=== PATIENT | female | born 1985 | race African-American/Black ===

== ENCOUNTER 2020-06-25 18:37 | Emergency (ER) | payer OTHER, MEDICAID, SELFPAY ==
[2020-06-25 18:39] VITALS: BP 138/89; PULSE 74; RESP 16; TEMP 36.3; O2SAT 98
--- NOTE | 2020-06-25 19:33 | ED.GENADULT ---
HPI - General Adult General Chief complaint: Ear Stated complaint: right ear pain Time Seen by Provider: 06/25/20 19:00 Source: patient Mode of arrival: ambulatory Limitations: no limitations History of Present Illness HPI narrative: Patient is a 35-year-old female who presents complaining of right ear pain x1 day. Patient reports swelling behind her right ear. She reports a recent dental right upper infection and reports taking penicillin 3 to 4 weeks ago. Patient reports she is seeing dentist on Monday. She reports pain of 6/10. She denies sore throat, rhinorrhea, congestion, fever or body aches. She denies taking [id number]-[id number] medications for pain at this time. MD complaint: Posterior ear pain Related Data Home Medications Medication Instructions Recorded Confirmed furosemide [Lasix] 20 mg PO DAILY 06/25/20 Allergies Allergy/AdvReac Type Severity Reaction Status Date / Time No Known Allergies Allergy Verified 06/25/20 18:39 Review of Systems Review of Systems: Narrative: CONSTITUTIONAL: Denies fever, chills, or sweats. EYES: Denies visual changes, redness, or discharge. ENT: Denies rhinorrhea, congestion, sore throat, reports right posterior ear pain. CARDIOVASCULAR: Denies chest pain, palpitations, or edema. RESPIRATORY: Denies cough or dyspnea. GASTROINTESTINAL: Denies abdominal pain, nausea, vomiting, or diarrhea. GENITOURINARY: Denies dysuria or hematuria. SKIN: Denies rash or itching. MUSCULOSKELETAL: Denies back pain, joint pain, or myalgia. NEUROLOGIC: Denies headache, numbness, dizziness, or weakness. PSYCHIATRIC: Denies anxiety or depression. [facility] Past Medical History Medical History (Updated 06/25/20 @ 19:55 by PARTHA Joshi) Abnormal uterine bleeding Anemia Edema Fibroids Ulcer UTI (urinary tract infection) Surgical History Surgical History (Updated 06/25/20 @ 19:43 by PARTHA Joshi) H/O gastric bypass Family History Family History Other Diabetes mellitus Family history of elevated blood lipids Hypertension Social History Social History Smoking status: Never smoker Alcohol intake: never Gender identity (if verbalized by the patient): Female Exam Narrative: Exam Narrative: GENERAL: Well-appearing, well-nourished, and in no acute distress. HEAD: Normocephalic, atraumatic. EYES: EOMI. No redness or drainage. Conjunctiva are normal. ENT: Mucous membranes pink and moist. Nares clear. No rhinorrhea. TMs normal bilaterally. Right posterior auricular lymphadenopathy and tenderness. Throat normal. Uvula midline. NECK: AROM. Supple. No lymphadenopathy. CHEST: No respiratory distress. Clear to auscultation. HEART: Regular rate and rhythm. No murmur appreciated. Normal peripheral pulses. EXTREMITIES: Normal range of motion. SKIN: Warm, dry, no rash. NEURO: No focal deficits. Alert and oriented x3. Gait steady. PSYCH: Normal affect. No signs of depression or anxiety. Course Vital Signs Vital signs: Vital Signs Temperature 36.3 C L 06/25/20 18:39 Pulse Rate 74 06/25/20 18:39 Respiratory Rate 16 06/25/20 18:39 Blood Pressure 138/89 06/25/20 18:39 Pulse Oximetry 98 06/25/20 18:39 Temperature 36.3 C L 06/25/20 18:39 Pulse Rate 74 06/25/20 18:39 Respiratory Rate 16 06/25/20 18:39 Blood Pressure 138/89 06/25/20 18:39 Pulse Oximetry 98 06/25/20 18:39 Reviewed. Patient has been instructed to follow-up with her PCP regarding her blood pressure. Medical Decision Making MDM Narrative Medical decision making narrative: Patient shows right posterior auricular lymphadenopathy. Right TM is intact and normal with visualization. Patient reports dental infection approximately 1 month ago and reports finishing penicillin approximately 2 weeks ago. Patient's lymphadenopathy likely caused by dental infection whi
[2020-06-25 20:16] VITALS: BP 133/75; PULSE 69; RESP 15; O2SAT 100
== END 2020-06-25 20:16 | disposition home or self-care (01) ==
PROVIDERS: Emergency Provider Nurse Practitioner; PCP Internal Medicine
DX: R59.1 Generalized enlarged lymph nodes (principal); Z87.440 Personal history of urinary (tract) infections; Z98.84 Bariatric surgery status
CPT/HCPCS: 99283

== ENCOUNTER 2020-09-09 19:15 | Emergency (ER) | payer OTHER, MEDICAID, SELFPAY ==
[2020-09-09 19:17] VITALS: BP 118/68; PULSE 75; RESP 16; TEMP 36.3; O2SAT 100
[2020-09-09 19:24] VITALS: BP 118/68; PULSE 75; RESP 18; TEMP 36.3; O2SAT 100
--- NOTE | 2020-09-09 20:10 | ED.GENADULT ---
HPI - General Adult General Chief complaint: Eye Problems Stated complaint: L EYE IRRITATION X1D Time Seen by Provider: 09/09/20 19:21 Source: patient Mode of arrival: ambulatory Limitations: no limitations History of Present Illness HPI narrative: Patient presents with chief complaint of his hearing and radiates of the left. Patient states it initially began irritating after wearing false eyelashes and noticing that the glue was irritating. Patient states she stopped wearing them approximately 3 days ago. Patient states over the past day she has noticed some redness and irritation as well as tearing. She denies any vision changes, headache, nausea, vomiting, or crusting. Patient states she normally has dry eyes so she uses artificial tears but otherwise does not use contact lenses. Patient denies any allergies to any medications. Patient denies any foreign bodies to her eye or any trauma to her eye. Related Data Home Medications Medication Instructions Recorded Confirmed furosemide [Lasix] 20 mg PO DAILY 06/25/20 Allergies Allergy/AdvReac Type Severity Reaction Status Date / Time No Known Allergies Allergy Verified 09/09/20 19:19 Review of Systems Review of Systems: Narrative: CONSTITUTIONAL: Denies fever, chills, or sweats. EYES: Reports diffuse redness left eye and tearing denies visual changes ENT: Denies rhinorrhea, congestion, sore throat, or otalgia. CARDIOVASCULAR: Denies chest pain, palpitations, or edema. RESPIRATORY: Denies cough or dyspnea. GASTROINTESTINAL: Denies abdominal pain, nausea, vomiting, or diarrhea. GENITOURINARY: Denies dysuria or hematuria. SKIN: Denies rash or itching. MUSCULOSKELETAL: Denies back pain, joint pain, or myalgia. NEUROLOGIC: Denies headache, numbness, dizziness, or weakness. PSYCHIATRIC: Denies anxiety or depression. [facility] Past Medical History Medical History (Updated 09/09/20 @ 20:22 by Layla Chris PA-C) Abnormal uterine bleeding Anemia Edema Fibroids Ulcer UTI (urinary tract infection) Surgical History Surgical History (Updated 06/25/20 @ 19:43 by PARTHA Joshi) H/O gastric bypass Family History Family History Other Diabetes mellitus Family history of elevated blood lipids Hypertension Social History Social History Smoking status: Never smoker Alcohol intake: never Gender identity (if verbalized by the patient): Female Exam Narrative: Exam Narrative: GENERAL: Well-appearing, well-nourished, and in no acute distress. HEAD: Normocephalic, atraumatic. EYES: PERRLA and EOMI. there is diffuse erythema/irritation to the conjunctiva of the left eye. There is clear tearing without erythema. No foreign bodies noted to sclera. NECK: Supple. No adenopathy or masses. CHEST: Clear to auscultation. No respiratory distress. No wheezes rales or rhonchi HEART: Regular rate and rhythm. No murmur heard. Normal peripheral pulses. ABDOMEN: Soft, nontender, nondistended, normal active bowel sounds. EXTREMITIES: Normal range of motion. No edema. SKIN: Warm, dry, no rash. NEURO: No focal deficits. Alert and oriented x3. PSYCH: Normal mood and affect. Course Vital Signs Vital signs: Vital Signs Temperature 97.3 F L 09/09/20 19:17 Pulse Rate 75 09/09/20 19:17 Respiratory Rate 16 09/09/20 19:17 Blood Pressure 118/68 09/09/20 19:17 Pulse Oximetry 100 09/09/20 19:17 Temperature 97.3 F L 09/09/20 19:24 Pulse Rate 75 09/09/20 19:24 Respiratory Rate 18 09/09/20 19:24 Blood Pressure 118/68 09/09/20 19:24 Pulse Oximetry 100 09/09/20 19:24 Medical Decision Making MDM Narrative Medical decision making narrative: Patient denies foreign body or trauma to her left eye. Patient will be treated with ocular antibiotic and she has been instructed to call the [employer] [facility] office tomorrow to
== END 2020-09-09 20:31 | disposition home or self-care (01) ==
PROVIDERS: Emergency Provider Emergency Medicine; PCP Internal Medicine
DX: H10.9 Unspecified conjunctivitis (principal); B96.89 Other specified bacterial agents as the cause of diseases classified elsewhere
CPT/HCPCS: 99283

== ENCOUNTER 2020-09-20 03:20 | Emergency (ER) | payer OTHER, MEDICAID, SELFPAY ==
[2020-09-20 03:23] VITALS: BP 131/92; PULSE 90; RESP 18; TEMP 36.7; O2SAT 98
--- NOTE | 2020-09-20 03:36 | ED.NAVMDI ---
HPI - Nausea/Vomiting/Diarrhea General Chief complaint: Nausea/Vomiting/Diarrhea Stated complaint: N/V Time Seen by Provider: 09/20/20 03:29 Source: RN notes reviewed History of Present Illness HPI Narrative: Patient presents to emergency department from work for nausea and vomiting. Patient states that she was at work this evening she states she felt fine at work but normally eats her lunch at approximately 1 PM but it was delayed until approximately an hour and a half ago she is that time she ate chicken and rice and believes she had to fast and had 1 episode of emesis following that. She states that since that time she has had no complaints she denies any fevers or chills abdominal pain any further nausea or vomiting or diarrhea she states that her boss insisted that she come to the emergency department to be evaluated and she denies any complaints at this time Related Data Home Medications Medication Instructions Recorded Confirmed furosemide [Lasix] 20 mg PO DAILY 06/25/20 Allergies Allergy/AdvReac Type Severity Reaction Status Date / Time No Known Allergies Allergy Verified 09/20/20 03:26 Review of Systems Review of Systems: Narrative: Gen.: Denies fevers or chills Eyes: Denies eye pain or visual change ENT: Denies congestion Respiratory: Denies shortness of breath or cough CV: Denies chest pain or palpitations GI: Denies abdominal pain reports emesis x1 denies diarrhea Musculoskeletal: Denies back pain or muscle pain Neuro: Denies numbness, tingling, weakness or focal weakness Skin: Denies rash Except as documented, all other systems reviewed and negative [facility] Past Medical History Medical History (Updated 09/20/20 @ 04:01 by Markus Alvarez DO) Abnormal uterine bleeding Anemia Edema Fibroids Ulcer UTI (urinary tract infection) Surgical History Surgical History (Updated 09/20/20 @ 03:41 by Markus Alvarez DO) H/O gastric bypass H/O tubal ligation Family History Family History Other Diabetes mellitus Family history of elevated blood lipids Hypertension Social History Social History Smoking status: Never smoker Alcohol intake: never Gender identity (if verbalized by the patient): Female Exam Narrative: Exam Narrative: APPEARANCE: No acute distress, nontoxic, resting in bed EYES: EOMI HEENT: Normocephalic, atraumatic, OMM RESPIRATORY: No respiratory distress Clear to auscultation bilaterally with no rhonchi wheezing or rales. CARDIOVASCULAR: Regular rate and rhythm without murmurs rubs or gallops. ABDOMINAL: Soft, nontender, nondistended, no rebound or guarding MUSCULOSKELETAl: Moves all extremities. No clubbing, cyanosis or edema. NEURO: Awake and alert. Following commands, speech normal, no focal deficits SKIN:: Warm, dry. No rashes lesions or abrasions PSYCHIATRIC: Normal affect/mood, Course Course Emergency Course: Patient ate and drink in the ED with no emesis continues to deny any symptoms in the emergency department Discussed with patient results of workup and diagnosis. Discussed need for follow-up with primary care, proper use of medication, and reasons to return to the emergency department. Patient understands and agrees to current treatment plan Vital Signs Vital signs: Vital Signs Temperature 98.1 F 09/20/20 03:23 Pulse Rate 90 09/20/20 03:23 Respiratory Rate 18 09/20/20 03:23 Blood Pressure 131/92 H 09/20/20 03:23 Pulse Oximetry 98 09/20/20 03:23 Temperature 98.1 F 09/20/20 03:23 Pulse Rate 90 09/20/20 03:23 Respiratory Rate 18 09/20/20 03:23 Blood Pressure 131/92 H 09/20/20 03:23 Pulse Oximetry 98 09/20/20 03:23 Discharge Plan Discharge Clinical Impression: Nausea & vomiting Patient Disposition: Home, Self-Care Condition: Stable Instructions: Antibiotic Form, Acute Nausea and Vomiting (ED)
[2020-09-20 04:26] VITALS: BP 129/85; PULSE 81; RESP 20; O2SAT 97
== END 2020-09-20 04:29 | disposition home or self-care (01) ==
LOC: ANHED 04:10
PROVIDERS: Emergency Provider Emergency Medicine; PCP Internal Medicine
DX: R11.2 Nausea with vomiting, unspecified (principal); Z86.2 Personal history of diseases of the blood and blood-forming organs and certain disorders involving the immune mechanism; Z87.440 Personal history of urinary (tract) infections
CPT/HCPCS: 99281

== ENCOUNTER 2020-10-07 02:35 | Emergency (ER) | payer OTHER, MEDICAID, SELFPAY ==
[2020-10-07] VITALS (7 sets, daily range): BP systolic 106–121; BP diastolic 62–94; PULSE 66–87; RESP 18–22; TEMP 37.1; O2SAT 96–100
--- NOTE | 2020-10-07 02:51 | ECG_ITS ---
Measurements Intervals [place] Rate: 73 P: 22 NM: 159 QRS: 34 QRSD: 78 T: 12 QT: 377 QTc: 418 Interpretive Statements SINUS RHYTHM BASELINE ARTIFACT- I, II, III NORMAL ECG Electronically Signed On 10-07-2020 7:06:41 [employer] by Trevor Dawn D.O.
--- NOTE | 2020-10-07 03:22 | ED.GENADULT ---
HPI - General Adult General Chief complaint: Unspecified Stated complaint: nausea/dizzy, ate 2 marijuana edibles Time Seen by Provider: 10/07/20 02:42 Source: patient Mode of arrival: EMS Limitations: other (poor historian) History of Present Illness HPI narrative: This patient is a 35 year old female who presents for evaluation of possible accidental drug ingestion. She states tonight around 8 pm she went to dinner with her fiance'. Prior to that she reports eating what she thought was popcorn. She is unable to quantify how much she ate. After she returned from dinner, she developed sudden onset of dizziness, nausea and sense that she was going to . She reports she did not feel right so she called the police around 1 am. She states the police told her she ate some edibles. She declined to come to ER at that time. She reports she started having nausea and dry heaves so she decided to come to ER. She denies previous drug use. She reports she had a small amount of alcohol at dinner, and she rarely drinks alcohol. She denies chest pain, cough, fever, chills. Related Data Home Medications Medication Instructions Recorded Confirmed furosemide [Lasix] 20 mg PO DAILY 06/25/20 calcium carbonate-vitamin D3 tablet PO 10/07/20 cholecalciferol (vitamin D3) 10/07/20 ferrous sulfate mg 10/07/20 mecobalamin (vitamin B12) mcg 10/07/20 multivitamin tablet 10/07/20 Allergies Allergy/AdvReac Type Severity Reaction Status Date / Time No Known Allergies Allergy Verified 10/07/20 02:43 Review of Systems Review of Systems: All systems reviewed & are unremarkable except as noted in HPI and below PMFSH Past Medical History Medical History (Updated 10/07/20 @ 05:05 by Rena Rothman MD) Abnormal uterine bleeding Anemia Edema Fibroids Ulcer UTI (urinary tract infection) Surgical History Surgical History (Updated 09/20/20 @ 03:41 by Markus Alvarez DO) H/O gastric bypass H/O tubal ligation Family History Family History Other Diabetes mellitus Family history of elevated blood lipids Hypertension Social History Social History Smoking status: Never smoker Alcohol intake: never Gender identity (if verbalized by the patient): Female Sexual Orientation (if Verbalized by the Patient): Straight or Heterosexual Exam Narrative: Exam Narrative: GENERAL: Well-appearing, well-nourished, and in no acute distress. HEAD: Normocephalic, atraumatic EYES: PERRLA and EOMI, conjunctiva clear without discharge EARS: TM's clear bilaterally without erythema or dullness NOSE: Nares clear, no rhinorrhea or epistaxis THROAT:Mucous membranes moist, Oropharynx normal without erythema, exudate, peritonsillar swelling or fluctuance NECK: Supple, without lymphadenopathy or mass RESPIRATORY: No respiratory distress, Airway patent, Respirations non-labored, Clear to auscultation without rales, rhonchi or wheeze HEART: Regular rate and rhythm. No murmur heard. Normal peripheral pulses. ABDOMEN: Soft, nontender, nondistended, normal active bowel sounds. No masses. No rebound or guarding, No organomegaly. EXTREMITIES: No edema, normal strength with full range of motion. SKIN: Warm, dry, normal color without rash NEURO: Alert and oriented x3. CN 2-12 grossly intact. No focal deficits. PSYCH: Normal mood and affect. Course Reevaluation(s) Reevaluation #1: PAtient has been up and ambulatory with steady gait. She reports she feels better. I have discussed drug screen. She states she would like to be discharge and she will take a cab home Date: 10/07/20 Time: 05:00 Vital Signs Vital signs: Vital Signs Temperature 98.7 F 10/07/20 02:38 Pulse Rate 75 10/07/20 02:38 Respiratory Rate 18 10/07/20 02:38 Blood Pressure 121/77 10/07/20 02:38 Pulse Oximetry 100 10/07/20 02:3
[2020-10-07 03:29] LABS: Basophils Percent Auto 0.6 % (0.2-1.2); Eosinophils Absolute Auto 0.3 K/mm3 (0-0.3); Eosinophils Percent Auto 3.7 % (0-4.4); Hematocrit 39.6 % (37.0-47.0); Hemoglobin 13.3 g/dL (12.0-15.0); Immature Granulocyte Absolute 0.01 K/mm3 (0.00-0.031); Immature Granulocyte Percent A 0.1 % (0-0.5); Lymphocytes Absolute Auto 1.45 K/mm3 (0.9-3.2); Lymphocytes Percent Auto 20.7 % (18.3-44.2); Mean Corpuscular HGB Conc 33.6 g/dl (32-36); Mean Corpuscular Volume 89.4 fl (80-100); Mean Platelet Volume 9.5 fl (7.4-10.4); Monocytes Absolute Auto 0.8 K/mm3 (0.1-0.6); Monocytes Percent Auto 11.7 % (2.6-8.5); Neutrophils Absolute Auto 4.4 K/mm3 (1.3-6.7); Neutrophils Percent Auto 63.2 % (45.5-73.1); Platelet Count Result 315 k/mm3 (150-375); Red Blood Count 4.43 M/mm3 (4.2-5.4); Red Cell Distribution Width 16.2 % (11.5-14.5)
[2020-10-07 03:43] LABS: Alanine Aminotransferase 45 U/L (4-35); Albumin Level 3.9 g/dL (3.5-5.1); Alkaline Phosphatase 134 U/L (38-126); Anion Gap 6 mmol/L (8-16); Aspartate Amino Transferase 51 U/L (14-36); Bilirubin,Total 0.4 mg/dL (0.2-1.3); Blood Urea Nitrogen 15 mg/dL (7-17); Calcium 8.6 mg/dL (8.4-10.2); Carbon Dioxide 26 mmol/L (22-30); Chloride 105 mmol/L (98-107); Estimated CRCL calculation 95 ml/min; Estimated Glomerular Filt Rate > 60; Glucose 97 mg/dL (65-105); Magnesium 1.7 mg/dL (1.6-2.3); Sodium 137 mmol/L (137-145)
[2020-10-07] MEDS: PROMETHAZINE HCL 25 MG/ML AMPUL 12.5 MG IV PUSH (03:47)
[2020-10-07 03:50] LABS: Ethanol < 10 mg/dL (<10)
[2020-10-07 04:01] LABS: Amphetamine Screen Urine Negative (Negative); Barbiturate Screen Urine Negative (Negative); Benzodiazepines Screen Urine Negative (Negative); Cannabinoid Screen Urine Positive (Negative); Cocaine Screen Urine Negative (Negative); Methadone Screen Urine Negative (Negative); Opiate Screen Urine Negative (Negative); Phencyclidine Screen Urine Negative (Negative)
== END 2020-10-07 05:24 | disposition home or self-care (01) ==
PROVIDERS: Emergency Provider General Practice; PCP Internal Medicine
DX: T40.7X1A Poisoning by cannabis (derivatives), accidental (unintentional), initial encounter (principal); R11.0 Nausea; D64.9 Anemia, unspecified; Z87.440 Personal history of urinary (tract) infections; Z98.84 Bariatric surgery status
CPT/HCPCS: 36415; 80053; 80307; 81025; 83735; 85025; 93005; 96374; 99284; J2550

== ENCOUNTER 2020-12-09 11:17 | Emergency (ER) | payer OTHER, SELFPAY ==
--- NOTE | ~2020-12-09 | CT_ITS ---
EXAMINATION: CT abdomen pelvis w con DATE: 12/09/2020 13:00 INDICATION: Abdominal bloating. TECHNIQUE: Computed tomography (CT) of the abdomen and pelvis was performed with 100 mL Omnipaque-350 intravenous contrast. Automated exposure control and iterative reconstruction technique were employe d. The dose-length product was 725.93 mGy-cm. COMPARISON: 07/14/2019 FINDINGS: Lung bases are clear. Heart size is normal. No pericardial or pleural effusion. Postoperative change of prior gastric bypass procedure. No bowel obstruction. Normal appendix. Liver, gallbladder, spleen, pancreas, bilateral adrenal glands and kidneys are normal. Bladder, anteverted, retroflexed uterus a nd left adnexa are normal. 2.2 cm peripheral enhancing corpus luteum cyst in the right ovary. No free intraperitoneal gas or fluid. No pathologically enlarged abdominal or pelvic lymphadenopathy. Bones are unremarkable. IMPRESSION: 1. No bowel obstruction or other acute intra-abdominal/pelvic process. Reviewed, dictated and finalized at location B.
[2020-12-09 11:30] VITALS: BP 120/67; PULSE 84; RESP 14; TEMP 36.3; O2SAT 100
[2020-12-09 12:04] LABS: Basophils Percent Auto 0.7 % (0.2-1.2); Eosinophils Absolute Auto 0.3 K/mm3 (0-0.3); Eosinophils Percent Auto 5.5 % (0-4.4); Hematocrit 42.3 % (37.0-47.0); Hemoglobin 14.1 g/dL (12.0-15.0); Lymphocytes Absolute Auto 2.02 K/mm3 (0.9-3.2); Lymphocytes Percent Auto 34.6 % (18.3-44.2); Mean Corpuscular HGB Conc 33.3 g/dl (32-36); Monocytes Absolute Auto 0.8 K/mm3 (0.1-0.6); Monocytes Percent Auto 13.9 % (2.6-8.5); Neutrophils Absolute Auto 2.7 K/mm3 (1.3-6.7); Neutrophils Percent Auto 45.3 % (45.5-73.1); Platelet Count Result 330 k/mm3 (150-375); Red Blood Count 4.55 M/mm3 (4.2-5.4); Red Cell Distribution Width 13.4 % (11.5-14.5); White Blood Count 5.8 K/mm3 (4.5-10.0)
[2020-12-09 12:21] LABS: Anion Gap 6 mmol/L (8-16); Blood Urea Nitrogen 17 mg/dL (7-17); Calcium 9.2 mg/dL (8.4-10.2); Carbon Dioxide 27 mmol/L (22-30); Chloride 105 mmol/L (98-107); Estimated CRCL calculation 88 ml/min; Estimated Glomerular Filt Rate > 60; Glucose 76 mg/dL (65-105); Sodium 138 mmol/L (137-145)
--- NOTE | 2020-12-09 12:33 | ED.GENADULT ---
HPI - General Adult General Chief complaint: Abdominal Pain Stated complaint: abd pain/bloating Time Seen by Provider: 12/09/20 11:22 History of Present Illness HPI narrative: Patient is a 35-year-old female who presents ER with abdominal bloating. Ongoing for the last day. Still having bowel movements but today became nauseous. Has history of small bowel obstruction related to a previous gastric bypass surgery. Denies fevers or chills or sweats. No aggravating or alleviating factors. Related Data Home Medications Medication Instructions Recorded Confirmed furosemide [Lasix] 20 mg PO DAILY 06/25/20 calcium carbonate-vitamin D3 tablet PO 10/07/20 cholecalciferol (vitamin D3) 10/07/20 ferrous sulfate mg 10/07/20 mecobalamin (vitamin B12) mcg 10/07/20 multivitamin tablet 10/07/20 Allergies Allergy/AdvReac Type Severity Reaction Status Date / Time No Known Allergies Allergy Verified 10/07/20 02:43 Review of Systems Review of Systems: All systems reviewed & are unremarkable except as noted in HPI and below Constitutional: Constitutional: Denies chills, Denies fever(s) and Denies weakness Cardiovascular: Cardiovascular: Denies chest pain, Denies rapid heart rate and Denies radiating jaw, neck or arm pain Respiratory: Respiratory: Denies cough and Denies dyspnea Gastrointestinal: Gastrointestinal: Reports abdominal pain, Reports bloating, Denies diarrhea, Reports nausea and Denies vomiting PMFSH Past Medical History Medical History (Updated 12/09/20 @ 13:32 by Mehdi Barboza MD) Abnormal uterine bleeding Anemia Edema Fibroids Ulcer UTI (urinary tract infection) Surgical History Surgical History (Updated 09/20/20 @ 03:41 by Markus Alvarez DO) H/O gastric bypass H/O tubal ligation Family History Family History Other Diabetes mellitus Family history of elevated blood lipids Hypertension Social History Social History Smoking status: Never smoker Alcohol intake: never Gender identity (if verbalized by the patient): Female Exam Narrative: Exam Narrative: GENERAL: Well-appearing, well-nourished, and in no acute distress. HEAD: Normocephalic, atraumatic. ENT: Mucous membranes moist. CHEST: Clear to auscultation. No respiratory distress. HEART: Regular rate and rhythm. Normal peripheral pulses. ABDOMEN: Soft, nontender, nondistended, normal active bowel sounds. EXTREMITIES: Normal range of motion. Nonpitting edema. SKIN: Warm, dry, no rash. NEURO: Alert and oriented x3. Course Course Emergency Course: Informed of results. Bedside negative. Discharge home. Vital Signs Vital signs: Vital Signs Temperature 97.3 F L 12/09/20 11:30 Pulse Rate 84 12/09/20 11:30 Respiratory Rate 14 12/09/20 11:30 Blood Pressure 120/67 12/09/20 11:30 Pulse Oximetry 100 12/09/20 11:30 Temperature 97.3 F L 12/09/20 11:30 Pulse Rate 84 12/09/20 11:30 Respiratory Rate 14 12/09/20 11:30 Blood Pressure 120/67 12/09/20 11:30 Pulse Oximetry 100 12/09/20 11:30 Medical Decision Making Vital Signs Vital Signs: Vital Signs Temperature 97.3 F L 12/09/20 11:30 Pulse Rate 84 12/09/20 11:30 Respiratory Rate 14 12/09/20 11:30 Blood Pressure 120/67 12/09/20 11:30 Pulse Oximetry 100 12/09/20 11:30 Temperature 97.3 F L 12/09/20 11:30 Pulse Rate 84 12/09/20 11:30 Respiratory Rate 14 12/09/20 11:30 Blood Pressure 120/67 12/09/20 11:30 Pulse Oximetry 100 12/09/20 11:30 Lab Data Result diagrams: 12/09/20 11:59 12/09/20 11:59 Labs: Lab Results 12/09/20 12/09/20 Range/Units 11:59 11:59 WBC 5.8 (4.5-10.0) K/mm3 RBC 4.55 (4.2-5.4) M/mm3 Hgb 14.1 (12.0-15.0) g/dL Hct 42.3 (37.0-47.0) % MCV 93.0 (80-100) fl MCH 31.0 (26-34) pg MCHC 33.3 (32-3
[2020-12-09 13:50] VITALS: BP 118/64; PULSE 80; RESP 12; O2SAT 99
== END 2020-12-09 13:51 | disposition home or self-care (01) ==
PROVIDERS: Emergency Provider Emergency Medicine; PCP Internal Medicine
DX: R14.0 Abdominal distension (gaseous) (principal); Z87.440 Personal history of urinary (tract) infections; Z86.2 Personal history of diseases of the blood and blood-forming organs and certain disorders involving the immune mechanism
CPT/HCPCS: 36415; 74177; 80048; 81025; 85025; 99284; Q9967

== ENCOUNTER 2021-01-28 08:16 | Emergency (ER) | payer OTHER, SELFPAY ==
[2021-01-28 08:23] VITALS: BP 135/67; PULSE 107; RESP 18; TEMP 36.2; O2SAT 100
--- NOTE | 2021-01-28 10:07 | ED.GENADULT ---
HPI - General Adult General Chief complaint: Unspecified Stated complaint: r arm tenderness and swelling s/p covid Time Seen by Provider: 01/28/21 09:02 Source: patient and RN notes reviewed Mode of arrival: ambulatory Limitations: no limitations History of Present Illness HPI narrative: Patient is a 35-year-old female who presents to emergency department for evaluation of swollen tender area to the right armpit patient notes that this developed after receiving her second Pfizer vaccine a couple days ago patient notes aching pain patient notes otherwise she feels fine and does not have any other concerns or complaints patient has not taken anything for her symptoms presents in no distress and does not appear uncomfortable Related Data Home Medications Medication Instructions Recorded Confirmed furosemide [Lasix] 20 mg PO DAILY 06/25/20 calcium carbonate-vitamin D3 tablet PO 10/07/20 cholecalciferol (vitamin D3) 10/07/20 ferrous sulfate mg 10/07/20 mecobalamin (vitamin B12) mcg 10/07/20 multivitamin tablet 10/07/20 Allergies Allergy/AdvReac Type Severity Reaction Status Date / Time No Known Allergies Allergy Verified 01/28/21 08:33 Review of Systems Review of Systems: All systems reviewed & are unremarkable except as noted in HPI and below PMFSH Past Medical History Medical History Abnormal uterine bleeding Anemia Edema Fibroids Ulcer UTI (urinary tract infection) Surgical History Surgical History H/O gastric bypass H/O tubal ligation Family History Family History Other Diabetes mellitus Family history of elevated blood lipids Hypertension Social History Social History Smoking status: Never smoker Alcohol intake: never Gender identity (if verbalized by the patient): Female Exam Narrative: Exam Narrative: GENERAL: Well-appearing, well-nourished, and in no acute distress. HEAD: Normocephalic, atraumatic. EYES: PERRLA and EOMI. ENT: Nares clear, no rhinorrhea or epistaxis. Mucous membranes moist. CHEST: Clear to auscultation. No respiratory distress. No wheezes rales or rhonchi HEART: Regular rate and rhythm. No murmur heard. Normal peripheral pulses. EXTREMITIES: Normal range of motion. No edema. Multiple tender lymph node in the right axilla no erythema or other concerning findings SKIN: Warm, dry, no rash. NEURO: No focal deficits. Alert and oriented x3. PSYCH: Normal mood and affect. Course Course Emergency Course: Patient presented in no distress resting comfortably in the room with likely reactive lymph node ABCs and vital signs intact and stable will be discharged home with follow-up with primary care patient feels comfortable with this plan no other concerning findings or symptoms Vital Signs Vital signs: Vital Signs Temperature 97.2 F L 01/28/21 08:23 Pulse Rate 107 H 01/28/21 08:23 Respiratory Rate 18 01/28/21 08:23 Blood Pressure 135/67 01/28/21 08:23 Pulse Oximetry 100 01/28/21 08:23 Temperature 97.2 F L 01/28/21 08:23 Pulse Rate 107 H 01/28/21 08:23 Respiratory Rate 18 01/28/21 08:23 Blood Pressure 135/67 01/28/21 08:23 Pulse Oximetry 100 01/28/21 08:23 Medical Decision Making MDM Narrative Medical decision making narrative: Patient symptoms consistent with reactive lymph node to her Pfizer vaccine which is to be expected. No signs of neurological or vascular compromise on exam. Compartments and tisues are soft without signs of compartment syndrome. Pain is felt appropriate for further evaluation on an outpatient basis. Vital Signs Vital Signs: Vital Signs Temperature 97.2 F L 01/28/21 08:23 Pulse Rate 107 H 01/28/21 08:23 Respiratory Rate 18 01/28/21 08:23 Blood Pressure 135/67 01/28/21 08
[2021-01-28 10:22] VITALS: RESP 16
== END 2021-01-28 10:23 | disposition home or self-care (01) ==
PROVIDERS: Emergency Provider Emergency Medicine; PCP Internal Medicine
DX: R59.1 Generalized enlarged lymph nodes (principal); Z87.440 Personal history of urinary (tract) infections; Z98.84 Bariatric surgery status
CPT/HCPCS: 99281

== ENCOUNTER 2021-02-14 13:25 | Emergency (ER) | payer OTHER, SELFPAY ==
--- NOTE | ~2021-02-14 | US_ITS ---
EXAMINATION: US venous doppler [facility] DATE: 02/14/2021 14:35 INDICATION: Bilateral lower limb swelling TECHNIQUE: Nesbitt scale images without and with compression and Doppler images of the bilateral lower e xtremity veins were obtained. COMPARISON: 10/20/2016 FINDINGS: The right common femoral vein, profunda femoral vein, femoral vein, popliteal vein, peroneal trunk, p osterior tibial veins, and greater saphenous vein are patent. The left common femoral vein, profunda femoral vein, femoral vein, popliteal vein, peroneal trunk, po sterior tibial veins, and greater saphenous vein are patent. IMPRESSION: 1. Patent bilateral lower extremity veins. No evidence of deep venous thrombosis. Reviewed, dictated and finalized at location A. IMPRESSION: 1. Patent bilateral lower extremity veins. No evidence of deep venous thrombosi s.
[2021-02-14 13:32] VITALS: BP 105/71; PULSE 105; RESP 20; TEMP 36.8; O2SAT 98
--- NOTE | 2021-02-14 13:58 | ED.GENADULT ---
HPI - General Adult General Chief complaint: Extremity Injury, Lower Stated complaint: bilateral leg swelling with feet tingling/burning Time Seen by Provider: 02/14/21 13:49 History of Present Illness HPI narrative: Patient is a 35-year-old female who presents ER with lower extremity edema. Reports it is a chronic issue and she takes Lasix however over the last week she has had increased swelling up to her knees. No cramping in her legs. No chest pain or chest pressure. She reports chronic shortness of breath. Denies any change to her diet. She adheres to a low-salt diet. No previous history of DVT. Related Data Home Medications Medication Instructions Recorded Confirmed furosemide [Lasix] 20 mg PO DAILY 06/25/20 02/14/21 cholecalciferol (vitamin D3) 1,250 mcg PO WEEKLY 10/07/20 02/14/21 mecobalamin (vitamin B12) 10,000 mcg 10/07/20 multivitamin 1 tablet PO DAILY 10/07/20 02/14/21 ferrous sulfate [FeroSul] 325 mg PO TID 02/14/21 02/14/21 Allergies Allergy/AdvReac Type Severity Reaction Status Date / Time No Known Allergies Allergy Verified 02/14/21 13:37 Review of Systems Review of Systems: All systems reviewed & are unremarkable except as noted in HPI and below Constitutional: Constitutional: Denies chills, Denies fever(s) and Denies weakness Cardiovascular: Cardiovascular: Denies chest pain, Denies rapid heart rate and Denies radiating jaw, neck or arm pain Respiratory: Respiratory: Denies cough and Reports dyspnea Musculoskeletal: Musculoskeletal: Denies arthralgias and Denies muscle cramps Comments: Leg edema Neurologic: Denies focal weakness and Denies numbness [facility] Past Medical History Medical History (Updated 02/14/21 @ 15:42 by Mehdi Barboza MD) Abnormal uterine bleeding Anemia Edema Fibroids Small bowel obstruction Ulcer UTI (urinary tract infection) Surgical History Surgical History H/O gastric bypass H/O tubal ligation Family History Family History Other Diabetes mellitus Family history of elevated blood lipids Hypertension Social History Social History Smoking status: Never smoker Alcohol intake: never Gender identity (if verbalized by the patient): Female Exam Narrative: Exam Narrative: GENERAL: Well-appearing, well-nourished, and in no acute distress. HEAD: Normocephalic, atraumatic. CHEST: Clear to auscultation. No respiratory distress. HEART: Regular rate and rhythm. Normal peripheral pulses. EXTREMITIES: Normal range of motion. 2+ edema. Negative Homans' sign. SKIN: Warm, dry, no rash. NEURO: Alert and oriented x3. PSYCH: Normal mood and affect. Course Course Emergency Course: Patient informed of results. Recommend compression stockings and ambulation. Recommend follow-up with PCP. Verbalized understanding. Vital Signs Vital signs: Vital Signs Temperature 98.2 F 02/14/21 13:32 Pulse Rate 105 H 02/14/21 13:32 Respiratory Rate 20 02/14/21 13:32 Blood Pressure 105/71 02/14/21 13:32 Pulse Oximetry 98 02/14/21 13:32 Temperature 98.2 F 02/14/21 13:32 Pulse Rate 105 H 02/14/21 13:32 Respiratory Rate 20 02/14/21 13:32 Blood Pressure 105/71 02/14/21 13:32 Pulse Oximetry 98 02/14/21 13:32 Medical Decision Making Vital Signs Vital Signs: Vital Signs Temperature 98.2 F 02/14/21 13:32 Pulse Rate 105 H 02/14/21 13:32 Respiratory Rate 20 02/14/21 13:32 Blood Pressure 105/71 02/14/21 13:32 Pulse Oximetry 98 02/14/21 13:32 Temperature 98.2 F 02/14/21 13:32 Pulse Rate 105 H 02/14/21 13:32 Respiratory Rate 20 02/14/21 13:32 Blood Pressure 105/71 02/14/21 13:32 Pulse Oximetry 98 02/14/21 13:32 Lab Data Result diagrams: 02/14/21 14:06 Labs: Lab Results 02/14/21 Range/Units 14:06
[2021-02-14 14:25] LABS: Anion Gap 5 mmol/L (8-16); Blood Urea Nitrogen 11 mg/dL (7-17); Calcium 9.2 mg/dL (8.4-10.2); Carbon Dioxide 22 mmol/L (22-30); Chloride 110 mmol/L (98-107); Estimated CRCL calculation 96 ml/min; Estimated Glomerular Filt Rate > 60; Glucose 68 mg/dL (65-105); Potassium 4.1 mmol/L (3.4-5.0); Sodium 137 mmol/L (137-145)
[2021-02-14 16:23] VITALS: BP 106/70; PULSE 74; RESP 16
== END 2021-02-14 16:25 | disposition home or self-care (01) ==
PROVIDERS: Emergency Provider Emergency Medicine; PCP Internal Medicine
DX: R60.0 Localized edema (principal); D64.9 Anemia, unspecified; Z87.440 Personal history of urinary (tract) infections; Z98.84 Bariatric surgery status
CPT/HCPCS: 36415; 80048; 93970; 99284

== ENCOUNTER 2021-02-19 16:55 | Emergency (ER) | payer OTHER, SELFPAY ==
[2021-02-19] VITALS (11 sets, daily range): BP systolic 93–126; BP diastolic 58–84; PULSE 61–98; RESP 16–20; TEMP 36.3–36.4; O2SAT 96–100
--- NOTE | ~2021-02-19 | CT_ITS ---
EXAMINATION: CTA chest PE protocol DATE: 02/19/2021 20:17 CDT INDICATION: Elevated d-dimer. Chest pain. TECHNIQUE: Computed tomographic angiography (CTA) of the chest was performed with 100 mL Omnipaque-35 0 intravenous contrast. The dose-length product was 337.75 mGy-cm. Maximum intensity projection 3D-re constructions of the aorta and other arteries were constructed by the technologist on a separate work station. Automated exposure control and iterative reconstruction technique were employed. COMPARISON: CT dated 07/06/2019 FINDINGS: Study is technically adequate without evidence for pulmonary embolism. Cardiomegaly. No sig nificant pleural or pericardial effusion. No evidence for aortic aneurysm or dissection. Anterior med iastinal soft tissue, most likely residual thymic tissue. No endobronchial lesions. No pneumothorax. No focal airspace disease. No suspicious pulmonary nodules or masses. IMPRESSION: 1. No evidence for pulmonary embolism. No acute cardiopulmonary disease. Reviewed, dictated and finalized at location A.
--- NOTE | ~2021-02-19 | XR_ITS ---
EXAMINATION: XR chest 2V 02/19/2021 18:07 INDICATION: Left-sided chest pain. Syncope. PROCEDURE: AP and lateral views of the chest COMPARISON: 07/06/2019 FINDINGS: The lungs are clear. The cardiomediastinal silhouette is within normal limits. There are no pleural effusions. There is no pneumothorax suspected. IMPRESSION: 1: NO ACUTE CARDIOPULMONARY DISEASE. Reviewed, dictated and finalized at location A.
--- NOTE | ~2021-02-19 | CT_ITS ---
EXAMINATION: CT BRAIN W/O DATE: 02/19/2021 18:00 INDICATION: Syncope TECHNIQUE: Computed tomography (CT) of the head was performed without intravenous contrast. The dose- length product was 605.33 mGy-cm. Automated exposure control and iterative reconstruction technique w ere employed. COMPARISON: No prior studies for comparison. FINDINGS: Normal brain parenchymal volume for age. Normal victor-white differentiation. No acute intrac ranial hemorrhage, infarction, mass or mass effect. No ventriculomegaly or midline shift. Midline sagittal images demonstrate a normal corpus callosum, c raniovertebral junction and sella turcica. Basilar cisterns are patent. Paranasal sinuses and mastoids are pneumatized. No depressed skull fractures. IMPRESSION: 1. No acute intracranial abnormality. Reviewed, dictated and finalized at location A.
--- NOTE | 2021-02-19 17:07 | ECG_ITS ---
Measurements Intervals [place] Rate: 67 P: 37 IL: 171 QRS: 19 QRSD: 84 T: 12 QT: 382 QTc: 404 Interpretive Statements SINUS RHYTHM BASELINE ARTIFACT- I, II, AVR, AVF, V1, V3-V6 NORMAL ECG Electronically Signed On 02-19-2021 19:59:33 CDT by Trevor Dawn D.O.
--- NOTE | 2021-02-19 17:17 | PC.NURSE ---
EMS reports that they gave this patient 4 baby aspirin and one nitro. Nitro reportedly caused patient to have hypotension but did reportedly decrease her chest pain from 8 to a 6/10. Patient is awake, alert, and oriented at this time.
[2021-02-19 17:19] LABS: Basophils Absolute Auto 0.1 K/mm3 (0.0-0.1); Basophils Percent Auto 0.7 % (0.2-1.2); Eosinophils Absolute Auto 0.8 K/mm3 (0-0.3); Eosinophils Percent Auto 10.8 % (0-4.4); Hematocrit 40.1 % (37.0-47.0); Hemoglobin 13.6 g/dL (12.0-15.0); Immature Granulocyte Absolute 0.01 K/mm3 (0.00-0.031); Immature Granulocyte Percent A 0.1 % (0-0.5); Lymphocytes Absolute Auto 3.11 K/mm3 (0.9-3.2); Lymphocytes Percent Auto 42.4 % (18.3-44.2); Mean Corpuscular HGB Conc 33.9 g/dl (32-36); Mean Corpuscular Hemoglobin 31.6 pg (26-34); Mean Corpuscular Volume 93.3 fl (80-100); Monocytes Absolute Auto 0.8 K/mm3 (0.1-0.6); Monocytes Percent Auto 10.8 % (2.6-8.5); Neutrophils Absolute Auto 2.6 K/mm3 (1.3-6.7); Neutrophils Percent Auto 35.2 % (45.5-73.1); Platelet Count Result 357 k/mm3 (150-375); Red Cell Distribution Width 12.3 % (11.5-14.5); White Blood Count 7.3 K/mm3 (4.5-10.0)
--- NOTE | 2021-02-19 17:28 | ED.CHESTPAIN ---
HPI - Chest Pain General Chief Complaint: Chest Pain Stated Complaint: CP Time Seen by Provider: 02/19/21 17:19 Source: patient Mode of arrival: ambulatory Limitations: no limitations History of Present Illness HPI narrative: Patient is a 35-year-old female complaining of a syncopal episode. Patient states that after she stood up she developed a headache and chest pain and passed out. Patient complaining of a generalized headache, mild, dull, nonradiating. Patient currently denies any chest pain, shortness of breath, Arya pain, nausea, vomiting, diaphoresis, fever or chills. Related Data Home Medications Medication Instructions Recorded Confirmed furosemide [Lasix] 20 mg PO DAILY 06/25/20 02/14/21 cholecalciferol (vitamin D3) 1,250 mcg PO WEEKLY 10/07/20 02/14/21 mecobalamin (vitamin B12) 10,000 mcg 10/07/20 multivitamin 1 tablet PO DAILY 10/07/20 02/14/21 ferrous sulfate [FeroSul] 325 mg PO TID 02/14/21 02/14/21 Allergies Allergy/AdvReac Type Severity Reaction Status Date / Time No Known Allergies Allergy Verified 02/19/21 17:04 Review of Systems Review of Systems: All systems reviewed & are unremarkable except as noted in HPI and below Constitutional: Constitutional: Denies body ache(s), Denies chills, Denies excessive sweating, Denies fatigue, Denies fever(s), Denies headache(s), Denies lethargy, Denies malaise, Denies weakness and Denies weight loss Eyes: Eyes: Denies blurry vision, Denies change in vision and Denies loss of vision ENT: Denies dizziness, Denies ear discharge, Denies headache(s), Denies lip swelling, Denies epistaxis, Denies nasal congestion, Denies neck pain, Denies throat swelling and Denies tongue swelling Cardiovascular: Cardiovascular: Denies diaphoresis, Denies rapid heart rate, Denies edema, Denies irregular heart rhythm, Denies lightheadedness, Denies palpitations, Denies dyspnea and Denies dyspnea on exertion Respiratory: Respiratory: Denies chest congestion, Denies cough, Denies hemoptysis, Denies dyspnea and Denies dyspnea on exertion Gastrointestinal: Gastrointestinal: Denies abdominal pain, Denies melena, Denies hematochezia, Denies diarrhea, Denies nausea, Denies vomiting and Denies hematemesis Musculoskeletal: Musculoskeletal: Denies abnormal gait, Denies deformity, Denies joint swelling, Denies limited range of motion, Denies neck pain and Denies numbness Neurologic: Denies Abnormal speech present, Denies abnormal gait, Denies confusion, Denies dizziness, Denies focal weakness, Denies loss of vision, Denies numbness, Denies Other visual disturbances, Denies Sensory deficit (Neuro) and Denies weakness Psychiatric: Psychiatric: Denies confusion, Denies depression, Denies auditory hallucinations, Denies homicidal ideation and Denies suicidal ideation Endocrine: Endocrine: Denies cold intolerance, Denies excessive sweating, Denies fatigue, Denies heat intolerance and Denies palpitations Hematologic/Lymphatic: Hematologic/Lymphatic: Denies easy bleeding and Denies easy bruising Allergic/Immunologic: Allergic/Immunologic: Denies lip swelling, Denies throat swelling and Denies tongue swelling PMFSH Past Medical History Medical History Abnormal uterine bleeding Anemia Edema Fibroids Small bowel obstruction Ulcer UTI (urinary tract infection) Surgical History Surgical History H/O gastric bypass H/O tubal ligation Family History Family History Other Diabetes mellitus Family history of elevated blood lipids Hypertension Social History Social History Smoking status: Never smoker Alcohol intake: never Gender identity (if verbalized by the patient): Female Exam Const: General: cooperative, healthy appearing, comfortable, no acute distress, well
[2021-02-19 17:32] LABS: INR 1.1; Prothrombin Time 14.7 Seconds (11.1-14.7)
[2021-02-19 17:33] LABS: Partial Thromboplastin Time 31.5 SECONDS (22.3-36.8)
[2021-02-19] MEDS: SODIUM CHLORIDE 0.9% IV 1,000 ML 999 ML IV CONT (17:47)
[2021-02-19 19:02] LABS: Anion Gap 10 mmol/L (8-16); Blood Urea Nitrogen 12 mg/dL (7-17); Calcium 8.5 mg/dL (8.4-10.2); Carbon Dioxide 19 mmol/L (22-30); Chloride 111 mmol/L (98-107); Estimated CRCL calculation 96 ml/min; Estimated Glomerular Filt Rate > 60; Glucose 74 mg/dL (65-105); Potassium 3.8 mmol/L (3.4-5.0); Sodium 140 mmol/L (137-145)
[2021-02-19 19:03] LABS: D Dimer 0.74 ug/mL (<0.48)
[2021-02-19 19:13] LABS: Troponin I < 0.012 ng/mL (0.000-0.034)
== END 2021-02-19 22:11 | disposition home or self-care (01) ==
PROVIDERS: Emergency Medicine; Emergency Provider Emergency Medicine; PCP Internal Medicine
DX: R55 Syncope and collapse (principal); R07.89 Other chest pain; Z87.440 Personal history of urinary (tract) infections; Z86.2 Personal history of diseases of the blood and blood-forming organs and certain disorders involving the immune mechanism
CPT/HCPCS: 36415; 70450; 71046; 71275; 80048; 84484; 85025; 85380; 85610; 85730; 93005; 96360; 99284; J7030; Q9967

== ENCOUNTER 2021-03-14 17:01 | Emergency (ER) | payer OTHER, SELFPAY ==
[2021-03-14 17:13] VITALS: BP 155/73; PULSE 83; RESP 17; TEMP 36.8; O2SAT 99
--- NOTE | 2021-03-14 18:10 | ED.GENADULT ---
HPI - General Adult General Chief complaint: Wound/Laceration Stated complaint: spider bite Time Seen by Provider: 03/14/21 17:22 Source: patient History of Present Illness HPI narrative: Patient is 35 y/o complaining of right great toe pain starting 2 days ago. She noticed 2 peña on medial aspect of her toe. She rates her pain as 7/10. She applied peroxide, which did not help. She is able to ambulate. She has no fever or chills. She is not sure about her last Tetanus shot. Related Data Home Medications Medication Instructions Recorded Confirmed furosemide [Lasix] 20 mg PO DAILY 06/25/20 02/14/21 cholecalciferol (vitamin D3) 1,250 mcg PO WEEKLY 10/07/20 02/14/21 mecobalamin (vitamin B12) 10,000 mcg 10/07/20 multivitamin 1 tablet PO DAILY 10/07/20 02/14/21 ferrous sulfate [FeroSul] 325 mg PO TID 02/14/21 02/14/21 Allergies Allergy/AdvReac Type Severity Reaction Status Date / Time No Known Allergies Allergy Verified 03/14/21 17:13 Review of Systems Constitutional: Constitutional: Denies fever(s) Integumentary/Breasts: Skin/Breast: Reports wounds (bite leah and pain to right great toe) Neurologic: Denies headache(s) PMFSH Past Medical History Medical History Abnormal uterine bleeding Anemia Edema Fibroids Small bowel obstruction Ulcer UTI (urinary tract infection) Surgical History Surgical History H/O gastric bypass H/O tubal ligation Family History Family History Other Diabetes mellitus Family history of elevated blood lipids Hypertension Social History Social History Smoking status: Never smoker Alcohol intake: never Gender identity (if verbalized by the patient): Female Exam Const: General: no acute distress and well developed HENMT: Head: normocephalic General nose exam: Normal external nose present Skin: Lesions: lesion noted (2 small lesion ~3 mm on medial aspect of right great toe suggesting bite) Extrem: General: normal to inspection and full ROM Course Vital Signs Vital signs: Vital Signs Temperature 36.8 C 03/14/21 17:13 Pulse Rate 83 03/14/21 17:13 Respiratory Rate 17 03/14/21 17:13 Blood Pressure 155/73 H 03/14/21 17:13 Pulse Oximetry 99 03/14/21 17:13 Temperature 36.8 C 03/14/21 17:13 Pulse Rate 83 03/14/21 17:13 Respiratory Rate 17 03/14/21 17:13 Blood Pressure 155/73 H 03/14/21 17:13 Pulse Oximetry 99 03/14/21 17:13 Medical Decision Making Vital Signs Vital Signs: Vital Signs Temperature 36.8 C 03/14/21 17:13 Pulse Rate 83 03/14/21 17:13 Respiratory Rate 17 03/14/21 17:13 Blood Pressure 155/73 H 03/14/21 17:13 Pulse Oximetry 99 03/14/21 17:13 Temperature 36.8 C 03/14/21 17:13 Pulse Rate 83 03/14/21 17:13 Respiratory Rate 17 03/14/21 17:13 Blood Pressure 155/73 H 03/14/21 17:13 Pulse Oximetry 99 03/14/21 17:13 Discharge Plan Discharge Clinical Impression: Bug bite Qualifiers: Encounter type: initial encounter Qualified Code(s): W57.XXXA - Bitten or stung by nonvenomous insect and other nonvenomous arthropods, initial encounter Patient Disposition: Home, Self-Care Condition: Stable Instructions: Antibiotic Form, Insect Bite or Sting (ED) Prescriptions: New cephalexin 500 mg capsule 500 mg PO Q8H Qty: 21 RF: 0 No Action multivitamin Tablet 1 tablet PO DAILY RF: 0 cholecalciferol (vitamin D3) 1,250 mcg (50,000 unit) capsule 1,250 mcg PO WEEKLY RF: 0 mecobalamin (vitamin B12) 10,000 mcg Recon Soln 10,000 mcg RF: 0 ferrous sulfate [FeroSul] 325 mg (65 mg iron) tablet 325 mg PO TID RF: 0 furosemide [Lasix] 20 mg Tablet 20 mg PO DAILY RF: 0 Follow-up/Referrals: Melgar,Jamir Munson MD [Primary Care Provider] -
[2021-03-14] MEDS: TETANUS,DIPHTHERIA,AC PERTUSSIS ADULT (0.5 ML) BOOSTRIX IM (18:25)
[2021-03-14 18:28] VITALS: BP 138/88; PULSE 78; RESP 20; O2SAT 99
== END 2021-03-14 18:30 | disposition home or self-care (01) ==
PROVIDERS: Emergency Provider Emergency Medicine; PCP Internal Medicine
DX: S90.461A Insect bite (nonvenomous), right great toe, initial encounter (principal); D64.9 Anemia, unspecified; Z87.440 Personal history of urinary (tract) infections; Z98.84 Bariatric surgery status; Z23 Encounter for immunization; W57.XXXA Bitten or stung by nonvenomous insect and other nonvenomous arthropods, initial encounter
CPT/HCPCS: 90471; 90715; 99283

== ENCOUNTER 2021-05-01 11:59 | Outpatient (CLI) | payer OTHER, SELFPAY ==
--- NOTE | ~2021-05-01 | MR_ITS ---
EXAMINATION: MR foot RT wo/w con DATE: 05/01/2021 14:30 INDICATION: Right foot cellulitis and osteomyelitis. TECHNIQUE: Magnetic resonance imaging (MRI) of the right foot was performed without and with 19 mL Mu ltiHance intravenous contrast. Sequences included sagittal STIR FSE and T1-weighted FSE and short-axi s and long-axis T1-weighted FSE and T2-weighted FS FSE. Postcontrast sequences included short-axis an d long-axis T1-weighted FS FSE. COMPARISON: None FINDINGS: There is mild hallux valgus. No fracture. There is mild osteoarthritis of first metatarsoph alangeal joint and some of the interphalangeal joints. Lisfranc ligament is normal. The flexor and ex tensor tendons are normal. There is a skin marker medial to first metatarsophalangeal joint. IMPRESSION: 1. No evidence of osteomyelitis. 2. Mild polyarticular osteoarthritis. Reviewed, dictated and finalized at location A.
[2021-05-01 13:32] LABS: Estimated Glomerular Filt Rate > 60
== END 2021-05-01 12:00 | disposition home or self-care (01) ==
LOC: ANHIMG 12:04
PROVIDERS: PCP Internal Medicine; Visit Provider Podiatrist Foot & Ankle Surgery
DX: L03.115 Cellulitis of right lower limb (principal); M86.171 Other acute osteomyelitis, right ankle and foot; M19.071 Primary osteoarthritis, right ankle and foot
CPT/HCPCS: 73720; A9577

== ENCOUNTER → 2021-06-09 09:02 | Outpatient (CLI) | payer OTHER, SELFPAY ==
[2021-06-09 22:41] LABS: SARS-CoV-2 RNA PCR Negative
== END ==
PROVIDERS: PCP Internal Medicine; Visit Provider Internal Medicine
DX: Z20.822 Contact with and (suspected) exposure to COVID-19 (principal)
CPT/HCPCS: C9803; U0003; U0005

== ENCOUNTER 2021-12-28 16:27 | Emergency (ER) | payer OTHER, SELFPAY ==
[2021-12-28 16:32] VITALS: BP 129/88; PULSE 89; RESP 16; TEMP 36.6; O2SAT 100
--- NOTE | 2021-12-28 17:29 | ED.SKABFB ---
HPI - Skin/Abscess/Foreign Bdy General Chief complaint: Skin/Abscess/Foreign Body Stated complaint: cyst on chest Time Seen by Provider: 12/28/21 17:21 History of Present Illness HPI narrative: 36-year-old female presents emergency room complaints of open wound on her chest for 2 days. 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 Patient denies injury or trauma. Patient states wound is painful, but not draining. Related Data Home Medications Medication Instructions Recorded Confirmed furosemide [Lasix] 20 mg PO DAILY 06/25/20 09/27/21 cholecalciferol (vitamin D3) 1,250 mcg PO WEEKLY 10/07/20 09/27/21 mecobalamin (vitamin B12) 10,000 mcg 10/07/20 09/27/21 multivitamin 1 tablet PO DAILY 10/07/20 09/27/21 ferrous sulfate [FeroSul] 325 mg PO TID 02/14/21 09/27/21 Allergies Allergy/AdvReac Type Severity Reaction Status Date / Time No Known Allergies Allergy Verified 12/28/21 17:23 Review of Systems Review of Systems: CONSTITUTIONAL: Denies fever, chills, or sweats. EYES: Denies visual changes, redness, or discharge. ENT: Denies rhinorrhea, congestion, sore throat, or otalgia. CARDIOVASCULAR: Denies chest pain, palpitations, or edema. RESPIRATORY: Denies cough or dyspnea. GASTROINTESTINAL: Denies abdominal pain, nausea, vomiting, or diarrhea. GENITOURINARY: Denies dysuria or hematuria. SKIN: Denies rash or itching. MUSCULOSKELETAL: Denies back pain, joint pain, or myalgia. NEUROLOGIC: Denies headache, numbness, dizziness, or weakness. PSYCHIATRIC: Denies anxiety or depression. [facility] Past Medical History Medical History Abnormal uterine bleeding Anemia Edema Fibroids Small bowel obstruction Ulcer UTI (urinary tract infection) Surgical History Surgical History H/O gastric bypass H/O tubal ligation Family History Family History Other Diabetes mellitus Family history of elevated blood lipids Hypertension Social History Social History Smoking status: Never smoker Alcohol intake: never Gender identity (if verbalized by the patient): Female Sexual Orientation (if Verbalized by the Patient): Straight or Heterosexual Exam Narrative: GENERAL: Well-appearing, well-nourished, and in no acute distress. HEAD: Normocephalic, atraumatic. EYES: PERRLA and EOMI. CHEST: Clear to auscultation. No respiratory distress. No wheezes rales or rhonchi HEART: Regular rate and rhythm. No murmur heard. Normal peripheral pulses. ABDOMEN: Soft, nontender, nondistended, normal active bowel sounds. EXTREMITIES: Normal range of motion. No edema. SKIN: 1 cm ovular shaped abrasion with surrounding erythema. No drainage NEURO: No focal deficits. Alert and oriented x3. PSYCH: Normal mood and affect. Course Vital Signs Vital signs: Vital Signs Temperature 36.6 C 12/28/21 16:32 Pulse Rate 89 12/28/21 16:32 Respiratory Rate 16 12/28/21 16:32 Blood Pressure 129/88 12/28/21 16:32 Pulse Oximetry 100 12/28/21 16:32 Temperature 36.6 C 12/28/21 16:32 Pulse Rate 89 12/28/21 16:32 Respiratory Rate 16 12/28/21 16:32 Blood Pressure 129/88 12/28/21 16:32 Pulse Oximetry 100 12/28/21 16:32 Discharge Plan Discharge Clinical Impression: Abrasion Patient Disposition: Home, Self-Care Condition: Stable Instructions: Antibiotic Form Prescriptions: New mupirocin 2 % ointment 1 applic topical TID Qty: 22 RF: 0 No Action multivitamin Tablet 1 tablet PO DAILY RF: 0 cholecalciferol (vitamin D3) 1,250 mcg (50,000 unit) capsule 1,250 mcg PO WEEKLY RF: 0 mecobalamin (vitamin B12) 10,000 mcg Recon Soln 10,000 mcg RF: 0 ferrous sulfate [FeroSul] 325 mg (65 mg iron) tablet 325 mg P
== END 2021-12-28 18:34 | disposition home or self-care (01) ==
LOC: ANHED 18:04
PROVIDERS: Emergency Provider Nurse Practitioner Family; PCP Internal Medicine
DX: S20.319A Abrasion of unspecified front wall of thorax, initial encounter (principal); Z86.2 Personal history of diseases of the blood and blood-forming organs and certain disorders involving the immune mechanism; Z87.440 Personal history of urinary (tract) infections; Y33.XXXA Other specified events, undetermined intent, initial encounter
CPT/HCPCS: 99283

== ENCOUNTER 2022-02-16 09:39 | Outpatient (CLI) | payer OTHER, SELFPAY ==
--- NOTE | ~2022-02-16 | MM_ITS ---
EXAMINATION: MM screening adria BI w [facility] HISTORY: Screening mammogram TECHNIQUE: Craniocaudal and mediolateral oblique 3-D tomosynthesis images were obtained and synthetic 2-D images were generated. CAD analysis was submitted and interpreted. COMPARISON: No prior mammogram is available for comparison at this institution. BREAST PARENCHYMAL COMPOSITION: There are scattered areas of fibroglandular density. FINDINGS: Approximately 3.85 mm masses are noted in the posterior lower mid and posterior outer left breast. Otherwise there is no evidence of suspicious mass, calcification, or architectural distortion to sugg est malignancy in either breast. IMPRESSION: 1. Posterior mid and outer lower left breast masses 2. Diagnostic left mammogram and left breast ultrasound examination are recommended BI-RADS Category 0: Incomplete: Needs additional imaging evaluation. Reviewed, dictated and finalized at location A. IMPRESSION: 1. Posterior mid and outer lower left breast masses 2. Diagnostic left mammogram and left breast ultrasound examination are recomme nded BI-RADS Category 0: Incomplete: Needs additional imaging evaluation.
== END 2022-02-16 09:40 | disposition home or self-care (01) ==
LOC: ANHIMG 09:42
PROVIDERS: PCP Internal Medicine; Visit Provider Nurse Practitioner Obstetrics & Gynecology
DX: Z12.31 Encounter for screening mammogram for malignant neoplasm of breast (principal); R92.8 Other abnormal and inconclusive findings on diagnostic imaging of breast
CPT/HCPCS: 77063; 77067

== ENCOUNTER 2022-03-10 10:57 | Outpatient (CLI) | payer OTHER, SELFPAY ==
--- NOTE | ~2022-03-10 | MMUS_ITS ---
EXAMINATION: MM diagnostic adria LT w [facility], US breast LT limited HISTORY: Follow-up left breast masses TECHNIQUE: Additional 3-D tomosynthesis images of the left breast were performed and synthetic 2-D im ages were generated. CAD analysis was submitted and interpreted. High resolution Limited left breast ultrasound was performed. COMPARISON: 02/16/2022 BREAST PARENCHYMAL COMPOSITION: BREAST PARENCHYMAL COMPOSITION: There are scattered areas of fibroglandular density. FINDINGS: MAMMOGRAPHIC FINDINGS: There are focal masses in the lower outer quadrant of the left breast, largest measuring 6 mm. No venecia picious calcifications or architectural distortion. ULTRASOUND: Limited left breast ultrasound: At 4:00 there are several adjacent hypoechoic structures some of whic h appear to be small cysts. This may represent a benign cluster of microcysts. Exact measurements are difficult, although estimates are 5 x 4 x 4 mm greatest dimensions. IMPRESSION: 1. Probable benign cluster of microcysts or other benign masses at the 4:00 position of the left manjula st by ultrasound. This likely corresponds to the mammographic findings. 2. Recommend 6 month follow-up diagnostic left mammogram and ultrasound BI-RADS category 3, probably benign findings. Reviewed, dictated and finalized at location A. IMPRESSION: 1. Probable benign cluster of microcysts or other benign masses at the 4:00 pos ition of the left breast by ultrasound. This likely corresponds to the mammogra phic findings. 2. Recommend 6 month follow-up diagnostic left mammogram and ultrasound BI-RADS category 3, probably benign findings.
== END 2022-03-10 10:58 | disposition home or self-care (01) ==
PROVIDERS: PCP Internal Medicine; Visit Provider Nurse Practitioner Obstetrics & Gynecology
DX: N63.20 Unspecified lump in the left breast, unspecified quadrant (principal); R92.8 Other abnormal and inconclusive findings on diagnostic imaging of breast
CPT/HCPCS: 76642; 77061; 77065; G0279

== ENCOUNTER 2022-04-06 15:34 | Outpatient (RCR) | payer OTHER, SELFPAY ==
--- NOTE | 2022-04-06 17:00 | PTOPEVAL ---
PHYSICAL THERAPY EVALUATION AND PLAN OF CARE Thank you for referring Yazmin Hunt to [facility].? The patient is scheduled to be seen for therapy 1-2visits over the course of 6 weeks. Please review, sign, date and return this plan of care [email or web address]. I agree with and certify that the following plan of care is medically necessary. Referring Physician Date Attending Provider: SUGEY Cardona Diagnosis urge incontinence Subjective Information reports episodes of urinary Query Text:As Reported By Patient/ leakage. She started to Family notice that she was not able to make it to the bathroom and she would leak. She was provided with medication to decrease the leaking. States she has not had any leaks since taking the medication and she can hold it to make it to the restroom. 4 deliveries: 2 vaginal with tearin and 2 c-sections. States she has started to experiencing the leakage within the last 6 months. She retains water and states that her kidneys do not always filter all the fluid. States that she does not urinate a lot at a time. States she might go to the bathroom about 4-5x/day. She drinks about 4 -5bottles of water. She enjoys drinking tea and cold coffee. Pain Score Pain Score 0: Self Report Additional Pain Score Comments no pain in pelvic floor; reports mild to moderate low back pain that is daily Lumbar Flexion Active Knee Query Text:Hands to: Lower Extremity Range of Motion Gross Lower Extremity Range of Motion right hip interal rotation Comments decreased compared to left Lower Extremity Muscle Strength Testing Gross Lower Extremity Strength right LE: grossly 4-/5 including internal and ext. rot. left LE: grossly 4+ to 5/5 including internal and external rotation -isometric glute set: initially performed with trace control and after 5 reps demonstrated a visual glute
--- NOTE | 2022-04-25 17:30 | PCPTNOTE ---
Patient did not show up for scheduled appointment this date.
--- NOTE | 2022-05-04 08:16 | PCPTNOTE ---
PHYSICAL THERAPY DISCHARGE NOTE Attending Provider: Gali Mckeon NP Patient:Yazmin Hunt Date of :1985 Patient has not returned for any further treatments since 04/06/2022, therefore she will be discharged at this time. Patient?s initial visit was on 04/06/2022 and had a total of 1visit. Attempted to call patient several times to re-schedule her follow up and was not able to communicate with patient. Thank you for referring this patient to [facility]. Please review, sign, date and return this discharge summary SRIDEVI. I have been updated about the patient's current status and I agree with discharge from the above service at this time. Referring Physician Date
== END 2022-05-04 12:34 | disposition home or self-care (01) ==
LOC: ANHPT 15:34
PROVIDERS: PCP Internal Medicine
DX: N39.41 Urge incontinence (principal)
CPT/HCPCS: 97112; 97163; 97530

== ENCOUNTER 2022-05-07 23:58 | Emergency (ER) | payer OTHER, SELFPAY ==
[2022-05-08 00:01] VITALS: BP 120/60; PULSE 89; RESP 24; TEMP 36.4; O2SAT 100
[2022-05-08] MEDS: predniSONE 20 MG TABLET PO (00:22)
--- NOTE | 2022-05-08 00:27 | ED.SOB ---
HPI - SOB/Dyspnea General Chief Complaint: Shortness of Breath/Dyspnea Stated Complaint: SOB Time Seen by Provider: 05/08/22 00:09 History of Present Illness HPI Narrative: 36-year-old female presents emergency room secondary shortness of breath. She been having episodes where she feels like she is having difficulty breathing for the last month or so. She was seen by her physician and diagnosed with asthma. Gave her an albuterol inhaler which she has been taking 2 puffs every 6 hours also given her a steroid inhaler 2 puffs once a day. She was driving today and felt extremely short of breath and had to machine tack puller the side road to get her inhaler out of her purse. She states that frequently when she has these episodes she just tries to relax and take some deep breaths and it goes away. Some components of this actually sound like it could be more anxiety related than true asthma. She is actually having no shortness of breath at this time. Related Data Home Medications Medication Instructions Recorded Confirmed furosemide 20 mg tablet (Lasix) 20 mg PO DAILY 06/25/20 09/27/21 cholecalciferol (vitamin D3) 1,250 1,250 mcg PO WEEKLY 10/07/20 09/27/21 mcg (50,000 unit) capsule mecobalamin (vitamin B12) 10,000 10,000 mcg 10/07/20 09/27/21 mcg solution for injection multivitamin 1 tablet PO DAILY 10/07/20 09/27/21 ferrous sulfate 325 mg (65 mg 325 mg PO TID 02/14/21 09/27/21 iron) tablet (FeroSul) Allergies Allergy/AdvReac Type Severity Reaction Status Date / Time No Known Allergies Allergy Verified 12/28/21 17:23 Review of Systems Review of Systems: CONSTITUTIONAL: Denies fever, chills, or sweats. EYES: Denies visual changes, redness, or discharge. ENT: Denies rhinorrhea, congestion, sore throat, or otalgia. CARDIOVASCULAR: Denies chest pain, palpitations, or edema. RESPIRATORY: Dyspnea with no associated cough. GASTROINTESTINAL: Denies abdominal pain, nausea, vomiting, or diarrhea. GENITOURINARY: Denies dysuria or hematuria. SKIN: Denies rash or itching. MUSCULOSKELETAL: Denies back pain, joint pain, or myalgia. NEUROLOGIC: Denies headache, numbness, or weakness. PSYCHIATRIC: Denies anxiety or depression. [facility] Past Medical History Medical History Abnormal uterine bleeding Anemia Edema Fibroids Small bowel obstruction Ulcer UTI (urinary tract infection) Surgical History Surgical History H/O gastric bypass H/O tubal ligation Family History Family History Other Diabetes mellitus Family history of elevated blood lipids Hypertension Social History Social History Smoking status: Never smoker Alcohol intake: never Gender identity (if verbalized by the patient): Female Sexual Orientation (if Verbalized by the Patient): Straight or Heterosexual Exam Narrative: APPEARANCE: Well appearing, no pain or distress, well-nourished. Head Normocephalic and atraumatic. EYES: PERRLA/EOMI, conjunctivae clear. NOSE: Normal with no drainage EARS:TMS clear with Nesbitt, with good light reflex. THROAT: Pharynx clear, no exudate. NECK: Supple. No adenopathy, no masses. RESPIRATORY: Airway patent, respirations nonlabored. Clear to auscultation bilaterally, no rales, rhonchi, wheezing. CARDIOVASCULAR: Regular rate and rhythm without murmurs, rubs, or gallops. ABDOMINAL: Soft, nontender, nondistended, no hepatosplenomegaly Musculoskeletal: Moves all extremities. Strength/ROM intact, No edema, No calf tenderness. NEURO: Alert. Cranial nerves II through XII intact. Normal gait. Good coordination. Nonfocal examination. SKIN:: Warm, dry. Normal Color PSYCHIATRIC: Normal affect/mood, normal interaction Course Vital Signs Vital signs: Vital Signs Temperature 97.6 F 05/08/22 00:01 Pulse Rate 89
[2022-05-08 00:35] VITALS: BP 110/66; PULSE 89; RESP 19; O2SAT 98
--- NOTE | 2022-05-08 08:43 | ECG_ITS ---
Measurements Intervals [place] Rate: 97 P: 64 WA: 178 QRS: 37 QRSD: 70 T: -1 QT: 356 QTc: 454 Interpretive Statements SINUS RHYTHM NONSPECIFIC T-WAVE ABNORMALITY BORDERLINE ECG COMPARED TO ECG 02/19/2021 16:59:11 T-WAVE ABNORMALITY NOW PRESENT Electronically Signed On 05-08-2022 14:36:50 CDT by Maksim Sanders M.D.
== END 2022-05-08 00:38 | disposition home or self-care (01) ==
PROVIDERS: Emergency Provider Emergency Medicine; PCP Internal Medicine
DX: J45.909 Unspecified asthma, uncomplicated (principal); D64.9 Anemia, unspecified; Z87.440 Personal history of urinary (tract) infections; R94.31 Abnormal electrocardiogram [ECG] [EKG]
CPT/HCPCS: 93005; 99283; J7512

== ENCOUNTER 2023-03-08 17:46 | Emergency (ER) | payer OTHER, SELFPAY ==
--- NOTE | ~2023-03-08 | US_ITS ---
Duplex Sonography of the bilateral lower extremities: Indication: Swelling Sagittal and transverse B-mode images as well as color-flow imaging were performed on the right and l eft femoral and popliteal veins. B-mode examination was done without and with compression in the tra nsverse plane. There is good visualization of the bilateral common femoral, proximal profunda femora l, superficial femoral, greater saphenous, and popliteal veins. Normal flow was seen on color-flow im aging. Normal compressibility was demonstrated. Visualized calf veins are also patent. Impression: No evidence of deep vein thrombosis involving the bilateral lower extremities. Reviewed, dictated and finalized at location M. Impression: No evidence of deep vein thrombosis involving the bilateral lower e xtremities.
[2023-03-08 22:11] LABS: Basophils Percent Auto 0.3 % (0.2-1.2); Eosinophils Absolute Auto 0.4 K/mm3 (0-0.3); Eosinophils Percent Auto 4.7 % (0-4.4); Hematocrit 39.2 % (37.0-47.0); Hemoglobin 13.1 g/dL (12.0-15.0); Immature Granulocyte Absolute 0.02 K/mm3 (0.00-0.031); Immature Granulocyte Percent A 0.3 % (0-0.5); Lymphocytes Absolute Auto 3.35 K/mm3 (0.9-3.2); Lymphocytes Percent Auto 43.5 % (18.3-44.2); Mean Corpuscular HGB Conc 33.4 g/dl (32-36); Mean Corpuscular Volume 92.7 fl (80-100); Mean Platelet Volume 9.2 fl (7.4-10.4); Monocytes Absolute Auto 0.8 K/mm3 (0.1-0.6); Monocytes Percent Auto 10.6 % (2.6-8.5); Neutrophils Absolute Auto 3.1 K/mm3 (1.3-6.7); Neutrophils Percent Auto 40.6 % (45.5-73.1); Platelet Count Result 343 k/mm3 (150-375); Red Blood Count 4.23 M/mm3 (4.2-5.4); Red Cell Distribution Width 13.1 % (11.5-14.5); White Blood Count 7.7 K/mm3 (4.5-10.0)
[2023-03-08 22:21] LABS: INR 1.1
[2023-03-08 22:22] LABS: Partial Thromboplastin Time 34.6 SECONDS (22.3-36.8)
[2023-03-08 22:30] LABS: NT Pro B Type Natriuretic Pept < 20 pg/mL (19.9-100)
[2023-03-08 22:35] LABS: Alanine Aminotransferase 47 U/L (6-35); Albumin Level 4.2 g/dL (3.5-5.1); Alkaline Phosphatase 124 U/L (38-126); Anion Gap 7 mmol/L (8-16); Aspartate Amino Transferase 49 U/L (14-36); Bilirubin,Total 0.8 mg/dL (0.2-1.3); Blood Urea Nitrogen 13 mg/dL (7-17); Calcium 8.5 mg/dL (8.4-10.2); Carbon Dioxide 23 mmol/L (22-30); Chloride 106 mmol/L (98-107); Estimated CRCL calculation 110 ml/min; Estimated Glomerular Filt Rate > 60; Glucose 82 mg/dL (65-110); Potassium 4.7 mmol/L (3.4-5.0); Sodium 136 mmol/L (137-145)
--- NOTE | 2023-03-08 23:27 | ED.GENADULT ---
HPI - General Adult General Chief complaint: Extremity Injury, Lower History of Present Illness HPI narrative: Patient is a 37-year-old female who presents the emergency department with chief complaint of leg discomfort and swelling. Patient reports that she has had leg pain and swelling for some time and reports that her primary doctor was can have her see vascular but reports over the last 3 days her lower extremities have been bothering her more. The patient was sent by her primary care provider to be evaluated for possible DVT. Related Data Home Medications Medication Instructions Recorded Confirmed furosemide 20 mg tablet (Lasix) 20 mg PO DAILY 06/25/20 09/27/21 cholecalciferol (vitamin D3) 1,250 1,250 mcg PO WEEKLY 10/07/20 09/27/21 mcg (50,000 unit) capsule mecobalamin (vitamin B12) 10,000 10,000 mcg 10/07/20 09/27/21 mcg solution for injection multivitamin 1 tablet PO DAILY 10/07/20 09/27/21 ferrous sulfate 325 mg (65 mg 325 mg PO TID 02/14/21 09/27/21 iron) tablet (FeroSul) Allergies Allergy/AdvReac Type Severity Reaction Status Date / Time No Known Allergies Allergy Verified 12/28/21 17:23 Review of Systems Review of Systems: A 10 system review of systems was completed on the patient and is negative except for what is stated in the HPI. Nursing and ancillary documentation was reviewed. PMFSH Past Medical History Medical History Abnormal uterine bleeding Anemia Edema Fibroids Small bowel obstruction Ulcer UTI (urinary tract infection) Surgical History Surgical History H/O gastric bypass H/O tubal ligation Family History Family History Other Diabetes mellitus Family history of elevated blood lipids Hypertension Social History Social History Smoking status: Never smoker Alcohol intake: never Gender identity (if verbalized by the patient): Female Sexual Orientation (if Verbalized by the Patient): Straight or Heterosexual Exam Narrative: GENERAL: Well-appearing, well-nourished, and in no acute distress. HEAD: Normocephalic, atraumatic. EYES: PERRLA and EOMI. ENT: Nares clear, no rhinorrhea or epistaxis. Mucous membranes moist. NECK: Supple. CHEST: Clear to auscultation. No respiratory distress. HEART: Regular rate and rhythm. No murmur heard. Normal peripheral pulses. ABDOMEN: Soft, nontender, nondistended, normal active bowel sounds. EXTREMITIES: Normal range of motion. No edema. SKIN: Warm, dry, no rash. NEURO: No focal deficits. Alert and oriented x3. PSYCH: Normal mood and affect. Medical Decision Making MDM Narrative Medical decision making narrative: Differential diagnosis includes DVT, CHF, neuropathy, CBC was within normal limits electrolytes were within normal limits coags showed a INR of 1.1 BNP was less than 20 Venous duplex of bilateral lower extremity showed no evidence DVT Patient be discharged home to follow-up with her primary care provider Lab Data 03/08/23 22:06 03/08/23 22:06 Labs: Lab Results 03/08/23 Range/Units 22:06 WBC 7.7 (4.5-10.0) K/mm3 RBC 4.23 (4.2-5.4) M/mm3 Hgb 13.1 (12.0-15.0) g/dL Hct 39.2 (37.0-47.0) % MCV 92.7 (80-100) fl MCH 31.0 (26-34) pg MCHC 33.4 (32-36) g/dl RDW 13.1 (11.5-14.5) % Plt Count 343 (150-375) k/mm3 MPV 9.2 (7.4-10.4) fl Immature Gran % (Auto) 0.3 (0-0.5) % Neut % (Auto) 40.6 L (45.5-73.1) % Lymph % (Auto) 43.5 (18.3-44.2) % Perkins % (Auto) 10.6 H (2.6-8.5) % Eos % (Auto) 4.7 H (0-4.4) % Baso % (Auto) 0.3 (0.2-1.2) % Lymph # (Auto) 3.35 H (0.9-3.2) K/mm3 Perkins # (Auto) 0.8 H (0.1-0.6) K/mm3 Eos # (Auto) 0.4 H (0-0.3) K/mm3 Baso # (Auto) 0.0 (0.0-0.1) K
[2023-03-08 23:53] VITALS: BP 134/66; PULSE 74; RESP 16; O2SAT 100
[2023-03-08 23:54] LABS: Add Urine Microscopic? YES; Appearance Urine Cloudy (Clear); Bacteria Urine 2+ /hpf; Bilirubin Urine Negative (Negative); Blood Urine Negative (Negative); Color Urine Dark Yellow (Yellow); Glucose Urine UA Negative (Negative); Ketones Urine 2+ mg/dL (Negative); Leukocyte Esterase Ur Negative LEU/UL (Negative); Need Manual Microscopic Reviewed; Nitrate Urine Negative (Negative); Non Pathogenic Casts 0-2; Protein Urine Trace mg/dL (Negative); Specific Grav Ur 1.035 (1.001-1.035); Squamous Epithelial Cell Urine Few /hpf (Few); pH Urine 5.5 (5.0-9.0)
== END 2023-03-08 23:54 | disposition home or self-care (01) ==
PROVIDERS: Emergency Provider Emergency Medicine; PCP Internal Medicine
DX: M79.605 Pain in left leg (principal); M79.604 Pain in right leg; D64.9 Anemia, unspecified; Z98.84 Bariatric surgery status
CPT/HCPCS: 36415; 80053; 81001; 83735; 83880; 85025; 85610; 85730; 87086; 93970; 99284

== ENCOUNTER 2023-07-02 14:08 | Emergency (ER) | payer OTHER, SELFPAY ==
--- NOTE | ~2023-07-02 | CT_ITS ---
EXAMINATION: CT abdomen pelvis w con DATE: 07/02/2023 16:00 INDICATION: Abdominal pain mainly left side TECHNIQUE: Computed tomography (CT) of the abdomen and pelvis was performed with 100 mL Omnipaque-350 intravenous contrast. Automated exposure control and iterative reconstruction technique were employe d. The dose-length product was 974.70 mGy-cm. COMPARISON: 12/09/2020. FINDINGS: Lower thorax: Unremarkable Liver: Normal. Biliary/Gallbladder: Gallbladder is normal. No bile duct dilation. Pancreas: No mass or duct dilation. Spleen: Normal. Adrenals:No mass. Kidneys: No suspicious mass, obstructing stone, or hydronephrosis. GI tract: Mild distal esophageal and gastric wall edema. Prior gastric surgery. Uncomplicated left up per quadrant small bowel anastomosis. No small or large bowel dilation. Normal appendix. Mesentery/Peritoneum: No ascites, mass, or free air. Retroperitoneum: No mass. Pelvis: Empty urinary bladder. Anteverted, retroflexed uterus. 2.7 cm simple left ovarian cyst. Soft Tissues: Hernia mesh anchors in the anterior abdomen. Bones: No acute osseous finding. IMPRESSION: Mild esophagitis/gastritis. No other acute abdominopelvic process detected. Reviewed, dictated and finalized at location K.
[2023-07-02 14:12] VITALS: BP 131/75; PULSE 109; RESP 18; TEMP 36.8; O2SAT 100
--- NOTE | 2023-07-02 14:28 | ED.DIZZY ---
HPI - Dizziness General Chief Complaint: Dizziness Stated Complaint: dizzy Time Seen by Provider: 07/02/23 14:25 Source: patient Mode of arrival: ambulatory Limitations: no limitations History of Present Illness HPI Narrative: 38 years old -[place] female drove herself to the emergency room because intermittent dizziness today, with standing, walking or moving. Everything spins associated with nausea. She denies any headache. History of abdominal pain which still going for the last 2 weeks, was seen by her [employer], had pelvic ultrasound and was told that there is something inside her uterus of unknown origin at that time. Patient scheduled to see her [employer] soon. History of gastric bypass 6 years ago, small bowel obstruction, currently on Trulicity for weight loss once week for the last 4 weeks, currently patient is on iron supplement, B12, calcium and vitamin D. Patient denies any vaginal bleeding at this time. Related Data Home Medications Medication Instructions Recorded Confirmed furosemide 20 mg tablet (Lasix) 20 mg PO DAILY 06/25/20 09/27/21 cholecalciferol (vitamin D3) 1,250 1,250 mcg PO WEEKLY 10/07/20 09/27/21 mcg (50,000 unit) capsule mecobalamin (vitamin B12) 10,000 10,000 mcg 10/07/20 09/27/21 mcg solution for injection multivitamin 1 tablet PO DAILY 10/07/20 09/27/21 ferrous sulfate 325 mg (65 mg 325 mg PO TID 02/14/21 09/27/21 iron) tablet (FeroSul) Allergies Allergy/AdvReac Type Severity Reaction Status Date / Time No Known Allergies Allergy Verified 12/28/21 17:23 Review of Systems Review of Systems: All systems reviewed & are unremarkable except as noted in HPI and below PMFSH Past Medical History Medical History Abnormal uterine bleeding Anemia Edema Fibroids Small bowel obstruction Ulcer UTI (urinary tract infection) Surgical History Surgical History H/O gastric bypass H/O tubal ligation Family History Family History Other Diabetes mellitus Family history of elevated blood lipids Hypertension Social History Social History Smoking status: Never smoker Alcohol intake: never Gender identity (if verbalized by the patient): Female Sexual Orientation (if Verbalized by the Patient): Straight or Heterosexual Exam Narrative: General appearance: Well-developed, well-nourished patient developed severe dizziness once set up from laying down position Skin: Normal color Head: Normocephalic, nontraumatic Eyes: Clear conjunctiva ENT: Oropharynx normal, ears normal, nose normal Neck: Supple, nontender Chest and respiratory: Airway patent, no respiratory distress, no accessory muscle use Heart: Regular rate/rhythm Abdomen: Diffuse lower abdominal tenderness mainly left side,, , no organomegaly, quiet bowel sounds Vascular: Normal peripheral pulses, normal capillary refill. 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
--- NOTE | 2023-07-02 14:29 | ECG_ITS ---
Measurements Intervals [place] Rate: 77 P: 27 TN: 164 QRS: 15 QRSD: 85 T: 10 QT: 352 QTc: 401 Interpretive Statements SINUS RHYTHM NORMAL ECG COMPARED TO ECG 05/08/2022 00:10:11 NO SIGNIFICANT CHANGES Electronically Signed On 07-03-2023 9:26:08 CDT by Abdoul Parks M.D.
[2023-07-02 14:31] VITALS: BP 123/79; PULSE 103; RESP 22; O2SAT 99
[2023-07-02 15:08] LABS: Basophils Absolute Auto 0.1 K/mm3 (0.0-0.1); Basophils Percent Auto 0.7 % (0.2-1.2); Eosinophils Absolute Auto 0.6 K/mm3 (0-0.3); Eosinophils Percent Auto 8.6 % (0-4.4); Hemoglobin 12.8 g/dL (12.0-15.0); Immature Granulocyte Absolute 0.01 K/mm3 (0.00-0.031); Immature Granulocyte Percent A 0.1 % (0-0.5); Lymphocytes Absolute Auto 2.04 K/mm3 (0.9-3.2); Lymphocytes Percent Auto 29.4 % (18.3-44.2); Mean Corpuscular Hemoglobin 30.4 pg (26-34); Mean Platelet Volume 9.7 fl (7.4-10.4); Neutrophils Absolute Auto 3.3 K/mm3 (1.3-6.7); Neutrophils Percent Auto 47.2 % (45.5-73.1); Platelet Count Result 336 k/mm3 (150-375); Red Blood Count 4.21 M/mm3 (4.2-5.4)
[2023-07-02 15:19] LABS: Alanine Aminotransferase 24 U/L (6-35); Albumin Level 3.9 g/dL (3.5-5.1); Alkaline Phosphatase 91 U/L (38-126); Anion Gap 7 mmol/L (8-16); Aspartate Amino Transferase 31 U/L (14-36); Bilirubin,Total 0.6 mg/dL (0.2-1.3); Blood Urea Nitrogen 7 mg/dL (7-17); Calcium 8.7 mg/dL (8.4-10.2); Carbon Dioxide 22 mmol/L (22-30); Chloride 108 mmol/L (98-107); Estimated CRCL calculation 92 ml/min; Estimated Glomerular Filt Rate > 60; Glucose 113 mg/dL (65-110); Potassium 3.5 mmol/L (3.4-5.0); Sodium 137 mmol/L (137-145)
[2023-07-02] MEDS: MECLIZINE HCL 25 MG TABLET PO (15:21)
[2023-07-02] MEDS: ONDANSETRON INJ 4 MG/2 ML VIAL IV PUSH (15:21)
[2023-07-02 16:00] LABS: Appearance Urine Clear (Clear); Bilirubin Urine 1+ (Negative); Blood Urine Trace-intact (Negative); Color Urine Yellow (Yellow); Glucose Urine UA Negative (Negative); Ketones Urine Trace mg/dL (Negative); Leukocyte Esterase Ur Negative LEU/UL (Negative); Nitrate Urine Negative (Negative); Protein Urine Negative (Negative); Specific Grav Ur >= 1.030 (1.001-1.035)
[2023-07-02 16:02] LABS: Bacteria Urine Rare /hpf; Non Pathogenic Casts 0-2; RBC Urine 0-2 /hpf (0-2); Squamous Epithelial Cell Urine Few /hpf (Few)
[2023-07-02 16:06] LABS: Add Urine Microscopic? YES
[2023-07-02 16:26] VITALS: BP 123/70; PULSE 68; RESP 20; O2SAT 100
[2023-07-02 17:30] VITALS: BP 125/74; PULSE 70; RESP 16; O2SAT 100
== END 2023-07-02 17:30 | disposition home or self-care (01) ==
PROVIDERS: Emergency Provider Emergency Medicine; PCP Internal Medicine
DX: R42 Dizziness and giddiness (principal); R10.30 Lower abdominal pain, unspecified; Z98.84 Bariatric surgery status; Z87.440 Personal history of urinary (tract) infections; Z86.2 Personal history of diseases of the blood and blood-forming organs and certain disorders involving the immune mechanism; Z79.85 Long-term (current) use of injectable non-insulin antidiabetic drugs; K20.90 Esophagitis, unspecified without bleeding; K29.70 Gastritis, unspecified, without bleeding
CPT/HCPCS: 36415; 74177; 80053; 81001; 81025; 85025; 87077; 87086; 87088; 93005; 96374; 99284; A9270; J2405; Q9967

== ENCOUNTER 2023-09-26 18:26 | Emergency (ER) | payer OTHER, SELFPAY ==
--- NOTE | ~2023-09-26 | CT_ITS ---
CT of the Abdomen and Pelvis: Indication: GI bleed Technique: 2.5 mm axial scans were obtained through the abdomen and pelvis following intravenous adm inistration of 100 cc of Omnipaque 350. Dose reduction technique was used on this scan by utilizing a utomated exposure control and iterative reconstruction technique. The dose-length product (DLP) was 9 58.06 mGy-cm. COMPARISON: 07/02/2023 Findings: Scans through the lung bases are unremarkable. The liver, spleen, pancreas, gallbladder, adrenals and kidneys are within normal limits. No evidence of aortic aneurysm. No lymphadenopathy. No bowel obstruction or bowel wall thickening. Normal appendix present. No CT angiographic evidence f or active GI bleeding. Evidence of prior herniorrhaphy and bariatric surgery. Images through the pelvis were performed. Urinary bladder unremarkable. No adnexal mass seen. No asci christ. Impression: No acute abnormalities seen. Postoperative change, as above. Reviewed, dictated and finalized at [facility]. 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 Postoperative change, as above.
[2023-09-26 18:39] VITALS: BP 133/70; PULSE 89; RESP 20; TEMP 36.2; O2SAT 100
--- NOTE | 2023-09-26 21:46 | ECG_ITS ---
Measurements Intervals [place] Rate: 69 P: 55 [place]: 176 QRS: 23 QRSD: 83 T: 14 QT: 408 QTc: 439 Interpretive Statements SINUS RHYTHM WITH SINUS ARRHYTHMIA BASELINE ARTIFACT- I, II, AVR, AVF, V3 NORMAL ECG COMPARED TO ECG 07/02/2023 15:11:54 SINUS ARRHYTHMIA NOW PRESENT Electronically Signed On 09-27-2023 9:41:[address] by Trevor Dawn D.O.
[2023-09-26 22:16] VITALS: BP 111/77; PULSE 71; RESP 18; O2SAT 100
[2023-09-26 22:30] LABS: Basophils Absolute Auto 0.1 K/mm3 (0.0-0.1); Basophils Percent Auto 0.7 % (0.2-1.2); Eosinophils Absolute Auto 0.7 K/mm3 (0-0.3); Eosinophils Percent Auto 10.1 % (0-4.4); Hematocrit 38.1 % (37.0-47.0); Hemoglobin 12.2 g/dL (12.0-15.0); Lymphocytes Absolute Auto 3.44 K/mm3 (0.9-3.2); Mean Corpuscular Hemoglobin 29.8 pg (26-34); Mean Corpuscular Volume 92.9 fl (80-100); Mean Platelet Volume 9.3 fl (7.4-10.4); Monocytes Absolute Auto 0.7 K/mm3 (0.1-0.6); Monocytes Percent Auto 9.9 % (2.6-8.5); Neutrophils Absolute Auto 1.9 K/mm3 (1.3-6.7); Neutrophils Percent Auto 28.3 % (45.5-73.1); Platelet Count Result 302 k/mm3 (150-375); Red Cell Distribution Width 12.9 % (11.5-14.5); White Blood Count 6.8 K/mm3 (4.5-10.0)
[2023-09-26 22:41] LABS: INR 1.1; Prothrombin Time 14.6 Seconds (11.1-14.7)
[2023-09-26 22:42] LABS: Partial Thromboplastin Time 35.3 SECONDS (22.3-36.8)
[2023-09-26 22:44] LABS: Alanine Aminotransferase 30 U/L (6-35); Albumin Level 3.7 g/dL (3.5-5.1); Alkaline Phosphatase 134 U/L (38-126); Anion Gap 8 mmol/L (8-16); Aspartate Amino Transferase 38 U/L (14-36); Bilirubin,Total 0.4 mg/dL (0.2-1.3); Blood Urea Nitrogen 9 mg/dL (7-17); Calcium 8.6 mg/dL (8.4-10.2); Carbon Dioxide 23 mmol/L (22-30); Chloride 108 mmol/L (98-107); Estimated CRCL calculation 81 ml/min; Estimated Glomerular Filt Rate > 60; Glucose 85 mg/dL (65-110); Lipase 154 U/L (23-300); Potassium 3.9 mmol/L (3.4-5.0); Sodium 139 mmol/L (137-145)
[2023-09-27] VITALS: BP 119/78; PULSE 72; RESP 14; O2SAT 98
--- NOTE | 2023-09-27 02:02 | ED.GIBLEED ---
HPI - GI Bleed General Chief complaint: GI Bleed Stated complaint: rectal bleeding Time Seen by Provider: 09/26/23 23:59 Source: patient Limitations: no limitations History of Present Illness HPI Narrative: Patient is a 38-year-old female present to the emergency department complaining of bright red blood per rectum. Patient states she has been having so the bright red blood coming from rectum whenever she tries to have a bowel movement since September 22. Patient denies any history of this in the past. Patient denies history of colonoscopies. Patient also states she has been having left lower quadrant pain for the past couple weeks it is constant, stabbing, denies any history of pain in the past, has not tried anything for the pain, has not noticed anything making the pain better or worse. Patient denies dysuria, hematuria, vaginal bleeding, nausea, vomiting, hematemesis, chest pain, shortness of breath, cough, fever, use of NSAIDs, use of blood thinners, alcohol use. Patient denies history of constipation. Patient denies history of feltmaker evaluation. Patient's her last menstrual period was September 22, 2023. Patient denies any rectal pain. Patient notes her last regular bowel movement was a couple days ago. Related Data Home Medications Medication Instructions Recorded Confirmed furosemide 20 mg tablet (Lasix) 20 mg PO DAILY 06/25/20 09/27/21 cholecalciferol (vitamin D3) 1,250 1,250 mcg PO WEEKLY 10/07/20 09/27/21 mcg (50,000 unit) capsule mecobalamin (vitamin B12) 10,000 10,000 mcg 10/07/20 09/27/21 mcg solution for injection multivitamin 1 tablet PO DAILY 10/07/20 09/27/21 ferrous sulfate 325 mg (65 mg 325 mg PO TID 02/14/21 09/27/21 iron) tablet (FeroSul) Allergies Allergy/AdvReac Type Severity Reaction Status Date / Time No Known Allergies Allergy Verified 12/28/21 17:23 Review of Systems Review of Systems: A 10 system review of systems was completed on the patient and is negative except for what is stated in the HPI. Nursing and ancillary documentation was reviewed. [facility] Past Medical History Medical History Abnormal uterine bleeding Anemia Edema Fibroids Small bowel obstruction Ulcer UTI (urinary tract infection) Surgical History Surgical History H/O gastric bypass H/O tubal ligation Family History Family History Other Diabetes mellitus Family history of elevated blood lipids Hypertension Social History Social History Smoking status: Never smoker Alcohol intake: never Gender identity (if verbalized by the patient): Female Sexual Orientation (if Verbalized by the Patient): Straight or Heterosexual Comments At time of signature, I have reviewed and agree with nursing past medical, surgical, social and family history unless otherwise noted. Please see the nursing chart for further information. There is no relevant family history pertinent to the presenting complaint. Exam Narrative: CONST: No acute distress. Well nourished. HENMT: Head is normocephalic and atraumatic. Moist mucous membranes. No posterior oropharynx erythema. EYES: No conjunctival icterus, injection, or pallor. PERRL. NECK: No meningeal signs. RESP: Able to speak in full sentences. Normal respiratory effort. CTAB. CARDIO: Regular rate. Regular rhythm. 2+ DP and radial pulses bilaterally. GI: Nondistended. No tenderness to palpation. Soft. Midline surgical scar appears well healed. : No CVA tenderness to palpation. External examination of the anus reveals no fissures or hemorrhoids. Digital rectal examination reveals scant amount of bright red blood with a positive Hemoccult test, no palpable internal hemorrhoids or masses. SKIN: No rashes
[2023-09-27] MEDS: ACETAMINOPHEN 500 MG TABLET 1000 MG PO (02:26)
[2023-09-27 05:26] VITALS: BP 103/53; PULSE 86; RESP 16; TEMP 36.6; O2SAT 100
== END 2023-09-27 07:16 | disposition home or self-care (01) ==
PROVIDERS: Emergency Provider Student in an Organized Health Care Education/Training Program; PCP Internal Medicine
DX: K92.1 Melena (principal)
CPT/HCPCS: 36415; 74174; 80053; 83690; 85025; 85610; 85730; 86850; 86900; 86901; 93005; 99284; A9270; Q9967

== ENCOUNTER 2023-10-09 00:35 | Day surgery (SDC) | payer OTHER, SELFPAY ==
[2023-10-03 14:02] VITALS: BMI 33.0
--- NOTE | 2023-10-09 08:14 | P.PNAN_ITS ---
Anes - Initial Pre Proc Eval Procedure: Operation Date: 10/09/23 11:00 Proposed Procedures p Colonoscopy - Eric Camacho MD Date/Time: 10/09/23 08:14 Surgeon: Eric Camacho MD Pre Op Diagnosis: Hemorrhage of anus and rectum Patient Data Age: 38 Gender: F Height: 1.57 m Weight: 82 kg Allergies Allergy/AdvReac Type Severity Reaction Status Date / Time No Known Allergies Allergy Verified 10/09/23 09:36 Home Medications Medication Instructions Recorded Confirmed Type furosemide 20 mg tablet (Lasix) 20 mg PO DAILY 06/25/20 10/09/23 History cholecalciferol (vitamin D3) 1,250 1,250 mcg PO WEEKLY 10/07/20 10/09/23 History mcg (50,000 unit) capsule mecobalamin (vitamin B12) 10,000 10,000 mcg IM MONTHLY 10/07/20 10/09/23 History mcg solution for injection multivitamin 1 tablet PO DAILY 10/07/20 10/09/23 History ferrous sulfate 325 mg (65 mg 325 mg PO DAILY 02/14/21 10/09/23 History iron) tablet (FeroSul) meclizine 25 mg chewable tablet 25 mg PO TID #20 tabs 07/02/23 10/09/23 Rx (Antivert) acetaminophen 500 mg tablet 500 mg PO Q6H PRN pain #30 tabs 09/27/23 10/09/23 Rx docusate sodium 100 mg tablet 100 mg PO DAILY #30 tabs 09/27/23 10/09/23 Rx mupirocin 2 % topical ointment 1 applic topical TID PRN Dry Skin 10/03/23 10/09/23 History Patient hx anesthesia problems: none Family hx anesthesia problems: none Results Review: All pre-operative results and documents have been reviewed as part of the pre- operative evaluation. [facility] Past Medical History Medical History Abnormal uterine bleeding Anemia Edema Fibroids Small bowel obstruction Ulcer UTI (urinary tract infection) Surgical History Surgical History H/O gastric bypass H/O tubal ligation Family History Family History Other Diabetes mellitus Family history of elevated blood lipids Hypertension Social History Social History Smoking status: Never smoker Substance use type: does not use Living arrangements: alone Gender identity (if verbalized by the patient): Female Sexual Orientation (if Verbalized by the Patient): Straight or Heterosexual Anes - Eval Final PreProcedure Day of Procedure 10/09/23 08:14 Patient weight: obese Heart: regular rate and rhythm Lungs: clear to auscultation Airway: Mallampati scale class II Neurological: alert and oriented Last oral intake: >/= 8 hours ASA classification: II Emergent: no Anesthetic plan: proceed Anesthesia type and monitoring: general GIVS and standard monitoring Results Review: All pre-operative results and documents have been reviewed as part of the pre- operative evaluation. Informed Consent: The patient's anesthetic plan and its attendant risks and benefits were discussed with the patient/family/POA. Questions were solicited and answers provided to the satisfaction of the patient/family/POA.
[2023-10-09 09:38] VITALS: BP 131/80; PULSE 92; RESP 17; TEMP 37.1; O2SAT 100; BMI 37.9
--- NOTE | 2023-10-09 09:41 | SUR.PREOP ---
Pt has had a tubal ligation. No need for bedside test.
[2023-10-09] MEDS: LACTATED RINGERS 1,000 ML 150 ML IV CONT (09:57)
--- NOTE | 2023-10-09 10:09 | PM.HPGS ---
History of Present Illness History of Present Illness Consent: Risks, benefits, and alternatives have been discussed and questions answered. Patient agrees to proceed with procedure. Chief complaint: Hemorrhage of anus and rectum Narrative: Yazmin Hunt is a 38 year old female here with rectal bleeding, never had colonoscopy Review of Systems Constitutional: Constitutional: Denies headache(s) and Denies weakness Eyes: Eyes: Denies blurry vision ENT: Reports Normal hearing present, Denies headache(s) and Denies neck pain Cardiovascular: Cardiovascular: Denies chest pain and Denies dyspnea Respiratory: Respiratory: Denies dyspnea Gastrointestinal: Gastrointestinal: Reports no additional gastrointestinal complaints Genitourinary: Genitourinary: Denies dysuria Musculoskeletal: Musculoskeletal: Denies neck pain Integumentary/Breasts: Skin/Breast: Denies dry skin Neurologic: Reports Normal hearing present, Denies headache(s) and Denies weakness Psychiatric: Psychiatric: Denies anxiety Endocrine: Endocrine: Denies change in body appearance Hematologic/Lymphatic: Hematologic/Lymphatic: Denies easy bleeding Allergic/Immunologic: Allergic/Immunologic: Denies urticaria PMF Past Medical History Medical History (Updated 10/09/23 @ 10:10 by Eric Camacho MD) Abnormal uterine bleeding Anemia Asthma Edema Fibroids Rectal bleeding Small bowel obstruction Ulcer UTI (urinary tract infection) Surgical History Surgical History H/O gastric bypass H/O tubal ligation Family History Family History Other Diabetes mellitus Family history of elevated blood lipids Hypertension Social History Social History Smoking status: Never smoker Substance use type: does not use Living arrangements: alone Gender identity (if verbalized by the patient): Female Sexual Orientation (if Verbalized by the Patient): Straight or Heterosexual Meds Home Medications and Allergies Home Medications Medication Instructions Recorded Confirmed Type furosemide 20 mg tablet (Lasix) 20 mg PO DAILY 06/25/20 10/09/23 History cholecalciferol (vitamin D3) 1,250 1,250 mcg PO WEEKLY 10/07/20 10/09/23 History mcg (50,000 unit) capsule mecobalamin (vitamin B12) 10,000 10,000 mcg IM MONTHLY 10/07/20 10/09/23 History mcg solution for injection multivitamin 1 tablet PO DAILY 10/07/20 10/09/23 History ferrous sulfate 325 mg (65 mg 325 mg PO DAILY 02/14/21 10/09/23 History iron) tablet (FeroSul) meclizine 25 mg chewable tablet 25 mg PO TID #20 tabs 07/02/23 10/09/23 Rx (Antivert) acetaminophen 500 mg tablet 500 mg PO Q6H PRN pain #30 tabs 09/27/23 10/09/23 Rx docusate sodium 100 mg tablet 100 mg PO DAILY #30 tabs 09/27/23 10/09/23 Rx mupirocin 2 % topical ointment 1 applic topical TID PRN Dry Skin 10/03/23 10/09/23 History Allergies Allergy/AdvReac Type Severity Reaction Status Date / Time No Known Allergies Allergy Verified 10/09/23 09:36 Vital Signs Vital Signs - 24 hr 10/09/23 09:38 Temperature 98.7 F Pulse Rate 92 Respiratory Rate 17 Blood Pressure 131/80 Pulse Oximetry 100 Oxygen Delivery Room Air Exam Const: General: comfortable and no acute distress HENMT: Face/Nose/Sinus: Normal nares present Eyes: General: appearance normal, both eyes and all related structures Neck: Neck: no JVD Resp: Auscultation: clear to auscultation bilaterally Cardio: Rate: regular rate Rhythm: regular rhythm GI: Inspection: non-distended GI Palp: Yes Soft to palpation Skin: General skin exam: normal color Neuro: General: gait normal Speech: normal speech Extrem: General: normal to inspection Psych: Mental Status: mental status grossly normal Assessment and Plan Assessment and plan (1
[2023-10-09 10:27] VITALS: BP 107/66; PULSE 94; RESP 24; O2SAT 97
[2023-10-09 10:37] VITALS: BP 113/71; PULSE 92; RESP 15; O2SAT 100
[2023-10-09 10:47] VITALS: BP 111/72; PULSE 91; RESP 21; O2SAT 100
== END 2023-10-09 10:54 | disposition home or self-care (01) ==
PROVIDERS: PCP Internal Medicine; Visit Provider Internal Medicine Gastroenterology
PROC: 0DJD8ZZ Inspection of Lower Intestinal Tract, Via Natural or Artificial Opening Endoscopic (ICD-10-PCS; CPT 45378; principal; 2023-10-09 11:00)
DX: K62.5 Hemorrhage of anus and rectum (principal); D64.9 Anemia, unspecified; J45.909 Unspecified asthma, uncomplicated; E66.9 Obesity, unspecified; Z68.37 Body mass index [BMI] 37.0-37.9, adult; Z98.84 Bariatric surgery status
CPT/HCPCS: 45378; J2704; J7120

== ENCOUNTER 2023-10-17 11:37 | Emergency (ER) | payer OTHER, SELFPAY ==
--- NOTE | ~2023-10-17 | US_ITS ---
EXAMINATION: US abdomen limited DATE: 10/17/2023 19:13 INDICATION: Abnormal liver function tests. TECHNIQUE: Multiple grayscale and Doppler ultrasound images of the abdomen were obtained. COMPARISON: CT abdomen and pelvis 09/27/2023 FINDINGS: The visualized portion of the head of the pancreas is normal. The liver is normal without f ocal lesion. There is normal flow in main portal vein. The gallbladder is normal in size and contains sludge. No gallstones or gallbladder wall thickening. There is no sonographic Knight sign. The commo n duct is normal measures 4 mm. IMPRESSION: 1. No etiology for abnormal liver function tests. Reviewed, dictated and finalized at location E. HANDLER
--- NOTE | ~2023-10-17 | XR_ITS ---
EXAMINATION: XR chest 2V 10/17/2023 12:11 INDICATION: Midsternal chest pain PROCEDURE: 2 view chest COMPARISON: Comparison to multiple prior studies sequentially, with oldest reviewed study dated 06/25. FINDINGS: The lungs are clear. The cardiomediastinal silhouette is within normal limits. There are no pleural effusions. There is no pneumothorax suspected. IMPRESSION: 1: NO ACUTE CARDIOPULMONARY DISEASE. Reviewed, dictated and finalized at location L. ST SCIENCE PROFESSOR
--- NOTE | ~2023-10-17 | CT_ITS ---
EXAMINATION: CT abdomen pelvis wo con DATE: 10/17/2023 20:15 INDICATION: Abnormal liver function tests. Mid sternal chest pain. Epigastric abdominal pain. TECHNIQUE: Computed tomography (CT) of the abdomen and pelvis was performed without intravenous contr ast. Automated exposure control and iterative reconstruction technique were employed. The dose-length product was 952.57 mGy-cm. COMPARISON: CT abdomen and pelvis 09/27/2023 FINDINGS: The visualized portions of the lung bases demonstrate mild atelectasis. No pleural effusion . The heart size is normal. No pericardial effusion. There are changes of gastric bypass procedure. T he liver, gallbladder, spleen, pancreas, adrenal glands, and kidneys are normal. There are changes of ventral hernia repair. The appendix is fluid-filled with diameter of 8 mm. There are no pathological ly enlarged lymph nodes. There is no free intraperitoneal fluid. There is mild thoracic and lumbar sp ondylosis. IMPRESSION: 1. Appendiceal diameter of 8 mm, which is indeterminate for appendicitis. Reviewed, dictated and finalized at location E. N SUPERVISOR
--- NOTE | 2023-10-17 11:40 | ECG_ITS ---
Measurements Intervals [place] Rate: 65 P: -1 TN: 154 QRS: 25 QRSD: 82 T: 23 QT: 411 QTc: 430 Interpretive Statements SINUS RHYTHM NORMAL ECG COMPARED TO ECG 09/26/2023 21:46:12 NO SIGNIFICANT CHANGES Electronically Signed On 10-17-2023 12:01:49 CABLE DISPATCHER by Trevor Dawn D.O.
[2023-10-17 11:41] VITALS: BP 118/98; PULSE 68; RESP 16; TEMP 36.2; O2SAT 100
[2023-10-17 12:07] LABS: Basophils Percent Auto 0.5 % (0.2-1.2); Eosinophils Absolute Auto 0.8 K/mm3 (0-0.3); Eosinophils Percent Auto 13.9 % (0-4.4); Hematocrit 37.9 % (37.0-47.0); Hemoglobin 12.4 g/dL (12.0-15.0); Immature Granulocyte Absolute 0.01 K/mm3 (0.00-0.031); Immature Granulocyte Percent A 0.2 % (0-0.5); Lymphocytes Absolute Auto 2.52 K/mm3 (0.9-3.2); Lymphocytes Percent Auto 46.1 % (18.3-44.2); Mean Corpuscular HGB Conc 32.7 g/dl (32-36); Mean Corpuscular Hemoglobin 30.2 pg (26-34); Mean Corpuscular Volume 92.2 fl (80-100); Mean Platelet Volume 8.9 fl (7.4-10.4); Monocytes Absolute Auto 0.5 K/mm3 (0.1-0.6); Monocytes Percent Auto 9.1 % (2.6-8.5); Neutrophils Absolute Auto 1.7 K/mm3 (1.3-6.7); Neutrophils Percent Auto 30.2 % (45.5-73.1); Platelet Count Result 334 k/mm3 (150-375); Red Blood Count 4.11 M/mm3 (4.2-5.4); Red Cell Distribution Width 12.7 % (11.5-14.5); White Blood Count 5.5 K/mm3 (4.5-10.0)
[2023-10-17 12:16] LABS: Alanine Aminotransferase 68 U/L (6-35); Albumin Level 3.7 g/dL (3.5-5.1); Alkaline Phosphatase 148 U/L (38-126); Anion Gap 6 mmol/L (8-16); Aspartate Amino Transferase 105 U/L (14-36); Bilirubin,Total 0.5 mg/dL (0.2-1.3); Blood Urea Nitrogen 8 mg/dL (7-17); Calcium 8.9 mg/dL (8.4-10.2); Carbon Dioxide 27 mmol/L (22-30); Chloride 105 mmol/L (98-107); Estimated CRCL calculation 92 ml/min; Estimated Glomerular Filt Rate > 60; Glucose 82 mg/dL (65-110); Lipase 121 U/L (23-300); Potassium 3.9 mmol/L (3.4-5.0); Sodium 138 mmol/L (137-145)
[2023-10-17 12:19] LABS: INR 1.1; Partial Thromboplastin Time 34.3 SECONDS (22.3-36.8); Prothrombin Time 14.3 Seconds (11.1-14.7)
[2023-10-17 12:28] LABS: Troponin I < 0.012 ng/mL (0.000-0.034)
--- NOTE | 2023-10-17 15:32 | ECG_ITS ---
Measurements Intervals [place] Rate: 60 P: 28 ME: 170 QRS: 20 QRSD: 78 T: 11 QT: 411 QTc: 412 Interpretive Statements SINUS RHYTHM LOW QRS VOLTAGE IN PRECORDIAL LEADS BASELINE ARTIFACT- I, II, III, AVR, AVL, V4 BORDERLINE ECG COMPARED TO ECG 10/17/2023 11:52:36 NO SIGNIFICANT CHANGES Electronically Signed On 10-17-2023 15:57:51 LINSEED CAKE TRIMMER by Trevor Dawn D.O.
--- NOTE | 2023-10-17 15:34 | ED.CHESTPAIN ---
HPI - Chest Pain General Chief Complaint: Chest Pain <Debbie Johnson PA-C - Last Filed: 10/18/23 09:53> Stated Complaint: chest pain/abdominal pain <Debbie Johnson PA-C - Last Filed: 10/18/23 09:53> Time Seen by Provider: 10/17/23 15:34 <Debbie Johnson PA-C - Last Filed: 10/18/23 09:53> Focused HPI: This is a 38 year old female that presents to the ER for epigastric discomfort. Ongoing over the last couple of weeks. Reports radiation into her chest. The pain is burning and dull in nature. Reports recently stopping Trulicity. GENERAL: Well-appearing, well-nourished, and in no acute distress. HEAD: Normocephalic, atraumatic. CHEST: Clear to auscultation. No respiratory distress. HEART: Regular rate and rhythm. GASTROINTESTINAL: Mild tenderness to palpation in the epigastrium, without guarding NEURO: Alert and oriented x3. Patient screened in triage and initial orders placed. Additional care and disposition to be based upon diagnostic testing and treatment. <Debbie Johnson PA-C - Last Filed: 10/18/23 09:53> Source: patient <Valerie Khan MD - Last Filed: 10/18/23 03:38> Mode of arrival: ambulatory <Valerie Khan MD - Last Filed: 10/18/23 03:38> Limitations: no limitations <Valerie Khan MD - Last Filed: 10/18/23 03:38> History of Present Illness HPI narrative: Patient was prescribed Trulicity/dulaglutide for weight loss (no history of diabetes) but has not taken it for 3 weeks due to being hospitalized or feeling unwell. Chest/abdominal pain/discomfort has been going on for 2 weeks, constant, though slightly worse at night. 8/10 in severity. Described as a stabbing. She has been having a feeling of fullness with eating/early satiety. Previously saw appeals referee Dr Tesfaye Garcia at [facility] but Dr Farrell recently performed a colonoscopy in the past week, reportedly normal. She has been nauseated. LBM was this morning which was loose but formed, non bloody. No fevers. Denies edema. Denies a cough though states perhaps occasionally. Denies wheezes. <Valerie Khan MD - Last Filed: 10/18/23 03:38> Related Data Home Medications: Home Medications Medication Instructions Recorded Confirmed furosemide 20 mg tablet (Lasix) 20 mg PO DAILY 06/25/20 10/09/23 cholecalciferol (vitamin D3) 1,250 1,250 mcg PO WEEKLY 10/07/20 10/09/23 mcg (50,000 unit) capsule mecobalamin (vitamin B12) 10,000 10,000 mcg IM MONTHLY 10/07/20 10/09/23 mcg solution for injection multivitamin 1 tablet PO DAILY 10/07/20 10/09/23 ferrous sulfate 325 mg (65 mg 325 mg PO DAILY 02/14/21 10/09/23 iron) tablet (FeroSul) mupirocin 2 % topical ointment 1 applic topical TID PRN Dry Skin 10/03/23 10/09/23 <Debbie Johnson PA-C - Last Filed: 10/18/23 09:53> Allergies/Adverse Reactions: Allergies Allergy/AdvReac Type Severity Reaction Status Date / Time No Known Allergies Allergy Verified 10/09/23 09:36 <Debbie Johnson PA-C - Last Filed: 10/18/23 09:53> Review of Systems Review of Systems: CONSTITUTIONAL: Denies fever CARDIOVASCULAR: Reports chest pain RESPIRATORY: Denies dyspnea. GASTROINTESTINAL: Reports abdominal pain, nausea, and diarrhea. <Debbie Johnson PA-C - Last Filed: 10/18/23 09:53> All systems reviewed & are unremarkable except as noted in HPI and below <Debbie Johnson PA-C - Last Filed: 10/18/23 09:53> [facility] Past Medical History Medical History: Medical History Abnormal uterine bleeding Anemia Asthma Edema Fibroids Rectal bleeding Small bowel obstruction Ulcer UTI (urinary tract infection) <Debbie Johnson PA-C - Last Filed: 10/18/23 09:53> Surgical History Surgical History: Surgical History H/O gastric bypass H/O tubal ligation History of colonoscopy September 2023; Dr Farrell
--- NOTE | 2023-10-17 15:53 | PC.NURSE ---
Pt states once the Trulicity was increased she became nauseated, then decided to stop medication
[2023-10-17 16:21] LABS: Troponin I 0.024 ng/mL (0.000-0.034)
[2023-10-17 17:20] VITALS: BP 113/77; PULSE 60; RESP 15; O2SAT 100
[2023-10-17] MEDS: BELLADONNA ALK/PHENOB ELIX 10 ML, MAG HYDROX/ALUMINUM HYD/SIMETH 30 ML, LIDOCAINE HCL 2... PO (20:45)
--- NOTE | 2023-10-17 20:54 | ECG_ITS ---
Measurements Intervals [place] Rate: 61 P: 48 MA: 183 QRS: 28 QRSD: 76 T: 5 QT: 404 QTc: 408 Interpretive Statements SINUS RHYTHM BASELINE ARTIFACT- I, II, III NORMAL ECG COMPARED TO ECG 10/17/2023 15:49:22 NO SIGNIFICANT CHANGES Electronically Signed On 10-18-2023 6:40:36 FIBERGLASS ROLLER by Trevor Dawn D.O.
[2023-10-17 21:31] LABS: Troponin I < 0.012 ng/mL (0.000-0.034)
[2023-10-17] MEDS: PANTOPRAZOLE 40 MG TABLET PO (22:25)
[2023-10-17 22:29] VITALS: BP 120/68; PULSE 70; RESP 15; O2SAT 100
== END 2023-10-17 22:30 | disposition home or self-care (01) ==
PROVIDERS: Emergency Medicine; Emergency Provider Student in an Organized Health Care Education/Training Program; PCP Internal Medicine
DX: R10.13 Epigastric pain (principal); R07.89 Other chest pain; R74.01 Elevation of levels of liver transaminase levels; J45.909 Unspecified asthma, uncomplicated; Z87.440 Personal history of urinary (tract) infections; Z86.2 Personal history of diseases of the blood and blood-forming organs and certain disorders involving the immune mechanism; Z98.84 Bariatric surgery status; R94.31 Abnormal electrocardiogram [ECG] [EKG]
CPT/HCPCS: 36415; 71046; 74176; 76705; 80053; 83690; 84484; 85025; 85610; 85730; 93005; 99284; A9270

== ENCOUNTER 2023-10-20 14:59 | Emergency (ER) | payer OTHER, SELFPAY ==
--- NOTE | ~2023-10-20 | CT_ITS ---
EXAMINATION: CT BRAIN W/O DATE: 10/20/2023 16:52 INDICATION: Ago. Headache. TECHNIQUE: Computed tomography (CT) of the head was performed without intravenous contrast. The dose- length product was 529.67 mGy-cm. Automated exposure control and iterative reconstruction technique w ere employed. COMPARISON: CT dated 02/19/2021 FINDINGS: Normal brain parenchymal volume for age. Normal victor-white differentiation. No acute intrac ranial hemorrhage, infarction, mass or mass effect. No ventriculomegaly or midline shift. Midline sagittal images demonstrate a normal corpus callosum, c raniovertebral junction and sella turcica. Basilar cisterns are patent. Paranasal sinuses and mastoids are pneumatized. No depressed skull fractures. IMPRESSION: 1. No acute intracranial abnormality. Reviewed, dictated and finalized at location B. LOGIST
--- NOTE | ~2023-10-20 | XR_ITS ---
EXAMINATION: XR chest 1V DATE: 10/20/2023 16:56 INDICATION: Vertigo. Asthma. TECHNIQUE: frontal view of the chest was obtained. COMPARISON: Chest radiograph dated 10/17/2023 FINDINGS: The lungs remain clear with no focal airspace opacities, pulmonary edema, pleural effusion or pneumot horax. The cardiomediastinal silhouette is normal. Visualized bones and soft tissues are unremarkable . IMPRESSION: 1. Normal chest radiograph. Reviewed, dictated and finalized at location A. ULATION WORKER IMPRESSION: 1. Normal chest radiograph.
--- NOTE | 2023-10-20 15:01 | ECG_ITS ---
Measurements Intervals [place] Rate: 70 P: 35 [place]: 154 QRS: 23 QRSD: 84 T: 7 QT: 402 QTc: 436 Interpretive Statements SINUS RHYTHM WITH SINUS ARRHYTHMIA BORDERLINE ST-T WAVE ABNORMALITY- ANTEROLAT/INF LEADS BORDERLINE ECG COMPARED TO ECG 10/17/2023 20:57:24 S[address]IA NOW PRESENT ST-T WAVE ABNORMALITY NOW PRESENT Electronically Signed On 10-20-2023 15:28:21 [employer] FLATBED TRUCK DRIVER by Trevor Dawn D.O.
[2023-10-20 15:04] VITALS: BP 129/62; PULSE 92; RESP 18; TEMP 36.8; O2SAT 100
[2023-10-20 15:47] LABS: Basophils Percent Auto 0.4 % (0.2-1.2); Eosinophils Absolute Auto 0.1 K/mm3 (0-0.3); Eosinophils Percent Auto 1.4 % (0-4.4); Hemoglobin 12.3 g/dL (12.0-15.0); Immature Granulocyte Absolute 0.02 K/mm3 (0.00-0.031); Immature Granulocyte Percent A 0.3 % (0-0.5); Lymphocytes Absolute Auto 1.19 K/mm3 (0.9-3.2); Lymphocytes Percent Auto 17.1 % (18.3-44.2); Mean Corpuscular HGB Conc 30.8 g/dl (32-36); Mean Corpuscular Hemoglobin 29.8 pg (26-34); Mean Corpuscular Volume 96.9 fl (80-100); Mean Platelet Volume 10.1 fl (7.4-10.4); Monocytes Absolute Auto 0.3 K/mm3 (0.1-0.6); Monocytes Percent Auto 3.9 % (2.6-8.5); Neutrophils Absolute Auto 5.4 K/mm3 (1.3-6.7); Neutrophils Percent Auto 76.9 % (45.5-73.1); Platelet Count Result 237 k/mm3 (150-375); Red Blood Count 4.13 M/mm3 (4.2-5.4)
[2023-10-20 16:05] LABS: Alanine Aminotransferase 63 U/L (6-35); Alkaline Phosphatase 149 U/L (38-126); Anion Gap 8 mmol/L (8-16); Aspartate Amino Transferase 67 U/L (14-36); Bilirubin,Total 0.5 mg/dL (0.2-1.3); Blood Urea Nitrogen 8 mg/dL (7-17); Calcium 8.8 mg/dL (8.4-10.2); Carbon Dioxide 23 mmol/L (22-30); Chloride 105 mmol/L (98-107); Estimated CRCL calculation 106 ml/min; Estimated Glomerular Filt Rate > 60; Glucose 138 mg/dL (65-110); Potassium 3.9 mmol/L (3.4-5.0); Sodium 136 mmol/L (137-145)
--- NOTE | 2023-10-20 16:37 | ED.DIZZY ---
HPI - Dizziness General Chief Complaint: Syncope Stated Complaint: vertigo, vomitting Time Seen by Provider: 10/20/23 16:35 Source: patient Mode of arrival: ambulatory Limitations: no limitations History of Present Illness HPI Narrative: 38 years old female drove herself to the emergency room because of increased vertigo during physical therapy to manage vertigo for the 1st time today. Patient is telling me that she have history of vertigo and chronic headache over 6 months. Was seen by ENT numerous of time last 1 was [address] Estrella who ordered physical therapy. During physical therapy patient was looking down to the floor on the floor kept spinning associated with nausea, patient could not continue the physical therapy. Patient drove herself to the emergency room. She reported that to get worse with movement better if she remaining still and if she takes Tylenol.. Patient denies any fever, chills, vomiting, chest pain, abdominal pain, shortness of breath. Patient been working almost daily and complaining of chronic headache and vertigo. Related Data Home Medications Medication Instructions Recorded Confirmed furosemide 20 mg tablet (Lasix) 20 mg PO DAILY 06/25/20 10/09/23 cholecalciferol (vitamin D3) 1,250 1,250 mcg PO WEEKLY 10/07/20 10/09/23 mcg (50,000 unit) capsule mecobalamin (vitamin B12) 10,000 10,000 mcg IM MONTHLY 10/07/20 10/09/23 mcg solution for injection multivitamin 1 tablet PO DAILY 10/07/20 10/09/23 ferrous sulfate 325 mg (65 mg 325 mg PO DAILY 02/14/21 10/09/23 iron) tablet (FeroSul) mupirocin 2 % topical ointment 1 applic topical TID PRN Dry Skin 10/03/23 10/09/23 Allergies Allergy/AdvReac Type Severity Reaction Status Date / Time No Known Allergies Allergy Verified 10/09/23 09:36 Review of Systems Review of Systems: All systems reviewed & are unremarkable except as noted in HPI and below PMFSH Past Medical History Medical History Abnormal uterine bleeding Anemia Asthma Edema Fibroids Rectal bleeding Small bowel obstruction Ulcer UTI (urinary tract infection) Surgical History Surgical History H/O gastric bypass H/O tubal ligation History of colonoscopy September 2023; Dr Farrell History of esophagogastroduodenoscopy (EGD) around time of small bowel obstruction ([facility]) Family History Family History Other Diabetes mellitus Family history of elevated blood lipids Hypertension Social History Social History Smoking status: Never smoker Alcohol intake: never Substance use type: does not use Living arrangements: alone Gender identity (if verbalized by the patient): Female Sexual Orientation (if Verbalized by the Patient): Straight or Heterosexual Exam Narrative: General appearance: Well-developed, well-nourished Skin: Normal color Head: Normocephalic, nontraumatic Eyes: Clear conjunctiva ENT: Oropharynx normal, ears normal, nose normal Neck: Supple, nontender Chest and respiratory: Airway patent, no respiratory distress, no accessory muscle use Heart: Regular rate/rhythm Abdomen: Soft, nontender, no organomegaly, quiet bowel sounds Vascular: Normal peripheral pulses, normal capillary refill. Musculoskeletal: Normal range of motion, nontender back Neurologic: Alert and oriented ?3, FUNERAL LOCATION MANAGER is normal as tested, no gross motor deficit Course Consultations Consultation #1: Dr. Estrella Agreed with our management and recommends patient to
[2023-10-20] MEDS: MECLIZINE HCL 25 MG TABLET PO (17:53)
[2023-10-20] MEDS: ONDANSETRON HCL ODT 4 MG TABLET PO (17:53)
[2023-10-20] MEDS: HYDROcodone/acetaminophen (*CRX) 5-325 MG TABLET 1 TAB PO (17:53)
[2023-10-20] MEDS: diazePAM (*CRX) 5 MG TABLET PO (17:53)
[2023-10-20 19:26] LABS: Amphetamine Screen Urine Negative (Negative); Barbiturate Screen Urine Negative (Negative); Benzodiazepines Screen Urine Negative (Negative); Cannabinoid Screen Urine Negative (Negative); Cocaine Screen Urine Negative (Negative); Methadone Screen Urine Negative (Negative); Opiate Screen Urine Negative (Negative); Phencyclidine Screen Urine Negative (Negative)
== END 2023-10-20 19:00 | disposition home or self-care (01) ==
PROVIDERS: Emergency Medicine; Emergency Provider Emergency Medicine; PCP Internal Medicine
DX: R42 Dizziness and giddiness (principal); R51.9 Headache, unspecified; J45.909 Unspecified asthma, uncomplicated; Z86.2 Personal history of diseases of the blood and blood-forming organs and certain disorders involving the immune mechanism; Z87.440 Personal history of urinary (tract) infections; Z98.84 Bariatric surgery status; R94.31 Abnormal electrocardiogram [ECG] [EKG]
CPT/HCPCS: 36415; 70450; 71045; 80053; 80307; 81025; 85025; 93005; 99284; A9270

== ENCOUNTER 2024-01-25 08:56 | Outpatient (CLI) | payer OTHER, SELFPAY ==
--- NOTE | ~2024-01-25 | US_ITS ---
EXAMINATION: US biopsy lymph node DATE: 01/25/2024 11:04 INDICATION: Localized enlarged lymph nodes TECHNIQUE: The procedure including the risks and benefits was discussed with the patient. Risks discu ssed included bleeding, allergic reaction and infection. The patient understood the risks and agreed to proceed. Transition Of Care Specialist ultrasound images demonstrate a few mildly prominent but still normal-sized retroau ricular subcutaneous posterior cervical triangle chain lymph nodes the largest measuring 6 mm in maxi mal short axis diameter. A couple additional abnormally enlarged lymph nodes were seen along the prox imal right jugular chain on the inferior margin of the right mandibular gland measuring up to 2.6 x 1 .2 cm maximal diameter. There is 2.6 x 1.2 cm lymph node was chosen for biopsy. The skin overlying th e inframandibular right neck was prepped and draped in usual sterile fashion. Anesthetic was adminis tered with 1% lidocaine subcutaneously. An 18 gauge core biopsy needle was advanced under continuous ultrasound observation to the lesion of interest. 5 core biopsy specimens were obtained, 3 placed i n RPMI media and 2 in formalin. The needle was removed and the entry site was cleaned and dressed. Post procedure ultrasound demonstrated no hemorrhage. FINDINGS: Ultrasound images demonstrate biopsy needles advanced into an enlarged 2.6 x 1.2 cm high ri ght internal jugular chain lymph node. A few normal-sized right retroauricular and posterior cervical triangle lymph nodes measuring up to 6 mm in maximal short axis diameter are identified directly at the region of concern which are more prominent on physical exam due to the relatively superficial loc ation. IMPRESSION: 1. Successful Ultrasound-guided biopsy of an enlarged 2.6 x 1.2 cm right submandibular/high right jug ular chain lymph node. 2. A few mildly prominent right retroauricular and posterior cervical triangle chain lymph nodes whic h remain within normal limits in size measuring up to 6 mm. The retroauricular lymph nodes are relati vely superficial which likely accounts for their increased prominence on physical exam. Reviewed, dictated and finalized at location A. IMPRESSION: 1. Successful Ultrasound-guided biopsy of an enlarged 2.6 x 1.2 cm right subman dibular/high right jugular chain lymph node. 2. A few mildly prominent right retroauricular and posterior cervical triangle chain lymph nodes which remain within normal limits in size measuring up to 6 m m. The retroauricular lymph nodes are relatively superficial which likely accou nts for their increased prominence on physical exam.
== END 2024-01-25 08:57 | disposition home or self-care (01) ==
PROVIDERS: PCP Otolaryngology; Visit Provider Otolaryngology
DX: R59.0 Localized enlarged lymph nodes (principal)
CPT/HCPCS: 38505; 76942; 88184; 88305

== ENCOUNTER 2025-02-24 07:56 | Outpatient (CLI) | payer OTHER, SELFPAY ==
--- NOTE | ~2025-02-24 | MR_ITS ---
MRI of the brain Clinical History: Asymmetric sensorineural hearing loss Technique: Axial and sagittal T1-weighted images were acquired. These were followed by axial T2-weigh luis, diffusion weighted, gradient, and FLAIR images. Axial and coronal thin cut T1-weighted and T2-we ighted images were acquired through the internal auditory canals. Following intravenous administratio n of 20 cc MultiHance gadolinium, T1-weighted fat-sat imaging was performed through the brain in the axial and coronal planes. Thin cut T1-weighted postcontrast imaging of the fourth of the internal aud itory canals in the axial and coronal planes. Findings: No abnormal signal seen in the brain parenchyma. No acute infarct, internal hemorrhage, or mass lesion identified. Ventricles and subarachnoid spaces are unremarkable. Orbits are unremarkable. Paranasal sinuses and m astoid air cells are clear. Major intracranial flow voids are intact. Sagittal midline structures are intact. No abnormal mass lesion seen at the internal auditory canals or cerebellopontine angle regions. No abnormal postcontrast enhancement identified. IMPRESSION: Normal exam. Reviewed, dictated and finalized at location . IMPRESSION: Normal exam.
--- OUTSIDE RECORDS SUMMARY | 2025-02-24 08:00 | XMS_ITS | Encounter Summary ---
Author Organization [facility] [place] [facility] Address [address] [place] [address] Phone Care Team Providers Care Pmo Analyst Name Role Phone Jamir Melgar MD Primary Care Provider No, Physician Primary Care Provider [phone] Jamir Melgar MD Primary Care Provider Fiona Leon MD Unavailable [phone] Encounter Details Date Type Department Care Team (Late st Contact Info) Description 02/23/2023 Telephone [facility] Dermatology [address] [place] [address] [address] [place] [address] Jesus Mcgrath, EMT Social History Tobacco Use Types Packs/Day Years Used Date Smoking Tobacco: Never Smokeless Tobacco: Never Alcohol Use Standard Drinks/Week Comments Yes 0 (1 standard drink = 0.6 oz pur e alcohol) AUDIT-C Answer Date Recorded Frequency of Alcohol Consumption Not on file 12/08/2022 Q2: How many drinks containi ng alcohol do you have on a typical day when you are drinking? Patient does not drink Frequency of Binge Drinking Not on file 11/23 Personal Safety Answer Date Recorded Have you ever been in or are you currently in a harmful physical or emotional relationship or is someone making you feel afraid or unsafe? Denies 12/13/2022 Comments No Sex and Gender Information Value Date Recorded Sex Assigned at Not on file Legal Sex Female 3:36 AM ARCHITECTURAL TECHNOLOGIST Gender Identity Female 03/02/2021 12:52 PM CDT Sexual Orientation Choose not to disclose 2020 12:52 PM CDT documented as of this encounter Plan of Treatment Not on file documented as of this encounter Visit Diagnoses Not on filedocumented in this encounter Care Teams Pmo Analyst Relationship Specialty Start Date End Date Jamir Melgar MD PCP - General 01/16/17 01/29/24 No, Physician PCP - General 01/30/24 09/22/24 Jamir Melgar MD [address] [facility] [address] [place] [address] PCP - General Internal Medicine 09/23/24 Fiona Leon MD [address] [place] [address] Medical Oncologist/Senior Chemist Hematology and Oncology 12/17/24 documented as of this encounter
--- OUTSIDE RECORDS SUMMARY | 2025-02-24 08:00 | XMS_ITS | Encounter Summary ---
Author Organization [facility] Address [address] [place] [address] Care Team Providers Care Research Development Manager Name Role Phone Jamir Melgar MD Primary Care Provider Fiona Leon MD Unavailable [phone] Reason for Visit * Reason Onset Date Comments Appointment Request 01/24/2025 Encounter Details Date Type Department Care Team (Late st Contact Info) Description 01/24/2025 Telephone [facility] Family Medicine at [address] [place] [address] Debbie Mendiola NP [address] [facility] [address] [place] [address] Appointment Request Social History Tobacco Use Types Packs/Day Years Used Date Smoking Tobacco: Never Passive Smoke Exposure: Never Smokeless Tobacco: Never Alcohol Use Standard Drinks/Week Comments Yes 0 (1 standard drink = 0.6 oz pur e alcohol) AUDIT-C Answer Date Recorded Q1: How often do you have a drink containing alcohol? Never 10/23/2024 Q2: How many drinks containi ng alcohol do you have on a typical day when you are drinking? Patient does not drink Q3: How often do you have si x or more drinks on one occasion? Never 10/23/2024 Personal Safety Answer Date Recorded Have you ever been in or are you currently in a harmful physical or emotional relationship or is someone making you feel afraid or unsafe? 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 She is needing to come in the afternoon. She isunable to do mornings. She is currently scheduled for 02/20 at 10:30. She wanting to come in with her daughter, Kenia, on the in the afternoon. Kenia is scheduled for 12:30 pm. The patient was offered multiple options but none worked for her. Can some one call her and see if they can help? Does message need to be routed? Yes-Action Needed documented in this encounter Plan of Treatment Not on file documented as of this encounter Visit Diagnoses Not on filedocumented in this encounter Care Teams Research Development Manager Relationship Specialty Start Date End Date Jamir Melgar MD [address] [facility] [address] [address] PCP - General Internal Medicine 09/23/24 Fiona Leon MD [address] [place] [address] Medical Oncologist/Horizontal Boring Mill Set Up Operator Hematology and Oncology 12/17/24 documented as of this encounter
--- OUTSIDE RECORDS SUMMARY | 2025-02-24 08:01 | XMS_ITS | Encounter Summary ---
Author Organization [facility] Address [address] [place] [address] Phone Care Team Providers Care Portal Architect Name Role Phone Jamir Melgar MD Primary Care Provider No, Physician Primary Care Provider [phone] Jamir Melgar MD Primary Care Provider Fiona Leon MD Unavailable [phone] Encounter Details Date Type Department Care Team (Late st Contact Info) Description 09/12/2023 Telephone [facility] Otolaryngology [address] [facility] Advanced Medicine 11th [place] [address] [place] [address] Nadiya Mauricio Au.D. 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 Gender Identity Female 03/02/2021 12:52 PM CDT Sexual Orientation Choose not to disclose 2020 12:52 PM CDT documented as of this encounter Plan of Treatment Not on file documented as of this encounter Visit Diagnoses Not on filedocumented in this encounter Care Teams Portal Architect Relationship Specialty Start Date End Date Jamir Melgar MD PCP - General 01/16/17 01/29/24 No, Physician PCP - General 01/30/24 09/22/24 Jamir Melgar MD [address] [facility] [address] [address] PCP - General Internal Medicine 09/23/24 Fiona Leon MD [address] [place] [address] Medical Oncologist/Rubber Block Layer Hematology and Oncology 12/17/24 documented as of this encounter
--- OUTSIDE RECORDS SUMMARY | 2025-02-24 08:01 | XMS_ITS | Encounter Summary ---
Author Organization [facility] Address [address] [place] [address] Phone Care Team Providers Care Car Rental Sales Assistant Name Role Phone Jamir Melgar MD Primary Care Provider No, Physician Primary Care Provider [phone] Jamir Melgar MD Primary Care Provider Fiona Leon MD Unavailable [phone] Encounter Details Date Type Department Care Team (Late st Contact Info) Description 03/21/2023 Telephone [facility] Dermatology [address] [place] [address] [address] [place] [address] Jesus Mcgrath, EMT Social History [...] on file 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 [address] [place] [address] PCP - General Internal Medicine 09/23/24 Fiona Leon MD [address] [place] [address] Medical Oncologist/Nnp Hematology and Oncology 12/17/24 documented as of this encounter
--- OUTSIDE RECORDS SUMMARY | 2025-02-24 08:01 | XMS_ITS | Continuity of Care Document ---
Author Organization [facility] Address [address] [facility] [address] [place] [address] Phone Care Team Providers Care Buffing And Polishing Wheel Repairer Name Role Phone Isaias Allred Unavailable Unavailable Procedures Procedure Date Office/outpatient Visit, Est Office/outpatient Visit, New Advance Directives Directive Yes / No Effective Date File Name No Information Encounters Encounter Description Practice Location Reason(s) For Visit Diagnoses Date Provider Providers Copied on Encounter Office/outpat ient Visit, Est [facility], [address] [place] [address] [address], [place], [place], [id number], tel:[phone] [facility] No Information [address] [facility] , [address], [place], [place], [facility], [place]. tel:[phone] Office/outpat ient Visit, [facility], [address] [place] [address] [address], [place], [place], [id number], [place] tel:[phone] [facility] No Information [address]. [address] [facility] [address] , [address], [place], [address], [place]. tel:[phone] Family History Family Member Type Diagnosis Age At Onset No Information Payers Payer name Insurance type Covered libertarian ID Authoralexander aguiar(s) [facility] [id number] Social History Type Description Quantity Date Captured Comments Sex Female Smoking Status No Information Chief Complaint And Reason For Visit No Information Reason For Referral Reason For Referral No Information History Of Present Illness Encounter Date Complaint History Of Prese nt Illness No Information Functional Status Date Functional Assessmen t No Information Instructions Date Instruction Additional Infor mation No Information Assessments Type Assessment Date No Information Patient Care Teams Name Effective Dates (start - stop) Status Members No Information
--- OUTSIDE RECORDS SUMMARY | 2025-02-24 08:01 | XMS_ITS | Continuity of Care Document ---
Author Organization [facility] Address [address] [facility] [address] [place] [address] Phone Care Team Providers Care Enhanced Environmental Operator Name Role Phone Lalita Faustin MD Unavailable Unavailable Allergies, Adverse Reactions, Alerts Substance Reaction Status Criticality No Known Allergies Active No Inform ation Medications Medication Instructions Dosage Effective Dates (start - stop) Status Comments mometasone 0.1 % topical ointment apply by topical route 2 times every day a thin layer to the affected area(s) as needed for red/itchy skin on body Not Available - Active Advair HFA 230 mcg-21 mcg/actuation aerosol inhaler inhale 2 puff by inhalation route 2 times every day in the morning and evening 2.00 puff - Active Spiriva Respimat 1.25 mcg/actuation solution for inhalation inhale 2 puff by inhalation route every day 2.5 MCG - Active azelastine 137 mcg (0.1 %) nasal spray aerosol spray 2 spray by intranasal route 2 times every day in each nostril as needed for runny nose, stuffy nose - Active Procedures Procedure Date Est (Level 3) OFFICE/OUTPATIENT VISIT Flow Volume Loop Mouth piece Perc Test Intradermal Test New (Level 4) OFFICE/OUTPATIENT VISIT Advance Directives Directive Yes / No Effective Date File Name No Information Encounters Encounter Description Practice Location Reason(s) For Visit Diagnoses Date Provider Providers Copied on Encounter [facility], [address] [place] [address], [id number], [place] tel:[phone] [facility] No Information 4 R[address]. [address], [place], [address], [place]. tel:[phone] Referring Provider: Zay Kelly, [address] [facility] [address], [place], [address]. tel:[phone] [facility], [address] [place] [address], [id number], [place] tel:[phone] [facility] No Information 3 Ramin Ches[address]. [address], [place], [address], [place]. tel:[phone] Est (Level 3) OFFICE/OUTPAT IENT VISIT [facility], [address] [place] [address], [id number], [place] tel:[phone] [facility] rash (chief complaint) Body mass index (BMI) 38.0-38.9, adultContact dermatitis due to other agent 3 Ramin [address]. [address] [place], [address], [place]. tel:[phone] Referring Provider: Zay Kelly, [address] [facility] [address], [place], [address]. tel:[phone] New (Level 4) OFFICE/OUTPAT IENT VISIT [facility], [address] [place] [address], [id number], [place] tel:[phone] [facility] allergies and asthma (chief complaint) Body mass index (BMI) 40.0-44.9, adultSevere persistent asthmaChronic rhinitis Feb- 3 Ramin Ches[address]. [address], [place], [address], [place]. tel:[phone] Referring Provider: Zay Kelly, [address] [facility] [address], [place], [address]. tel:[phone] [facility], [address] [place] [address] [address], [place], [place], [id number], [place] tel:[phone] [facility] No Information 3 R[address]. [address], [place], [address], [place]. tel:[phone] Family History Family Member Type Diagnosis Age At Onset Father Problem Allergic rhinitis Problem No family history of Asthma Problem No family history of Allergi c rhinitis Mother Problem Allergic rhinitis Sister Problem Lupus erythematosus Immunizations Vaccine Date Status Comments influenza, injectable, quadr ivalent, preservative free administered Source: Other Provid er influenza, injectable, quadr ivalent, preservative free administered Source: Other Provid er SARS-COV-2 (COVID-19) vaccin e, UNSPECIFIED administered Source: Other Provid er SARS-COV-2 (COVID-19) vaccin e, UNSPECIFIED administered Source: Other Provid er Payers Payer name Insurance type Covered democrat ID Authoriza tion(s) [place] [id number] Social History Type Description Quantity Date Captured Comments Alcohol Use Details Unknown Caffeine Use Details Unknown Tobacco Use Status No Information Smoking Status No Information Sex Female Chief Complaint And Reason For Visit No Information Reason For Referral Reason For Referral No Information Plan Of Treatment Date Type Action Status Future Order: Lab Order Immunogl obulin E, Total ([id number]), Sent on: Sent Future Order: Lab Order CBC With Differential ([id number]), Sent on: Sent History Of Present Illness Encounter Date Complaint History Of Prese nt Illness rash LV: 11/03/22She tucker s asthma and AR. She presents for an acute visit.She reports developing a new pruritic rash on her neck on 11/07/22. She reports pruritus throughout her body. She describes the rash as flat, rough, and erythematous. She does not report any wheals. She tried using HCT 1% without much relief. She did start cetirizine (zyrtec) 10 mg yesterday.She reports she was working on 11/07/22 when the symptoms started. She did not work over the weekend before the rash started. allergies and asthma Asthma The patient has asthma on Advair 230/21 c g 2 puffs BID, Spiriva 2 puffs daily, albuterol PRN (used 3+ times per day). Advair and Spiriva were started on 11/02/21. They were diagnosed with asthma at age 36 yo. The patient has never been hospitalized for asthma. Currently, they have exertional limitations 2/2 dyspnea and occ cough; this occurs 1 flight [address] stairs or taking out the trash. She wakes up from sleep with dyspnea 3 times per week. She has had multiple ED visits > 2 times in the last year, and has been treated with multiple oral steroid bursts because of asthma in the last year.She last used albuterol about 4 hours ago.RhinitisThe patient has a history of perennial rhinitis with seasonal worsening in spring. The symptoms include rhinorrhea (ant) w/o ocular pruritus and tearing. Currently, the patient is on claritin or benadryl PRN (none used in the last week), which does not provide adequate relief. 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 centerEnvironmental HistoryLives in a house w/ central air/forced heat, w/o evidence of mold/water damageFlooring in Bedroom: hard flooringPets: dog x 1DataI reviewed outside records available in the EMR Functional Status Date Functional Assessmen t No Information Instructions Date Instruction Additional Infor abraham - start zyrtec 10 mg daily and increase to twice daily in 1 week if no improvement- use mometasone ointment on the neck and back (not on the face) up to twice daily for 1 week, then as needed Related to Contact dermatitis due to other agent Giving encouragement to exercise Related to Body mass index [BMI] 38.0-38.9, adult - start Azelastine 2 sprays each nostril twice daily as needed for runny nose, nasal congestion- Please remember to point the nasal spray away from the nasal septum, up and outwards towards the top of the ears on both sides- if nose bleeding occurs, please hold the nasal spray for 2-3 days to allow for healing of the nasal tissue (you may use nasal saline gel or vaseline on a q-tip to help heal the tissue), then restart the nasal spray.- If nose bleeding recurs, please stop the nasal spray and contact our office to set up an appointment for further guidance Related to Chronic rhinitis Giving encouragement to exercise Related to Body mass index [BMI] 40.0-44.9, adult Assessments Type Assessment Date No Information Patient Care Teams Name Effective Dates (start - stop) Status Members No Information
--- OUTSIDE RECORDS SUMMARY | 2025-02-24 08:01 | XMS_ITS | Data Portability ---
Author Organization 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 Patient will come back in a year unless there are new symptoms. Not available 01/31/2024 10:34:22 Plan of Treatment Reminders Order Date Submit Date Provider Last Modified By Organization Details Last Modified Time Details Appointments None recorded. Lab hbcab (hepatitis B core Ab) igm, serum 2023 024 [facility] (Lab), [address], [place], [address], 4 00:14:32 HBsAg (hepatitis B surface Ag), serum 2023 024 [facility] (Lab), [address], [place], [address], 4 00:14:31 hepatitis C virus Ab, serum 2023 024 [facility] (Lab), [address], [place], [address], 4 00:14:30 unlisted lab - HIV 1/2 antigen/ant ibody, reflex confirmatio n 2023 024 [facility] (Lab), [address], [place], [address], 4 00:14:31 RPR (rapid plasma reagin), serum 2023 024 [facility] (Lab), [address], [place], [address], 4 00:14:31 Referral None recorded. Procedures None recorded. Surgeries None recorded. Imaging US, pelvis 2022 [address], [address], [place], [address], 3 20:44:58 US, transvagina l [address], [address], [place], [address], 3 20:44:58 Medication Orders None recorded. Patient TargetsNo targets recorded. Patient InstructionsNo instructions recorded. Reason for Referral None Reported. Results Created Date Observation Date Name Description Value Unit Range Abnormal Flag Note LastModifiedBy Organization Detail LastModifiedTime 06/23/2006/23/2023 pregn joshua test, urine HCG negati ve Not Available [facility] [address], [place], [address], 06/23/2023 17:10:07 06/27/20 23 06/27/2023 DHEA SULFA TE DHEA-sulfate 115 ug/dL Femal e Range s Age(y ) Range (ug/d L) 10-15 34-28 0 15-20 65-36 8 20-25 148-4 07 25-35 99-34 0 35-45 61-33 7 45-55 35-25 6 55-65 19-20 5 65-75 9-246 > 75 12-15 4 Not Available [facility] (Lab) [address], [place], [address], 07/05/2023 13:50:06/27/20 23 06/27/2023 PROGE STERO NE progesterone 0.30 NG/mL This assay was perfo rmed using [employer] ratio n reage nts and test kits. Value s obtai aminta with other assay metho ds or kits canno t be used inter [facility] . Femal e Proge stero ne Range s: Folli cular phase 0.06- 0.89 ng/mL Ovula tion phase 0.12- 12.00 ng/mL Lutea l phase 1.83- 23.90 ng/mL Postm enopa usal< 0.05- 0.13 ng/mL Healt hy Pregn ant Women 1st Trime ster1 1.0-4 4.30 2nd Trime ster2 5.40- 83.30 3rd Trime ster5 8.70- 214.0 0 Not Available [facility] (Lab) [address] [place], [address], 07/05/2023 13:50:02 06/27/20 23 06/27/2023 PROLA CTIN prolactin, total 14.40 NG/mL 4.79-2 3.30 This assay was perfo rmed using [employer] ratio n reage nts and test kits. Value s obtai aminta with other assay metho ds or kits canno t be used inter [facility] . Not Available [facility] (Lab) [address] [place], [address], 07/05/2023 13:50:03 06/27/20 23 06/27/2023 FSH, LH, ESTRA DIOL estradiol 91.1 pg/mL This assay was perfo rmed using [employer] ratio n reage nts and test kits. Value s obtai aminta with other assay metho ds or kits canno t be used [facility] . Femal e Estra diol Range s: Folli cular phase 12.4- 233 pg/mL Ovula tion phase 41.0- 398 pg/mL Lutea l phase 22.3- 341 pg/mL Postm enopa usal< 5-138 pg/mL Healt hy Pregn ant Women 1st Trime ster1 54-32 43 pg/mL 2nd Trime ster1 561-2 1280 pg/mL 3rd Trime ster8 525-> 43237 pg/mL Not Available [facility] (Lab) [address] [facility], [place], [address], 07/05/2023 13:50:04 06/27/20 23 06/27/2023 FSH, LH, ESTRA DIOL FSH 4.9 mIU/m L This assay was perfo rmed using [employer] ratio n reage nts and test kits. Value s obtai aminta with other assay metho ds or kits canno t be used inter hall eably . Femal es Folli cular : 3.5-1 2.5 mIU/m L Ovula tion: 4.7-2 1.5 mIU/m L Lutea l: 1.7-7 .7 mIU/m L Postm enopa use: 25.8- 134.8 mIU/m L Not Available [facility] (Lab) [address] [facility], [place], [address], 07/05/2023 13:50:04 06/27/20 23 06/27/2023 FSH, LH, ESTRA DIOL LH 6.0 mIU/m L This assay was perfo rmed using [employer] ratio n reage nts and test kits. Value s obtai aminta with other assay metho ds or kits canno t be used inter hall eably . Femal es Mid-F ollic ular: 2.4-1 2.6 mIU/m L Mid-C ycle: 14.0- 95.6 mIU/m L Mid-L uteal : 1.0-1 1.4 mIU/m L Postm enopa use: 7.7-5 8.5 mIU/m L Not Available [facility] (Lab) [address], [place], [address], 07/05/2023 13:50:04 06/27/20 23 06/27/2023 TSH, REFLE X FREE T4 TSH 0.54 uIU/m L 0.30-5 .33 Not Available [facility] (Lab) [address], [place], [address], 07/05/2023 13:50:05 06/27/20 23 06/27/2023 HUMAN SEX HORMO NE IVONNE NG GLOBU VANESA sex hormone binding globulin 72.0 nmole s/L 18.2-1 35.5 Not Available [facility] (Lab) [address] [facility], [place], [address], 07/05/2023 13:50:06 06/27/20 23 06/27/2023 HEMOG LOBIN A1C hemoglobin A1C 5.2 % 0-5.6 The Ameri can [employer]abe christ [employer] iatio n recom mends that a prima ry goal of thera py shoul d be a HBA1C of < 7% and that physi cians shoul d reeva luate the treat ment regim en in patie nts with HBA1C value s consi stent ly > 8%. <5.7% Jennifer l 5.7 - 6.4% Incre ased risk for diabe christ >=6.5 % Diagn ostic of diabe christ <7.0% Goal of thera py >8.0% Actio n sugge sted Not Available [facility] (Lab) [address], [place], [address], 07/05/2023 13:50:07 06/27/20 23 06/27/2023 17-OH PROGE STERO NE 17-hydroxypr ogesterone, lc/MS/MS 36 NG/dL Adult Femal e Refer ence Range s for 17-Hy droxy proge stero ne: Pre-M enopa usal Mid Folli cular : 23-10 2 ng/dL Pre-M enopa usal Surge : 67-34 9 ng/dL Pre-M enopa usal Mid Lutea l: 139-4 31 ng/dL Postm enopa usal Phase : < or = 45 ng/dL Pregn joshua: First Trime ster: 78-45 7 ng/dL Secon d Trime ster: 90-35 7 ng/dL Third Trime ster: 144-5 78 ng/dL This test was devel oped and its fabiana tical perfo rmanc e rai cteri stics have been deter mined by [employer]. It has not been clear ed or appro claire by FDA. This assay has been valid ated pursu ant to the CLIA regul ation s and is used for clini roby purpo ses. Perfo rming Organ izati on [facility] n: Site ID: [id number] Name: [employer]/Song [facility] katja [place] , Addre ss: [id number] [place] [address] [facility] tor: Loraine mckenzie MD,Ph D,JANE Not Available [facility] (Lab) [address] [place], [address], 07/05/2023 13:50:07 06/27/20 23 06/27/2023 TESTO STERO NE, FREE( DIALY SIS) AND TOTAL (LC/M S/MS) testosterone , total 28 NG/dL 2-45 For addit ional [facility] valade[facility] e refer to http: //[facility] bradley.que stdia gnost ics.c om/fa q/Tot Jakob Gray [facility] (This link is being provi ded for infor [facility] n[facility]/e ducat ional purpo ses only. ) Not Available [facility] (Lab) [address] [place], [address], 07/05/2023 13:50:08 06/27/20 23 06/27/2023 TESTO STERO NE, FREE( DIALY SIS) AND TOTAL (LC/M S/MS) testosterone , free 3.1 pg/mL 0.1-6. 4 This test was devel oped and its fabiana tical perfo rmanc e rai cteri stics have been deter mined by [employer]. It has not been clear ed or appro claire by FDA. This assay has been valid ated pursu ant to the CLIA regul ation s and is used for clini roby purpo ses. Perfo rming Organ izati on [facility] n: Site ID: [id number] Name: [employer]/Song [facility] [place] , Addre ss: [id number] [place] [address] D[employer] tor: Loraine mckenzie MD,Ph D,JANE Not Available [facility] (Lab) [address] [facility], [place], [address], 07/05/2023 13:50:08 09/05/20 23 09/05/2023 CT/GC AND TRICH OMONA S VAGIN JANAE (RRNA ), SWAB chlamydia trachomatis, PCR NEGATI VE negati ve Not Available [facility] (Lab) [address] [facility], [place], [address], 09/06/2023 13:27:32 09/05/20 23 09/05/2023 CT/GC AND TRICH OMONA S VAGIN JANAE (RRNA ), SWAB neisseria gonorrhoeae, PCR NEGATI VE negati ve Not Available [facility] (Lab) [address] [facility], [place], [address], 09/06/2023 13:27:32 09/05/20 23 09/05/2023 CT/GC AND TRICH OMONA S VAGIN JANAE (RRNA ), SWAB trichomonas vaginalis ribosomal RNA (rrna) NEGATI VE negati ve Not Available [facility] (Lab) [address] [facility], [place], [address], 09/06/2023 13:27:32 01/31/20 24 01/31/2024 HEPAT ITIS C ANTIB GARRET SCREE N, REFLE X TO CONFI RMATI ON hepatitis C antibody Non-re active non-re active Antib odies to HCV Not Detec luis, does not exclu de the possi bilit y of expos ure to HCV. Not Available [facility] (Lab) [address] [facility], [place], [address], 02/03/2024 00:14:30 01/31/20 24 01/31/2024 HIV 1/2 ANTIG EN/AN TIBOD Y, REFLE X CONFI RMATI ON HIV antigen/anti body Nonrea ctive nonrea ctive HIV-1 antig en and HIV-1 /HIV- 2 antib odies were not detec luis. No labor atory evide nce of HIV infec tion. Not Available [facility] (Lab) [address] [facility], [place], [address], 02/03/2024 00:14:31 01/31/20 24 01/31/2024 HEPAT ITIS B SURFA CE ANTIG EN hepatitis B surface antigen Non-re active non-re active This assay was perfo rmed using [employer] ratio n reage nts and test kits. Value s obtai aminta with other assay metho ds or kits canno t be used inter hall eably . Not Available [facility] (Lab) [address] [facility], [place], [address], 02/03/2024 00:14:31 01/31/20 24 01/31/2024 RPR SCREE N, REFLE X TITER /CONF IRMAT ION RPR screen Nonrea ctive nonrea ctive Not Available [facility] (Lab) [address] [facility], [place], [address], 02/03/2024 00:14:31 01/31/20 24 01/31/2024 HEPAT ITIS B CORE, IGM hepatitis B core IgM antibody Negati ve negati ve Not Available [facility] (Lab) [address] [facility], [place], [address], 02/03/2024 00:14:32 01/31/20 24 01/31/2024 IMAGE GUIDE D PAP AND HPV REGAR DLESS image guided Pap, HPV regardless of Pap result SEE RESULT S BELOW CASE REPOR T: Cytol ogy Gynec ologi roby Repor t Case: [id number] Autho brenda zaldivar Provi maura: Pierre Ann Colle cted: 01/30 1333 PRODUCTION SUPV Order ing Locat ion: [place] [facility] Recei claire: 01/31 0824 First Scree n: Clarita Floresr een: Ilda Mckinney, CT Speci men: Manuel lemus Pap - Image d, Cervi x STATE MENT OF ADEQU ACY: Satis facto ry for evalu ation Trans forma tion zone compo nent absen t The absen ce of an endoc ervic al compo nent was confi rmed by an addit ional scree ner. ----- ----- ----- ----- ----- ----- ----- ----- ----- ----- ----- ----- ----- ----- ----- ----- ----- ---- FINAL DIAGN OSIS: Negat renata for Intra epith elial Lesio n or Basil freeman ([facility]) . Shift in tom sugge stive of bacte rial vagin osis. Elect helena rodriguez d by Ilda Mckinney, CT on 2023 at 8:52 AM ----- ----- ----- ----- ----- ----- ----- ----- ----- ----- ----- ----- ----- ----- ----- ----- ----- ---- HPV RESUL TS: HPV mRNA E6/E7 : No HPV mRNA Detec luis NOTE: This high risk HPV mRNA assay detec ts fourt een high- risk HPV types (16, 18, 31, 33, 35, 39, 45, 51, 52, 56, 58, 59, 66, 68) witho ut diffe renti ation . COMME NT: This speci men was revie wed by a Cytot echno logis t and/o r Patho logis t (as indic ated in this repor t) after evalu ation using the Thinp rep Imagi ng Syste m. CLINI ROBY INFOR MATIO N: Menst rual Statu s: LMP (if appli cable ): 2023 Clini roby Histo ry/Pr eviou s Pap: Type of Neopl annalisa (if appli cable ): Signi fican t Clini roby Findi ngs: Other Histo ry: Hormo zhanna (if appli cable ): PAP EDUCA LING L NOTE: The Pap Test is a scree mariah test with an inher ent false negat renata rate. Liqui d-bas ed sampl ing may decre ase, but will not elimi mily, false negat renata resul ts. A negat renata resul t does not precl ude the prese nce and/o r devel opmen t of disea se, since the prese nce of abnor mal cells in the sampl e depen ds on the locat ion of the lesio n and sampl ing techn ique. Ladan nued regul ar scree mariah is the best metho d of cance r preve ntion . If repor luis cytol ogic findi ng do not corre late with physi roby and/o r histo rical findi ngs, furth er inves tigat ion is recom denita d, as clini gloria warra nted. Not Available [facility] (Lab) [address] [facility], [place], [address], 02/06/2024 09:56:19 01/31/20 24 01/31/2024 CT/GC (KEYLA) , THINP REP VIAL chlamydia trachomatis, PCR Negati ve negati ve Not Available [facility] (Lab) [address] [place], [address], 02/06/2024 09:56:20 01/31/20 24 01/31/2024 CT/GC (KEYLA) , THINP REP VIAL neisseria gonorrhoeae, PCR Negati ve negati ve Not Available [facility] (Lab) [address] [place], [address], 02/06/2024 09:56:20 01/31/20 24 01/31/2024 TRICH OMONA S VAGIN JANAE (RRNA ) trichomonas vaginalis ribosomal RNA (rrna) Negati ve negati ve Not Available [facility] (Lab) [address] [facility], [place], [address], 02/06/2024 09:56:21 08/21/20 24 08/21/2024 WOMEN 'S HEALT H SWAB PLUS, MEÑO bacterial vaginosis (bv), tma Negati ve negati ve Not Available [facility] (Lab) [address] [facility], [place], [address], 08/23/2024 14:55:28 08/21/20 24 08/21/2024 WOMEN 'S HEALT H SWAB PLUS, MEÑO avni species, tma Negati ve negati ve Not Available [facility] (Lab) [address] [facility], [place], [address], 08/23/2024 14:55:28 08/21/20 24 08/21/2024 WOMEN 'S HEALT H SWAB PLUS, MEÑO avni glabrata, tma Negati ve negati ve Not Available [facility] (Lab) [address] [facility], [place], [address], 08/23/2024 14:55:28 08/21/20 24 08/21/2024 WOMEN 'S HEALT H SWAB PLUS, MEÑO trichomonas vaginalis, tma Negati ve negati ve Not Available [facility] (Lab) [address] [place], [address], 08/23/2024 14:55:28 08/21/20 24 08/21/2024 [facility] MEÑO chlamydia trachomatis, PCR Negati ve negati ve Not Available [facility] (Lab) [address] [place], [address], 08/23/2024 14:55:28 08/21/20 24 08/21/2024 WOMEN 'S HEALT H SWAB PLUS, MEÑO neisseria gonorrhoeae, PCR Negati ve negati ve Bacte rial vagin osis detec ts the follo wing bacte anaya assoc iated with bacte rial vagin osis (BV): Lacto bacil darrion (L. gasse ri, L. crisp atus and L. jense celia), Gardn erell a vagin janae, and Atopo bium vagin ae. A singl e quali tativ e resul t is repor luis base on instr ument softw are to deter mine BV posit renata or negat renata statu s. The Diana [employer] speci es group tests for C. albic ans, C. tropi calis , C. parap tashia is, C. dubli niens is. Testi ng is perfo rmed using the Trans cript ion Media luis Ampli ficat ion metho d. Tests for Diana da glabr javi, Trich omona s vagin janae, Chlam ydia trach omati s, and Neiss eria gonor rhoea e are also inclu ded in this panel . Not Available [facility] (Lab) [address] [facility], [place], [address], 08/23/2024 14:55:28 08/21/20 24 08/21/2024 HEPAT ITIS B SURFA CE ANTIG EN hepatitis B surface antigen Non-re active non-re active This assay was perfo rmed using [employer] ratio n reage nts and test kits. Value s obtai aminta with other assay metho ds or kits canno t be used inter hall eably . Not Available [facility] (Lab) [address] [facility], [place], [address], 08/23/2024 17:10:29 08/21/20 24 08/21/2024 HIV 1/2 ANTIG EN/AN TIBOD Y, REFLE X CONFI RMATI ON HIV antigen/anti body Nonrea ctive nonrea ctive HIV-1 antig en and HIV-1 /HIV- 2 antib odies were not detec luis. No labor atory evide nce of HIV infec tion. Not Available [facility] (Lab) [address] [facility], [place], [address], 08/23/2024 17:10:29 08/21/20 24 08/21/2024 HEPAT ITIS C ANTIB GARRET SCREE N, REFLE X TO CONFI RMATI ON hepatitis C antibody Non-re active non-re active Antib odies to HCV Not Detec luis, does not exclu de the possi bilit y of expos ure to HCV. Not Available [facility] (Lab) [address] [facility], [place], [address], 08/23/2024 17:10:29 08/21/20 24 08/21/2024 RPR SCREE N, REFLE X TITER /CONF IRMAT ION RPR screen Nonrea ctive nonrea ctive Not Available [facility] (Lab) [address] [facility], [place], [address], 08/23/2024 17:10:30 08/21/20 24 08/21/2024 HEPAT ITIS B CORE, IGM hepatitis B core IgM antibody Non-re active non-re active IgM anti- HBc not detec luis. Does not exclu de the possi bilit y of expos ure to or infec tion with HBV. Not Available [facility] (Lab) [address] [facility], [place], [address], 08/23/2024 17:10:30 06/26/20 23 06/26/2023 US, pelvi s No observ ation record ed. [email or web address] [facility] [address] [facility] [address], [place], [address], 06/26/2023 17:14:08 06/26/2006/26/2023 US, trans vagin al No observ ation record ed. [email or web address] [facility] [address], [place], [address], 06/26/2023 17:13:58 06/26/2006/26/2023 US, pelvi s No observ ation record ed. [email or web address] [address], [place], [address], 06/26/2023 20:49:34 Result Notes None recorded. Problems Name Problem SNOMED Code Status Onset Date Resolution Date Notes Provider Name and Address Organization Details Recorded Time Disorder of pregnanc y Completed 201610/12/2020 Polyhydr amnios, third trimeste r, not applicab le or unsp;Pra ctice ID: 0001 Shakira Maya MD [address], [place], [address], [facility] 17:39:27 Complica tion occurrin g during pregnanc y Completed 201610/12/2020 Infectio n oth prt genitl trct in pregnanc y, third trimeste r;Practi ce ID: 0001 Shakira Maya MD [address], [place], [address], [facility] 17:39:34 Gestatio n period, 36 weeks [id number] Completed 201610/12/2020 36 weeks gestatio n of pregnanc y;Practi ce ID: 0001 Shakira Maya MD [address], [place], [address], [facility] 17:40:16 Gestatio n period, 37 weeks [id number] Completed 201610/12/2020 37 weeks gestatio n of pregnanc y;Practi ce ID: 0001 Shakira Maya MD [address], [place], [address], [facility] 17:40:18 Normal pregnanc y in multigra vita [id number] 70097 Completed 201610/12/2020 Encounte r for suprvsn of normal pregnanc y, third trimeste r;Practi ce ID: 0001 Shakira Maya MD [address], [place], [address], [facility] 17:41:01 Gestatio n period, 38 weeks 96997100 Completed 201610/12/2020 38 weeks gestatio n of pregnanc y;Practi ce ID: 0001 Shakira Maya MD [address], [place], [address], [facility] 17:40:20 Large fetus 053072746 Completed 201610/12/2020 Maternal care for excess growth, third trimeste r, unsp;Pra ctice ID: 0001 Shakira Maya MD [address], [place], [address], [facility] 17:40:32 Uterine scar from previous surgery affectin g pregnanc y [id number] Completed 201610/12/2020 Matern care for low transver se scar from prev del;Prac esha ID: 0001 Shakira Maya MD [address], [place], [address], [facility] 17:44:16 Steriliz ation procedur e Completed 201610/12/2020 Encounte r for steriliz ation;Pr actice ID: 0001 Shakira Maya MD [address], [place], [address], [facility] 17:44:09 Single live from singleto n pregnanc y [id number] Completed 201610/12/2020 Single live ;Pr actice ID: 0001 Shakira Maya MD [address], [place], [address], [facility] 17:42:58 Gestatio n period, 39 weeks 80434731 Completed 201610/12/2020 39 weeks gestatio n of pregnanc y;Practi ce ID: 0001 Shakira Maya MD [address], [place], [address], [facility] 17:40:22 Single liveborn born in hospital by section [id number] Completed 201610/12/2020 Single liveborn infant, delivere d by ;Practic e ID: 0001 Shakira Maya MD [address], [place], [address], [facility] 17:44:04 Lochia finding Completed 201610/12/2020 Encounte r for routine postpart um follow-u p;Practi ce ID: 0001 Shakira Maya MD [address], [place], [address], [facility] 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 17:44:06 Atypical squamous cells of undeterm ined signific ance on cervical Papanico laou smear [id number] Completed 201809/20/2021 Eliane corrales, [facility] 18:28:53 Bleeding 639115832 Completed 201810/12/2020 Abnormal uterine and vaginal bleeding , unspecif ied;Prac esha ID: 0001 Shakira Maya MD [address], [place], [address], [facility] 17:39:36 Pregnanc y test negative [id number] Completed 201810/12/2020 Encounte r for pregnanc y test, result negative ;Practic e ID: 0001 Shakira Maya MD [address], [place], [address], [facility] 17:41:20 Polyp of corpus uteri 93879952 Completed 201810/12/2020 Polyp of corpus uteri;Pr actice ID: 0001 Shakira Maya MD [address], [place], [address], [facility] 17:41:11 Body mass index 30+ - obesity 554034364 Completed 201609/20/2021 Eliane Manolo [facility], [facility] 18:28:58 Gestatio n period, 33 weeks [id number] Completed 201610/12/2020 33 weeks gestatio n of pregnanc y;Record ed Elsewher e: No [facility] S ource: EHR [employer] Pump Tender song: N Practi ce ID: 0001 Graham lable Time: 10:15:00 AM Shakira Maya MD [address], [place], [address], [facility] 17:41:04 Routine antenata l care Completed 201110/12/2020 Supervis ion of other normal pregnanc y;Practi ce ID: 0001 Shakira Maya MD [address], [place], [address], [facility] 17:42:54 Pain in throat 965129932 Completed 201110/12/2020 Throat pain;Pra ctice ID: 0001 Shakira Maya MD [address], [place], [address], [facility] 17:41:08 Primary uterine inertia - delivere d [id number] Completed 201110/12/2020 Primary uterine inertia, with delivery ;Practic e ID: 0001 Shakira Maya MD [address], [place], [address], [facility] 17:41:39 Postpart um care Completed 201110/12/2020 Routine postpart um follow-u p;Practi ce ID: 0001 Shakira Maya MD [address], [place], [address], [facility] 17:41:16 Postoper ative follow-u p visit Completed 201110/12/2020 Follow-u p examinat ion, followin g other surgery; Practice ID: 0001 Shakira Maya MD [address], [place], [address], [facility] 17:41:13 Ill-defi aminta intestin al infectio n Completed 201110/12/2020 No Show Fee;Prac esha ID: 0001 Shakira Maya MD [address], [place], [address], [facility] 17:40:25 Secondar y amenorrh ea [id number] Completed 201610/12/2020 Secondar y amenorrh ea;Pract ice ID: 0001 Shakira Maya MD [address], [place], [address], [facility] 17:42:56 Pregnanc y detectio n examinat ion Completed 201610/12/2020 Encounte r for pregnanc y test, result positive ;Practic e ID: 0001 Shakira Maya MD [address], [place], [address], [facility] 17:41:18 Complica tion of pregnanc y, childbir th and/or puerperi [id number] Completed 201610/12/2020 Oth diseases and conditio ns compl preg/chl dbrth;Pr actice ID: 0001 Shakira Maya MD [address], [place], [address], [facility] 17:44:11 Gestatio n period, 12 weeks [id number] Completed 201610/12/2020 12 weeks gestatio n of pregnanc y;Practi ce ID: 0001 Shakira Maya MD [address], [place], [address], [facility] 17:39:42 Pregnanc y, childbir th and puerperi um finding Completed 201610/12/2020 Encntr for suprvsn of normal first preg, second trimeste r;Practi ce ID: 0001 Shakira Maya MD [address], [place], [address], [facility] 17:41:23 Uterine size for dates discrepa ncy Completed 201610/12/2020 Uterine size-pat e discrepa ncy, third trimeste r;Practi ce ID: 0001 Shakira Maya MD [address], [place], [address], [facility] 17:44:23 Gestatio n period, 29 weeks [id number] Completed 201610/12/2020 29 weeks gestatio n of pregnanc y;Practi ce ID: 0001 Shakira Maya MD [address], [place], [address], [facility] 17:40:01 Gestatio n period, 32 weeks [id number] Completed 201610/12/2020 32 weeks gestatio n of pregnanc y;Practi ce ID: 0001 Shakira Maya MD [address], [place], [address], [facility] 17:40:06 Gestatio n period, 31 weeks [id number] Completed 201610/12/2020 31 weeks gestatio n of pregnanc y;Practi ce ID: 0001 Shakira Maya MD [address], [place], [address], [facility] 1 17:40:04 Acute vaginiti s [id number] Completed 201610/12/2020 Acute vaginiti s;Record ed Elsewher e: No Locat ion: [facility] S ource: EHR [employer] Pump Tender song: N Practi ce ID: 0001 Graham lable Time: 09:45:00 AM Shakira Maya MD [address], [place], [address], [facility] 1 17:39:11 Gestatio n period, 34 weeks [id number] Completed 201610/12/2020 34 weeks gestatio n of pregnanc y;Record ed Elsewher e: No Locat ion: [facility] S ource: EHR [employer] Pump Tender song: N Practi ce ID: 0001 Graham lable Time: 09:30:00 AM Shakira Maya MD [address], [place], [address], [facility] 1 17:40:12 Proteinu anaya [id number] Completed 201010/12/2020 Proteinu anaya;Prac esha ID: 0001 Shakira Maya MD [address], [place], [address], [facility] 1 17:42:52 Traumati c injury [id number] Completed 201610/12/2020 Strain of muscle of abdomen, subseque nt encounte r;Record ed Elsewher e: No [facility] S ource: EHR [employer] Pump Tender song: N Practi ce ID: 0001 Graham lable Time: 09:15:00 AM Shakira Maya MD [address], [place], [address], [facility] 1 17:40:28 Urinary tract infectio us disease [id number] Completed 201610/12/2020 Urinary tract infectio n, site not specifie d;Record ed Elsewher e: No Locat ion: [facility] S ource: EHR [employer] Pump Tender song: N Practi ce ID: 0001 Graham lable Time: 09:15:00 AM Shakira Maya MD [address], [place], [address], [facility] 1 17:44:13 Finding of urine substanc e level Completed 201610/12/2020 Proteinu anaya, unspecif ied;Janes rded Elsewher e: No [facility] S ource: EHR [employer] Pump Tender song: N Practi ce ID: 0001 Graham lable Time: 10:15:00 AM Shakira Maya MD [address], [place], [address], [facility] 1 17:39:39 Amenorrh ea [id number] Completed 201610/12/2020 Amenorrh ea;Recor ded Elsewher e: No Locat ion: [facility] S ource: EHR [employer] Pump Tender song: N Practi ce ID: 0001 Graham lable Time: 08:30:00 AM Shakira Maya MD [address], [place], [address], [facility] 1 17:39:13 Pregnanc y, childbir th and puerperi um finding Completed 201610/12/2020 Oth pregnanc y related conditio ns, first trimeste r;Practi ce ID: 0001 Shakira Maya MD [address], [place], [address], [facility] 17:39:23 Pregnanc y-induce d edema and proteinu anaya without hyperten susana [id number] Completed 201610/12/2020 Gestatio nal edema with proteinu anaya, third trimeste r;Practi ce ID: 0001 Shakira Maya MD [address], [place], [address], [facility] 17:41:32 Gestatio n period, 35 weeks [id number] Completed 201610/12/2020 35 weeks gestatio n of pregnanc y;Practi ce ID: 0001 Shakira Maya MD [address], [place], [address], [facility] 17:40:14 Problem Notes None recorded. Procedures Surgical History Date Name Laterality Status Provider Name and Address Organization Details Recorded Time 4 Date of Last Pap Smear completed [facility] 08/21/2024 10:03:55 4 completed [facility] 01/31/2024 10:36:15 section completed [facility] 10/05/2020 14:41:18 Gastric Bypass completed [facility] 10/05/2020 14:41:31 procedure on hand completed [facility] 10/05/2020 14:41:42 Tubal Ligation completed [facility] 10/05/2020 14:41:53 Dilation and Curettage completed [facility] 10/05/2020 14:42:41 Imaging Results None recorded. Procedure Notes None recorded. Medical Equipment None Reported. Allergies No known drug allergies Medications Name Sig Start Date Stop Date Status Note LastModified by Organization Details LastModified Time multivita min tablet TAKE 2 TABLETS BY MOUTH ONCE DAILY active Not Available Not Available No t Available amoxicill in 500 mg capsule TAKE 1 CAPSULE BY MOUTH THREE TIMES DAILY FOR 10 DAYS 09/20 completed Not Available Not Available Not Available medroxypr ogesteron e 10 mg tablet 08/21 completed Not Available Not Available Not Available nystatin 100,000 unit/mL oral suspensio n take 5 millilit er ([id number] NITS) by oral route 4 times every day 12/28 completed Prescrib ed Elsewher e: No Locat ion: [facility] M odify By: eedmonds Encount er DateTime : 11/09/19 12 02:00:00 PM Not Available Not Available Not Available prednison e 10 mg tablet TAKE 2 TABLETS BY MOUTH DAILY FOR 4 DAYS 01/30 completed Not Available Not Available Not Available clindamyc in HCl 300 mg capsule TK 1 C PO Q 8 H FOR 7 DAYS 02/03 completed Not Available Not Available Not Available albuterol sulfate 2.5 mg/3 mL (0.083 %) solution for nebulizat ion USE 1 VIAL VIA NEBULIZE R EVERY 6 HOURS NEEDED FOR WHEEZING active Not Available Not Available No t Available loperamid e 2 mg capsule 07/01 completed Not Available Not Available Not Available azithromy akin 250 mg tablet 06/04 completed Not Available Not Available Not Available fluconazo le 150 mg tablet TAKE 1 TABLET BY MOUTH EVERY 72 HOURS 08/21 completed Not Available Not Available Not Available hydrocodo ne 5 mg-acetam inophen 325 mg tablet take 1-2 tablet by oral route every 6 hours as needed for pain 06/04 completed Not Available Not Available Not Available ondansetr on HCl 4 mg tablet TAKE 1 TABLET BY MOUTH EVERY 4 HOURS FOR 3 DOSES- 1ST DOSE 1-2 HOURS BEFORE RADIATIO N 01/30 completed Not Available Not Available Not Available prednison e 20 mg tablet TAKE 1 TABLET BY MOUTH TWICE DAILY 10/25 completed Not Available Not Available Not Available doxycycli ne hyclate 50 mg capsule 10/25 completed Not Available Not Available Not Available loperamid e 2 mg tablet Take 1 tablet 3 times a day by oral route. 01/30 completed Not Available Not Available Not Available phentermi ne 15 mg capsule 01/11 completed Not Available Not Available Not Available penicilli n V potassium 500 mg tablet TK 1 T PO QID TAT 06/04 completed Not Available Not Available Not Available topiramat e 25 mg tablet TAKE 1 TABLET BY MOUTH EVERY DAY 09/21 completed Not Available Not Available Not Available metronida zole 500 mg tablet TAKE 1 TABLET BY MOUTH EVERY 8 HOURS FOR 5 DAYS 03/01 completed Not Available Not Available Not Available acetamino phen 300 mg-codein e 30 mg tablet TAKE 1 TABLET BY MOUTH EVERY 6 HOURS NEEDED. MAY TAKE UP TO 2 TABLET DIRECTED 09/05 completed Not Available Not Available Not Available tretinoin 0.05 % topical cream APPLY PEA SIZED AMOUNT TOPICALL Y TO FACE EVERY NIGHT 10/25 completed Not Available Not Available Not Available sulfameth oxazole 800 mg-trimet hoprim 160 mg tablet TAKE 1 TABLET BY MOUTH TWICE DAILY FOR 7 DAYS 08/21 completed Not Available Not Available Not Available tramadol 50 mg tablet TAKE 1 TABLET BY MOUTH EVERY 6 HOURS 09/21 completed Not Available Not Available Not Available acetamino phen 500 mg tablet TAKE 1 TABLET BY MOUTH EVERY 6 HOURS NEEDED FOR PAIN 01/30 completed Not Available Not Available Not Available ondansetr on 8 mg disintegr ating tablet active Not Available Not Available Not Available Macrobid 100 mg capsule take 1 capsule by oral route every 12 hours with food 11/26 [facility]: [facility] odify By: berry salmeron DateTime : 11/17/19 17 01:50:38 PM Not Available Not Available Not Available amoxicill in 875 mg tablet TK 1 T PO BID 02/03 completed Not Available Not Available Not Available omeprazol e 10 mg capsule,d elayed release TAKE 1 CAPSULE BY MOUTH DAILY 01/30 completed Not Available Not Available Not Available meclizine 25 mg tablet TAKE 1 TABLET BY MOUTH THREE TIMES DAILY NEEDED FOR DIZZINES S active Not Available Not Available No t Available hydrocodo ne 7.5 mg-acetam inophen 325 mg tablet TAKE 1 TABLET BY MOUTH EVERY 4 TO 6 HOURS 08/21 completed Not Available Not Available Not Available cyanocoba serena (vit B-12) 1,000 mcg/mL injection solution INJECT 1 ML UNDER THE SKIN EVERY MONTH 08/21 completed Not Available Not Available Not Available tobramyci n 0.3 % eye drops 06/04 completed Not Available Not Available Not Available triamcino lone acetonide 0.1 % topical ointment APPLY ON THE SKIN DAILY 09/21 completed Not Available Not Available Not Available BD Luer-Román Syringe 3 mL 25 gauge x 1 USE TO ADMINIST ER BEFORE-1 2 ONCE A MONTH 08/21 completed Not Available Not Available Not Available diclofena c potassium 50 mg tablet TAKE 1 TABLET BY MOUTH TWICE DAILY 01/11 completed Not Available Not Available Not Available Gas Relief Extra Strength 125 mg capsule 10/25 completed Not Available Not Available Not Available docusate sodium 100 mg capsule TAKE 1 CAPSULE BY MOUTH EVERY DAY 01/30 completed Not Available Not Available Not Available oxybutyni n chloride ER 5 mg tablet,ex tended release 24 hr 10/25 completed Not Available Not Available Not Available diclofena c sodium 75 mg tablet,de layed release TAKE 1 TABLET BY MOUTH TWICE DAILY active Not Available Not Available No t Available cephalexi n 500 mg tablet TAKE 1 TABLET BY MOUTH EVERY 8 HOURS 06/04 completed Not Available Not Available Not Available mometason e 0.1 % topical ointment APPLY A THIN LAYER TO THE AFFECTED AREA TWICE DAILY NEEDED 05/24 completed Not Available Not Available Not Available furosemid e 20 mg tablet TAKE 1 TABLET BY MOUTH EVERY DAY 08/21 completed Not Available Not Available Not Available azelastin e 137 mcg (0.1 %) nasal spray USE 2 SPRAYS IN EACH NOSTRIL TWICE DAILY NEEDED FOR RUNNY NOSE OR NASAL CONGESTI ON 05/24 completed Not Available Not Available Not Available methylpre dnisolone 4 mg tablets in a dose pack FOLLOW PACKAGE DIRECTIO NS 01/30 completed Not Available Not Available Not Available albuterol sulfate HFA 90 mcg/actua tion aerosol inhaler INHALE 1 INHALATI ON BY MOUTH EVERY 4 HOURS NEEDED active Not Available Not Available No t Available Vitamin D2 1,250 mcg (50,000 unit) capsule take 1 capsule by oral route every week for 8 weeks 01/28 completed Prescrib heidi Lopez e: No Locat ion: [facility] odify By: [email or web address] Encounte r DateTime : 11/05/19 19 10:28:52 AM Not Available Not Available Not Available BD Luer-Román Syringe 3 mL 22 gauge x 1 USE WITH MONTHLY B12 INJECTIO N 10/25 completed Not Available Not Available Not Available ketoconaz ole 2 % topical cream APPLY TOPICALL Y TO RASH UNDER BREAST EVERY DAY NEEDED 10/25 completed Not Available Not Available Not Available cefdinir 300 mg capsule TAKE 1 CAPSULE BY MOUTH EVERY 12 HOURS 01/30 completed Not Available Not Available Not Available Diflucan 200 mg tablet take 1 tablet today, then every other day for a total of 3 doses 10/12 completed Not Available Not Available Not Available Loestrin Fe 1.5/30 (28-Day) 1.5 mg-30 mcg (21)/75 mg (7) tablet Take 1 tablet every day by oral route. 10/12 completed Not Available Not Available Not Available oxycodone 5 mg tablet TAKE 1 TABLET BY MOUTH EVERY 4 HOURS NEEDED FOR PAIN 05/24 completed Not Available Not Available Not Available meclizine 25 mg chewable tablet TAKE 1 TABLET BY MOUTH 3 TIMES A DAY 09/05 completed Not Available Not Available Not Available clindamyc in 1 % lotion APPLY TOPICALL Y TO FACE EVERY MORNING 05/24 completed Not Available Not Available Not Available Vitamin 27 mg iron-0.8 mg tablet take 1 tablet by oral route every day 12/28 completed Prescrib ed Elsewher e: Yes [facility] By: eedmonds Encount er DateTime : 09/06/20 11 08:30:00 AM Not Available Not Available Not Available cyclobenz aprine 5 mg tablet 05/24 completed Not Available Not Available Not Available Riomet 500 mg/5 mL oral solution take 10 millilit er by oral route 2 times every day with meals 12/28 completed Prescrib ed Elsewher e: Yes Loca tion: [facility] odify By: eedmonds Encount er DateTime : 09/06/20 11 08:30:00 AM Not Available Not Available Not Available zonisamid e 25 mg capsule 09/21 completed Not Available Not Available Not Available Flovent HFA 110 mcg/actua tion aerosol inhaler INHALE 1 PUFF BY MOUTH TWICE DAILY 10/25 completed Not Available Not Available Not Available Atrovent HFA 17 mcg/actua tion aerosol inhaler INHALE 2 PUFFS BY MOUTH FOUR TIMES DAILY active Not Available Not Available No t Available calcium 500 mg (as carbonate )-vit D3 10 mcg (400 unit) chewable tablet TAKE 1 TABLET BY MOUTH THREE TIMES DAILY WITH MEALS 08/21 completed Not Available Not Available Not Available Vitamins and Minerals 10/25 completed Not Available Not Available Not Available fluticaso ne propionat e 230 mcg-salme terol 21 mcg/actua tion HFA inhaler INHALE 2 PUFFS BY MOUTH TWICE DAILY active Not Available Not Available No t Available cholecalc iferol (vitamin D3) 1,250 mcg (50,000 unit) capsule TAKE ONE CAPSULE BY MOUTH ONCE A WEEK active Not Available Not Available No t Available FeroSul 325 mg (65 mg iron) tablet TAKE 1 TABLET BY MOUTH THREE TIMES DAILY WITH MEALS active Not Available Not Available No t Available GaviLyte- G 236 gram-22.7 4 gram-6.74 gram-5.86 gram oral solution 01/30 completed Not Available Not Available Not Available B12 05/24 completed b12 injectio ns Not Available Not Available Not Available Generess Fe 0.8 mg-25 mcg (24)/75 mg (4) chewable tablet chew 1 tablet by oral route every day 11/10 completed Prescrib ed Elsewher e: No [facility] By: tracey Virk r DateTime : 04/09/20 12 03:24:44 PM Not Available Not Available Not Available SIX SIGMA BLACK TRAINER-PNV-DH A 28 mg iron-1 mg-200 mg capsule take 1 capsule by oral route every day 12/17 completed Prescrib ed Elsewher e: No [facility] odify By: carmelo Virk r DateTime : 02/28/20 17 03:29:00 PM Not Available Not Available Not Available Trulicity 1.5 mg/0.5 mL subcutane ous pen injector ADMINIST ER 1.5 MG UNDER THE SKIN 1 TIME WEEKLY 01/30 completed Not Available Not Available Not Available Trulicity 0.75 mg/0.5 mL subcutane ous pen injector ADMINIST ER 0.75 MG UNDER THE SKIN 1 TIME WEEKLY FOR 4 WEEKS. INCREASE 08/21 completed Not Available Not Available Not Available Incruse Ellipta 62.5 mcg/actua tion powder for inhalatio n INHALE 1 PUFF BY MOUTH EVERY DAY 06/23 completed Not Available Not Available Not Available Spiriva Respimat 1.25 mcg/actua tion solution for inhalatio n INHALE 2 PUFFS BY MOUTH EVERY DAY 05/24 completed Not Available Not Available Not Available Trulicity 3 mg/0.5 mL subcutane ous pen injector INJECT 3 MG UNDER THE SKIN ONCE A WEEK 01/30 completed Not Available Not Available Not Available Vitals Date Recorded Body height Body mass index (BMI) Body weight Systolic blood pressure Diastolic blood pressure Provider Name and Address Organization Details Last Updated DateTime 01/31/2024 167.64 cm 35 kg/m2 67969.54 g 124 mm[Hg] 69 mm[Hg] Gwen [facility] 4 10:35:49 Date Recorded Body height Body mass index (BMI) Body weight Systolic blood pressure Diastolic blood pressure Provider Name and Address Organization Details Last Updated DateTime 07/01/2023 167.64 cm 35.7 kg/m2 064234.9 1 g 114 mm[Hg] 80 mm[Hg] Funmilayo Kearney [facility] 3 12:06:04 Date Recorded Body height Body mass index (BMI) Body weight Systolic blood pressure Diastolic blood pressure Provider Name and Address Organization Details Last Updated DateTime 08/21/2024 167.64 cm 38.7 kg/m2 761614.1 7 g 113 mm[Hg] 77 mm[Hg] Gwen [facility] 4 09:59:15 Date Recorded Body height Body mass index (BMI) Body weight Systolic blood pressure Diastolic blood pressure Provider Name and Address Organization Details Last Updated DateTime 09/05/2023 167.64 cm 34.6 kg/m2 01178.2 g 110 mm[Hg] 75 mm[Hg] Eliane Bermudez [facility] 3 11:54:14 Social History Question Answer Notes LastModified by Organizat ion Details LastModified Time Tobacco Smoking Status Never Smoker Funmilayo Kearney antoni, [facility] 10/12/2020 17:31:44 Do You Have An Advance Directive? No Information n ot available 08/21/2024 Are You Blind Or Do You Have Difficulty Seeing? No [email or web address] Information n ot available 09/20/2021 What Is Your Level Of Caffeine Consumption? Moderate Information not available 01/31/2024 How Much Tobacco Do You Chew? None Information not available 01/31/2024 In The 14 Days Before Symptom Onset, Have You Had Close Contact With A Laboratory-confirm ed COVID-19 While That Case Was Ill? No Information n ot available 05/24/2023 In The 14 Days Before Symptom Onset, Have You Had Close Contact With A Person Who Is Under Investigation For COVID-19 While That Person Was Ill? No Information not available 05/24/2023 Have You Been To An Area Known To Be High Risk For COVID-19? No Information not available 05/24/2023 Are You Deaf Or Do You Have Serious Difficulty Hearing? Yes Information not available 01/31/2024 What Type Of Diet Are You Following? REGULAR Information n ot available 10/25/2022 What Is The Highest Grade Or Level Of School You Have Completed Or The Highest Degree You Have Received? [id number] Information not available 01/31/2024 How Many Days Of Moderate To Strenuous Exercise, Like A Brisk Walk, Did You Do In The Last 7 Days? 7 Information not available 10/12/2020 Are There Any Guns Present In Your Home? No Information not available 01/31/2024 Do You Use Protection During Sex? No Information not available 01/31/2024 Do You Use Your Seat Belt Or Car Seat Routinely? Yes Information not available 01/31/2024 Do You Have Smoke And Carbon Monoxide Detectors In Your Home? No Information not available 01/31/2024 How Much Tobacco Do You Smoke? No Information not available 01/31/2024 Do You Use Sunscreen Routinely? Yes Information not available 08/21/2024 Have You Used IV Drugs? No Information not available 01/31/2024 Do You Have Difficulty Walking Or Climbing Stairs? No Information not available 10/25/2022 Sex: Unknown Functional Status Question Answer Note LastModified by Organizat ion Details LastModified Time Do you use any illicit or recreational drugs? No Information not available 10/12/2020 Do you or have you ever used any other forms of tobacco or nicotine? No Information not available 10/12/2020 What is your level of alcohol consumption? None Information not available 01/31/2024 Are you able to walk? [email or web address] Information not available 09/20/2021 Are you able to care for yourself? 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 No Information not available 10/25/2022 What is your exercise level? Moderate Information not available 10/12/2020 Mental Status Question Answer Note LastModified by Organization D etails LastModified Time Do you feel stressed (tense, restless, nervous, or anxious, or unable to sleep at night)? [id number] Information not available 01/31/2024 Family History Relationship Description Onset Age of this Age Resolved Age Notes LastModified by Organization Details LastModified Time Mother Diabetes mellitus [email or web address] Not available 2020 14:39:11 Maternal Grandmother Malignant tumor of breast [email or web address] Not available 2020 14:39:23 Medical History Condition Response Allergies (Food, seasonal, environmental ) N Other Y Breast Cancer N Drug/Latex Allergies/Reactions N Blood Transfusion N Dermatologic Disorders N Lung Disease N Defects or Inherited Disease N Breast Problem N Gestational Diabetes N Hematologic disorders N Anesthesia Complications N History of STI N Deep Vein Thrombosis N Polycystic ovary syndrome N Anxiety Disorder N Autoimmune disease N Arthritis N Infertility N Polyps Y Acid Reflux (GERD) N History of abnormal pap N Cancer N Stroke N Varicosities N Neurologic/Epilepsy N Endometriosis N High Cholesterol N Headaches N Fibromyalgia N Kidney Disease N Heart Problems N Kidney or Bladder Problems N Thyroid Problems N GI Problems N Eating Disorder N Anemia N Art (IVF or FET) N Psychiatric Illness N Ovarian Cancer N Diabetes N Pulmonary (TB, Asthma) N Hepatitis/Liver Disease N Eczema N Urinary Tract Infection N Abuse/Domestic Violence N Asthma N Trauma/Violence N Depression/ depression N Heart Disease N Pre-Eclampsia N Hypertension N Osteoporosis N Thrombophilias N Gynecological History Statement/Question Response Abnormal Pap Y Flow Light Date of LMP 07/14/2024 On BCP's at Conception? N Was last menstrual period normal N STIs/STDs N HPV Vaccine N Duration of Flow (days) 3 Current Control Method Tubal Ligat ion Age at First Child 21 Are cycles usually normal N Sexually Active? Y Menses Monthly N Age of first menstrual cycle 15 Date of Last Pap Smear 01/31/2024 Sexual Problems? N LMP Approximate 12/25/2023 N Obstetrics History GPAL:G 5 P 4 0 1 4 Type Value Full Term 4 Spontaneous 1 Living 4 Total 5 Past Encounters Encounter ID Performer Location Encounter Start Date Encounter Closed Date Diagnosis/Indication Diagnosis SNOMED-CT Code Diagnosis ICD10 Code Diagnosis Note [id number] Shakira Maya MD [facility] [address],[place] [address] 10/12/2020 17:05:37 10/13/2020 15:25:00 Hypertrophy of gland of [place] [id number] [id number] Shakira Maya MD Kincaid [address],[facility] [place] [address] 02/03/2021 10:54:29 02/03/2021 11:44:32 Gynecologic examination [id number] Z01.419 Venereal d isease screening 258096037 Z11.3 Body mass index 30+ - obesity [id number] Z68.34 Sexually t ransmitted infectious disease 9678514 A64 [id number] Kary Garcia [facility] [address],[facility] [place] [address] 09/21/2021 11:33:24 09/22/2021 16:58:23 Menorrhagia [id number] N92.0 Today we agreed to update US and lab work for further assessment .We reviewed possible causes of menorrhagi a with understand ing reviewed.S TD screen updated Counseled: Discussed all control options and pt would like mirena IUD. I have discussed in detail all risks and benefits including risk of infection and perforatio n. She understand s she will need to contact office with next menses or may abstain, complete serum HCG day before placement, if neg can have IUD placed next day. Aware of need to verify with insurance device coverage. Literature given. All questions answered to patient satisfacti on. We will consider this option once TVUS is completed & as long as no contraindi cations to it's use. Time spent in visit is a total of 32 mins with at least 50% of visit consisting of counseling and review of plan of care.Addit ional precaution jacque measures were taken to minimize potential exposure to the Covid-19 virus during this patient s visit, including available hand credit support specialist upon arrive, temperatur e check and being asked a series of screening questions. All staff wore face coverings during this encounter, as well as provided additional cleaning and sanitizing of all surfaces, including countertop s, pens, chairs, door handles, light switches, etc, prior to and following the patient s visit. Anemia [id number] D64.9 Hx of Anemia & heavy cycles. [id number] Kary Garcia [facility] [address] [address] 01/11/2022 14:00:03 01/11/2022 14:44:26 Chronic back pain [id number] G89.29 Today we discussed possible sources of upper back, shoulder, neck pain that she has had for years.She has had evaluation for these complaints and nothing is found on imaging.Laurence tao has tried massage, well fitted bras, exercises, and losing weight but this has not helped.She voices she would like a consult to see if a breast reduction might aid in this issue.She wears a DD.Her breast exam appears wnlShe requests a breast reduction referral consult.Al so consider chiropract ic care & weight management clinic. Time spent in visit is a total of 15 mins with at least 50% of visit consisting of counseling and review of plan of care. [id number] Kary Garcia [facility] [address] [address] 10/25/2022 12:21:39 10/25/2022 12:43:56 Gynecologic examination 45998318 Z01.419 Take Calcium with Vitamin D 1200mg daily if not receiving in daily diet. It is strongly advised to have an annual flu shot and up can obtain at most pharmacies . If you have not had a TDap shot in the last 10 years you should obtain one as well. Discussed with patient & provided with informatio n regarding Gardisil vaccine to prevent the 4 strains for HPV that cause cervical cancer if under age 26. Encourage safe sexual practices, to use condoms and limit partners if not already in a monogamous relationsh ip. Do monthly self breast exams. Have mammogram yearly or every other year depending on family history. BRCA testing is now available for patients with strong genetic history of female cancer. If interested contact the office. Engage in daily exercise of low impact aerobic exercise 45-60 minutes 4-5 times weekly. Avoid tobacco and illicit drugs as well as using moderation with alcohol intake less than 1-2 8 oz beverages daily. This lifestyle behavior pattern will lead to less health conditions and longer life span. If BMI greater than 25 weight watchers or dietary consult advised. Patient received above instructio ns, and questions have been answered. If you have any questions please call or respond to this email. Patient was made aware of the patient portal and may obtain a paper copy of today's plan if desired. Pap/hpv sentSTD Screen sentGeneti c Screen discussedC olon Screen naDexa Screen [facility] [id number] Kary Garcia [facility] [address],[place] [address] 05/24/2023 17:15:04 05/24/2023 17:45:53 Sexually transmitted infectious disease 6556585 A64 Here today for std screening. Requests swab & serum testing.sa fe sex apprise counselor with understand ing verbalized . Time spent in visit is a total of 15 mins with at least 50% of visit consisting of counseling and review of plan of care. [id number] Sea Santiago MD [facility] [address] [address] 06/23/2023 15:17:11 06/24/2023 18:00:11 Abnormal uterine bleeding [id number] 9100 N93.9 Viral gastroenteritis 11 6527520 A08.4 Screening procedure 2012 5006 Z13.9 [id number] Sea Santiago MD [facility] [address],[place] [address] 06/26/2023 13:55:35 06/26/2023 17:17:18 Abnormal uterine bleeding [id number] 9100 N93.9 [id number] Sea Santiago MD [facility] [address],[place] [address] 07/01/2023 11:58:05 07/03/2023 15:55:02 Abnormal uterine bleeding [id number] 9100 N93.9 Patient is a 38-year-ol d female who presents for follow-up on ultrasound and hormones. Hormones are still pending. Likely testostero ne is the delay. The ultrasound appears normal there is some heterogene ity in the myometrium and it is slightly enlarged, the uterus is slightly enlarged. We talked about these findings being essentiall y normal for a 38-year-ol d female she does not have heavy bleeding but she did have this episode of extended heavy bleeding. She does not have repetitive heavy bleeding. If bleeding continues to be heavy / abnormal and there is continuati on of the abnormalit y then we will consider treatment. I told her that. We spent 20 minutes face-to-fa ce. More than 50% was counseling . We reviewed ultrasound together. [id number] KING Arciniega [facility] [address],[facility] [place] [address] 09/05/2023 11:30:33 09/05/2023 12:55:47 Venereal disease screening 470351216 Z11.3 exam today wnlgc/ct/t rich testing sentserum STI testing declinedvu lvar care guidelines discussed - recommend d/c douching, avoid scented soaps/prod ucts, vulvar care handout given to ptsafe sexual practices discussed, condom use encouraged WWE due 09/2023 Time spent in visit is a total of 22 mins with at least 50% of visit consisting of counseling and review of plan of care. [id number] [facility] [address] [address] 01/31/2024 10:24:48 01/31/2024 11:59:00 Gynecologic examination 64557818 Z01.419 Z11.51 Take Calcium with Vitamin D 1200mg daily if not receiving in daily diet. It is strongly advised to have an annual flu shot and up can obtain at most pharmacies . If you have not had a TDap shot in the last 10 years you should obtain one as well. Discussed with patient & provided with informatio n regarding Gardisil vaccine to prevent the 4 strains for HPV that cause cervical cancer if under age 26. Encourage safe sexual practices, to use condoms and limit partners if not already in a monogamous relationsh ip. Do monthly self breast exams. Have mammogram yearly or every other year depending on family history. BRCA testing is now available for patients with strong genetic history of female cancer. If interested contact the office. Engage in daily exercise of low impact aerobic exercise 45-60 minutes 4-5 times weekly. Avoid tobacco and illicit drugs as well as using moderation with alcohol intake less than 1-2 8 oz beverages daily. This lifestyle behavior pattern will lead to less health conditions and longer life span. If BMI greater than 25 weight watchers or dietary consult advised. Patient received above instructio ns, and questions have been answered. If you have any questions please call or respond to this email. Patient was made aware of the patient portal and may obtain a paper copy of today's plan if desired. Pap/hpv sentSTD Screen sentGeneti c Screen discussedC olon Screen naDexa Screen naRoutine Labs PCPMammodi scussed & will start 2024 Sexually t ransmitted infectious disease 3074556 A64 Here today for std screening/ WWE.Reques ts swab & serum testing.[facility] sex apprise counselor with understand ing verbalized . [id number] KING Arciniega [facility] [address] [address] 08/21/2024 09:44:15 08/21/2024 11:08:57 Vaginitis 21917750 N76.0 gc/ct/tric h and vaginitis panel sentHIV/He p B&C/Syphil is testing ordered per pt requestsaf e sexual practices discussedv ulvar care guidelines discussed Time spent in visit is a total of 20 mins with at least 50% of visit consisting of counseling and review of plan of care. Venereal d isease screening [id number] Z11.3 Health Concerns Section Related Observation LastModified by Organization Detai ls LastModified Time None Recorded Concern Status LastModified by Organization Details LastModified Time None Recorded Advance Directives Directive N: Payers Encounter Date Sequence Insurance Name Policy Number Policy Sahu Covered Member ID Sahu Member ID Guarantor Name 06/26/2023 1 [facility] (MEDICAID HMO) [id number] Yazmin Hunt [id number] Yazmin Hunt 07/01/2023 1 [facility] (MEDICAID HMO) [id number] Yazmin Hunt [id number] Yazmin Hunt 09/05/2023 1 [facility] (MEDICAID HMO) [id number] Yazmin Hunt [id number] Yazmin Hunt 01/31/2024 1 [facility] (MEDICAID HMO) [id number] Yazmin Hunt [id number] Yazmin Hunt 08/21/2024 1 [facility] (MEDICAID HMO) [id number] Yazmin Hunt [id number] Yazmin Hunt Notes Date Note Type Note Provider Name and Address Organization Details Recorded Time 07/01/2023 text/html Patient is a 38-year-old female who presents for follow-up on ultrasound and hormones. Hormones are still pending. Likely testosterone is the delay. The ultrasound appears normal there is some heterogeneity in the myometrium and it is slightly enlarged, the uterus is slightly enlarged. We talked about these findings being essentially normal for a 38-year-old female she does not have heavy bleeding but she did have this episode of extended heavy bleeding. She does not have repetitive heavy bleeding. If bleeding continues to be heavy / abnormal and there is continuation of the abnormality then we will consider treatment. I told her that. We spent 20 minutes cros-xs-bcpl. More than 50% was counseling. We reviewed ultrasound together. Sea Santiago MD [address], [place], [address], [facility] 07/01/2023 12:27:23 09/05/2023 text/html 38yopresents to discuss recent vulvar irritationshaved the vulva 2 weeks ago and noticed irritation after. [place] like she had cut the vulva. This has since resolved. No current symptoms todaySA last about 3 months ago - BTL for BCdouching after her periods, uses scented body wash to cleanse the vulvaneg n/v/fneg flu-like symptomsneg d/c, odors, itchingneg urinary symptoms KING Arciniega [address], [place], [address], [facility] 09/05/2023 12:38:40 01/31/2024 text/html Annual GYNReport ed bypatient.Menstrual cycle:Normal menses Urinary symptoms:No hematuria; No incontinence Vulva:No genital lesion Vagina:Normal vaginal discharge Breast:No breast pain; No breast lump; No nipple discharge Current Contraception:Satisfi ed with current contraception; Tubal ligation Sexual complaints:No sexual complaints; No pain during intercourse; Normal libido Menopausal Symptoms:No menopausal symptoms; Normal vaginal lubrication Psychological symptoms:No depression; No anxiety; No PMDD Preventive measures:Encourage self breast examination; Encourage regular exercise; Encourage no tobacco use; Encourage regular mammograms starting age 40; Followed with yearly pap smears KING Ahumada- [address], [place], [address], [facility] 01/31/2024 11:57:31 08/21/2024 text/html 39yopresents for STI testing and vaginitis panelrecently treated for BV and requesting to be retested todayneg d/c, odors, itchingneg pelvic painneg n/v/f KING Arciniega [address], [place], [address], [facility] 08/21/2024 10:55:28 OBGyn Episode Ob Episode Information Episode Created Date Number of Fetuses Patient Bloodtype Patient rh Status Prepregnancy Weight lbs Domestic Partner Domestic Partner Phone Father Name Transportation Planner Status 10/05/19 21 1 CLOSED Fetus Data First Name Last Name Admitted to NICU Weight (g) Sex Living Outcome Pediatric Complications Fetus ID Race Codes Race Delivery Type 3288.54 2 M Full Term 6985 Vaginal Delivery Tuan Calculation Initial Tuan Date Initial Exam Date Initial Exam Provider Initial Ultrasound Date Last Menstrual Period Date Ultra Sound Weeks Gestation 0 Eighteen To Twenty Week Tuan Update Ultra Sound Date Fundal Height At Umbil Quickening Date Ultra Sound Latest Weeks Gestation Final Tuan Confirmed By Final Tuan Confirmed Date Final Tuan Date Ultra Sound Latest Days Gestation 0 0 Menstrual History Last Menstrual Date Menses Monthly On Bcp Conception Prior Menses Frequency Hcg Plus Date Menarche Onset Age Delivery Information Delivery Date Delivery Type Labor Anesthesia Weeks Gestation Incision Type Labor Labor Length Hrs Delivered By Post Complications Tubal Sterilization Discharge Date Comments 7 40 false Yon Discharge Information Feeding Method Contraceptive Method Maternal HG B and HCT Levels Ob Episode Information Episode Created Date Number of Fetuses Patient Bloodtype Patient rh Status Prepregnancy Weight lbs Domestic Partner Domestic Partner Phone Father Name Transportation Planner Status 10/05/19 21 1 CLOSED Fetus Data First Name Last Name Admitted to NICU Weight (g) Sex Living Outcome Pediatric Complications Fetus ID Race Codes Race Delivery Type 3231.84 3 F Full Term 6984 Vaginal Delivery Tuan Calculation Initial Tuan Date Initial Exam Date Initial Exam Provider Initial Ultrasound Date Last Menstrual Period Date Ultra Sound Weeks Gestation 0 Eighteen To Twenty Week Tuan Update Ultra Sound Date Fundal Height At Umbil Quickening Date Ultra Sound Latest Weeks Gestation Final Tuan Confirmed By Final Tuan Confirmed Date Final Tuan Date Ultra Sound Latest Days Gestation 0 0 Menstrual History Last Menstrual Date Menses Monthly On Bcp Conception Prior Menses Frequency Hcg Plus Date Menarche Onset Age Delivery Information Delivery Date Delivery Type Labor Anesthesia Weeks Gestation Incision Type Labor Labor Length Hrs Delivered By Post Complications Tubal Sterilization Discharge Date Comments 5 41 false Nisa Discharge Information Feeding Method Contraceptive Method Maternal HG B and HCT Levels Ob Episode Information Episode Created Date Number of Fetuses Patient Bloodtype Patient rh Status Prepregnancy Weight lbs Domestic Partner Domestic Partner Phone Father Name Transportation Planner Status 10/05/19 21 1 CLOSED Fetus Data First Name Last Name Admitted to NICU Weight (g) Sex Living Outcome Pediatric Complications Fetus ID Race Codes Race Delivery Type 3600.15 9704 M Full Term 6983 Primary Tuan Calculation Initial Tuan Date Initial Exam Date Initial Exam Provider Initial Ultrasound Date Last Menstrual Period Date Ultra Sound Weeks Gestation 0 Eighteen To Twenty Week Tuan Update Ultra Sound Date Fundal Height At Umbil Quickening Date Ultra Sound Latest Weeks Gestation Final Tuan Confirmed By Final Tuan Confirmed Date Final Tuan Date Ultra Sound Latest Days Gestation 0 0 Menstrual History Last Menstrual Date Menses Monthly On Bcp Conception Prior Menses Frequency Hcg Plus Date Menarche Onset Age Delivery Information Delivery Date Delivery Type Labor Anesthesia Weeks Gestation Incision Type Labor Labor Length Hrs Delivered By Post Complications Tubal Sterilization Discharge Date Comments 2 39 false Jose Antonio'mar r i Discharge Information Feeding Method Contraceptive Method Maternal HG B and HCT Levels Ob Episode Information Episode Created Date Number of Fetuses Patient Bloodtype Patient rh Status Prepregnancy Weight lbs Domestic Partner Domestic Partner Phone Father Name Transportation Planner Status 10/05/19 21 1 CLOSED Fetus Data First Name Last Name Admitted to NICU Weight (g) Sex Living Outcome Pediatric Complications Fetus ID Race Codes Race Delivery Type , Spontane ous 6986 Tuan Calculation Initial Tuan Date Initial Exam Date Initial Exam Provider Initial Ultrasound Date Last Menstrual Period Date Ultra Sound Weeks Gestation 0 Eighteen To Twenty Week Tuan Update Ultra Sound Date Fundal Height At Umbil Quickening Date Ultra Sound Latest Weeks Gestation Final Tuan Confirmed By Final Tuan Confirmed Date Final Tuan Date Ultra Sound Latest Days Gestation 0 0 Menstrual History Last Menstrual Date Menses Monthly On Bcp Conception Prior Menses Frequency Hcg Plus Date Menarche Onset Age Delivery Information Delivery Date Delivery Type Labor Anesthesia Weeks Gestation Incision Type Labor Labor Length Hrs Delivered By Post Complications Tubal Sterilization Discharge Date Comments 1 molar Discharge Information Feeding Method Contraceptive Method Maternal HG B and HCT Levels Ob Episode Information Episode Created Date Number of Fetuses Patient Bloodtype Patient rh Status Prepregnancy Weight lbs Domestic Partner Domestic Partner Phone Father Name Transportation Planner Status 10/05/19 21 1 CLOSED Fetus Data First Name Last Name Admitted to NICU Weight (g) Sex Living Outcome Pediatric Complications Fetus ID Race Codes Race Delivery Type 3912.23 1 F Full Term 6982 Repeat Tuan Calculation Initial Tuan Date Initial Exam Date Initial Exam Provider Initial Ultrasound Date Last Menstrual Period Date Ultra Sound Weeks Gestation 0 Eighteen To Twenty Week Tuan Update Ultra Sound Date Fundal Height At Umbil Quickening Date Ultra Sound Latest Weeks Gestation Final Tuan Confirmed By Final Tuan Confirmed Date Final Tuan Date Ultra Sound Latest Days Gestation 0 0 Menstrual History Last Menstrual Date Menses Monthly On Bcp Conception Prior Menses Frequency Hcg Plus Date Menarche Onset Age Delivery Information Delivery Date Delivery Type Labor Anesthesia Weeks Gestation Incision Type Labor Labor Length Hrs Delivered By Post Complications Tubal Sterilization Discharge Date Comments 7 39.1 false Discharge Information Feeding Method Contraceptive Method Maternal HG B and HCT Levels
--- OUTSIDE RECORDS SUMMARY | 2025-02-24 08:01 | XMS_ITS | Clinical Summary ---
Author Organization [facility] Address [address] [place] [address] Care Team Providers Care Vacuum Bottle Assembler Name Role Phone Jamir Melgar MD Primary Care Provider [phone] Source Comments [facility],non-owned Affiliates and Associated Physician Practices is amultiple site organization consisting of ambulatory clinics and hospital sitesin [place], [place], [place] and [place]. This disclosure is being madepursuant to the Care Everywhere program and may not contain all information available regarding this patient. Last updated 18.[facility] Allergies Active Allergy Reactions Criticality Noted Date Comments Zonisamide Other 03/16/2023 Blurry vision Medications * Be aware that medications may not be up to date on this document. Alwaysverify current medications with the patient. Vit-Fe Fumarate-FA ( VITAMIN) 28-0.8 MG tablet Take 1 (one) tablet by mouth once daily Active calcium carbonate-vitami n D 600-400 MG-UNIT tablet Take 1 (one) tablet by mouth 2 times daily Active ferrous sulfate 325 (65 FE) MG tablet Take 1 (one) tablet by mouth once daily Active Cyanocobalamin (B-12) 100 MCG Activ e Active Problems Problem Noted Date Diagnosed Date Polyhydramnios, antepartum complication 04/04/20 [address] in [facility] 04/04/2017 Family History Medical History Relation Name Comments None Known Father None Known Mother Relation Name Status Comments Father Mother Social History Tobacco Use Types Packs/Day Years Used Date Smoking Tobacco: Never Assessed Tobacco Cessation:Counseling Given: Not Answered Comments No Sex and Gender Information Value Date Recorded Sex Assigned at Not on file Legal Sex Female 11:32 AM CDT Gender Identity Not on file Sexual Orientation Not on file Last Filed Vital Signs Vital Sign Reading Time Taken Comments Blood Pressure 97/74 03/16/2023 1:10 PM CDT Pulse 80 03/16/2023 1:10 PM CDT Temperature 36.4 C (97.6 F) 03/16/2023 1:10 PM CDT Respiratory Rate 15 07/31/2016 3:24 PM GARDE MANGER Oxygen Saturation 98% 03/16/2023 1:10 PM CDT Inhaled Oxygen Concentration - - Weight 103 kg (227 lb) 03/16/2023 1:10 PM CDT Height 157.5 cm (5' 2) 03/16/2023 1:10 PM CDT Body Mass Index 41.52 03/16/2023 1:10 PM CDT Plan of Treatment Health Maintenance Due Date Last Done Comments LIPID TESTING 1984 HIV SCREENING 1999 HEPATITIS C SCREENING 05/24/2002 DTAP/TDAP/TD VACCINES (1 - Tdap) 2003 HEPATITIS B VACCINE (1 of 3 - 19+ 3-dose series) 2003 MAMMOGRAM 02/17/2024 02/16/2022 COVID-19 VACCINE (1 - 2023-2 5 season) 2024 DEPRESSION SCREENING 09/25/2024 INFLUENZA VACCINE (Season Ended) 2025 07/20/2022, 08/13/2021, 07/20/2020 PAP SMEAR 10/25/2025 10/25/2022, 10/25/2022 ZOSTER VACCINE (1 of 2) 2034 HIB VACCINE Aged Out No longer eligi ble based on patient's age to complete this topic HPV VACCINE Aged Out No longer eligi ble based on patient's age to complete this topic MENINGOCOCCAL (Group B) VACCINE SHARED DECISION-MAKING Aged Out No longer eligible based on patient's age to complete this topic MENINGOCOCCAL GROUPS A/C/Y/W VACCINE Aged Out No longer eligible b ased on patient's age to complete this topic PNEUMOCOCCAL VACCINE Aged Out No long er eligible based on patient's age to complete this topic Procedures Procedure Name Priority Date/Time Associated Diagnosis Comments MAMMO BILAT SCREENING W СВЕТЛАНА Routine 02/16/2022 from Last 3 Months or Most Recently Relevant to Health Maintenance Results * MAMMO BILAT SCREENING W СВЕТЛАНА (02/16/2022) Anatomical Region Laterality Modality Breast Bilateral Mammography us Scanned Document MAMMO ORDERABLES Final Result from Last 3 Months or Most Recently Relevant to Health Maintenance Insurance [facility] * Guarantor: YAZMIN HUNT Account Type Relation to Patient Date of Phone Billing Address Personal/Family [address] [place] [address] [facility] SELF PAY NO INSURANCE Member Subscriber Plan / Payer (Ef fective for All Dates) Name:Yazmin Hunt Michael Member ID:Not on file Relation to Subscriber:Not on file Name:NIR HUNTA Subscriber ID:Not on file Address: [address] [place] [address] Payer ID:Not on file Group ID:Not on file Type:Self Pay Address: [place], [place] * Guarantor: YAZMIN HUNT Account Type Relation to Patient Date of Phone Billing Address Personal/Family [address] [place] [address] [facility] SELF PA[employer] NO INSURANCE Member Subscriber Plan / Payer (Ef fective for All Dates) Name:Nir Huntbrianna Rodriguez Member ID:Not on file Relation to Subscriber:Not on file Name:GILBERTYAZMIN Subscriber ID:Not on file Address: [address] [place] [address] Payer ID:Not on file Group ID:Not on file Type:Self Pay Address: [place], [place] * Guarantor: YAZMIN HUNT Account Type Relation to Patient Date of Phone Billing Address Personal/Family [address] [place] [address] [facility] SEL[employer] PA[employer] NO INSURANCE Member Subscriber Plan / Payer (Ef fective for All Dates) Name:HuntYazmin Member ID:Not on file Relation to Subscriber:Not on file Name:YAZMIN HUNT Subscriber ID:Not on file Address: [address] [place] [id number] Payer ID:Not on file Group ID:Not on file Type:Self Pay Address: [place], [place] Care Teams Vacuum Bottle Assembler Relationship Specialty Start Date End Date Jamir Melgar MD [address] [place] [address] [address] [place] [address] PCP - General 01/31/19
--- OUTSIDE RECORDS SUMMARY | 2025-02-24 08:01 | XMS_ITS | Referral Summary ---
Author Organization [facility] Address [address] [place] [address] Care Team Providers Care Substation Operator Transforming Name Role Phone Jamir Melgar MD Primary Care Provider Fiona Leon MD Unavailable [phone] Encounters Date Type Department Care Team Description 02/20/2025 11:51 PM CDT - 02/21/2025 3:38 AM CDT Emergency [facility] Emergency Department [address] [place] [address] Mehdi Ernst DO Shortness of breath (Primary Dx) Discharge Disposition: Discharge to home or self care 01/24/2025 Telephone [facility] Family Medicine at [address] [place] [address] Debbie Mendiola NP Appointment Request 01/09/[address] [facility] Surgery [address] [place] [address] Medical Office Building [address] [place] [address] Santosh Vázquez CMA Scheduling Appointments 01/07/[address] [facility] Surgery [address] [place] [address] Medical Office Building [address] [place] [address] Hafsa Solis, JODI 01/07/[address] [facility] Surgery [address] [place] [address] Office [facility] [address] [place] [phone] Hafsa Solis, JODI 01/07/[address] [facility] Surgery [address] [place] [address] Medical Office [facility] [address] [place] [address] Aline Soria MD Constipation, unspecified constipation type (Primary Dx) 01/07/2025 8:30 AM CDT Office Visit [facility] [address] [facility] Medical [facility] [address] [place] [phone] Aline Soria MD Cecal bascule (HCC) 01/02/2025 Orders Only [facility] [address] [place] [phone] Fiona Leon MD B12 deficiency (Primary Dx) 01/01/2025 Documentation [facility] [address] [place] [phone] Lashonda Marie RN 12/31/2024 8:00 AM CDT Infusion [facility] [address] [place] [phone] Iron deficiency (Primary Dx) 12/26/2024 8:45 AM CDT Lab [facility] Lab [address] [place] [phone] Iron deficiency 12/26/2024 9:15 AM CDT Office Visit [facility] [address] [place] [phone] Fiona Leon MD Iron deficiency (Primary Dx); Hx of bariatric surgery; Other iron deficiency anemia 12/25/2024 Orders Only [facility] [address] [place] [phone] Fiona Leon MD Iron deficiency (Primary Dx) 12/20/2024 Telephone [facility] [address] [place] [address] Outpatient Health 3rd Floor [address] [place] [address] Yady Salinas LPN 12/20/2024 Orders Only [facility] [address] [facility] [address] [place] [phone] Kathleen Hernández MD 12/19/2024 Orders Only [facility] [address] [facility] [address] [address] Kathleen Hernández MD Other iron deficiency anemia (Primary Dx); Iron deficiency; Hx of bariatric surgery 12/19/[address] [facility] Surgery [facility] Floor [address] [place] [address] Yenny Peraza BS Reschedule (Offer to move C/R appointment to sooner date) 12/16/[address] [facility] Surgery [facility] Floor [address] [place] [address] Yenny Peraza BS Reschedule (Reschedule/overbook ing request ) 12/16/2024 2:[address] [facility] Surgery [facility] Medical Office Building [address] [place] [address] Kevin Rivera Jr., MD Abdominal pain (Primary Dx); Cecal bascule (HCC); Hx of bariatric surgery; Chronic idiopathic constipation 12/13/2024 Results Follow-Up [address] [place] [phone] Nanette Dykes MD Pap and High Risk HPV and Genotyping (Cytology Component) 12/12/2024 10:07 AM CDT - 12/12/2024 3:30 PM CDT Emergency [facility] Emergency Department [address] [place] [phone] Pain of left calf (Primary Dx) Discharge Disposition: Discharge to home or self care 12/10/2024 Orders Only [address] [place] [phone] Nanette Dykes MD Acute on chronic anemia (Primary Dx) 12/09/2024 Results Follow-Up [address] [address] Nanette Dykes MD CBC with auto differential, Differential, auto 12/07/2024 10:25 AM CDT Lab [facility] [address] [place] [phone] Abnormal uterine bleeding 12/06/2024 3:40 PM CDT - 12/06/2024 11:59 PM CDT Hospital Encounter [facility] [address] [place] [address] Abnormal uterine bleeding Discharge Disposition: Discharge to home or self care 12/06/2024 Orders Only [address] [place] [phone] Nanette yDkes MD Abnormal uterine bleeding (Primary Dx) 12/06/2024 8:30 AM CDT Procedure visit [address] [place] [phone] History of heavy vaginal bleeding (Primary Dx) 12/06/2024 8:45 AM CDT Office Visit [address] [place] [phone] Nanette Dykes MD Abnormal uterine bleeding (Primary Dx) 12/02/[address] [facility] Surgery [address] [facility] Medical Office Building [address] [place] [address] Hafsa Solis RN 12/02/[address] [facility] Surgery [address] [facility] Floor [address] [place] [address] Maria Elena Nieves, B.AOlinda from Last 3 Months Allergies Active Allergy Reactions Criticality Noted Date Comments Iron Dextran Itching,Muscle pain Medium 01/01/2025 Zonisamide Dizziness Low 07/26/2021 Blurry vision Medications calcium citrate-vitamin D3 250 mg-5 mcg (200 unit) tablet Take 2 tablets by mouth 3 (three) times a day 90 tablet 11 2 Active albuterol HFA (PROVENTIL HFA,VENTOLIN HFA,PROAIR HFA) 90 mcg/actuation inhaler Inhale 2 puffs every 6 (six) hours as needed for wheezing 1 each 2 Active acetaminophen (TYLENOL) 500 mg tablet Take 1 tablet (500 mg total) by mouth every 6 (six) hours as needed for pain 30 tablet 1 3 Active albuterol 2.5 mg /3 mL (0.083 %) nebulizer solution Take 3 mL (2.5 mg total) by nebulization every 6 (six) hours as needed for wheezing 75 mL 4 Active multivitamin tablet Take 2 tablets by mouth daily Active FeroSuL 325 mg (65 mg iron) tablet TAKE 1 TABLET BY MOUTH THREE TIMES DAILY WITH MEALS 4 Active meclizine (ANTIVERT) 25 mg tablet TAKE 1 TABLET BY MOUTH THREE TIMES DAILY NEEDED FOR DIZZINESS 4 Active fluticasone propion-salmete roL (ADVAIR HFA) 230-21 mcg/actuation inhaler Inhale 2 puffs 2 (two) times a day 4 Active bisacodyl EC (DULCOLAX EC) 5 mg EC tabletIndicatio ns:constipation Take 1 tablet (5 mg total) by mouth daily as needed for constipation 8 tablet [address] (PROTONIX) 40 mg EC tablet Take 1 tablet (40 mg total) by mouth daily 30 tablet 2 5 Active Active Problems Problem Noted Date Diagnosed Date Class 3 severe obesity due t o excess calories with serious comorbidity and body mass index (BMI) of 40.0 to 44.9 in adult 02/20/[address] scan, gastrointestinal tract 025 Abnormal uterine bleeding 06/20/2024 Assessment & Plan (12/06/2024 10:26 AM CDT): Patient with abnormal and prolonged bleeding episodes recently. TVUS without structural issues, EMS 1mm today. Of note ovarian cyst resolved. Discussed likely hormonal issue due to gap in periods, and then prolonged periods. Prior labs in 05/2024 all normal. Discussed complicated situation of stopping current bleeding due to questionable history of DVTs. EMS 1mm today therefore unlikely progesterone will help. TXA and estrogen usually contraindicated in patients with prior history of DVTs. Will discuss with partners and then contact patient for options. Also discussed treatment options for intermediate manager management of periods. During discussion patient notes history of an ablation. Will request that record from her. Also discussed recommendation for getting endometrial sampling due to abnormal bleeding patterns. Patient agreeable. Not done today due to heavy bleeding and possible history of an ablation. Discussed potential options including progesterone medication, endometrial ablation, or hysterectomy. Patient is desiring a hysterectomy. At this time will plan to obtain records from possible prior ablation, will plan to schedule endometrial sampling (in office vs in OR), and plan to schedule hysterectomy procedure after biopsy results. We discussed total laparoscopic hysterectomy, bilateral salpingectomies and cystoscopy for AUB. We are planning on a total laparoscopic hysterectomy. She knows under what circumstances the procedure would be converted to a laparoscopic supracervical hysterectomy or an abdominal case through either a Pfannenstiel or midline incision. Risks of the procedure including risks of general anesthesia, and the risks of any pelvic surgery including deep vein thrombosis or pelvic thrombosis with possible emboli to heart, lung and brain were reviewed. Ways of reducing these risks were discussed with the patient. With her questionable history discussed possible need for anticoagulation medication on the day of surgery and possibly after surgery. Sequential compression stockings will be used intraoperatively and postoperatively. She will also have early and aggressive ambulation. Risk of infection, both at the abdominal incisions as well as in the pelvis and at the vaginal cuff was discussed. Perioperative antibiotics will be used. Risk of bleeding and possible transfusion was discussed. She understands that hemorrhage is rare but presents a real risk of transfusion with the transfusion risks including transfusion reactions or darlene viral illnesses such as AIDS and hepatitis. Risks of inadvertent and unrecognized injury to bowel, bladder and vessels from trocar insertions, as well as from electromechanical devices. Discussed removal of specimen would be via vagina. Discussed once the cervix is removed, the incision is only about 5cm and a large uterus sometimes cannot be removed vaginally. The patient understands how laparoscopic injuries could occur and how they would be repaired, either laparoscopically or via laparotomy if they were recognized. She also knows that unrecognized injuries could include ureteral, bowel, or bladder injury and could result in a return trip to the operating room. Cystoscopy to identify urinary jets coming from the ureters at the conclusion of the laparoscopic hysterectomy was also discussed. What to do with her ovaries was discussed in detail. She knows that previously recommendations were that in women 45 or older the ovaries should be removed and in women 45 or under it was recommended to maintain them. She knows that newer data demonstrates that removal of ovaries as an incidental procedure at the time of hysterectomy is associated with increased cardiovascular disease and earlier mortality. She knows that ACOG now recommends maintaining ovaries unless there is a diagnosis of cancer, a family history of ovarian cancer, or pathology associated with the ovaries such as endometriosis, recurrent cysts or pain that may be associated with the ovaries. The data suggests, however, that fallopian tubes be removed as a cancer prophylaxis procedure Assessment & Plan (07/04/2024 10:15 AM CDT): Patient notes bleeding has resolved Advised patient she can stop taking the progesterone at this time. We reviewed some options to treat irregular menstrual cycles and heavy menstrual bleeding including but not limited to hormonal medications, minor procedures (Endometrial ablations) and hysterectomies. Patient is not a candidate for estrogen or TXA due to concern for prior DVTs. At this time patient would like to see what her next period is like prior to making a decision. If she makes a decision before then she will message the office. Assessment & Plan (06/20/2024 11:38 AM CDT): Reviewed differential Dx via PALM COIEN algorithm and need for additional evaluation with labs, US and possibly EMBx. Discussed potential treatments and their risks, benefits and alternatives. We reviewed some options to treat irregular menstrual cycles and heavy menstrual bleeding including but not limited to hormonal and non hormonal medications, minor procedures (HSC, Endometrial ablations, UAE/UFE) and hysterectomies. Will plan for lab work and ultrasound first to determine cause of bleeding and follow up to discuss options and treatment plan. Patient is not a candidate for estrogen due to concern for prior DVTs. Will start progesterone medication now and taper as bleeding improves. Plan for TVUS and follow up in 2 weeks. Other chest pain 01/08/2024 Assessment & Plan (01/08/2024 3:17 PM CDT): Aytpical and chronic, ongoing for several years, previous work up has been negative, including prior negative ischemic eval SPECT 03/2022, under media. EKG NSR in ED 12/29/2023. Suspect secondary to uncontrolled Asthma, GERD or gallbladder disease. ECHO when able for mild heart enlargement on PE-CT on 12/28. Reassuring that patient does not have risk factors for CAD. Asthma 03/31/2023 Assessment & Plan (01/08/2024 3:20 PM CDT): Nebs per her PCP. tae Ndiaye, and lorena. Postoperative incisional hernia 12/13/2022 Recurrent incisional hernia 12/08/2022 Overview (12/08/2022): Added automatically from request for surgery [id number] Disorder of hip joint 09/15/2022 Hip pain 09/15/2022 Candidiasis of vagina 09/15/2022 Overexertion and strenuous movements 09/15/2022 Painless rectal bleeding 09/15/2022 Rash 09/15/2022 Derangement of knee 09/15/2022 Lymphadenopathy 08/15/2022 Otalgia of right ear 07/20/2022 Peripheral venous insufficiency 06/24/2022 Assessment & Plan (01/08/2024 3:07 PM CDT): Seen in consult by vascular surgery for venous insuffiencey, compression stockings and lasix. Gastroesophageal reflux disease with ulceration 06/10/2022 Family history of diabetes mellitus 06/15/2021 Fatigue 06/15/2021 Iron deficiency 06/07/2021 Metabolic and nutritional disorder 04/14/2021 Assessment & Plan (07/24/2022 11:51 AM CDT): Reviewed most recent labs available. Continue low-carb (<150 g/day), low- glycemic diet. Consider metformin. Assessment & Plan (08/13/2021 1:27 PM SCALE INSTALLER): Reviewed labs with her. Continue low-carb (<150 g/day), low-glycemic diet. Assessment & Plan (06/15/2021 12:33 PM CDT): Labs. Reviewed recent labs. Discussed increased risk for DM in setting of obesity and FHx DM. Continue low-carb (<150 g/day), low-glycemic diet. Assessment & Plan (04/14/2021 9:23 PM CDT): Reviewed labs. Discussed increased risk for DM in setting of obesity and FHx DM. Discussed insulin resistance including effect on weight and risk for progression to diabetes. Recommended low-carb, low-glycemic diet; choose whole grains and avoid more highly processed carbohydrates. Discussed potential benefits of this w/r/t gut microbiome. Referred to ADA and [employer] websites for additional information on topics including glycemic index/carbohydrate choices, protein sources. Osteoarthritis of knee 04/14/2021 Syncope 03/17/2021 Family history of ischemic h eart disease and other diseases of the circulatory system 01/31/2020 Atypical squamous cells of u ndetermined significance (ASCUS) on Papanicolaou smear of cervix 11/09/2018 Closed fracture of base of fifth metatarsal bone 10/08/2018 Edema of lower extremity 01/04/2018 Lumbar radiculopathy 09/11/2017 Polyhydramnios, antepartum complication 04/04/20 17 Hx of bariatric surgery 07/24/2015 Assessment & Plan (06/15/2021 12:34 PM CDT): Routine labs to evaluate for vitamin deficiencies in setting of intestinal malabsorption. Reviewed BaS. Reviewed surgery notes. Assessment & Plan (04/14/2021 9:22 PM CDT): Reviewed notes. Malabsorption 07/24/2015 Resolved Problems Problem Noted Date Diagnosed Date Resolved Date Screening for malignant neoplasm of colon 10/04/2023 02/20/2025 Morbid obesity 10/19/2022 02/20/2025 BMI 40.0-44.9, adult 10/19/2022 025 Weight gain following gastric bypass surgery 02/20/2025 Knee pain 09/15/2022 02/20/2025 Illness 09/15/2022 02/20/2025 Pain in limb 09/15/2022 02/20/2025 Strain of knee 09/15/2022 02/20/2025 Obesity 09/15/2022 02/20/2025 Abdominal pain 07/15/2022 02/20/2025 Wheezing 11/11/2021 02/20/2025 Encounter for medication monitoring 08/13/2021 02/20/2025 Assessment & Plan (08/13/2021 1:27 PM SCALE INSTALLER): Tolerating phentermine without adverse effects. Will get BP check. Weight loss counseling, encounter for 03/02/2021 01/15/2025 Assessment & Plan (07/24/2022 11:46 AM CDT): Reviewed that weight loss will require calorie deficit; recalculated and reviewed calorie restriction based on BMR as previously detailed. Reviewed recommendation/goal of >/= 150 minutes/week moderate-intensity aerobic exercise. Asked to keep detailed food diary for at least 1 week and bring to next visit and/or continue tracking on phone. Discussed common sources of error in monitoring calories such as not including condiments or beverages. Assessment & Plan (07/26/2021 11:24 AM CDT): Reviewed calorie restriction based on BMR as previously detailed. Reviewed recommendation/goal of >/= 150 minutes/week moderate-intensity aerobic exercise. Asked to keep detailed food diary for at least 1 week and bring to next visit and/or continue tracking on phone. Asked her to send a copy of the last few days of her record. Assessment & Plan (06/15/2021 1:18 PM CDT): Reviewed calorie restriction based on BMR as previously detailed. Discussed that if she is not losing at a 1500 kcal/day restriction, she needs to reduce further -- try 1200 kcal/day. Asked her to continue tracking. She will send a copy of her food diary for me to review. Discussed common sources of error in counting calories. Reviewed recommendation/goal of >/= 150 minutes/week moderate-intensity aerobic exercise. Asked to keep detailed food diary for at least 1 week and bring to next visit and/or continue tracking on phone. Assessment & Plan (03/02/2021 4:40 PM CDT): Discussed that significant health benefits/risk reduction may be seen with even 5% weight loss. Discussed that weight loss will require calorie deficit. Calculated basal metabolic rate and estimated total energy expenditure; discussed 500-1000 kcal/day deficit to lose 1-2 lb per week. Asked to keep detailed food diary for at least 1 week and bring to next visit. Discussed relatively small, although significant, role of exercise in weight loss; greater importance in weight maintenance as shown in Look Ahead study and National Weight Control Registry. Discussed recommendation/goal for 150 minutes per week moderate-intensity aerobic exercise. Shortness of breath 02/12/2020 02/21/20 25 Hx of obesity 01/31/2020 02/20/2025 Encounter for screening for cardiovascular disorders 01/31/2020 02/20/2025 Internal hernia 07/06/2019 07/25/2019 Overview (07/07/2019): Added automatically from request for surgery [id number] Obesity with body mass index 30 or greater 07/03/2017 02/20/2025 Supervision of normal pregna ncy in third trimester 04/04/2017 02/20/2025 Obesity with body mass index 30 or greater 07/24/2015 02/20/2025 No diagnosis on [place] I 01/04/201502/20 Class 3 severe obesity due t o excess calories in adult 12/19/2014 02/20/2025 Overview (04/14/2021): S/P RYGB Assessment & Plan (10/10/2022 7:21 PM SCALE INSTALLER): Obesity is worse. Plan: Diet interventions: as noted.. and Regular aerobic exercise program discussed. Assessment & Plan (08/13/2021 1:19 PM SCALE INSTALLER): Obesity is improving with treatment. Diet interventions: as noted. Regular aerobic exercise program discussed. Pharmacotherapy as ordered. Assessment & Plan (06/15/2021 1:20 PM CDT): Obesity is worsening. Diet interventions: as noted. Regular aerobic exercise program discussed. She is interested in restarting phentermine, however discussed that phentermine is an appetite suppressant and since she reports not being hungry/not having much of an appetite, this would not be the right choice. Assessment & Plan (04/14/2021 9:28 PM CDT): Obesity is unchanged. General weight loss/lifestyle modification strategies discussed (elicit support from others; identify saboteurs; non-food rewards, etc). Diet interventions: as noted. Informal exercise measures discussed, e.g. taking stairs instead of elevator. Regular aerobic exercise program discussed. Social History Tobacco Use Types Packs/Day Years Used Date Smoking Tobacco: Never Passive Smoke Exposure: Never Smokeless Tobacco: Never Tobacco Cessation:Counseling Given: Not Answered Alcohol Use Standard Drinks/Week Comments Yes 0 [...] on file Legal Sex Female 3:36 AM SCALE INSTALLER Gender Identity Female 03/02/2021 12:52 PM CDT Sexual Orientation Choose not to disclose 2020 12:52 PM CDT Last Filed Vital Signs Vital Sign Reading Time Taken Comments Blood Pressure 113/75 02/21/2025 3:30 AM CDT Pulse 73 02/21/2025 3:30 AM CDT Temperature 36.6 C (97.8 F) 02/20/2025 10:50 PM CDT Respiratory Rate 21 02/21/2025 3:30 AM CDT Oxygen Saturation 96% 02/21/2025 3:30 AM CDT Inhaled Oxygen Concentration - - Weight 81.6 kg (180 lb) 02/20/2025 10:50 PM CDT Height 157.5 cm (5' 2) 01/07/2025 8:21 AM CDT Body Mass Index 32.92 01/07/2025 8:21 AM CDT Plan of Treatment Not on file Medical Devices Implanted Type Area Community Health Educator Device Identifier Shelf Expiration Date Model / Serial / Lot [employer] Composix 6x4in Monofilament Nonabsorbable Seal Edge Low Profile [id number] - [id number] Implanted:Qty: 1 on 12/13/2022 by Anuradha Flores MD at [facility] Mesh N/A: Abdomen [employer] 04/21/2023 [id number] / / [id number] Procedures Procedure Name Priority Date/Time Associated Diagnosis Comments TROPONIN T HIGH-SENSITIVITY 2-HOUR Timed 02/21/2025 2:[address] HEAD WO CONTRAST ED 02/21/2025 2 [address] CHEST PE W CONTRAST ED 2:29 AM CDT POCT HCG, URINE STAT 02/21/2025 12:43 AM CDT EGFR STAT 02/21/2025 12:39 AM CDT URINALYSIS, MICROSCOPIC ONLY STAT 02/21/2025 12:39 AM CDT DIFFERENTIAL AUTO STAT 02/21/2025 12: 39 AM CDT CBC WITH AUTO DIFFERENTIAL STAT 02/21/2025 12:39 AM CDT COMPREHENSIVE METABOLIC PANEL STAT 02/21/2025 12:39 AM CDT D-DIMER, QUANTITATIVE STAT 02/21/2025 12:39 AM CDT TROPONIN T HIGH-SENSITIVITY SERIES (BASELINE, 2HR, 4HR, 6HR) STAT 02/21/2025 12:39 AM CDT DRUGS OF ABUSE SCREEN, URINE WITHOUT CONFIRMATION STAT 02/21/2025 12:39 AM CDT URINE CULTURE STAT 02/21/2025 12:39 AM CDT URINALYSIS AND REFLEX TO MICROSCOPIC AND CULTURE STAT 02/21/2025 12:39 AM CDT ECG 12-LEAD STAT 02/21/2025 12:38 AM CDT XR CHEST 1 VIEW ED 02/21/2025 12:23 AM CDT DIFFERENTIAL AUTO Routine 12/26/2024 8:4 4 AM CDT Iron deficiency CBC WITH AUTO DIFFERENTIAL Routine 12/26/2024 8:44 AM CDT Iron deficiency COPPER, SERUM Routine 12/26/2024 8:44 AM CDT Iron deficiency RETICULOCYTES Routine 12/26/2024 8:44 AM CDT Iron deficiency EXTRA SLIDE PREPARATION Routine 12/26/2024 8:44 AM CDT Iron deficiency FERRITIN Routine 12/26/2024 8:37 AM CDT Iron deficiency IRON PROFILE W/ IBC Routine 12/26/2024 8 :37 AM CDT Iron deficiency HEMOGLOBIN ANALYSIS BY ELECTROPHORESIS Routine 12/26/2024 8:37 AM CDT Iron deficiency VITAMIN B12 Routine 12/26/2024 8:37 AM CDT Iron deficiency FOLATE Routine 12/26/2024 8:37 AM CDT Iron deficiency US VEIN DUPLEX LOWER EXTREMITY RIGHT LIMITED ED 12/12/2024 12:21 PM CDT DIFFERENTIAL AUTO Routine 12/07/2024 10: 47 AM CDT Abnormal uterine bleeding CBC WITH AUTO DIFFERENTIAL Routine 12/07/2024 10:47 AM CDT Abnormal uterine bleeding THINPREP PROCESSING (MOLECULAR COMPONENT) Routine 12/06/2024 12:00 PM CDT Abnormal uterine bleeding HIGH RISK HPV DNA DETECTION WITH GENOTYPING Routine 12/06/2024 12:00 PM CDT Abnormal uterine bleeding PAP AND HIGH RISK HPV, REFLEX TO GENOTYPING Routine 12/06/2024 11:52 AM CDT Abnormal uterine bleeding US PELVIS COMPLETE Schedule Routine, Read Routine (OP Routine) 12/06/2024 9:41 AM CDT History of heavy vaginal bleeding HEPATITIS PANEL, ACUTE Routine 3:23 PM SCALE INSTALLER Morbid obesity (HCC) Pre-op exam from Last 3 Months or Most Recently Relevant to Health Maintenance Results * Troponin T high-sensitivity 2-hour (02/21/2025 2:31 AM CDT) Trop T hs 8 <=14 ng/L Comment: Interpretive Data For further hscTnT resources including the diagnostic algorithm and an aid in interpretation, copy and paste this link: https://nrl.testcatalog.org/show/hsTrop Current Interpretive Data last revised 2020. Testing performed by: [address] [address] Trop T hs delta 2 ng/L LANIE WHITTEN Comment:Testing performed by : [address] [address] Trop T hs interp Insignificant LANIE WHITTEN Comment:Testing performed by : [address] [address] Blood 02/21/2025 2:31 AM CDT 02/21/2025 2:33 AM CDT us Deepa Aguayo NP LAB BLOOD ORDERABLES Fin al Result LANIE WHITTEN [address] [facility] Department [place] [address] * CT Chest PE (CTA) W Contrast (02/21/2025 2:29 AM CDT) Anatomical Region Laterality Modality Body N/A Computed Tomogra phy 02/21/2025 2:36 AM CDT Narrative 02/21/2025 2:51 AM CDT EXAM DESCRIPTION: CT CHEST PE (CTA) W CONTRAST REASON FOR STUDY: Pulmonary embolism (PE) suspected, low to intermediate prob, positive D-dimer Patient states she felt she couldn't breathe so her daughter gave her an inhaler. Patient does have hx of asthma. States she then began shaking and could not stop. Patient shaking at time of triage. States only medical hx is asthma. EMS reports patient was hyperventilating on arrival with hands curled, lungs CTA, oxygen WNL. TECHNIQUE: CT angiogram of the chest performed with intravenous contrast using helical scanning technique with dynamic intravenous contrast injection. Reconstructed coronal and sagittal MPR images reviewed. All images stored on PACS. 3D MIP images rendered on scanning unit and reviewed at time of interpretation. Automated exposure control was used as a dose optimization technique for this examination. CONTRAST TYPE/DOSE: 100mL of IOVERSOL 350 MG IODINE/ML INTRAVENOUS SYRINGE injected via intravenous COMPARISON: Comparison is made to chest x-ray of February 21, 2025 multiple prior chest CTs, the most recent dated February 16, 2024. REFERENCE: Per ACR white paper recommendations, unless otherwise specified no follow-up imaging is recommended for incidental renal and adrenal lesions per consensus recommendations based on imaging criteria. Further lab evaluation could be pursued based on clinical findings. FINDINGS: NECK BASE: Unremarkable. HARDWARE/LINES/TUBES: None. LYMPH NODES: No axillary, mediastinal or hilar lymphadenopathy is seen by CT size criteria. MEDIASTINUM/NICOLE: There is prominent soft tissue density seen within the anterior superior mediastinum, unchanged as compared to multiple previous chest CTs dating back to June 2019. The aorta and great vessels appear normal. There is no significant coronary artery calcification. The contrast bolus is suboptimal . There is streak artifact related to dense contrast in the SVC, somewhat limiting evaluation of the adjacent right upper lobe vasculature. There is significant central pulsation artifact. The pulmonary arteries are well evaluated to the subsegmental level. There are no filling defects seen in the pulmonary arteries on the axial or coronal images to suggest pulmonary embolism. There is no evidence of left intraventricular septal bowing. There is mild reflux of contrast into the IVC. Heart size is normal. There is no significant pericardial effusion. There is a small hiatal hernia. PLEURA: No effusion. No pneumothorax. LUNGS: There is minimal dependent atelectasis. The lungs are otherwise clear. The central airways are normal. CHEST WALL/BREAST: Unremarkable. MUSCULOSKELETAL: No acute abnormality. UPPER ABDOMEN: There are sequelae of gastric bypass. There are sequelae of ventral herniorrhaphy. The remaining visualized upper abdominal structures are unremarkable. OTHER: No other significant abnormality. IMPRESSION: No CTA evidence of pulmonary embolism to the subsegmental level. No acute cardiopulmonary abnormality. Stable prominent soft tissue density in the anterior superior mediastinum, unchanged as compared to multiple previous chest CTS dating back to June 2019. 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 Small hiatal hernia. 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 THIS IS AN ELECTRONICALLY VERIFIED FINAL REPORT 02/21/2025 2:51 AM - Electronically signed by Amanda Leon M.D. SN: SN Report ID: [id number] Reading Location: [id number] Procedure Note Amanda Leon MD - 02/21/2025 EXAM DESCRIPTION: CT CHEST PE (CTA) W CONTRAST REASON FOR STUDY: Pulmonary embolism (PE) suspected, low to intermediate prob, positive D-dimer Patient states she felt she couldn't breathe so her daughter gave her an inhaler. Patient does have hx of asthma. States she then began shaking and could not stop. Patient shaking at time of triage. States only medical hxis asthma. EMS reports patient was hyperventilating on arrival with hands curled, lungs CTA, oxygen WNL. TECHNIQUE: CT angiogram of the chest performed with intravenous contrastusing helical scanning technique with dynamic intravenous contrast injection. Reconstructed coronal and sagittal MPR images reviewed. All images storedon PACS. 3D MIP images rendered on scanning unit and reviewed at time of interpretation. Automated exposure control was used as a doseoptimization technique for this examination. CONTRAST TYPE/DOSE: 100mL of IOVERSOL 350 MG IODINE/ML INTRAVENOUSSYRINGE injected via intravenous COMPARISON: Comparison is made to chest x-ray of February 21, 2025 multipleprior chest CTs, the most recent dated February 16, 2024. REFERENCE: Per ACR white paper recommendations, unless otherwise specifiedno follow-up imaging is recommended for incidental renal and adrenal lesionsper consensus recommendations based on imaging criteria. Further labevaluation could be pursued based on clinical findings. FINDINGS: NECK BASE: Unremarkable. HARDWARE/LINES/TUBES: None. LYMPH NODES: No axillary, mediastinal or hilar lymphadenopathy is seen byCT size criteria. MEDIASTINUM/NICOLE: There is prominent soft tissue density seen within the anterior superior mediastinum, unchanged as compared to multiple previous chest CTs dating back to June 2019. The aorta and great vesselsappear normal. There is no significant coronary artery calcification. Thecontrast bolus is suboptimal . There is streak artifact related to densecontrast in the SVC, somewhat limiting evaluation of the adjacent right upper lobe vasculature. There is significant central pulsation artifact. Thepulmonary arteries are well evaluated to the subsegmental level. There are nofilling defects seen in the pulmonary arteries on the axial or coronal images to suggest pulmonary embolism. There is no evidence of leftintraventricular septal bowing. There is mild reflux of contrast into the IVC. Heartsize is normal. There is no significant pericardial effusion. There is asmall hiatal hernia. PLEURA: No effusion. No pneumothorax. LUNGS: There is minimal dependent atelectasis. The lungs are otherwise clear. The central airways are normal. CHEST WALL/BREAST: Unremarkable. MUSCULOSKELETAL: No acute abnormality. UPPER ABDOMEN: There are sequelae of gastric bypass. There are sequelaeof ventral herniorrhaphy. The remaining visualized upper abdominalstructures are unremarkable. OTHER: No other significant abnormality. IMPRESSION: No CTA evidence of pulmonary embolism to the subsegmental level. No acute cardiopulmonary abnormality. Stable prominent soft tissue density in the anterior superiormediastinum, unchanged as compared to multiple previous chest CTS dating back toO2018. 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 Small hiatal hernia. 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 THIS IS AN ELECTRONICALLY VERIFIED FINAL REPORT 02/21/2025 2:51 AM - Electronically signed by Amanda Leon M.D. SN: Report ID: [id number] Reading Location: [id number] us Mehdi Ernst DO IMG CT PROCEDURES Final Res ult * CT Head WO Contrast (02/21/2025 2:29 AM CDT) Anatomical Region Laterality Modality Head and Neck N/A Computed Tomogra phy 02/21/2025 2:51 AM CDT Narrative 02/21/2025 2:52 AM CDT EXAM DESCRIPTION: CT HEAD WO CONTRAST REASON FOR STUDY: ? seizure, RUE shaking Patient states she felt she couldn't breathe so her daughter gave her an inhaler. Patient does have hx of asthma. States she then began shaking and could not stop. Patient shaking at time of triage. States only medical hx is asthma. EMS reports patient was hyperventilating on arrival with hands curled, lungs CTA, oxygen WNL. TECHNIQUE: Axial images acquired through the brain without intravenous contrast. Coronal and sagittal reformats were performed. Images stored on PACS. Automated mA/kV exposure control was used as a dose optimization technique for this examination and patient examination was performed in strict accordance with principles of ALARA. COMPARISON: CT of the head of July 12, 2018. FINDINGS: BRAIN: No hemorrhage, edema or mass effect. No recent infarct. Normal white matter. EXTRA-AXIAL SPACES: No fluid collections. No masses. CALVARIUM: No fracture. SINUSES/MASTOIDS: No fluid or mucosal thickening. ORBITS: No significant abnormality. OTHER: No other significant abnormality. IMPRESSION: No acute intracranial abnormality. THIS IS AN ELECTRONICALLY VERIFIED FINAL REPORT 02/21/2025 2:52 AM - Electronically signed by Amanda Leon M.D. SN: Report ID: [id number] Reading Location: [id number] Procedure Note Amanda Leon MD - 02/21/2025 EXAM DESCRIPTION: CT HEAD WO CONTRAST REASON FOR STUDY: ? seizure, RUE shaking Patient states she felt she couldn't breathe so her daughter gave her an inhaler. Patient does have hx of asthma. States she then began shaking and could not stop. Patient shaking at time of triage. States only medical hxis asthma. EMS reports patient was hyperventilating on arrival with hands curled, lungs CTA, oxygen WNL. TECHNIQUE: Axial images acquired through the brain without intravenous contrast. Coronal and sagittal reformats were performed. Images storedon PACS. Automated mA/kV exposure control was used as a dose optimization technique for this examination and patient examination was performed instrict accordance with principles of ALARA. COMPARISON: CT of the head of July 12, 2018. FINDINGS: BRAIN: No hemorrhage, edema or mass effect. No recent infarct. Normal white matter. EXTRA-AXIAL SPACES: No fluid collections. No masses. CALVARIUM: No fracture. SINUSES/MASTOIDS: No fluid or mucosal thickening. ORBITS: No significant abnormality. OTHER: No other significant abnormality. IMPRESSION: No acute intracranial abnormality. THIS IS AN ELECTRONICALLY VERIFIED FINAL REPORT 02/21/2025 2:52 AM - Electronically signed by Amanda Leon M.D. SN: Report ID: [id number] Reading Location: [place] [address] Mehdi Ernst DO IMG CT PROCEDURES Final Res ult * POCT hCG, urine (02/21/2025 12:43 AM CDT) Pathologist [facility] HCG, ur, POC Negative Negative Lot Number [id number] QC Backgroud Clear Acceptable QC Control Line Acceptable Urine 02/21/2025 12:4 3 AM CDT Deepa Aguayo ORDER CALLER POINT OF CARE TEST ORDER FELIPE Final Result * Troponin T high-sensitivity series (baseline, 2hr, 4hr, 6hr) (02/21/2025 12:39 AM CDT) Pathologist [facility] Trop T hs <6 <=14 ng/L Comment: Interpretive Data For further hscTnT resources including the diagnostic algorithm and an aid in interpretation, copy and paste this link: https://nrl.testcatalog.org/show/hsTrop Current Interpretive Data last revised 2020. Testing performed by: [address] [address] Blood 02/21/2025 12:3 9 AM CDT 02/21/2025 12:52 AM CDT Deepasa Yenny Aguayo ORDER CALLER LAB BLOOD ORDERABLES Fin al Result Performing Organization Address City/[facility] [place] Co de Phone Number LANIE [address] [place] [address] * eGFR (02/21/2025 12:39 AM CDT) eGFR >90 >=60 mL/min/1. 73 m2 Comment: Interpretive Data Reference Interval Normal >/= 90 mL/min/1.73m2 Mildly decreased* 60 - 89 mL/min/1.73m2 Mildly to moderately decreased 45 - 59 mL/min/1.73m2 Moderately to severely decreased 30 - 44 mL/min/1.73m2 Severely decreased 15 - 29 mL/min/1.73m2 Kidney Failure < 15 mL/min/1.73m2 *Relative to young adult level Estimated glomerular filtration rate is determined by the 2020 CKD-EPI equation recommended by the National Kidney Foundation (A Unifying Approach to GFR Estimation: Recommendations of the NKF-ASK Task Force on Reassessing the Inclusion of Race in Diagnosing Kidney Disease, JASN 2020). The CKD-EPI equation should not be used for patients with unstable renal function and has not been validated in children and those over 70. Current interpretive data was last reviewed 2021. Testing performed by: [facility], [address] [place] [address]., [address] Blood 02/21/2025 12:3 9 AM CDT 02/21/2025 12:52 AM CDT us Deepa Aguayo ORDER CALLER LAB BLOOD ORDERABLES Fin al Result Performing Organization Address City/[facility]/ZIP Co de Phone Number LANIE [address] [place] [address] * (ABNORMAL) Differential, auto (02/21/2025 12:39 AM CDT) Neutrophil abs 4.91 1.50 - 6.50 K/cumm Comment:Testing performed by : [address] [address] Imm gran abs 0.03 0.00 - 0.10 K/cumm LANIE Comment:Testing performed by : [address] [address] Lymphocyte abs 3.26 0.80 - 3.30 K/cumm [facility] Comment:Testing performed by : [address] [address] Monocyte abs 1.02(H) 0.20 - 0.80 K/cumm [facility] Comment:Testing performed by : [address] [address] Eosinophil abs 0.41 0.00 - 0.50 K/cumm [facility] Comment:Testing performed by : [address] [address] Basophil abs 0.05 0.00 - 0.10 K/cumm [facility] Comment:Testing performed by : [address] [address] Neutrophil pct 50.8 % [facility] Comment: Interpretive Data Percent cell count reference ranges are not reported, since discordance with absolute values may lead to misinterpretation of CBC data. Current Interpretive Data was last revised on 2018. Testing performed by: [address] [address] Imm gran pct 0.3 % [facility] Comment: Interpretive Data Percent cell count reference ranges are not reported, since discordance with absolute values may lead to misinterpretation of CBC data. Current Interpretive Data was last revised on 2018. Testing performed by: [address] [address] Lymphocyte pct 33.7 % [facility] Comment: Interpretive Data Percent cell count reference ranges are not reported, since discordance with absolute values may lead to misinterpretation of CBC data. Current Interpretive Data was last revised on 2018. Testing performed by: [address] [address] Monocyte pct 10.5 % LANIE Comment: Interpretive Data Percent cell count reference ranges are not reported, since discordance with absolute values may lead to misinterpretation of CBC data. Current Interpretive Data was last revised on 2018. Testing performed by: [address] [address] Eosinophil pct 4.2 % LANIE Comment: Interpretive Data Percent cell count reference ranges are not reported, since discordance with absolute values may lead to misinterpretation of CBC data. Current Interpretive Data was last revised on 2018. Testing performed by: [address] [address] Basophil pct 0.5 % LANIE Comment: Interpretive Data Percent cell count reference ranges are not reported, since discordance with absolute values may lead to misinterpretation of CBC data. Current Interpretive Data was last revised on 2018. Testing performed by: [address] [address] Blood 02/21/2025 12:3 9 AM CDT 02/21/2025 12:52 AM CDT Deepa Aguayo ORDER CALLER LAB BLOOD ORDERABLES Fin al Result LANIE [address] [facility] Department [place] [address] * (ABNORMAL) Urinalysis reflex to microscopic and culture Urine (02/21/2025 12:39 AM CDT) Color, ur Yellow Yellow Comment:Testing performed by : [address] [address] Clarity, ur Turbid(A) Clear LANIE WHITTEN Comment:Testing performed by : [address] [address] Specific gravity, ur 1.037(H) 1.003 - 1.030 LANIE WHITTEN Comment:Testing performed by : [address] [address] pH, urine 6.0 LANIE Comment: Interpretive Data U rine pH is affected by diet, medications, systemic acid-base disturbances, and renal tubular function. pH may affect urinary stone formation. For example, urine pH below 6.0 may help reduce the tendency for calcium phosphate stones and pH greater than 6.0 may reduce the tendency for uric acid stone formation. Source: [facility] Vee24 Current Interpretive Data was last revised on 2017 Testing performed by: [facility], [address] [place] [address], [place]., [address] Protein, ur ql 1+(A) Negative LANIE Comment:Testing performed by : [address], [place]., [address] Glucose, ur ql Negative Negative LANIE Comment:Testing performed by : [address], [place]., [address] Ketones, ur Trace(A) Negative LANIE Comment:Testing performed by : [address], [place]., [address] Bilirubin, ur Negative Negative LANIE Comment:Testing performed by : [address], [place]., [address] Blood, ur Trace(A) Negative LANIE Comment:Testing performed by : [address], [place]., [address] Urobilinogen, ur <2.0 <2.0 mg/dL LANIE Comment:Testing performed by : [address], [place]., [address] Nitrite, ur Negative Negative LANIE Comment:Testing performed by : [address], [place]., [address] Leukocyte esterase, ur 4+(A) Negative LANIE Comment:Testing performed by : [address], [place]., [address] UA reflex comment Reflex to microscopic UA will be performed. LANIE Comment:Testing performed by : [address], [place]., [address] Urine 02/21/2025 12:3 9 AM CDT 02/21/2025 12:52 AM CDT us Deepa Yenny McFadin ORDER CALLER LAB MICROBIOLOGY - GENER AL ORDERABLES Final Result LANIE [address] [facility] Department [place] [address] * (ABNORMAL) CBC with auto differential (02/21/2025 12:39 AM CDT) WBC 9.68 3.80 - 9.90 K/cumm Comment:Testing performed by : [address] [address] Hgb 12.3 11.9 - 15.5 g/dL LANIE Comment:Testing performed by : [address] [address] Hct 37.2 35.6 - 45.5 % LNAIE Comment:Testing performed by : [address] [address] Plt 358 150 - 400 K/cumm LANIE Comment:Testing performed by : [address] [address] MPV 9.2 9.1 - 12.3 fL LANIE Comment:Testing performed by : [address] [address] RBC 4.50 3.90 - 5.20 M/cumm LANIE WHITTEN Comment:Testing performed by : [address] [address] MCV 82.7 81.3 - 96.4 fL LANIE Comment:Testing performed by : [address] [address] MCH 27.3 27.1 - 33.3 pg LANIE Comment:Testing performed by : [address] [address] MCHC 33.1 32.3 - 35.7 g/dL LANIE WHITTEN Comment:Testing performed by : [address] [address] RDW CV 23.4(H) 11.1 - 14.9 % LANIE Comment:Testing performed by : [address], [address] RDW SD 67.7(H) 35.7 - 48.1 fL LANIE WHITTEN Comment:Testing performed by : [address] [address] NRBC abs 0.00 0.00 - 0.01 K/cumm LANIE WHITTEN Comment:Testing performed by : [address] [address] Blood 02/21/2025 12:3 9 AM CDT 02/21/2025 12:52 AM CDT us Deepa Aguayo ORDER CALLER LAB BLOOD ORDERABLES Fin al Result LANIE WHITTEN [address] [facility] Department [place] [address] * Drugs of Abuse Screen, Urine without Confirmation (02/21/2025 12:39 AM CDT) Pathologist [facility] Amphetamine, ur Not Detected CutOff 500ng/mL Comment: Interpretive Data - Amphetamines: Samples containing greater than 500 ng/mL d-methamphetamine or other cross-reacting amphetamine compounds are reported as positive. Amphetamine immunoassays are subject to significant false positive rates due to cross-reactivity of non-amphetamine drugs. Confirmatory testing required for definitive results. Current Interpretive Data was last reviewed 2023. Testing performed by: [address] [address] Barbiturates, ur Not Detected CutOff 200ng/mL LANIE WHITTEN Comment: Interpretive Data - Barbiturates: Samples containing greater than 200 ng/mL secobarbital or other cross-reacting barbiturate compounds are reported as positive. False positive and false negative results are possible. Confirmatory testing required for definitive results. Current Interpretive Data was last reviewed 2023. Testing performed by: [address] [address] Benzodiazepines, ur Not Detected CutOff 100ng/mL LANIE WHITTEN Comment: Interpretive Data - Benzodiazepines: Samples containing greater than 100 ng/mL nordiazepam or other cross-reacting compounds are reported as positive. False positive and false negative results are possible. Confirmatory testing required for definitive results. Current Interpretive Data was last reviewed 2023. Testing performed by: [facility], [address] [place] [address]., [address] Cannabinoids, ur Not Detected CutOff 50 ng/mL [facility] Comment: Interpretive Data - Cannabinoids: Samples containing greater than 50 ng/mL delta-9 THC -COOH or other cross- reacting compounds are reported as positive. False positive and false negative results are possible. Confirmatory testing required for definitive results. Current Interpretive Data was last reviewed 2023. Testing performed by: [facility], [address] [place] [address], [place]., [address] Cocaine, ur Not Detected CutOff 150ng/mL [facility] Comment: Interpretive Data - Cocaine: Samples containing greater than 150 ng/mL benzoylecgonine or other cross- reacting compounds are reported as positive. False positive and false negative results are possible. Confirmatory testing required for definitive results. Current Interpretive Data was last reviewed 2023. Testing performed by: [address] [address] Fentanyl, Ur Not Detected CutOff 5 ng/mL [facility] Comment: Interpretive Data - Fentanyl: Samples containing greater than 1 ng/mL fentanyl or other cross-reacting fentanyl compounds are reported as positive. False positive and false negative results are possible. Confirmatory testing required for definitive results. Current Interpretive Data was last reviewed 2023. Testing performed by: [address] [address] Methadone, ur Not Detected CutOff 300ng/mL [facility] Comment: Interpretive Data - Methadone: Samples containing greater than 300 ng/mL d,l-methadone or other cross-reacting compounds are reported as positive. False positive and false negative results are possible. Confirmatory testing required for definitive results. Current Interpretive Data was last reviewed 2023. Testing performed by: [address] [address] Opiates, ur Not Detected CutOff 300ng/mL [facility] Comment: Interpretive Data - Opiates: Samples containing greater than 300 ng/mL morphine or other cross-reacting compounds are reported as positive. False positive and false negative results are possible. Confirmatory testing required for definitive results. Current Interpretive Data was last reviewed 2023. Testing performed by: [address] [address] Oxycodone, ur Not Detected CutOff 100ng/mL LANIE Comment: Interpretive Data - Oxycodone: Samples containing greater than 100 ng/mL oxycodone or other cross-reacting compounds are reported as positive. False positive and false negative results are possible. Confirmatory testing required for definitive results. Current Interpretive Data was last reviewed 2023. Testing performed by: [address] [address] Phencyclidine, ur Not Detected CutOff 25 ng/mL LANIE Comment: Interpretive Data - Phencyclidine: Samples containing greater than 25 ng/mL phencyclidine or other cross-reacting compounds are reported as positive. False positive and false negative results are possible. Confirmatory testing required for definitive results. Current Interpretive Data was last reviewed 2023. Testing performed by: [address] [address] Urine Creatinine 254 mg/dL LANIE Comment: Interpretive Data Urine Creatinine: < 10 mg/dL is extremely dilute = or > 10 but < 20 mg/dL is dilute = or > 20 mg/dL is normal Current Interpretive Data was last revised on 2017. Testing performed by: [address] [address] Urine 02/21/2025 12:3 9 AM CDT 02/21/2025 12:52 AM CDT Narrative LANIE - 02/21/2025 1:19 AM CDT Drug of Abuse screening is performed by immunoassay for medical purposes only. This is not to be used for Pain Management purposes. us Deepa Aguayo NP LAB URINE ORDERABLES Fin al Result LANIE [address] [facility] Department [place] [address] * (ABNORMAL) Urinalysis, microscopic only (02/21/2025 12:39 AM CDT) WBC, ur >50(A) 0 - 5 /HPF Comment:Testing performed by : [address] [address] RBC, ur 21-50(A) 0 - 2 /HPF LANIE Comment:Testing performed by : [address] [address] Epithelial cells, squamous, ur >50(A) 0 - 5 /HPF LANIE Comment:Testing performed by : [address] [address] Mucous, ur Present(A) LANIE Comment:Testing performed by : [address], [place]., [address] Culture Reflex Comment Reflex to urine culture will be performed. LANIE Comment:Testing performed by : [address] [address] Urine 02/21/2025 12:3 9 AM CDT 02/21/2025 12:52 AM CDT Deepa Aguayo ORDER CALLER LAB URINE ORDERABLES [facility] al Result [facility] [address] [facility] Department of Laboratories [place], [place] [id number] * (ABNORMAL) D-dimer, quantitative (02/21/2025 12:39 AM CDT) D-Dimer 1,010(H) <=499 ng/mL FEU Comment: Interpretive data FDA approved the D-dimer, in conjunction with a low or moderate pretest probability score, to exclude venous thromboembolic events (VTE) (PE and DVT) in outpatients when the D-dimer result is < 500 ng/ml FEU. Evidence supports using an age-adjusted D-dimer cut-off for outpatients older than 50 (age x 10) to improve specificity without sacrificing sensitivity. Example: age 67, VTE cut-off 680 ng/ml FEU. References; Aakash TOLLIVER et al. Brit Med J. 2013;346:f2492. Sofy et al. Annals Int Med. 2015;163:701-11. Current interpretive data was last revised on 2019. Testing performed by: [address] [address] Blood 02/21/2025 12:3 9 AM CDT 02/21/2025 12:52 AM CDT Deepa Aguayo NP LAB BLOOD ORDERABLES Fin al Result Performing Organization Address [facility] Co de Phone Number [place] [id number] [facility] [place] [address] * Urine culture Urine (02/21/2025 12:39 AM CDT) Report Final Report: Growth indicative of contamination with periurethral faizan. Please submit a new specimen with special attention given to the collection process and to prompt transport to the laboratory. Comment:Testing performed by : [facility], [address] [place]., [address] Organism GROWTH INDICATES CONTAM WITH PERIURETHRAL FAIZAN. LANIE Urine 02/21/2025 12:3 9 AM CDT 02/21/2025 3:38 AM CDT Narrative LANIE - 02/22/2025 1:59 PM CDT Urine culture reflexed based upon urinalysis results. Testing performed by [facility] Microbiology Laboratory ([phone]) Deepa Aguayo NP LAB MICROBIOLOGY - GENER AL ORDERABLES Final Result Performing Organization Address [facility] Co de Phone Number [facility] [address] [facility] Department [place] [address] * (ABNORMAL) Comprehensive metabolic panel (02/21/2025 12:39 AM CDT) Sodium 135 135 - 145 mmol/L Comment:Testing performed by : [address] [address] Potassium, pl 4.0 3.3 - 4.9 mmol/L LANIE WHITTEN Comment:Testing performed by : [address] [address] Chloride 104 97 - 110 mmol/L LANIE WHITTEN Comment:Testing performed by : [address] [address] CO2 18(L) 22 - 32 mmol/L LANIE Comment:Testing performed by : [address] [address] Anion gap 13 2 - 15 mmol/L LANIE Comment:Testing performed by : [address], [place]., [address] BUN 13 6 - 25 mg/dL LANIE Comment:Testing performed by : [address], [place]., [address] Creatinine 0.67 0.60 - 1.10 mg/dL LANIE Comment:Testing performed by : [address] [address] Glucose 97 70 - 199 mg/dL LANIE Comment: Interpretive Data Fasting glucose >/= 126 mg/dl is diagnostic for diabetes. Fasting is defined as no caloric intake for at least 8 hours. Fasting glucose between 100 mg/dl to 125 mg/dl is diagnostic of prediabetes. In a patient with classic symptoms of hyperglycemia or hyperglycemic crisis, a random glucose >/= 200 mg/dl is diagnostic for diabetes. In the absence of unequivocal hyperglycemia, results should be confirmed by repeat testing. The classification and Diagnosis of Diabetes Diabetes Care 2021; 46: S19-S40. Current interpretive data was last revised 2022. Testing performed by: [address] [address] Calcium 9.2 8.5 - 10.3 mg/dL LANIE Comment:Testing performed by : [address] [address] Bilirubin, total 0.3 0.1 - 1.2 mg/dL LANIE Comment:Testing performed by : [address] [address] Protein, pl 8.0 6.5 - 8.5 g/dL LANIE Comment:Testing performed by : [address] [address] Albumin 4.0 3.5 - 5.0 g/dL LANIE Comment:Testing performed by : [address] [address] Alk phos 141(H) 40 - 130 Units/L LANIE Comment:Testing performed by : [facility], [address] [place] [address], [address] ALT 37 7 - 45 Units/L LANIE Comment:Testing performed by : [facility], [address] [place] [address], [address] AST 33 10 - 45 Units/L LANIE Comment:Testing performed by : [address], [address] Blood 02/21/2025 12:3 9 AM CDT 02/21/2025 12:52 AM CDT us Deepa Aguayo ORDER CALLER LAB BLOOD ORDERABLES Fin al Result Performing Organization Address City/[facility]/ZIP Co de Phone Number LANIE [address] [facility] Department of Laboratories [place], [place] [id number] * ECG 12 lead (02/21/2025 12:38 AM CDT) Ventricular Rate EKG/Min 103 BPM [facility] Atrial Rate 103 BPM [facility] MA-Interval (MSEC) 154 ms [facility] QRS-Interval (MSEC) 60 ms [facility] QT-Interval (MSEC) 340 ms [facility] QTc 445 ms [facility] P [place] 59 degrees [facility] R [place] 49 degrees [facility] T [place] 42 degrees [facility] Diagnosis Sinus tachycardia Nonspecific ST and T wave abnormality Abnormal ECG When compared with ECG of 16-FEB-2024 15:06, Vent. rate has increased BY 42 BPM Nonspecific T wave abnormality now evident in Anterior leads Confirmed by ANURADHA WOODS M.D. ([id number]) on 02/21/2025 11:22:34 PM [facility] 02/21/2025 12:3 8 AM CDT 02/21/2025 11:22 PM CDT us Deepa Aguayo ORDER CALLER ECG ORDERABLES Final Re sult Performing Organization Address City/[facility]/ZIP Co de Phone Number [facility] * XR Chest 1 Vw Portable (02/21/2025 12:23 AM CDT) Anatomical Region Laterality Modality Body, Chest N/A Computed Radiogr aphy 02/21/2025 1:19 AM CDT Narrative 02/21/2025 1:19 AM CDT EXAM DESCRIPTION: XR CHEST 1 VIEW REASON FOR STUDY: shortness of breath/chest pain Patient states she felt she couldn't breathe so her daughter gave her an inhaler. Patient does have hx of asthma. States she then began shaking and could not stop today TECHNIQUE: Single radiographic view(s) of the chest. COMPARISON: 02/16/2024 FINDINGS: LUNGS: No focal opacity, pleural effusion, or pneumothorax. HEART/MEDIASTINUM: Cardiac silhouette normal in size. Mediastinal and hilar contours appear normal. LINES/TUBES: None. BONES: No acute osseous abnormality. IMPRESSION: No acute cardiopulmonary abnormality. THIS IS AN ELECTRONICALLY VERIFIED FINAL REPORT 02/21/2025 1:19 AM - Electronically signed by Cathy Mishra M.D. LL: NADIA Report ID: [id number] Reading Location: [id number] Procedure Note Cathy Mishra MD - 02/21/2025 EXAM DESCRIPTION: XR CHEST 1 VIEW REASON FOR STUDY: shortness of breath/chest pain Patient states she felt she couldn't breathe so her daughter gave her an inhaler. Patient does have hx of asthma. States she then began shaking and could not stop today TECHNIQUE: Single radiographic view(s) of the chest. COMPARISON: 02/16/2024 FINDINGS: LUNGS: No focal opacity, pleural effusion, or pneumothorax. HEART/MEDIASTINUM: Cardiac silhouette normal in size. Mediastinal andhilar contours appear normal. LINES/TUBES: None. BONES: No acute osseous abnormality. IMPRESSION: No acute cardiopulmonary abnormality. THIS IS AN ELECTRONICALLY VERIFIED FINAL REPORT 02/21/2025 1:19 AM - Electronically signed by Cathy Mishra M.D. LL: LL Report ID: [id number] Reading Location: [place] [address] Deepa Aguayo ORDER CALLER IMG XR PROCEDURES Final Result * (ABNORMAL) Differential, auto (12/26/2024 8:44 AM CDT) Neutrophil abs 1.87 1.50 - 6.50 K/cumm Imm gran abs 0.00 0.00 - 0.10 K/cumm [facility] Lymphocyte abs 2.26 0.80 - 3.30 K/cumm [facility] Monocyte abs 0.50 0.20 - 0.80 K/cumm [facility] Eosinophil abs 0.53(H) 0.00 - 0.50 K/cumm [facility] Basophil abs 0.03 0.00 - 0.10 K/cumm [facility] Neutrophil pct 36.1 % [facility] Comment: Interpretive Data Percent cell count reference ranges are not reported, since discordance with absolute values may lead to misinterpretation of CBC data. Current Interpretive Data was last revised on 2018. Imm gran pct 0.0 % [facility] Comment: Interpretive Data Percent cell count reference ranges are not reported, since discordance with absolute values may lead to misinterpretation of CBC data. Current Interpretive Data was last revised on 2018. Lymphocyte pct 43.5 % [facility] Comment: Interpretive Data Percent cell count reference ranges are not reported, since discordance with absolute values may lead to misinterpretation of CBC data. Current Interpretive Data was last revised on 2018. Monocyte pct 9.6 % [facility] Comment: Interpretive Data Percent cell count reference ranges are not reported, since discordance with absolute values may lead to misinterpretation of CBC data. Current Interpretive Data was last revised on 2018. Eosinophil pct 10.2 % [facility] Comment: Interpretive Data Percent cell count reference ranges are not reported, since discordance with absolute values may lead to misinterpretation of CBC data. Current Interpretive Data was last revised on 2018. Basophil pct 0.6 % [facility] Comment: Interpretive Data Percent cell count reference ranges are not reported, since discordance with absolute values may lead to misinterpretation of CBC data. Current Interpretive Data was last revised on 2018. Blood 12/26/2024 8:44 AM CDT 12/26/2024 8:44 AM CDT Fiona Leon MD LAB BLOOD ORDERABLES Fin al Result Performing Organization Address [facility]/ZIP Co de Phone Number [facility] [address] [place] [address] * Extra slide preparation (12/26/2024 8:44 AM CDT) Pathologist [facility] Extra slide prep Slide available for pickup from the lab. Comment:in main lab Blood 12/26/2024 8:44 AM CDT 12/26/2024 8:59 AM CDT Fiona Leon MD LAB BLOOD ORDERABLES Fin al Result Performing Organization Address [facility] Co de Phone Number [facility] [address] [place] [address] * (ABNORMAL) CBC with auto differential (12/26/2024 8:44 AM CDT) Pathologist [facility] WBC 5.19 3.80 - 9.90 K/cumm Hgb 9.0(L) 11.9 - 15.5 g/dL [facility] Hct 29.7(L) 35.6 - 45.5 % [facility] Plt 470(H) 150 - 400 K/cumm [facility] MPV 8.6(L) 9.1 - 12.3 fL [facility] RBC 3.82(L) 3.90 - 5.20 M/cumm [facility] MCV 77.7(L) 81.3 - 96.4 fL [facility] MCH 23.6(L) 27.1 - 33.3 pg [facility] MCHC 30.3(L) 32.3 - 35.7 g/dL [facility] RDW CV 16.1(H) 11.1 - 14.9 % [facility] RDW SD 45.7 35.7 - 48.1 fL [facility] NRBC abs 0.00 0.00 - 0.01 K/cumm [facility] Blood 12/26/2024 8:44 AM CDT 12/26/2024 8:44 AM CDT Fiona Leon MD LAB BLOOD ORDERABLES Fin al Result Performing Organization Address City/[facility]/ZIP Co de Phone Number [facility] [address] [employer] [place] [address] * Copper, serum (12/26/2024 8:44 AM CDT) Pathologist [facility] Copper 130 77 - 206 mcg/dL [facility] Comment: ADDITIONAL INFORMATION This test was developed and its performance characteristics determined by [facility] in a manner consistent with CLIA requirements. This test has not been cleared or approved by the U.S. Food and Drug Administration. Test Performed by: [facility] [address] [address] Fire Boss: Felix Campoverde Ph.D.; CLIA# [id number] Blood 12/26/2024 8:44 AM CDT 12/26/2024 9:03 AM CDT us Fiona Leon MD LAB BLOOD ORDERABLES Fin al Result [facility] [address] [employer] [place] [address] [facility] * (ABNORMAL) Reticulocyte Count (12/26/2024 8:44 AM CDT) Retics, absolute 39 20 - 87 K/cumm Retics 1.0 0.4 - 2.9 % [facility] Reticulocyte Hgb 22.5(L) 30.5 - 38.0 pg [facility] Blood 12/26/2024 8:44 AM CDT 12/26/2024 8:44 AM CDT Fiona Leon MD LAB BLOOD ORDERABLES Fin al Result Performing Organization Address [facility]/ZIP Co de Phone Number [facility] [address] [facility] [address] [place] [address] * (ABNORMAL) Iron profile w/ IBC (12/26/2024 8:37 AM CDT) Pathologist [facility] Iron 14(L) 35 - 145 mcg/dL TIBC 394 250 - 400 mcg/dL [facility] Transferrin saturation 4(L) 20 - 50 % [facility] Blood 12/26/2024 8:37 AM CDT 12/26/2024 10:09 AM CDT us Fiona Leon MD LAB BLOOD ORDERABLES Fin al Result Performing Organization Address [facility] Co de Phone Number [facility] [address] [facility] [address] [place] [address] * (ABNORMAL) Hemoglobin analysis by electrophoresis (12/26/2024 8:37 AM CDT) Pathologist [facility] RBC 3.97 3.90 - 5.20 M/cumm Comment:Testing performed by : [facility], [address] [place]., [address] Hgb 9.2(L) 11.9 - 15.5 g/dL [facility] Comment:Testing performed by : [facility], [address] [place]., [address] MCV 77.8(L) 81.3 - 96.4 fL [facility] Comment:Testing performed by : [facility], [address] [place]., [address] Rdw 16.4(H) 11.1 - 14.9 % [facility] Comment:Testing performed by : [facility], [address] [place]., [address] Hgb electrophoresis , interp Please see comment [facility] Comment: Normal hemoglobin pattern for age Microcytosis consistent with iron deficiency Reviewed and signed by Anuradha Hahn MD 12/31/2024 Testing performed by: [facility], [address] [place]., [address] Hgb A 98.2 96.0 - 98.5 % [facility] Comment:Testing performed by : [facility], [address] [place]., [address] Hgb A2 1.8 1.5 - 3.2 % [facility] Comment:Testing performed by : [facility], [address] [facility], [address] Hgb F <0.4 0.0 - 0.9 % [facility] Comment:Testing performed by : [facility], [address] [facility], [address] Blood 12/26/2024 8:37 AM CDT 12/26/2024 1:13 PM CDT us Fiona Leon MD LAB BLOOD ORDERABLES Fin al Result Performing Organization Address City/[facility] Co de Phone Number [facility] [address] [place] [address] * Folate (12/26/2024 8:37 AM CDT) Folic acid 10.4 >=5.0 ng/mL Blood 12/26/2024 8:37 AM CDT 12/26/2024 10:09 AM CDT Fiona Leon MD LAB BLOOD ORDERABLES Fin al Result Performing Organization Address City/[facility] Co de Phone Number [facility] [address] [place] [address] * (ABNORMAL) Ferritin (12/26/2024 8:37 AM CDT) Ferritin 10(L) 15 - 150 ng/mL Blood 12/26/2024 8:37 AM CDT 12/26/2024 10:09 AM CDT Fiona Leon MD LAB BLOOD ORDERABLES Fin al Result Performing Organization Address [facility] Co de Phone Number [facility] [address] [place] [address] * Vitamin B12 (12/26/2024 8:37 AM CDT) Pathologist [facility] Vitamin B12 324 230 - 1,250 pg/mL Blood 12/26/2024 8:37 AM CDT 12/26/2024 10:09 AM CDT Fiona Leon MD LAB BLOOD ORDERABLES Fin al Result Performing Organization Address [facility] de Phone Number [facility] [address] [place] [address] * US VEIN DUPLEX LOWER EXTREMITY RIGHT LIMITED, UNILATERAL (12/12/2024 12:21 PM CDT) Anatomical Region Laterality Modality Vascular Right Ultrasound 12/12/2024 11:3 5 AM CDT Narrative 12/13/2024 12:52 PM CDT Lower Extremity Venous Report Patient Name: YAZMIN HUNT L : 1985 (39y 6m) Gender: F Study Date: 12/12/2024 11:35:19 AM [employer] 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 INDICATIONS: Pain in right leg. COMPARISONS: No change compared to prior study. The previous exam was completed on 09/23/2024. FINDINGS: Right: Negative for deep and superficial vein thrombosis in the right lower extremity. Normal compressibility and color filling, spontaneous and phasic flow, and response to distal augmentation is demonstrated in the right common femoral vein, saphenofemoral junction, proximal femoral vein, mid femoral vein, distal femoral vein, profunda vein, popliteal vein, posterior tibial veins and peroneal veins. For comparison purposes, the left common femoral vein was interrogated. The common femoral vein Doppler flow was phasic, spontaneous and responded normally to distal augmentation. CONCLUSIONS: 1. There is no evidence of deep vein thrombosis in the right lower extremity. ATTESTATION: I have reviewed and interpreted the pertinent images and measurements of this study. I attest to the conclusions in the final report that is provided above. 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 INDICATIONS: Pain in right leg. COMPARISONS: No change compared to prior study. The previous exam was completed on09/23/2024. FINDINGS: Right: Negative for deep and superficial vein thrombosis in the rightlower extremity. Normal compressibility and color filling, spontaneous and phasic flow, andresponse to distal augmentation is demonstrated in the right common femoral vein,saphenofemoral junction, proximal femoral vein, mid femoral vein, distal femoral vein,profunda vein, popliteal vein, posterior tibial veins and peroneal veins. For comparisonpurposes, the left common femoral vein was interrogated. The common femoral vein Dopplerflow was phasic, spontaneous and responded normally to distal augmentation. CONCLUSIONS: 1. There is no evidence of deep vein thrombosis in the right lowerextremity. ATTESTATION: I have reviewed and interpreted the pertinent images and measurements ofthis study. I attest to the conclusions in the final report that is provided above. Electronically Signed By: Jesus Ding MD 12/13/2024 11:35:17 AM CDT us Elma BROWN Mao US PROCEDURES Final Result * (ABNORMAL) Differential, auto (12/07/2024 10:47 AM CDT) Pathologist [facility] Neutrophil abs 1.5 1.5 - 6.5 K/cumm Comment:Testing performed by : [facility], [address] [place]., [address] Imm gran abs 0.0 0.0 - 0.1 K/cumm [facility] Comment:Testing performed by : [address] [address] Lymphocyte abs 2.8 0.8 - 3.3 K/cumm [facility] Comment:Testing performed by : [address] [address] Monocyte abs 0.7 0.2 - 0.8 K/cumm [facility] Comment:Testing performed by : [address], [place]., [address] Eosinophil abs 0.7(H) 0.0 - 0.5 K/cumm [facility] Comment:Testing performed by : [address] [address] Basophil abs 0.0 0.0 - 0.1 K/cumm [facility] Comment:Testing performed by : [address] [address] Neutrophil pct 26.4 % [facility] Comment: Interpretive Data Percent cell count reference ranges are not reported, since discordance with absolute values may lead to misinterpretation of CBC data. Current Interpretive Data was last revised on 2018. Testing performed by: [address] [address] Imm gran pct 0.2 % [facility] Comment: Interpretive Data Percent cell count reference ranges are not reported, since discordance with absolute values may lead to misinterpretation of CBC data. Current Interpretive Data was last revised on 2018. Testing performed by: [address] [address] Lymphocyte pct 48.5 % [facility] Comment: Interpretive Data Percent cell count reference ranges are not reported, since discordance with absolute values may lead to misinterpretation of CBC data. Current Interpretive Data was last revised on 2018. Testing performed by: [address] [address] Monocyte pct 12.3 % [facility] Comment: Interpretive Data Percent cell count reference ranges are not reported, since discordance with absolute values may lead to misinterpretation of CBC data. Current Interpretive Data was last revised on 2018. Testing performed by: [address] [address] Eosinophil pct 11.9 % LANIE Comment: Interpretive Data Percent cell count reference ranges are not reported, since discordance with absolute values may lead to misinterpretation of CBC data. Current Interpretive Data was last revised on 2018. Testing performed by: [address] [address] Basophil pct 0.7 % [facility] Comment: Interpretive Data Percent cell count reference ranges are not reported, since discordance with absolute values may lead to misinterpretation of CBC data. Current Interpretive Data was last revised on 2018. Testing performed by: [address] [address] Blood 12/07/2024 10:4 7 AM CDT 12/07/2024 11:21 AM CDT us Nanette Dykes MD LAB BLOOD ORDERABLES Final Result [place] [id number] [facility] Department [place] [address] * (ABNORMAL) CBC with auto differential (12/07/2024 10:47 AM CDT) [facility] WBC 5.8 3.8 - 9.9 K/cumm Comment:Testing performed by : [address] [address] Hgb 8.7(L) 11.9 - 15.5 g/dL LANIE Comment:Testing performed by : [address] [address] Hct 28.8(L) 35.6 - 45.5 % LANIE Comment:Testing performed by : [address] [address] Plt 466(H) 150 - 400 K/cumm LANIE Comment:Testing performed by : [address] [address] MPV 8.9(L) 9.1 - 12.3 fL LANIE WHITTEN Comment:Testing performed by : [facility], [address] [place] [address]., [address] RBC 3.70(L) 3.90 - 5.20 M/cumm LANIE WHITTEN Comment:Testing performed by : [address] [address] MCV 77.8(L) 81.3 - 96.4 fL LANIE Comment:Testing performed by : [address] [address] MCH 23.5(L) 27.1 - 33.3 pg LANIE Comment:Testing performed by : [address] [address] MCHC 30.2(L) 32.3 - 35.7 g/dL LANIE Comment:Testing performed by : [address] [address] RDW CV 15.8(H) 11.1 - 14.9 % LANIE Comment:Testing performed by : [address] [address] RDW SD 44.1 35.7 - 48.1 fL LANIE Comment:Testing performed by : [address] [address] NRBC abs 0.00 0.00 - 0.01 K/cumm LANIE Comment:Testing performed by : [address] [address] Blood 12/07/2024 10:4 7 AM CDT 12/07/2024 11:21 AM CDT us Nanette Dykes MD LAB BLOOD ORDERABLES Final Result LANIE [address] [facility] Department [place] [address] * ThinPrep processing (Molecular component) (12/06/2024 12:00 PM CDT) ThinPrep processing (Molecular component) Specimen received for processing. Endocervical 12/06/2024 12:0 0 PM CDT 12/06/2024 6:01 PM CDT Nanette Dykes MD LAB BODY FLUIDS AND STOOLS ORDERABLES Final Result Performing Organization Address City/[facility]/ZIP Co de Phone Number [facility] [address] Department [place] [address] * High Risk HPV DNA Detection with Genotyping (Molecular component) (12/06/2024 12:00 PM CDT) HPV HR 16 Not Detected Not Detected HPV HR 18 Not Detected Not Detected [facility] HPV HR Non 16/18 Not Detected Not Detected [facility] Comment: Interpretive Data Nucleic acid amplification for detection of high-risk Human Papilloma virus (HPV) is performed by the Jailyn Farnaz 4800 HPV test, which specifically detects high-risk HPV-16, 18, 31, 33, 35, 39, 45, 51, 52, 56, 58, 59, 66, and 68 genotypes. This assay has been approved by the [place] Food and Drug Administration for detection of HPV in cervical specimens collected by a physician using an endocervical brush/spatula or cervical broom and placed in the ThinPrep Pap Test PreservCyt collection containers. The performance characteristics of this test have been verified by the [facility]. Correlate with separately reported cytology results, as applicable. Interpretive data last revised 23 Endocervical 12/06/2024 12:0 0 PM CDT 12/06/2024 6:01 PM CDT Narrative [facility] - 12/09/2024 5:21 PM CDT Clinical history and diagnosis->none Number of vials->1 Testing type->Screening Last menstrual period (date if known)->unknown Nanette Dykes MD LAB BODY FLUIDS AND STOOLS ORDERABLES Final Result Performing Organization Address [facility]/ZIP Co de Phone Number [facility] [address] Department [address] [place] [address] * Pap and High Risk HPV and Genotyping (Cytology Component) (12/06/2024 11:52 AM CDT) Thin prep (Pap test) 12/06/2024 11:52 AM CDT 12/09/2024 8:40 AM CDT Narrative PATHOLOGY [facility] - 12/13/2024 12:37 PM CDT EPIC results best viewed via link to PDF [address] [address] Tele: Palmira Cardenas MD - Assistant Curator CYTOLOGY REPORT Note to Patients: This report may contain a detailed description of human tissue sent by a health care provider to the laboratory for pathologic evaluation. The content of this report is essential for diagnosis and may provide important critical findings. This information may be unfamiliar to patients to review without a medical professional present. It is advised that the patient review this report in the presence of a health care provider who can answer questions and explain the details. Patient Name: YAZMIN HUNT Address: [address] [place] [address]- Gender: F : 1985 (Age: 39) Service: Location: N : [id number] Hospital #: [id number] [place] [facility] Taken: 12/06/2024 Reported: 12/13/2024 Physician(s): Nanette Dykes MD FINAL DIAGNOSIS: SOURCE OF SPECIMEN - ThinPrep Pap and HPV w/ reflex Genotyping: STATEMENT OF ADEQUACY Source: Cervical/Endocervical - Satisfactory for interpretation - Endocervical/Transformation zone component absent or insufficient - Case screened using computer assisted imaging technology and manually re- screened by a ice cream freezer helper. GENERAL CATEGORIZATION: - Negative for intraepithelial lesion or malignancy INTERPRETATION: - Blood present cad/12/13/2024 12:37Dafne Zamna M.S., CT (ASCP) Report Reviewed and Electronically Signed By Dafne Zaman M.S., CT (ASCP)Clerical Data Follow A; G0145 DIAGNOSIS COMMENT: Ancillary Testing: HPV Genotype 16 - Not Detected Reference Range: Not Detected HPV Genotype 18 - Not Detected Reference Range: Not Detected HPV High Risk Group (31, 33, 35, 39, 45, 51, 52, 56, 58, 59, 66 and 68) - Not Detected Reference Range: Not Detected This test was performed using the FARNAZ 4800 REPORT IMAGES AND/OR SCANNED DOCUMENTS ONLY VIEWABLE IN PDF FORMAT The Pap test is a screening test used to aid in the detection of cervical cancer and its precursors. It should not be the sole means by which malignant and premalignant lesions are diagnosed. Both false negative and false positive results may occur. It also has poor sensitivity for the detection of endometrial lesions and should not be used to evaluate suspected endometrial abnormalities. For these reasons it is most important to obtain Pap tests at regular intervals, as recommended by your physician or nurse practitioner. Frozen section, operating room consultation, gross examination and dissection, and case sign out may have been performed in part or completely in the following laboratories: [facility], [address] [place] [address], [address] [place] [address]. us Nanette Dykes MD LAB CYTOLOGY ORDERABLES Fi nal Result PATHOLOGY [facility] Laboratory Receiving [address] [place] [address] * US Pelvis Complete (12/06/2024 9:41 AM CDT) Anatomical Region Laterality Modality Pelvis N/A Ultrasound Narrative 12/06/2024 9:41 AM CDT The transabdominal exam was performed. Transabdominal was better able to see structures then on transvaginal due to retroverted uterus Patient states still very heavy bleeding now. Uterus is retroverted but normal in appearance. No evidence of any fibroid seen. The endometrium is thin and normal at 1 mm. Both ovaries are normal in size and appearance. No free fluid. us Nanette Dykes MD IMG US PROCEDURES Final Re sult * Hepatitis panel, acute (11/08/2022 3:23 PM SCALE INSTALLER) Hep A IgM Nonreactive Nonreactive [facility] Hep B core IgM Nonreactive Nonreactive [facility] Hep C Ab Nonreactive Nonreactive [facility] Comment:Antibodies to HCV no t detected. Does NOT exclude the possibility of recent exposure to HCV. Current interpretive data was last revised on 22 HepBsAg Nonreactive Nonreactive [facility] Blood 11/08/2022 3:23 PM SCALE INSTALLER 11/08/2022 3:46 PM SCALE INSTALLER us Berlin Whitmore NP LAB MICROBIOLOGY - GENERAL ORDERABLES Final Result [facility] Department [place] [address] from Last 3 Months or Most Recently Relevant to Health Maintenance Insurance [employer] [facility] Mobile Complete [place] ID[place] [facility] Advance Directives For more information, please contact: [phone] * Full Code (Latest Code Status on File) Date Activated Date Inactivated Comments 12/13/2022 1:11 PM 12/13/2022 11:16 PM * Full Code Date Activated Date Inactivated Comments 07/07/2019 5:22 AM 07/09/2019 4:55 PM Care Teams Substation Operator Transforming Relationship Specialty Start Date End Date Jamir Melgar MD [address] [facility] [address] [place] [address] PCP - General Internal Medicine 09/23/24 Fiona Leon MD [address] [place] [address] Medical Oncologist/Roads Superintendent Hematology and Oncology 12/17/24
--- OUTSIDE RECORDS SUMMARY | 2025-02-24 08:01 | XMS_ITS | CONTINUITY OF CARE DOCUMENT ---
Author Name [email or web address] Address Unknown Organization [facility] Address [address] [facility] [address] [place] [address] Phone [phone] Care Team Providers Care Warp Knitting Machine Operator Name Role Phone Vamshi BECERRIL, Rashard Edwards Unavailable [phone] DAVID BECERRIL, KAREEM Unavailable [phone] DAVID BECERRIL, KAREEM Unavailable [phone] PROBLEMS Condition Status Date Provider Notes Family History of Hypertension: active Nick Hendricks MD EKG active Ga Hendricks MD Edema - lower extremity active Ga sanchez MD Hx of obesity active Ga Hendricks MD Shortness of breath active Ga Hendricks MD Syncope active Deborah Dubois ENCOUNTERS Date Type Provider Location Encounter Diag nosis - In-person encounter Office Visit Rashard Bonds MD [facility] Syncope - In-person encounter Office Visit Ga Hendricks MD TeleHealth Shortness of breath - In-person encounter Office Visit Ga Hendircks MD [facility] Family History of Hypertension:EKGEde ma - lower extremityHx of obesity VITAL SIGNS Date Observation Value Provider Body Mass Index (Ratio) 40.97 kg/m2 Mabel Dubois blood pressure, diastolic 70 mm[Hg] Marisela nkLogic blood pressure, systolic 112 mm[Hg] Zainab kLogic blood pressure, diastolic 70 mm[Hg] Jose easley O'Gee blood pressure, systolic 112 mm[Hg] Kari MckeonGee oxygen saturation, oximetry 99 % Juanita O'Gee respiratory rate E&M 16 /min Juanita O'Gee pulse rate 83 /min Juanita O'Gee weight E&M 224 [lb_av] Juanita O'Gee height E&M 62 [in_i] Gemma olverad Body Mass Index (Ratio) 34.56 kg/m2 Nick Hendricks MD respiratory rate E&M 16 /min Tonsha French pulse rate 78 /min Tonsha French oxygen saturation, oximetry 98 % Tonsha French blood pressure, diastolic 82 mm[Hg] To nsha French blood pressure, systolic 108 mm[Hg] Ton sha French blood pressure, resting No Tons tucker French weight E&M 189 [lb_av] Tonsha French height E&M 62 [in_i] Tonsha French temperature site temporal Carlota Tank sley temperature E&M 97.7 [degF] Carlota Tanks telma ALLERGIES No Known Drug Allergies RESULTS Date Observation Value Provider Reference Range Interpretation Location 4 pro brain natriuretic peptide 7 pg/mL Link[facility] 0-130 4 free thyroxine index 1.2 [facility] 1.2-4.9 4 triiodothyronine resin uptake 20 % [facility] 24-39 Low 4 thyroxine, serum, total 6.2 ug/dL [facility] 4.5-12.0 4 thyroid stimulating hormone, serum 1.340 u[IU]/mL [facility] 0.450-4.500 4 calcium, serum 9.1 mg/dL [facility] 8.7-10.2 4 carbon dioxide, venous blood 24 mmol/L [facility] 20-29 4 chloride, serum 104 mmol/L [facility] 96-106 4 potassium, serum 4.3 mmol/L [facility] 3.5-5.2 4 sodium, serum 139 mmol/L [facility] 164-138 2101/06/2 4 urea nitrogen/creatinine ratio, serum 16 [facility] 9-23 4 eGFR if 115 mL/min/{1 .73_m2} [facility] >59 4 eGFR if not 100 mL/min/{1 .73_m2} [facility] >59 4 creatinine, serum 0.77 mg/dL [facility] 0.57-1.00 4 urea nitrogen, blood 12 mg/dL [facility] 6-20 4 blood glucose, random 77 mg/dL [facility] 65-99 4 basophil count, absolute 0.0 x10E3/uL [facility] 0.0-0.2 4 Eosinophil Absolute Count 0.8 X10E3/UL [facility] 0.0-0.4 High 4 monocyte count, blood, automated 0.8 X10E3/UL [facility] 0.1-0.9 4 lymphocyte count, blood, automated 2.2 X10E3/UL [facility] 0.7-3.1 4 Absolute Neutrophils 2.0 X10E3/UL [facility] 1.4-7.0 4 basophils as percent of blood leukocytes 1 % [facility] Not Estab. 4 eosinophils as percent of blood leukocytes 14 % [facility] Not Estab. 4 monocytes as percent of blood leukocytes 13 % [facility] Not Estab. 4 lymphocytes as percent of blood leukocytes 37 % [facility] Not Estab. 4 neutrophils as percent of blood leukocytes 35 % [facility] Not Estab. 4 platelet count 333 X10E3/UL [facility] 930-999 5661/06/2 4 red blood cell distribution width 12.2 % [facility] 11.7-15.4 4 mean corpuscular hemoglobin concentration, RBC 34.3 G/DL [facility] 31.5-35.7 4 mean corpuscular hemoglobin, RBC 32.1 pg [facility] 26.6-33.0 4 mean corpuscular volume, RBC 94 fL [facility] 79-97 4 hematocrit, blood 38.8 % [facility] 34.0-46.6 4 hemoglobin, blood 13.3 g/dL [facility] 11.1-15.9 4 erythrocyte (RBC) count 4.14 X10E6/UL [facility] 3.77-5.28 4 leukocyte count, blood 5.8 X10E3/UL [facility] 3.4-10.8 9 prealbumin, serum, quantitative 19 mg/dL [facility] 14-35 9 albumin/globulin ratio, serum 1.4 [facility] 1.2-2.2 9 globulin, serum 3.3 [facility] 1.5-4.5 9 albumin, serum 4.6 g/dL [facility] 3.8-4.8 9 protein, total, serum 7.9 g/dL [facility] 6.0-8.5 HISTORY OF MEDICATION USE Medication Status Instructions Dates Provider Indications Com ments furosemide 20 mg tablet active TAKE 1 TABLET BY MOUTH EVERY DAY 8 Tia Rivka FEROSUL 325 (65 FE) MG ORAL TABLET active TK 1 T PO QD WITH BREAKFAST 5 Tonsha French #30, 30 days supply, Prescribed by ANURADHA MERCER, Filled 07/09/2019 MULTI-VITAMINS ORAL TABLET active TK 1 T PO BID 5 Tonsha French #60, 30 days supply, Prescribed by ANURADHA MERCER, Filled 12/06/2019 furosemide 20 mg tablet completed TK 1 T PO D 9 - 2021/08/2 8 Tia Rivka #30, 30 days supply, Prescribed by KAREEM HERNANDEZ, Filled 01/25/2020 SOCIAL HISTORY Date Observation Value Provider social history E&M S moking History: Emerita mancera has never smoked. Deborah Silvino social history reviewed E&M revi ewed - no changes required Deborah Dubois smoking status Never smoker [place]ie [place] moran number of grandchildren Ga Hendricks MD social history reviewed E&M revi ewed - no changes required Ga Hendricks MD social history E&M S moking History: Emerita mancera has never smoked. Ga Hendricks MD social history reviewed E&M revi ewed - no changes required Ga Hendricks MD number of grandchildren Ga Hendricks MD smoking status Never smoker Tonsgarrett French FAMILY HISTORY Family Member Condition Father Family History Unkno wn Mother Family History of Hy pertension: Mother Family History of Di abetes: Mother Family History of De pression: INSURANCE PROVIDERS Payer name Policy type / Coverage type [facility] HEALTHCARE AND FAMILY SERVICES Medicaid 1 [id number] ADVANCE DIRECTIVES Name Date DISCUSSED - NO DECISION MADE TREATMENT PLAN Date Name Performer [id number],C,T he pt has multiple complaints , including SOB, chest pain, and leg swellling. She reports an episode of fainting and was taken to [facility]. Will schedule venous duplex, echo, carotid duplex, holter, and stress myoview. Blood work including BMP, CBC, TSH, and pro-BNP. Deborah Mirandaalberto [id number],C,T he pt has multiple complaints , including SOB, chest pain, and leg swellling. She reports an episode of fainting and was taken to [facility]. Will schedule venous duplex, echo, carotid duplex, holter, and stress myoview. Blood work including BMP, CBC, TSH, and pro-BNP. Her updated medication list for this problem includes: Furosemide 20 Mg Oral Tablet (Furosemide) ..... Tk 1 t po d Deborah Mirandaalberto Cardiology:The pt tucker s multiple complaints , including SOB, chest pain, and leg swellling. She reports an episode of fainting and was taken to [facility]. Will schedule venous duplex, echo, carotid duplex, holter, and stress myoview. Blood work including BMP, CBC, TSH, and pro-BNP. Deborah Mirandaalberto Cardiology:The pt tucker s multiple complaints , including SOB, chest pain, and leg swellling. She reports an episode of fainting and was taken to [facility]. Will schedule venous duplex, echo, carotid duplex, holter, and stress myoview. Blood work including BMP, CBC, TSH, and pro-BNP. Her updated medication list for this problem includes: Furosemide 20 Mg Oral Tablet (Furosemide) ..... Tk 1 t po d Deborah Mirandaalberto TeleHealth:Notices i mprovement with Lasix. No CHF on Echo. Had preserved EF. E [facility] 01/2020 CONCLUSIONS: 1 . Normal left ventricular systolic function. Normal left ventricular size. Normal left ventricular wall thickness. Normal left v entricular diastolic function. E/E': 6.6. Left ventricular ejection fraction is measured at 60 %. 2 . Normal right ventricular size. Normal right ventricular systolic function. 3 . The mitral valve is normal in appearance and function. There is trace physiologic mitral valve regurgitation. 4 . There is trace physiologic tricuspid valve regurgitation. Unable to adequately assess the RVSP. Ga Hendricks MD TeleHealth:Improves with Lasix. Will get PFTs done and get IHS. CONCLUSIONS: 1 . No evidence of a deep vein thrombosis of the lower extremities bilaterally. 2 . No evidence of significant venous insufficiency of the lower extremities bilaterally. 3 . Small femoral veins bilaterally. 4 . Venous stasis noted in saphenous veins while standing. Ga Hendricks MD Cardiology:Most like ly has either venou reflux, CHF, hypoalbumenia, or lymphedema. Will order testing to eval. Reviewed with her MTS. Will workup noninvasive issues first before venogram and IVUS Orders: C omplete Echo (CPT-51229) O ther Test (*) V enous Doppler Bilateral LE - Reflux (CPT-18267) 9 9205 HIGH Complex (CPT-84188) Ga Hendricks MD Date Name Stress Exercise Card iolite Stress Exercise Card iolite Holter Monitor 24 Hr Carotid Duplex Bilat eral Complete Echo Venous Doppler Bilat eral LE - Reflux TSH, free T4, total T3 PROBNP, N TERMINAL CBC (INCLUDES DIFF/P LT) BASIC METABOLIC PANE L W/EGFR Kidney Ultrasound BASIC METABOLIC PANE L W/EGFR BASIC METABOLIC PANE L W/EGFR 6 minute walk test Ambulatory Oximetry Sleep Study Home DLCO - 03939 FRC - 60950 FVC - 42886 TSH, 3RD GENERATION CBC (INCLUDES DIFF/P LT) B TYPE NATRIURETIC P EPTIDE (BNP) LIPID PANEL COMPREHENSIVE METABO LIC PANEL, W/EGFR CT Venogram Abd,Pelv is, Lower Extremities Kidney Ultrasound Prealbumin Albumin, Serum Venous Doppler Bilat eral LE - Reflux Other Test Complete Echo HISTORY OF PROCEDURES Procedure Date Procedure Name Provider Procedure Notes S tatus Holter, 24 or 48 Rashard Bonds MD comp leted EKG Rashard Bonds MD completed Ultrasound, retroperitoneal, complete Ga Hendricks MD completed EKG Ga Hendricks MD compl eted
--- OUTSIDE RECORDS SUMMARY | 2025-02-24 08:01 | XMS_ITS | Encounter Summary ---
Author Organization [facility] Healthcare Address [address] [place] [address] Care Team Providers Care Disability Liaison Officer Name Role Phone Jamir Melgar MD Primary Care Provider No, Physician Primary Care Provider [phone] Jamir Melgar MD Primary Care Provider Fiona Leon MD Unavailable [phone] Encounter Details Date Type Department Care Team (Late st Contact Info) Description 04/08/2021 Telephone [facility] Imaging [address] [place] [address] [place], [place] Social History Tobacco Use Types Packs/Day Years Used Date Smoking Tobacco: Never Smokeless Tobacco: Never Alcohol Use Standard Drinks/Week Comments Yes 0 (1 standard drink = 0.6 oz pur e alcohol) Comments No Sex and Gender Information Value Date Recorded Sex Assigned at Not on file Legal Sex Female 3:36 AM PATIENT ACCESS COORDINATOR Gender Identity Female 03/02/2021 12:52 PM CDT Sexual Orientation Choose not to disclose 2020 12:52 PM CDT documented as of this encounter Plan of Treatment Not on file documented as of this encounter Visit Diagnoses Not on filedocumented in this encounter Additional Health Concerns Infection Onset Date Last Indicated Resolved Time COVID: Suspected 08/21/2022 08/21/2022 08/21/2022 4:10 PM PATIENT ACCESS COORDINATOR COVID: Suspected 09/15/2022 09/15/2022 09/15/2022 2:16 AM PATIENT ACCESS COORDINATOR documented as of this encounter Care Teams Disability Liaison Officer Relationship Specialty Start Date End Date Jamir Melgar MD PCP - General 01/16/17 01/29/24 No, Physician PCP - General 01/30/24 09/22/24 Jamir Melgar MD [address] [facility] 23 [facility] 23 [place] [address] PCP - General Internal Medicine 09/23/24 Fiona Leon MD [address] [place] [address] Medical Oncologist/Family Support Specialist Hematology and Oncology 12/17/24 documented as of this encounter
--- OUTSIDE RECORDS SUMMARY | 2025-02-24 08:01 | XMS_ITS | Clinical Summary ---
Author Organization [facility] Address [address] [place] [address] Care Team Providers Care Last Pattern Grader Name Role Phone Jamir Melgar MD Primary Care Provider Fiona Leon MD Unavailable [phone] Allergies Active Allergy Reactions Criticality Noted Date [...] for options. Also discussed treatment options for prison management of periods. During discussion patient notes [...] (12/08/2022): Added automatically from request for surgery [id number] Disorder of hip joint 09/15/2022 Hip pain [...] metformin. Assessment & Plan (08/13/2021 1:27 PM HYPERBARIC TECHNICIAN): Reviewed labs with her. Continue low-carb (<150 [...] w/r/t gut microbiome. Referred to ADA and [employer] websites for additional information on topics including [...] 02/20/2025 Assessment & Plan (08/13/2021 1:27 PM HYPERBARIC TECHNICIAN): Tolerating phentermine without adverse effects. Will get [...] (07/07/2019): Added automatically from request for surgery [id number] Obesity with body mass index 30 or greater 07/03/2017 02/20/2025 Supervision of normal pregna ncy in third trimester 04/04/2017 02/20/2025 Obesity with body mass index 30 or greater 07/24/2015 02/20/2025 No diagnosis on [facility] 01/04/201502/20 Class 3 severe obesity due t o excess calories in adult 12/19/2014 02/20/2025 Overview (04/14/2021): S/P RYGB Assessment & Plan (10/10/2022 7:21 PM HYPERBARIC TECHNICIAN): Obesity is worse. Plan: Diet interventions: as noted.. and Regular aerobic exercise program discussed. Assessment & Plan (08/13/2021 1:19 PM HYPERBARIC TECHNICIAN): Obesity is improving with treatment. Diet interventions: [...] of elevator. Regular aerobic exercise program discussed. Encounters Date Type Department Care Team Description 02/20/2025 11:51 PM CDT - 02/21/2025 3:38 AM CDT Emergency [facility] Emergency Department [address] [place] [address] Mehdi Ernst DO Shortness of breath (Primary Dx) Discharge Disposition: Discharge to home or self care 01/24/2025 Telephone [facility] Family Medicine at [address] [place] [address] Debbie Mendiola NP Appointment Request 01/09/2025 Telephone [facility] Office Building [address] [place] [phone] Santosh Vázquez CMA Scheduling Appointments 01/07/2025 8:30 AM CDT Office Visit [facility] Office Building [address] [place] [phone] Aline Soria MD Cecal bascule (HCC) 01/07/2025 Telephone [facility] [address] [place] [address] Office Building [address] [place] [phone] Hafsa Solis, JODI 01/07/2025 Telephone [facility] [address] [place] [address] Office Building [address] [place] [phone] Hafsa Solis, JODI 01/07/2025 Orders Only [facility] [address] [place] [address] Office Building [address] [place] [phone] Aline Soria MD Constipation, unspecified constipation type (Primary Dx) 01/02/2025 Orders Only [facility] [address] [place] [phone] Fiona Leon MD B12 deficiency (Primary Dx) 01/01/2025 Documentation [facility] [address] [place] [phone] Lashonda Marie, RN 12/31/2024 8:00 AM CDT Infusion [facility] [address] [place] [phone] Iron deficiency (Primary Dx) 12/26/2024 9:15 AM CDT Office Visit [facility] [address] [place] [phone] iFona Leon MD Iron deficiency (Primary Dx); Hx of bariatric surgery; Other iron deficiency anemia 12/26/2024 8:45 AM CDT Lab [facility] Lab [address] [place] [address] Iron deficiency 12/25/2024 Orders Only [facility] [address] [place] [address] Fiona Leon MD Iron deficiency (Primary Dx) 12/20/2024 Telephone [facility] [address] [facility] Health 3rd Floor [address] [place] [address] Yady Salinas LPN 12/20/2024 Orders Only [facility] [address] [facility] [address] [address] Kathleen Hernández MD 12/19/2024 Orders Only [facility] [address] [facility] [address] Kathleen Hernández MD Other iron deficiency anemia (Primary Dx); Iron deficiency; Hx of bariatric surgery 12/19/2024 Telephone [facility] [address] [facility] Floor 5 [place] [address] Yenny Peraza BS Reschedule (Offer to move C/R appointment to sooner date) 12/16/2024 2:30 PM CDT Telemedicine [facility] [address] [facility] Office Building 4 [address] [place] [address] Kevin Rivera Jr., MD Abdominal pain (Primary Dx); Cecal bascule (HCC); Hx of bariatric surgery; Chronic idiopathic constipation 12/16/2024 Telephone [facility] [address] [facility] Floor 5 [place] [address] Yenny Peraza, [facility] Reschedule (Reschedule/overbook ing request ) 12/13/2024 Results Follow-Up [facility] [address] [facility] [address] [address] Nanette Dykes MD Pap and High Risk HPV and Genotyping (Cytology Component) 12/12/2024 10:07 AM CDT - 12/12/2024 3:30 PM CDT Emergency [facility] Emergency Department [address] [place] [phone] Pain of left calf (Primary Dx) Discharge Disposition: Discharge to home or self care 12/10/2024 Orders Only [address] [phone] Nanette Dykes MD Acute on chronic anemia (Primary Dx) 12/09/2024 Results Follow-Up [address] [phone] Nanette Dykes MD CBC with auto differential, Differential, auto 12/07/2024 10:25 AM CDT Lab [facility] [address] [place] [address] Abnormal uterine bleeding 12/06/2024 3:40 PM CDT - 12/06/2024 11:59 PM CDT [address] [address] Abnormal uterine bleeding Discharge Disposition: Discharge to home or self care 12/06/2024 8:45 AM CDT Office Visit [address] [phone] Nanette Dykes MD Abnormal uterine bleeding (Primary Dx) 12/06/2024 8:30 AM CDT Procedure visit [address] [address] History of heavy vaginal bleeding (Primary Dx) 12/06/2024 Orders Only [address] [phone] Nanette Dykes MD Abnormal uterine bleeding (Primary Dx) 12/02/2024 Telephone [facility] [address] [facility] Office Building 4 [address] [place] [address] Hafsa Solis RN 12/02/2024 Telephone [facility] [address] [facility] Floor 5 [place] [address] Maria Elena Nieves B.A. from Last 3 Months Surgical History Surgery Date Site/Laterality Comments SECTION 09/25/2016 - 09/24/2017 SECTION 09/25/2011 - 09/24/2012 VAGINAL DELIVERY 09/25/2004 - 09/24/20052006 GASTRIC BYPASS 09/25/2014 - 09/24/2015 TUBAL LIGATION ABDOMINAL SURGERY bowel obstruction surgery, stent placement COLONOSCOPY Medical History Medical History Date Comments Osteoarthritis of knee 04/14/2021 Asthma 03/31/2023 GERD (gastroesophageal reflux disease) Chronic constipation Family History Medical History Relation Name Comments No Known Problems Father Cancer Mother Diabetes Mother Family history of diabetes mellitus - (Added by TW Conv) Hypertension Mother Family history of hypertension - (Added by TW Conv) Cancer Other 1 Family history of malignant neoplasm - Relation: Grandparent (Added by TW Conv) Cancer Other 2 Family history of malignant neoplasm - Relation: Grandmother (Added by TW Conv) Diabetes Other 3 Family history of diabetes mellitus - Relation: Grandparent (Added by TW Conv) Diabetes Other 4 Family history of diabetes mellitus - Relation: Grandmother (Added by TW Conv) Anesthesia problems Neg Hx Relation Name Status Comments Father Mother Other 1 Other 2 Other 3 Other 4 Social History Tobacco Use Types Packs/Day Years [...] on file Legal Sex Female 3:36 AM HYPERBARIC TECHNICIAN Gender Identity Female 03/02/2021 12:52 PM CDT Sexual Orientation Choose not to disclose 2020 12:52 PM CDT Obstetrics History Para Term AB IAB SAB Ectopic Multiple Livin g Live Births 4 4 Date Outcome GA Total Labor Labor/2nd/3rd Weight Sex Type Anes PTL Freya A1 A5 Name Clin Para Para Para Para Last Filed Vital Signs Vital Sign Reading [...] 01/07/2025 8:21 AM CDT Plan of Treatment Health Maintenance Due Date Last Done Comments Depression Screening 1984 Varicella Vaccines (1 of 2 - 13+ 2-dose series) 1997 Hepatitis B Screening 2002 Regular Well Visit/Exam 18-64 2002 Pneumococcal vaccine <65 (1 of 2 - PCV) 2003 Breast Cancer Screening-Mammogram 02/16/2023 02/16/2022, 02/16/2022 Covid-19 Vaccine (4 - 2023-2 5 season) 2024 10/05/2021, 01/26/2021, 01/05/2021 Influenza Vaccine (Season Ended) 2025 07/20/2020 Cervical Cancer Screening 12/06/20252024, 12/06/2024 DTaP/Tdap/Td Vaccine (3 - Td or Tdap) 03/14/2031 03/14/2021, 05/30/2017 Hepatitis C Screening Completed 11/08/2022 HPV Vaccines Aged Out No longer eligi ble based on patient's age to complete this topic Medical Devices Implanted Type Area Title Coordinator Device Identifier Shelf Expiration Date Model / Serial / Lot [employer] Composix 6x4in Monofilament Nonabsorbable Seal Edge Low Profile [id number] - [id number] Implanted:Qty: 1 on 12/13/2022 by Anuradha Flores MD at [facility] Mesh N/A: Abdomen [employer] Bard 04/21/2023 [id number] / / [id number] Procedures Procedure Name Priority Date/Time Associated Diagnosis [...] bleeding HEPATITIS PANEL, ACUTE Routine 3:23 PM HYPERBARIC TECHNICIAN Morbid obesity (HCC) Pre-op exam from Last 3 Months or Most Recently Relevant to Health Maintenance Results * Troponin T high-sensitivity 2-hour (02/21/2025 2:31 AM CDT) Trop T hs 8 <=14 ng/L Comment: Interpretive Data For further hscTnT resources including the diagnostic algorithm and an aid in interpretation, copy and paste this link: https://nrl.testcatalog.org/show/hsTrop Current Interpretive Data last revised 2020. Testing performed by: [address] [address] Trop T hs delta 2 ng/L LANIE WHITTEN Comment:Testing performed by : [address] [address] Trop T hs interp Insignificant LANIE WHITTEN Comment:Testing performed by : [address] [address] Blood 02/21/2025 2:31 AM CDT 02/21/2025 2:33 AM CDT us Deepa Aguayo NP LAB BLOOD ORDERABLES Fin al Result LANIE WHITTEN [address] [facility] [place] [address] * CT Chest PE (CTA) W Contrast [...] by Amanda Leon M.D. SN: Report ID: [id number] Reading Location: [id number] Procedure Note Amanda Leon MD - 02/21/2025 [...] by Amanda Leon M.D. SN: Report ID: [id number] Reading Location: [id number] Mehdi Ernst DO IMG CT PROCEDURES Final [...] by Amanda Leon M.D. SN: Report ID: [id number] Reading Location: [id number] Procedure Note Amanda Leon MD - 02/21/2025 [...] Amanda Leon M.D. SN: SN Report ID: [id number] Reading Location: [id number] Mehdi Ernst DO IMG CT PROCEDURES Final Res ult * POCT hCG, urine (02/21/2025 12:43 AM CDT) HCG, ur, POC Negative Negative Lot Number [id number] QC Backgroud Clear Acceptable QC Control Line Acceptable Urine 02/21/2025 12:4 3 AM CDT Deepa Aguayo ADMINISTRATIVE MEDICAL DIRECTOR POINT OF CARE TEST ORDER FELIPE Final Result * Troponin T high-sensitivity series (baseline, 2hr, 4hr, 6hr) (02/21/2025 12:39 AM CDT) Trop T hs <6 <=14 ng/L Comment: Interpretive Data For further hscTnT resources including the diagnostic algorithm and an aid in interpretation, copy and paste this link: https://nrl.testcatalog.org/show/hsTrop Current Interpretive Data last revised 2020. Testing performed by: [address] [address] Blood 02/21/2025 12:3 9 AM CDT 02/21/2025 12:52 AM CDT Deepa Aguayo ADMINISTRATIVE MEDICAL DIRECTOR LAB BLOOD ORDERABLES Fin al Result Performing Organization Address [facility]/State/ZIP Co de Phone Number LANIE [address] [place] [address] * eGFR (02/21/2025 12:39 AM CDT) eGFR [...] was last reviewed 2021. Testing performed by: [facility], [address] [place] [address]., [address] Blood 02/21/2025 12:3 9 AM CDT 02/21/2025 12:52 AM CDT us Deepa Aguayo ADMINISTRATIVE MEDICAL DIRECTOR LAB BLOOD ORDERABLES Fin al Result Performing Organization Address City/[facility]/ZIP Co de Phone Number LANIE [address] [place] [address] * (ABNORMAL) Differential, auto (02/21/2025 12:39 AM CDT) Neutrophil abs 4.91 1.50 - 6.50 K/cumm Comment:Testing performed by : [address] [address] Imm gran abs 0.03 0.00 - 0.10 K/cumm LANIE Comment:Testing performed by : [address] [address] Lymphocyte abs 3.26 0.80 - 3.30 K/cumm LANIE Comment:Testing performed by : [address] [address] Monocyte abs 1.02(H) 0.20 - 0.80 K/cumm LANIE Comment:Testing performed by : [address] [address] Eosinophil abs 0.41 0.00 - 0.50 K/cumm LANIE Comment:Testing performed by : [address] [address] Basophil abs 0.05 0.00 - 0.10 K/cumm LANIE Comment:Testing performed by : [address] [address] Neutrophil pct 50.8 % LANIE Comment: Interpretive Data Percent cell count reference ranges are not reported, since discordance with absolute values may lead to misinterpretation of CBC data. Current Interpretive Data was last revised on 2018. Testing performed by: [address] [address] Imm gran pct 0.3 % LANIE Comment: Interpretive Data Percent cell count reference ranges are not reported, since discordance with absolute values may lead to misinterpretation of CBC data. Current Interpretive Data was last revised on 2018. Testing performed by: [address] [address] Lymphocyte pct 33.7 % LANIE Comment: Interpretive Data Percent cell count reference ranges are not reported, since discordance with absolute values may lead to misinterpretation of CBC data. Current Interpretive Data was last revised on 2018. Testing performed by: [address] [address] Monocyte pct 10.5 % LANIE Comment: Interpretive Data Percent cell count reference ranges are not reported, since discordance with absolute values may lead to misinterpretation of CBC data. Current Interpretive Data was last revised on 2018. Testing performed by: [address] [address] Eosinophil pct 4.2 % LANIE Comment: Interpretive Data Percent cell count reference ranges are not reported, since discordance with absolute values may lead to misinterpretation of CBC data. Current Interpretive Data was last revised on 2018. Testing performed by: [address] [address] Basophil pct 0.5 % LANIE Comment: Interpretive Data Percent cell count reference ranges are not reported, since discordance with absolute values may lead to misinterpretation of CBC data. Current Interpretive Data was last revised on 2018. Testing performed by: [address] [address] Blood 02/21/2025 12:3 9 AM CDT 02/21/2025 12:52 AM CDT us Deepa Aguayo ADMINISTRATIVE MEDICAL DIRECTOR LAB BLOOD ORDERABLES Fin al Result LANIE [address] [facility] Department [place] [address] * (ABNORMAL) Urinalysis reflex to microscopic and culture Urine (02/21/2025 12:39 AM CDT) Color, ur Yellow Yellow Comment:Testing performed by : [address] [address] Clarity, ur Turbid(A) Clear LANIE Comment:Testing performed by : [address] [address] Specific gravity, ur 1.037(H) 1.003 - 1.030 LANIE Comment:Testing performed by : [address] [address] pH, urine 6.0 LANIE Comment: Interpretive Data U rine pH is affected by diet, medications, systemic acid-base disturbances, and renal tubular function. pH may affect urinary stone formation. For example, urine pH below 6.0 may help reduce the tendency for calcium phosphate stones and pH greater than 6.0 may reduce the tendency for uric acid stone formation. Source: [facility] [employer]! Current Interpretive Data was last revised on 2017 Testing performed by: [facility], [address] [place] [address], [place]., [address] Protein, ur ql 1+(A) Negative LANIE Comment:Testing performed by : [address] [address] Glucose, ur ql Negative Negative LANIE Comment:Testing performed by : [address], [place]., [address] Ketones, ur Trace(A) Negative LANIE Comment:Testing performed by : [address] [address] Bilirubin, ur Negative Negative LANIE Comment:Testing performed by : [address], [place]., [address] Blood, ur Trace(A) Negative LANIE Comment:Testing performed by : [address] [address] Urobilinogen, ur <2.0 <2.0 mg/dL LANIE Comment:Testing performed by : [address] [address] Nitrite, ur Negative Negative LANIE Comment:Testing performed by : [address] [address] Leukocyte esterase, ur 4+(A) Negative LANIE Comment:Testing performed by : [address] [address] UA reflex comment Reflex to microscopic UA will be performed. LANIE Comment:Testing performed by : [address], [place]., [address] Urine 02/21/2025 12:3 9 AM CDT 02/21/2025 12:52 AM CDT us Deepa Aguayo ADMINISTRATIVE MEDICAL DIRECTOR LAB MICROBIOLOGY - GENER AL ORDERABLES Final Result LANIE WHITTEN [address] [facility] Department [place] [address] * (ABNORMAL) CBC with auto differential (02/21/2025 12:39 AM CDT) WBC 9.68 3.80 - 9.90 K/cumm Comment:Testing performed by : [address] [address] Hgb 12.3 11.9 - 15.5 g/dL LANIE WHITTEN Comment:Testing performed by : [address] [address] Hct 37.2 35.6 - 45.5 % LANIE Comment:Testing performed by : [address] [address] Plt 358 150 - 400 K/cumm LANIE Comment:Testing performed by : [address] [address] MPV 9.2 9.1 - 12.3 fL LANIE Comment:Testing performed by : [address] [address] RBC 4.50 3.90 - 5.20 M/cumm LANIE WHITTEN Comment:Testing performed by : [address] [address] MCV 82.7 81.3 - 96.4 fL LANIE Comment:Testing performed by : [address] [address] MCH 27.3 27.1 - 33.3 pg LANIE WHITTEN Comment:Testing performed by : [address], [address] MCHC 33.1 32.3 - 35.7 g/dL LANIE WHITTEN Comment:Testing performed by : [address] [address] RDW CV 23.4(H) 11.1 - 14.9 % LANIE WHITTEN Comment:Testing performed by : [address] [address] RDW SD 67.7(H) 35.7 - 48.1 fL LANIE WHITTEN Comment:Testing performed by : [address] [address] NRBC abs 0.00 0.00 - 0.01 K/cumm LANIE WHITTEN Comment:Testing performed by : [address] [address] Blood 02/21/2025 12:3 9 AM CDT 02/21/2025 12:52 AM CDT us Deepa Aguayo NP LAB BLOOD ORDERABLES Fin al Result LANIE WHITTEN [address] [facility] Department [place] [address] * Drugs of Abuse Screen, Urine without Confirmation (02/21/2025 12:39 AM CDT) Pathologist [facility] Amphetamine, ur Not Detected CutOff 500ng/mL Comment: Interpretive Data - Amphetamines: Samples containing greater than 500 ng/mL d-methamphetamine or other cross-reacting amphetamine compounds are reported as positive. Amphetamine immunoassays are subject to significant false positive rates due to cross-reactivity of non-amphetamine drugs. Confirmatory testing required for definitive results. Current Interpretive Data was last reviewed 2023. Testing performed by: [address] [address] Barbiturates, ur Not Detected CutOff 200ng/mL LANIE WHITTEN Comment: Interpretive Data - Barbiturates: Samples containing greater than 200 ng/mL secobarbital or other cross-reacting barbiturate compounds are reported as positive. False positive and false negative results are possible. Confirmatory testing required for definitive results. Current Interpretive Data was last reviewed 2023. Testing performed by: [address] [address] Benzodiazepines, ur Not Detected CutOff 100ng/mL LANIE WHITTEN Comment: Interpretive Data - Benzodiazepines: Samples containing greater than 100 ng/mL nordiazepam or other cross-reacting compounds are reported as positive. False positive and false negative results are possible. Confirmatory testing required for definitive results. Current Interpretive Data was last reviewed 2023. Testing performed by: [address] [address] Cannabinoids, ur Not Detected CutOff 50 ng/mL [facility] Comment: Interpretive Data - Cannabinoids: Samples containing greater than 50 ng/mL delta-9 THC -COOH or other cross- reacting compounds are reported as positive. False positive and false negative results are possible. Confirmatory testing required for definitive results. Current Interpretive Data was last reviewed 2023. Testing performed by: [facility], [address] [place] [address], [place]., [address] Cocaine, ur Not Detected CutOff 150ng/mL [facility] Comment: Interpretive Data - Cocaine: Samples containing greater than 150 ng/mL benzoylecgonine or other cross- reacting compounds are reported as positive. False positive and false negative results are possible. Confirmatory testing required for definitive results. Current Interpretive Data was last reviewed 2023. Testing performed by: [address], [place]., [address] Fentanyl, Ur Not Detected CutOff 5 ng/mL [facility] Comment: Interpretive Data - Fentanyl: Samples containing greater than 1 ng/mL fentanyl or other cross-reacting fentanyl compounds are reported as positive. False positive and false negative results are possible. Confirmatory testing required for definitive results. Current Interpretive Data was last reviewed 2023. Testing performed by: [address] [address] Methadone, ur Not Detected CutOff 300ng/mL [facility] Comment: Interpretive Data - Methadone: Samples containing greater than 300 ng/mL d,l-methadone or other cross-reacting compounds are reported as positive. False positive and false negative results are possible. Confirmatory testing required for definitive results. Current Interpretive Data was last reviewed 2023. Testing performed by: [address], [place]., [address] Opiates, ur Not Detected CutOff 300ng/mL [facility] Comment: Interpretive Data - Opiates: Samples containing greater than 300 ng/mL morphine or other cross-reacting compounds are reported as positive. False positive and false negative results are possible. Confirmatory testing required for definitive results. Current Interpretive Data was last reviewed 2023. Testing performed by: [address] [address] Oxycodone, ur Not Detected CutOff 100ng/mL LANIE Comment: Interpretive Data - Oxycodone: Samples containing greater than 100 ng/mL oxycodone or other cross-reacting compounds are reported as positive. False positive and false negative results are possible. Confirmatory testing required for definitive results. Current Interpretive Data was last reviewed 2023. Testing performed by: [address] [address] Phencyclidine, ur Not Detected CutOff 25 ng/mL LANIE Comment: Interpretive Data - Phencyclidine: Samples containing greater than 25 ng/mL phencyclidine or other cross-reacting compounds are reported as positive. False positive and false negative results are possible. Confirmatory testing required for definitive results. Current Interpretive Data was last reviewed 2023. Testing performed by: [address] [address] Urine Creatinine 254 mg/dL LANIE Comment: Interpretive Data Urine Creatinine: < 10 mg/dL is extremely dilute = or > 10 but < 20 mg/dL is dilute = or > 20 mg/dL is normal Current Interpretive Data was last revised on 2017. Testing performed by: [address] [address] Urine 02/21/2025 12:3 9 AM CDT 02/21/2025 12:52 AM CDT Narrative LANIE - 02/21/2025 1:19 AM CDT Drug of Abuse screening is performed by immunoassay for medical purposes only. This is not to be used for Pain Management purposes. us Deepa Aguayo NP LAB URINE ORDERABLES Fin al Result LANIE [address] [facility] Department of Laboratories [place], [place] [id number] * (ABNORMAL) Urinalysis, microscopic only (02/21/2025 12:39 AM CDT) WBC, ur >50(A) 0 - 5 /HPF Comment:[facility] by : [facility] [facility], [address] [place] [address]., [address] RBC, ur 21-50(A) 0 - 2 /HPF LANIE Comment:Testing performed by : [address], [place]., [address] Epithelial cells, squamous, ur >50(A) 0 - 5 /HPF LANIE Comment:Testing performed by : [facility], [address] [place] [address], [place]., [address] Mucous, ur Present(A) LANIE Comment:Testing performed by : [address] [address] Culture Reflex Comment Reflex to urine culture will be performed. LANIE Comment:Testing performed by : [address], [place]., [address] Urine 02/21/2025 12:3 9 AM CDT 02/21/2025 12:52 AM CDT Deepa Aguayo ADMINISTRATIVE MEDICAL DIRECTOR LAB URINE ORDERABLES Fin al Result LANIE [address] [facility] [place] [address] * (ABNORMAL) D-dimer, quantitative (02/21/2025 12:39 AM [...] 68, VTE cut-off 680 ng/ml FEU. References; Schoutkvng HT et al. Brit Med J. 2013;346:f2492. Sofy et al. Annals Int Med. 2015;163:701-11. Current interpretive data was last revised on 2019. Testing performed by: [address] [address] Blood 02/21/2025 12:3 9 AM CDT 02/21/2025 12:52 AM CDT Deepa Aguayo LAB BLOOD ORDERABLES Fin al Result Performing Organization Address [facility] Co de Phone Number [facility] [address] [place] [address] * Urine culture Urine (02/21/2025 12:39 AM CDT) Report Final Report: Growth indicative of contamination with periurethral faizan. Please submit a new specimen with special attention given to the collection process and to prompt transport to the laboratory. Comment:Testing performed by : [facility], [address] [place]., [address] Organism GROWTH INDICATES CONTAM WITH PERIURETHRAL FAIZAN. LANIE Urine 02/21/2025 12:3 9 AM CDT 02/21/2025 3:38 AM CDT Narrative LANIE - 02/22/2025 1:59 PM CDT Urine culture reflexed based upon urinalysis results. Testing performed by [facility] ([phone]) Deepa Aguayo NP LAB MICROBIOLOGY - GENER AL ORDERABLES Final Result Performing Organization Address [facility] de Phone Number [facility] [address] [place] [address] * (ABNORMAL) Comprehensive metabolic panel (02/21/2025 12:39 AM CDT) Sodium 135 135 - 145 mmol/L Comment:Testing performed by : [address] [address] Potassium, pl 4.0 3.3 - 4.9 mmol/L LANIE Comment:Testing performed by : [address] [address] Chloride 104 97 - 110 mmol/L [facility] Comment:Testing performed by : [address], [place]., [address] CO2 18(L) 22 - 32 mmol/L LANIE Comment:Testing performed by : [address], [place]., [address] Anion gap 13 2 - 15 mmol/L [facility] Comment:Testing performed by : [address], [place]., [address] BUN 13 6 - 25 mg/dL [facility] Comment:Testing performed by : [address], [place]., [address] Creatinine 0.67 0.60 - 1.10 mg/dL [facility] Comment:Testing performed by : [address], [place]., [address] Glucose 97 70 - 199 mg/dL [facility] Comment: Interpretive Data Fasting glucose >/= 126 [...] classification and Diagnosis of Diabetes Diabetes Care 202; 46: S19-S40. Current interpretive data was last revised 2022. Testing performed by: [address] [address] Calcium 9.2 8.5 - 10.3 mg/dL [facility] Comment:Testing performed by : [address] [address] Bilirubin, total 0.3 0.1 - 1.2 mg/dL [facility] Comment:Testing performed by : [address] [address] Protein, pl 8.0 6.5 - 8.5 g/dL [facility] Comment:Testing performed by : [address] [address] Albumin 4.0 3.5 - 5.0 g/dL LANIE WHITTEN Comment:Testing performed by : [facility], [address] [place] [address]., [address] Alk phos 141(H) 40 - 130 Units/L LANIE Comment:Testing performed by : [facility], [address] [place] [address]., [address] ALT 37 7 - 45 Units/L LANIE Comment:Testing performed by : [address] [address] AST 33 10 - 45 Units/L LANIE Comment:Testing performed by : [facility], [address] [place] [address]., [address] Blood 02/21/2025 12:3 9 AM CDT 02/21/2025 12:52 AM CDT us Deepa Aguayo ADMINISTRATIVE MEDICAL DIRECTOR LAB BLOOD ORDERABLES Fin al Result Performing Organization Address [facility]/State/[facility] Co de Phone Number LANIE [address] [facility] Department [place] [address] * ECG 12 lead (02/21/2025 12:38 AM CDT) Ventricular Rate EKG/Min 103 BPM [facility] Atrial Rate 103 BPM [facility] [place]-Interval (MSEC) 154 ms [facility] QRS-Interval (MSEC) 60 ms [facility] QT-Interval (MSEC) 340 ms [facility] QTc 445 ms [facility] P Midwest 59 degrees [facility] R [place] 49 degrees [facility] T [place] 42 degrees [facility] Diagnosis Sinus tachycardia Nonspecific ST and T wave abnormality Abnormal ECG When compared with ECG of 16-FEB-2024 15:06, Vent. rate has increased BY 42 BPM Nonspecific T wave abnormality now evident in Anterior leads Confirmed by ANURADHA WOODS M.D. ([id number]) on 02/21/2025 11:22:34 PM [facility] 02/21/2025 12:3 8 AM CDT 02/21/2025 11:22 PM CDT us Deepa Aguayo ADMINISTRATIVE MEDICAL DIRECTOR ECG ORDERABLES Final Re sult [facility] * XR Chest 1 Vw Portable (02/21/2025 [...] Cathy Mishra M.D. LL: NADIA Report ID: [id number] Reading Location: [id number] Procedure Note Cathy Mishra MD - 02/21/2025 [...] Cathy Mishra M.D. LL: NADIA Report ID: [id number] Reading Location: [id number] Deepa Aguayo ADMINISTRATIVE MEDICAL DIRECTOR IMG XR PROCEDURES Final Result * (ABNORMAL) Differential, auto (12/26/2024 8:44 AM CDT) Neutrophil abs 1.87 1.50 - 6.50 K/cumm Imm gran abs 0.00 0.00 - 0.10 K/cumm [facility] Lymphocyte abs 2.26 0.80 - 3.30 K/cumm [facility] Monocyte abs 0.50 0.20 - 0.80 K/cumm [facility] Eosinophil abs 0.53(H) 0.00 - 0.50 K/cumm [facility] Basophil abs 0.03 0.00 - 0.10 K/cumm [facility] Neutrophil pct 36.1 % [facility] Comment: Interpretive Data Percent cell count reference ranges are not reported, since discordance with absolute values may lead to misinterpretation of CBC data. Current Interpretive Data was last revised on 2018. Imm gran pct 0.0 % [facility] Comment: Interpretive Data Percent cell count reference ranges are not reported, since discordance with absolute values may lead to misinterpretation of CBC data. Current Interpretive Data was last revised on 2018. Lymphocyte pct 43.5 % [facility] Comment: Interpretive Data Percent cell count reference ranges are not reported, since discordance with absolute values may lead to misinterpretation of CBC data. Current Interpretive Data was last revised on 2018. Monocyte pct 9.6 % [facility] Comment: Interpretive Data Percent cell count reference ranges are not reported, since discordance with absolute values may lead to misinterpretation of CBC data. Current Interpretive Data was last revised on 2018. Eosinophil pct 10.2 % [facility] Comment: Interpretive Data Percent cell count reference ranges are not reported, since discordance with absolute values may lead to misinterpretation of CBC data. Current Interpretive Data was last revised on 2018. Basophil pct 0.6 % [facility] Comment: Interpretive Data Percent cell count reference ranges are not reported, since discordance with absolute values may lead to misinterpretation of CBC data. Current Interpretive Data was last revised on 2018. Blood 12/26/2024 8:44 AM CDT 12/26/2024 8:44 AM CDT Fiona Leon MD LAB BLOOD ORDERABLES Fin al Result Performing Organization Address [facility] Co de Phone Number [facility] [address] Department [place] [employer] [place] [address] * Extra slide preparation (12/26/2024 8:44 AM CDT) Pathologist [facility] Extra slide prep Slide available for pickup from the lab. Comment:in main lab Blood 12/26/2024 8:44 AM CDT 12/26/2024 8:59 AM CDT Fiona Leon MD LAB BLOOD ORDERABLES Fin al Result Performing Organization Address [facility] de Phone Number [facility] [address] Department [place] [employer] [place] [address] * (ABNORMAL) CBC with auto differential (12/26/2024 8:44 AM CDT) [facility] WBC 5.19 3.80 - 9.90 K/cumm Hgb 9.0(L) 11.9 - 15.5 g/dL [facility] Hct 29.7(L) 35.6 - 45.5 % [facility] Plt 470(H) 150 - 400 K/cumm [facility] MPV 8.6(L) 9.1 - 12.3 fL [facility] RBC 3.82(L) 3.90 - 5.20 M/cumm [facility] MCV 77.7(L) 81.3 - 96.4 fL [facility] MCH 23.6(L) 27.1 - 33.3 pg [facility] MCHC 30.3(L) 32.3 - 35.7 g/dL [facility] RDW CV 16.1(H) 11.1 - 14.9 % [facility] RDW SD 45.7 35.7 - 48.1 fL [facility] NRBC abs 0.00 0.00 - 0.01 K/cumm [facility] Blood 12/26/2024 8:44 AM CDT 12/26/2024 8:44 AM CDT Fiona Leon MD LAB BLOOD ORDERABLES Fin al Result Performing Organization Address [facility] Co de Phone Number [facility] [address] [place] [employer] [address] * Copper, serum (12/26/2024 8:44 AM CDT) Pathologist [facility] Copper 130 77 - 206 mcg/dL [facility] Comment: ADDITIONAL INFORMATION This test was developed and its performance characteristics determined by [facility] in a manner consistent with CLIA requirements. This test has not been cleared or approved by the U.S. Food and Drug Administration. Test Performed by: [facility] [place] [address] Tower Equipment Repairer: Felix Campoverde Ph.D.; CLIA# [id number] Blood 12/26/2024 8:44 AM CDT 12/26/2024 9:03 AM CDT Fiona Leon MD LAB BLOOD ORDERABLES Fin al Result Performing Organization Address [facility] Co de Phone Number [facility] [address] [place] [employer] [address] [facility] * (ABNORMAL) Reticulocyte Count (12/26/2024 8:44 AM CDT) Retics, absolute 39 20 - 87 K/cumm Retics 1.0 0.4 - 2.9 % [facility] Reticulocyte Hgb 22.5(L) 30.5 - 38.0 pg [facility] Blood 12/26/2024 8:44 AM CDT 12/26/2024 8:44 AM CDT us Fiona Leon MD LAB BLOOD ORDERABLES Fin al Result Performing Organization Address [facility]/ZIP Co de Phone Number [facility] [address] Department [place] [employer] [place] [address] * (ABNORMAL) Iron profile w/ IBC (12/26/2024 8:37 AM CDT) Pathologist [facility] Iron 14(L) 35 - 145 mcg/dL TIBC 394 250 - 400 mcg/dL [facility] Transferrin saturation 4(L) 20 - 50 % [facility] Blood 12/26/2024 8:37 AM CDT 12/26/2024 10:09 AM CDT us Fiona Leon MD LAB BLOOD ORDERABLES Fin al Result Performing Organization Address [facility] Co de Phone Number [facility] [address] [facility] [email or web address] [address] * (ABNORMAL) Hemoglobin analysis by electrophoresis (12/26/2024 8:37 AM CDT) Pathologist [facility] RBC 3.97 3.90 - 5.20 M/cumm Comment:Testing performed by : [facility], [address] [place] [address] Hgb 9.2(L) 11.9 - 15.5 g/dL [facility] Comment:Testing performed by : [facility], [address] [place] [address] MCV 77.8(L) 81.3 - 96.4 fL [facility] Comment:Testing performed by : [facility], [address] [facility], [address] Rdw 16.4(H) 11.1 - 14.9 % [facility] Comment:Testing performed by : [facility], [address] [place]., [address] Hgb electrophoresis , interp Please see comment [facility] Comment: Normal hemoglobin pattern for age Microcytosis consistent with iron deficiency Reviewed and signed by Anuradha Hahn MD 12/31/2024 Testing performed by: [facility], [address] [facility], [address] Hgb A 98.2 96.0 - 98.5 % [facility] Comment:Testing performed by : [facility], [address] [facility], [address] Hgb A2 1.8 1.5 - 3.2 % [facility] Comment:Testing performed by : [facility], [address] [facility], [address] Hgb F <0.4 0.0 - 0.9 % [facility] Comment:Testing performed by : [facility], [address] [facility], [address] Blood 12/26/2024 8:37 AM CDT 12/26/2024 1:13 PM CDT us Fiona Leon MD LAB BLOOD ORDERABLES Fin al Result Performing Organization Address [facility] Co de Phone Number [facility] [address] Department [place] [address] * Folate (12/26/2024 8:37 AM CDT) Folic acid 10.4 >=5.0 ng/mL Blood 12/26/2024 8:37 AM CDT 12/26/2024 10:09 AM CDT us Fiona Leon MD LAB BLOOD ORDERABLES Fin al Result Performing Organization Address City/[facility] Co de Phone Number LANIE [facility] [address] [facility] [employer] [place], [place] [id number] * (ABNORMAL) Ferritin (12/26/2024 8:37 AM CDT) Ferritin 10(L) 15 - 150 ng/mL Blood 12/26/2024 8:37 AM CDT 12/26/2024 10:09 AM CDT Fiona Leon MD LAB BLOOD ORDERABLES Fin al Result Performing Organization Address [facility] Co de Phone Number LANIE [facility] [address] [facility] [place] [employer] [place] [address] * Vitamin B12 (12/26/2024 8:37 AM CDT) Pathologist [facility] Vitamin B12 324 230 - 1,250 pg/mL Blood 12/26/2024 8:37 AM CDT 12/26/2024 10:09 AM CDT Fiona Leon MD LAB BLOOD ORDERABLES Fin al Result Performing Organization Address [facility] Co de Phone Number LANIE [facility] [address] [facility] [employer] [place] [address] * US VEIN DUPLEX LOWER EXTREMITY RIGHT LIMITED, UNILATERAL (12/12/2024 12:21 PM CDT) Anatomical Region Laterality Modality Vascular Right Ultrasound 12/12/2024 11:3 5 AM CDT Narrative 12/13/2024 12:52 PM CDT Lower Extremity Venous Report Patient Name: YAZMIN HUNT L : 1985 (39y 6m) Gender: F Study Date: 12/12/2024 11:35:19 AM Safety Assistant: Kiesha MCCORMACK Location: [facility] Order Provider: ELMA [...] Gender: F Study Date: 12/12/2024 11:35:19 AM Safety Assistant: Kiesha MCCORMACK Location: [facility] Order Provider: ELMA [...] 12/13/2024 11:35:17 AM CDT us Elma BROWN IMMao US PROCEDURES Final Result * (ABNORMAL) Differential, auto (12/07/2024 10:47 AM CDT) Neutrophil abs 1.5 1.5 - 6.5 K/cumm Comment:Testing performed by : [facility], [address] [place] [address], [place]., [address] Imm gran abs 0.0 0.0 - 0.1 K/cumm LANIE Comment:Testing performed by : [facility], [address] [place] [address], [place]., [address] Lymphocyte abs 2.8 0.8 - 3.3 K/cumm [facility] Comment:Testing performed by : [address], [place]., [address] Monocyte abs 0.7 0.2 - 0.8 K/cumm [facility] Comment:Testing performed by : [address], [place]., [address] Eosinophil abs 0.7(H) 0.0 - 0.5 K/cumm [facility] Comment:Testing performed by : [address], [place]., [address] Basophil abs 0.0 0.0 - 0.1 K/cumm [facility] Comment:Testing performed by : [address] [address] Neutrophil pct 26.4 % [facility] Comment: Interpretive Data Percent cell count reference ranges are not reported, since discordance with absolute values may lead to misinterpretation of CBC data. Current Interpretive Data was last revised on 2018. Testing performed by: [address] [address] Imm gran pct 0.2 % [facility] Comment: Interpretive Data Percent cell count reference ranges are not reported, since discordance with absolute values may lead to misinterpretation of CBC data. Current Interpretive Data was last revised on 2018. Testing performed by: [address] [address] Lymphocyte pct 48.5 % [facility] Comment: Interpretive Data Percent cell count reference ranges are not reported, since discordance with absolute values may lead to misinterpretation of CBC data. Current Interpretive Data was last revised on 2018. Testing performed by: [address] [address] Monocyte pct 12.3 % [facility] Comment: Interpretive Data Percent cell count reference ranges are not reported, since discordance with absolute values may lead to misinterpretation of CBC data. Current Interpretive Data was last revised on 2018. Testing performed by: [address] [address] Eosinophil pct 11.9 % LANIE Comment: Interpretive Data Percent cell count reference ranges are not reported, since discordance with absolute values may lead to misinterpretation of CBC data. Current Interpretive Data was last revised on 2018. Testing performed by: [address] [address] Basophil pct 0.7 % LANIE Comment: Interpretive Data Percent cell count reference ranges are not reported, since discordance with absolute values may lead to misinterpretation of CBC data. Current Interpretive Data was last revised on 2018. Testing performed by: [address] [address] Blood 12/07/2024 10:4 7 AM CDT 12/07/2024 11:21 AM CDT us Nanette Dykes MD LAB BLOOD ORDERABLES Final Result [facility] [address] [facility] Department [place] [address] * (ABNORMAL) CBC with auto differential (12/07/2024 10:47 AM CDT) WBC 5.8 3.8 - 9.9 K/cumm Comment:Testing performed by : [address] [address] Hgb 8.7(L) 11.9 - 15.5 g/dL LANIE Comment:Testing performed by : [address] [address] Hct 28.8(L) 35.6 - 45.5 % LANIE Comment:Testing performed by : [address] [address] Plt 466(H) 150 - 400 K/cumm [facility] Comment:Testing performed by : [address] [address] MPV 8.9(L) 9.1 - 12.3 fL [facility]IE Comment:Testing performed by : [address] [address] RBC 3.70(L) 3.90 - 5.20 M/cumm LANIE WHITTEN Comment:Testing performed by : [address] [address] MCV 77.8(L) 81.3 - 96.4 fL [facility]IE Comment:Testing performed by : [address] [address] MCH 23.5(L) 27.1 - 33.3 pg [facility] Comment:Testing performed by : [address], [address] MCHC 30.2(L) 32.3 - 35.7 g/dL [facility] Comment:Testing performed by : [address], [address] RDW CV 15.8(H) 11.1 - 14.9 % [facility]IE Comment:Testing performed by : [address], [address] RDW SD 44.1 35.7 - 48.1 fL [facility] Comment:Testing performed by : [address], [address] NRBC abs 0.00 0.00 - 0.01 K/cumm LANIE Comment:Testing performed by : [address], [address] Blood 12/07/2024 10:4 7 AM CDT 12/07/2024 11:21 AM CDT us Nanette Dykes MD LAB BLOOD ORDERABLES Final Result [facility] [address] [facility] [place] [address] * ThinPrep processing (Molecular component) (12/06/2024 12:00 PM CDT) [facility] ThinPrep processing (Molecular component) Specimen received for processing. Endocervical 12/06/2024 12:0 0 PM CDT 12/06/2024 6:01 PM CDT Nanette Dykes MD LAB BODY FLUIDS AND STOOLS ORDERABLES Final Result Performing Organization Address City/[facility]/ZIP Co de Phone Number [facility] [address] [place] [address] * High Risk HPV DNA Detection with Genotyping (Molecular component) (12/06/2024 12:00 PM CDT) [facility] HPV HR 16 Not Detected Not Detected HPV HR 18 Not Detected Not Detected [facility] HPV HR Non 16/18 Not Detected Not Detected [facility] Comment: Interpretive Data Nucleic acid amplification for [...] this test have been verified by the [facility]. Correlate with separately reported cytology results, as applicable. Interpretive data last revised 23 Endocervical 12/06/2024 12:0 0 PM CDT 12/06/2024 6:01 PM CDT Narrative [facility] - 12/09/2024 5:21 PM CDT Clinical history and diagnosis->none Number of vials->1 Testing type->Screening Last menstrual period (date if known)->unknown Nanette Dykes MD LAB BODY FLUIDS AND STOOLS ORDERABLES Final Result Performing Organization Address City/[facility]/ZIP Co de Phone Number [facility] [address] Department [place] [address] * Pap and High Risk HPV and Genotyping (Cytology Component) (12/06/2024 11:52 AM CDT) Thin prep (Pap test) 12/06/2024 11:52 AM CDT 12/09/2024 8:40 AM CDT Narrative PATHOLOGY [facility] - 12/13/2024 12:37 PM CDT EPIC results best viewed via link to PDF [facility] [address] [facility], [place], [place] [address] Tele: Palmira Cardenas MD - Education Rn CYTOLOGY REPORT Note to Patients: This report [...] the details. Patient Name: YAZMIN HUNT Address: [address] [place] [address]- Gender: F : 1985 (Age: 39) Service: Location: N : [id number] Hospital #: [id number] Patient Type: [facility] SPECIMEN Taken: 12/06/2024 Reported: 12/13/2024 Physician(s): Nanette Dykes MD FINAL DIAGNOSIS: SOURCE OF SPECIMEN - ThinPrep Pap and HPV w/ reflex Genotyping: STATEMENT OF ADEQUACY Source: Cervical/Endocervical - Satisfactory for interpretation - Endocervical/Transformation zone component absent or insufficient - Case screened using computer assisted imaging technology and manually re- screened by a dough mixing machine operator. GENERAL CATEGORIZATION: - Negative for intraepithelial lesion or malignancy INTERPRETATION: - Blood present cad/12/13/2024 12:37Dafne Zaman M.S., CT (ASCP) Report Reviewed and Electronically [...] part or completely in the following laboratories: [facility], [address] [place] [address], [address] [place] [address]. Nanette Dykes MD LAB CYTOLOGY ORDERABLES nal Result Performing Organization Address City/State/[facility] Co de Phone Number PATHOLOGY [facility] Laboratory Receiving [address] [place] [address] * US Pelvis Complete (12/06/2024 9:41 AM [...] in size and appearance. No free fluid. Nanette Dykes MD IMG US PROCEDURES Final Re sult * Hepatitis panel, acute (11/08/2022 3:23 PM HYPERBARIC TECHNICIAN) Hep A IgM Nonreactive Nonreactive [facility] Hep B core IgM Nonreactive Nonreactive [facility] Hep C Ab Nonreactive Nonreactive [facility] Comment:Antibodies to HCV no t detected. Does NOT exclude the possibility of recent exposure to HCV. Current interpretive data was last revised on 22 HepBsAg Nonreactive Nonreactive [facility] Blood 11/08/2022 3:23 PM HYPERBARIC TECHNICIAN 11/08/2022 3:46 PM HYPERBARIC TECHNICIAN us [place] Whitmore NP LAB MICROBIOLOGY - GENERAL ORDERABLES Final Result [facility] Department of Laboratories [place] [address] from Last 3 Months or Most Recently Relevant to Health Maintenance Insurance [facility] Advance Directives For more information, please contact: [phone] * Full Code (Latest Code Status on File) Date Activated Date Inactivated Comments 12/13/2022 1:11 PM 12/13/2022 11:16 PM * Full Code Date Activated Date Inactivated Comments 07/07/2019 5:22 AM 07/09/2019 4:55 PM Care Teams Last Pattern Grader Relationship Specialty Start Date End Date Jamir Melgar MD [address] [facility] [address] [place] [address] PCP - General Internal Medicine 09/23/24 Fiona Leon MD [address] [place] [address] Medical Oncologist/Electric Mule Driver Hematology and Oncology 12/17/24
--- OUTSIDE RECORDS SUMMARY | 2025-02-24 08:01 | XMS_ITS | Encounter Summary ---
Author Organization [facility] Healthcare Address [address] [place] [address] Care Team Providers Care Assessment Consultant Name Role Phone No, Physician Primary Care Provider [phone] Jamir Melgar MD Primary Care Provider Fiona Leno MD Unavailable [phone] Encounter Details Date Type Department Care Team (Late st Contact Info) Description 02/16/2024 Telephone [facility] Cardiac Diagnostic Lab [address] [place] [address] [phone] Beverly Hernadez RN Social History Tobacco Use Types Packs/Day Years [...] making you feel afraid or unsafe? 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 Gender Identity Female 03/02/2021 12:52 PM CDT Sexual Orientation Choose not to disclose 2020 12:52 PM CDT documented as of this encounter Plan of Treatment Not on file documented as of this encounter Visit Diagnoses Not on filedocumented in this encounter Care Teams Assessment Consultant Relationship Specialty Start Date End Date No, Physician PCP - General 01/30/24 09/22/24 Jamir Melgar MD 2044 [facility] [address] [place] [address] PCP - General Internal Medicine 09/23/24 Fiona Leon MD [address] [place] [address] Medical Oncologist/Psychosocial Rehabilitation Counselor Hematology and Oncology 12/17/24 documented as of this encounter
== END 2025-02-24 07:57 | disposition home or self-care (01) ==
PROVIDERS: PCP Internal Medicine; Visit Provider Otolaryngology
DX: H90.3 Sensorineural hearing loss, bilateral (principal)
CPT/HCPCS: 70553; A9577

== ENCOUNTER 2025-04-11 17:26 | Emergency (ER) | payer OTHER, SELFPAY ==
--- OUTSIDE RECORDS SUMMARY | 2025-04-11 17:28 | XMS_ITS | Encounter Summary ---
Author Organization [facility] Healthcare Address [address] [place] [address] Care Team Providers Care Gaming Host Name Role Phone Fiona Leon MD Unavailable [phone] Debbie Mendiola NP Primary Care Provider [phone] Reason for Visit * Reason Onset Date Comments Shortness of Breath 03/07/2025 Dizziness 03/07/2025 Headache 03/07/2025 Encounter Details Date Type Department Care Team (Late st Contact Info) Description 03/07/2025 Nurse Triage [facility] Medical Group Family Medicine at [address] [place] [address] Debbie Mendiola NP [address] [place] [address] [address] [place] [address] Social History Tobacco Use Types Packs/Day Years Used Date Smoking Tobacco: Never Passive Smoke Exposure: Never Smokeless Tobacco: Never Alcohol Use Standard Drinks/Week Comments Yes 0 (1 standard drink = 0.6 oz pur e alcohol) AUDIT-C Answer Date Recorded Q1: How often do you have a drink containing alcohol? Never 03/10/2025 Q2: How many drinks containi ng alcohol do you have on a typical day when you are drinking? Patient does not drink Q3: How often do you have si x or more drinks on one occasion? Never 03/10/2025 PHQ-2 Answer Date Recorded PHQ-2 Total Score (If total score is 3 or more points, staff should administer the PHQ-9) 0 02/24/2025 Personal Safety Answer Date Recorded Have you ever been in or are you currently in a harmful physical or emotional relationship or is someone making you feel afraid or unsafe? 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 Never 03/10/2025 11:37 AM CDT Ambreen Oreilly MA Q2: How many drinks containing alcohol do you have on a typical day when you are drinking? Patient does not drink 03/10/2025 11:37 AM CDT Ambreen Oreilly MA Q3: How often do you have six or more drinks on one occasion? Never 03/10/2025 11:37 AM CDT Ambreen Oreilly MA documented as of this encounter Miscellaneous Notes * Telephone Encounter - Ting Stapleton - 03/07/2025 2:25 PM CDT aPPT SCHEDUELD FOR 03/10/25 * Telephone Encounter - Carine Hankins MA - 03/07/2025 11:59 AM CDT Call Back Caller???s Concern: I tried to schedule appt. Call warm transferred, spoke with Ting. Reason for Warm Transfer: Patient returning call from practice Practice Accepted the Warm Transfer? Yes Additional Comments If YES above, and no barriers. Does message need to be routed? No * Telephone Encounter - Ting Stapleton - 03/07/2025 10:15 AM CDT Called LVM to call the office to schedule appt * Telephone Encounter - Yamilex Raines RN - 03/07/2025 9:49 AM CDT Reason for Conversation Shortness of Breath, Dizziness, and Headache Background Yazminlayla Hunt calling about ongoing sob, dizziness, and headaches. ED 03/05 and was prescribed prednisone, has a few doses left. Symptoms aren't worse, but are still ongoing. SOB walking and is waking up gasping for air. No cough or fever. Does have some ongoing chest pressure, sore to take deepbreaths, this was evaluated at the ED. Hx of asthma. 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 Has had some wheezing. Using her inhaler as needed, sometimes more than ordered. Headache today 07/04Tylenol doesn't help. Dizziness is not any better. Room spins when she turns her head. Has had thisfor a while but its getting worse. No office appts available today. Tasking update to the office for advice and follow up with pt about next steps. Home care reviewed. Advised pt to call back if symptoms worsen or with any other concerns/questions. Pt verbalized understanding. . Disposition Go to Office Now Reason for Disposition MILD difficulty breathing (e.g., minimal/no SOB at rest, SOB with walking, pulse < 100) of new-onset or worse than normal Lightheadedness (dizziness) present now, after 2 hours of rest and fluids Protocols Used Rfxhjgdfs-Oxumg-EL Breathing Wfdrragkoj-Haazn-WJ * Telephone Encounter - Yamilex Raines RN - 03/07/2025 9:44 AM CDT Regarding: shortness of breath, dizziness, and headache ----- Message from Ruth Lira sent at 03/07/2025 9:43 AM CDT ----- Symptom Based Call Chief Complaint(s): shortness of breath, dizziness, and headache Duration: 2 days What type of symptom(s) is the patient experiencing? Red Flag. Is the patient concerned they are experiencing a medical emergency requiring an ambulance? No Additional Comments: Patient reports she is still having shortness of breath, dizziness, and headaches. Patient states she went to [facility] on 03/05/25 for shortness of breath, dizziness, vomiting, and headaches. She was prescribed prednisone and still has a few days left of it. Patient stated she has a pulmonology appointment on 03/17/25. Does message need to be routed? Yes-Action Needed documented in this encounter Plan of Treatment Not on file documented as of this encounter Visit Diagnoses Not on filedocumented in this encounter Care Teams Gaming Host Relationship Specialty Start Date End Date Debbie Mendiola NP [address] [facility] [address] [address] PCP - General Family Medicine 02/24/25 Fiona Leon MD [address] [place] [address] Medical Oncologist/Broke Beater Operator Hematology and Oncology 12/17/24 documented as of this encounter
--- OUTSIDE RECORDS SUMMARY | 2025-04-11 17:28 | XMS_ITS | Encounter Summary ---
Author Organization [facility] Healthcare Address [address] [place] [address] Care Team Providers Care Cut Press Operator Name Role Phone Fiona Leon MD Unavailable Debbie Mendiola NP Primary Care Provider [phone] Encounter Details Date Type Department Care Team (Late st Contact Info) Description 03/24/2025 Results Follow-Up [facility] Medical [facility] Family Medicine at [address] [place] [address] [address] [address] Hepatitis B surface antibody (immune status) Blood, Hepatitis B core antibody, total Blood, Hepatitis B Surface Antigen Blood, Additional followed-up results: 3 Social History Tobacco Use Types Packs/Day Years [...] on file 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 Gender Identity Female 03/02/2021 12:52 PM CDT Sexual Orientation Choose not to disclose 2020 12:52 PM CDT documented as of this encounter Plan of Treatment Not on file documented as of this encounter Visit Diagnoses Not on filedocumented in this encounter Care Teams Cut Press Operator Relationship Specialty Start Date End Date Debbie Mendiola NP [address] [facility] [address] [place] [address] PCP - General Family Medicine 02/24/25 Fiona Loen MD [address] [place] [address] Medical Oncologist/Brim Greaser Operator Hematology and Oncology 12/17/24 documented as of this encounter
--- OUTSIDE RECORDS SUMMARY | 2025-04-11 17:28 | XMS_ITS | Encounter Summary ---
Author Organization [facility] Address [address] [place] [address] Phone Care Team Providers Care Creative Intern Name Role Phone Jamir Melgar MD Primary Care Provider No, Physician Primary Care Provider [phone] Fiona Leon MD Unavailable [phone] Debbie Mendiola NP Primary Care Provider [phone] Encounter Details Date Type Department Care Team (Late st Contact Info) Description 02/23/2023 Telephone [facility] Dermatology [address] [facility] [address] [place] [address] Jesus Mcgrath, MIRA Social History Tobacco Use Types Packs/Day Years [...] on file 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 Gender Identity Female 03/02/2021 12:52 PM CDT Sexual Orientation Choose not to disclose 2020 12:52 PM CDT documented as of this encounter Plan of Treatment Not on file documented as of this encounter Visit Diagnoses Not on filedocumented in this encounter Additional Health Concerns Infection Onset Date Last Indicated Resolved Time COVID: Suspected 03/05/2025 03/05/2025 03/05/2025 9:42 AM CDT documented as of this encounter Care Teams Creative Intern Relationship Specialty Start Date End Date Jamir Melgar MD PCP - General 01/16/17 01/29/24 No, Physician PCP - General 01/30/24 09/22/24 Debbie Mendiola NP [address] [facility] [address] [address] PCP - General Family Medicine 02/24/25 Fiona Leon MD [address] [place] [address] Medical Oncologist/Chief Specialist Le[place] Hematology and Oncology 12/17/24 documented as of this encounter
[2025-04-11 17:29] VITALS: BP 123/62; PULSE 95; RESP 16; TEMP 36.6; O2SAT 100
--- OUTSIDE RECORDS SUMMARY | 2025-04-11 17:29 | XMS_ITS | Encounter Summary ---
Author Organization [facility] Address [address] [place] [address] Phone Care Team Providers Care American Indian Studies Professor Name Role Phone Jamir Melgar MD Primary Care Provider No, Physician Primary Care Provider [phone] Fiona Leon MD Unavailable [phone] Debbie Mendiola NP Primary Care Provider [phone] Encounter Details Date Type Department Care Team (Late st Contact Info) Description 03/21/2023 Telephone [facility] Dermatology [address] [facility] [address] [place] [address] Jesus Mcgrath, MIRA Social History [...] on file 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
--- OUTSIDE RECORDS SUMMARY | 2025-04-11 17:29 | XMS_ITS | Encounter Summary ---
Author Organization [facility] Healthcare Address [address] [place] [address] Care Team Providers Care Salesforce Business Analyst Name Role Phone Jamir Melgar MD Primary Care Provider No, Physician Primary Care Provider [phone] Fiona Leon MD Unavailable [phone] Debbie Mendiola NP Primary Care Provider [phone] Encounter Details Date Type Department Care Team (Late st Contact Info) Description 04/08/2021 Telephone [facility] Imaging [address] [place] [id number] Sho Frias [address] Social History Tobacco Use Types Packs/Day Years Used Date Smoking Tobacco: Never Smokeless Tobacco: Never Alcohol Use Standard Drinks/Week Comments Yes 0 (1 standard drink = 0.6 oz pur e alcohol) Comments No Sex and Gender Information Value Date Recorded Sex Assigned at Not on file 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 Gender Identity Female 03/02/2021 12:52 PM CDT Sexual Orientation Choose not to disclose 2020 12:52 PM CDT documented as of this encounter Plan of Treatment Not on file documented as of this encounter Visit Diagnoses Not on filedocumented in this encounter Additional Health Concerns Infection Onset Date Last Indicated Resolved Time COVID: Suspected 08/21/2022 08/21/2022 08/21/2022 4:10 PM SOLE BUFFER COVID: Suspected 09/15/2022 09/15/2022 09/15/2022 2:16 AM SOLE BUFFER COVID: Suspected 03/05/2025 03/05/2025 03/05/2025 9:42 AM CDT documented as of this encounter Care Teams Salesforce Business Analyst Relationship Specialty Start Date End Date Jamir Melgar MD PCP - General 01/16/17 01/29/24 No, Physician PCP - General 01/30/24 09/22/24 Debbie Mendiola NP [address] [facility] [address] [place] [address] PCP - General Family Medicine 02/24/25 Fiona Leon MD [address] [place] [address] Medical Oncologist/Power Generating Plant Operator Hematology and Oncology 12/17/24 documented as of this encounter
--- OUTSIDE RECORDS SUMMARY | 2025-04-11 17:29 | XMS_ITS | Encounter Summary ---
Author Organization [facility] Address [address] [place] [address] Phone Care Team Providers Care Slots Manager Name Role Phone Jamir Melgar MD Primary Care Provider No, Physician Primary Care Provider [phone] Fiona Leon MD Unavailable [phone] Debbie Mendiola NP Primary Care Provider [phone] Encounter Details Date Type Department Care Team (Late st Contact Info) Description 09/12/2023 Telephone [facility] Otolaryngology [address] [facility] Advanced Medicine 11th [place] [address] [place] [address] Nadiya Mauricio Au.D. 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
--- OUTSIDE RECORDS SUMMARY | 2025-04-11 17:29 | XMS_ITS | Continuity of Care Document ---
Author Organization [facility] Address [address] [facility] [address] [place] [address] Phone Care Team Providers Care Hair Assistant Name Role Phone Lalita Faustin MD Unavailable [...] Encounter [facility], [address] [place] [address], [id number], [place] tel:[phone] [facility] No Information 4 Ramin Chesh[address]. [address], [place], [address], [place]. tel:[phone] Referring Provider: Zay Kelly, [address] [facility] [address], [place], [address]. tel:[phone] [facility], [address] [place] [address], [id number], [place] tel:[phone] [facility] No Information 3 Ramin Chesh[address]. [address], [place], [address], [place]. tel:[phone] Est (Level 3) OFFICE/OUTPAT IENT VISIT [facility], [address] [place] [address], [id number], [place] tel:[phone] [facility] rash (chief complaint) Body mass index (BMI) 38.0-38.9, adultContact dermatitis due to other agent 3 Ramin Chesh[address]. [address] [place], [address], [place]. tel:[phone] Referring Provider: Zay Kelly, [address] [facility] [address], [place], [address]. tel:[phone] New (Level 4) OFFICE/OUTPAT IENT VISIT [facility], [address] [place] [address], [id number], [place] tel:[phone] [facility] allergies and asthma (chief complaint) Body mass index (BMI) 40.0-44.9, adultSevere persistent asthmaChronic rhinitis Feb- 3 Ramin Cheshil. [address], [place], [address], [place]. tel:[phone] Referring Provider: Zay Kelly, [address] [facility] [address], [place], [address]. tel:[phone] [facility], [address] [place] [address] [address], [place], [place], [id number], [place] tel:[phone] [facility] No Information 3 R[address], [place], [address], [place]. tel:[phone] Family History Family Member Type Diagnosis Age [...] er Payers Payer name Insurance type Covered constitution party ID Authoriza tion(s) [place] [id number] Social History Type Description Quantity Date Captured Comments Alcohol Use Details Unknown Caffeine Use Details Unknown Tobacco Use Status No Information Smoking Status No Information Sex Female Chief Complaint And Reason For Visit No Information Reason For Referral Reason For Referral No Information Plan Of Treatment Date Type Action Status Future Order: Lab Order Immunogl obulin E, Total ([id number]), Sent on: Sent Future Order: Lab Order CBC With Differential ([id number]), Sent on: Sent History Of Present Illness [...] of asthma, RASHTobacco: Never smokerOccupation: Mental Health Hospital Unit Clerk at the [facility] hospitalEnvironmental HistoryLives in a house w/ central air/forced [...]
--- OUTSIDE RECORDS SUMMARY | 2025-04-11 17:29 | XMS_ITS | Clinical Summary ---
Author Organization [facility] Address [address] [place] [address] Care Team Providers Care Dry Paste Supervisor Name Role Phone Jamir Melgar MD Primary Care Provider [phone] Source Comments [facility],non-owned Affiliates and Associated Physician Practices is amultiple site organization consisting of ambulatory clinics and hospital sitesin [place], [place], [place] and [place]. This disclosure is being madepursuant to the Care Everywhere program and may not contain all information available regarding this patient. Last updated 18.[facility] Allergies Active Allergy Reactions Criticality Noted Date [...] complication 04/04/20 17 Supervision of normal in [facility] 04/04/2017 Family History Medical History Relation [...] CDT Respiratory Rate 15 07/31/2016 3:24 PM EQUIPMENT OPERAT0R Oxygen Saturation 98% 03/16/2023 1:10 PM CDT [...] of 3 - 19+ 3-dose series) 2003 HPV VACCINE (1 - 3-dose SCDM series) 2011 MAMMOGRAM 02/17/2024 02/16/2022 COVID-19 VACCINE (1 - 2023-2 5 season) 2024 DEPRESSION SCREENING 09/25/2024 INFLUENZA VACCINE (#1) 2025 , 08/13/2021, 07/20/2020 PAP SMEAR 10/25/2025 10/25/2022, 10/25/2022 [...] Most Recently Relevant to Health Maintenance Insurance [facility] * Guarantor: YAZMIN HUNT Account Type Relation to Patient Date of Phone Billing Address Personal/Family [address] [place] [address] [facility] SELF PAY NO INSURANCE Member Subscriber Plan / Payer (Ef fective for All Dates) Name:Gilbert Yazmin L Member ID:Not on file Relation to Subscriber:Not on file Name:HUNTYAZMIN Subscriber ID:Not on file Address: [address] [place] [address] Payer ID:Not on file Group ID:Not on file Type:Self Pay Address: [place], [place] * Guarantor: YAZMIN HUNT Account Type Relation to Patient Date of Phone Billing Address Personal/Family [address] [place] [address] [facility] SELF PAY NO INSURANCE Member Subscriber Plan / Payer (Ef fective for All Dates) Name:HutnYazmin Member ID:Not on file Relation to Subscriber:Not on file Name:YAZMIN HUNT Subscriber ID:Not on file Address: [address] [place] [address] Payer ID:Not on file Group ID:Not on file Type:Self Pay Address: [place], [place] * Guarantor: YAZMIN HUNT Account Type Relation to Patient Date of Phone Billing Address Personal/Family [address] [place] [address] [facility] SELF PAY NO INSURANCE Member Subscriber Plan / Payer (Ef fective for All Dates) Name:Yazmin Hunt Member ID:Not on file Relation to Subscriber:Not on file Name:YAZMIN HUNT Subscriber ID:Not on file Address: [address] [place] [address] Payer ID:Not on file Group ID:Not on file Type:Self Pay Address: [place], [place] Care Teams Dry Paste Supervisor Relationship Specialty Start Date End Date Jamir Melgar MD [address] [place] [address] [address] [place] [address] PCP - General 01/31/19
--- OUTSIDE RECORDS SUMMARY | 2025-04-11 17:29 | XMS_ITS | Encounter Summary ---
Author Organization [facility] Address [address] [place] [address] Care Team Providers Care Plastic Surgery Manager Name Role Phone No, Physician Primary Care Provider [phone] Fiona Leon MD Unavailable [phone] Debbie Mendiola NP Primary Care Provider [phone] Encounter Details Date Type Department Care Team (Late st Contact Info) Description 02/16/2024 Telephone [facility] Cardiac Diagnostic Lab [address] [place] [id number] Beverly Hernadez RN Social History Tobacco Use [...] on file Legal Sex Female 3:36 AM [employer]LE [employer]PECT[employer] Gender Identity Female 03/02/2021 12:52 PM CDT [...] documented as of this encounter Care Teams Plastic Surgery Manager Relationship Specialty Start Date End Date No, Physician PCP - General 01/30/24 09/22/24 Debbie Mendiola NP [address] [place] [id number] PCP - General Family Medicine 02/24/25 Fiona Leon MD [address] [place] [address] Medical Oncologist/Hydroelectric Plant Structural Engineer Hematology and Oncology 12/17/24 documented as of this encounter
--- OUTSIDE RECORDS SUMMARY | 2025-04-11 17:29 | XMS_ITS | Referral Summary ---
Author Organization [facility] Address [address] [place] [address] Care Team Providers Care Data Coder Operator Name Role Phone Fiona Leon MD Unavailable [phone] Dbebie Mendiola NP Primary Care Provider [phone] Encounters Date Type Department Care Team Description 03/24/2025 Results Follow-Up [facility] Family Medicine at [address] [place] [address] Nemo Wallis PA Hepatitis B surface antibody (immune status) Blood, Hepatitis B core antibody, total Blood, Hepatitis B Surface Antigen Blood, Additional followed-up results: 3 03/24/2025 8:25 AM CDT Lab [facility] Lab [address] [place] [id number] Need for hepatitis B screening test; Class 3 severe obesity due to excess calories with serious comorbidity and body mass index (BMI) of 40.0 to 44.9 in adult; Lipid screening; Family history of diabetes mellitus 03/17/2025 1:30 PM CDT Office Visit [facility] Pulmonology [facility] [address] [place] [address] Ambreen Rothman MD MICHELE (obstructive sleep apnea) (Primary Dx); Moderate persistent asthma, unspecified whether complicated 03/10/2025 11:30 AM CDT Office Visit [facility] at [address] [place] [address] Nemo Wallis PA New daily persistent headache (Primary Dx); Dizziness; Nausea and vomiting, unspecified vomiting type; Mild persistent asthma without complication 03/07/2025 Nurse Triage [facility] at [address] [place] [address] Debbie Mendiola NP 03/06/2025 ALICIA ED Outreach [facility] Care Organization [address] [place] [id number] Genoveva Abreu MA 03/05/2025 8:55 AM CDT - 03/05/2025 12:01 PM CDT Emergency [facility] Emergency Department [address] [place] [phone] Marvin Luque, Shortness of breath (Primary Dx); Mild intermittent asthma with exacerbation Discharge Disposition: Discharge to home or self care 02/25/2025 Documentation [facility] [address] [place] [phone] Lashonda Marie RN 02/24/2025 2:00 PM CDT Office Visit [facility] Family [facility] at [address] [place] [address] Debbie Mendiola NP Iron deficiency (Primary Dx); Class 3 severe obesity due to excess calories with serious comorbidity and body mass index (BMI) of 40.0 to 44.9 in adult; Need for hepatitis B screening test; Asthma, unspecified asthma severity, unspecified whether complicated, unspecified whether persistent; Lipid screening; Breast cancer screening by mammogram; Abnormal uterine bleeding 02/20/2025 11:51 PM CDT - 02/21/2025 3:38 AM CDT Emergency [facility] Emergency Department [address] [place] [address] Mehdi Ernst DO Shortness of breath (Primary Dx) Discharge Disposition: Discharge to home or self care 01/24/2025 Telephone [facility] at [address] [place] [address] Debbie Mendiola NP Appointment Request from Last 3 Months Allergies Active Allergy Reactions Criticality Noted Date Comments Amitriptyline Rash Medium 03/17/2025 Pt reports its very itchy. Zonisamide Dizziness Low 07/26/2021 Blurry vision Medications calcium citrate-vitami n D3 250 mg-5 mcg (200 unit) tablet Take 2 tablets by mouth 3 (three) times a day 90 tablet 11 2 Active albuterol HFA (PROVENTIL HFA,VENTOLIN HFA,PROAIR HFA) 90 mcg/actuation inhaler Inhale 2 puffs every 6 (six) hours as needed for wheezing 1 each 2 Active Additional Information Patient not taking.Reported on 03/17/2025 albuterol 2.5 mg /3 mL (0.083 %) nebulizer solution Take 3 mL (2.5 mg total) by nebulization every 6 (six) hours as needed for wheezing 75 mL 4 Active multivitamin tablet Take 2 tablets by mouth daily Active pantoprazole DR (PROTONIX) 40 mg EC tablet Take 1 tablet (40 mg total) by mouth daily 30 tablet 2 5 Active amitriptyline (ELAVIL) 10 mg tabletIndicati ons:New daily persistent headache Take 1 tablet (10 mg total) by mouth nightly 30 tablet 5 Active nystatin 100,000 unit/mL suspension 5 Active budesonide-for moteroL (Symbicort) 160-4.5 mcg/actuation inhaler Inhale 2 puffs 2 (two) times a day Rinse mouth with water after use. Do not swallow 3 each 3 5 026 Active albuterol-bude sonide (Airsupra) 90-80 mcg/actuation HFA aerosol inhaler Inhale 2 Inhalations every 6 (six) hours as needed (Dyspnea, wheezing, cough) Please rinse mouth after use. Do not swallow. 10.7 g 11 5 026 Active meclizine (ANTIVERT) 25 mg tablet Take 1 tablet (25 mg total) by mouth 3 (three) times a day as needed for dizziness 90 tablet 5 Active meclizine (ANTIVERT) 25 mg tablet TAKE 1 TABLET BY MOUTH THREE TIMES DAILY NEEDED FOR DIZZINESS 4 025 Discontin ued(Reord er) Active Problems Problem Noted Date Diagnosed Date Class 3 severe obesity due t o excess calories with serious comorbidity and body mass index (BMI) of 40.0 to 44.9 in adult 02/20/2025 Assessment & Plan (02/24/2025 4:26 PM CDT): Not at goal Check thyroid levels Encourage food diary for 1-2 weeks to find dietary causes Abnormal CT scan, gastrointestinal tract 025 Abnormal uterine bleeding 06/20/2024 Assessment & Plan (02/24/2025 4:25 PM CDT): Not at goal Menorrhagia with severe symptoms. Potential hysterectomy discussed. Awaiting gynecology consultation. - Consult with gynecology for potential hysterectomy. - Follow-up with OBGYN on March 05. Assessment & Plan (12/06/2024 10:26 AM CDT): [...] for options. Also discussed treatment options for exterminator termite management of periods. During discussion patient notes [...] TVUS and follow up in 2 weeks. Asthma 03/31/2023 Assessment & Plan (02/24/2025 4:24 PM CDT): Not at goal Asthma managed with albuterol and Advair. Discomfort with Advair noted. Seeking new quartz cutter for alternative inhaler options. - Refer to pulmonology for asthma management. - Discuss inhaler alternatives with quartz cutter. Assessment & Plan (01/08/2024 3:20 PM CDT): Nebs per her PCP. Elipta, atrovent, and advair. Postoperative incisional hernia 12/13/2022 Recurrent incisional hernia 12/08/2022 Overview (12/08/2022): Added automatically from request for surgery [id number] Disorder of hip joint 09/15/2022 Painless rectal bleeding 09/15/2022 Derangement of knee 09/15/2022 Lymphadenopathy 08/15/2022 Peripheral venous insufficiency 06/24/2022 Assessment & Plan (01/08/2024 3:07 PM CDT): Seen in consult by vascular surgery for venous insuffiencey, compression stockings and lasix. 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 No adverse reactions. Continues with hematology. - Continue iron infusions. - Referral to hematology for ongoing management. Request new supply chain systems manager for closer location for infusions. Metabolic and nutritional disorder 04/14/2021 Assessment & Plan (07/24/2022 11:51 AM CDT): Reviewed most recent labs available. Continue low-carb (<150 g/day), low- glycemic diet. Consider metformin. Assessment & Plan (08/13/2021 1:27 PM BOOK SORTER): Reviewed labs with her. Continue low-carb (<150 [...] w/r/t gut microbiome. Referred to ADA and [employer] websites for additional information on topics including glycemic index/carbohydrate choices, protein sources. Osteoarthritis of knee 04/14/2021 Family history of ischemic h eart disease and other diseases of the circulatory system 01/31/2020 Atypical squamous cells of u ndetermined significance (ASCUS) on Papanicolaou smear of cervix 11/09/2018 Edema of lower extremity 01/04/2018 Lumbar radiculopathy 09/11/2017 Hx of bariatric surgery 07/24/2015 Assessment & Plan (06/15/2021 12:34 PM CDT): Routine labs to evaluate for vitamin deficiencies in setting of intestinal malabsorption. Reviewed BaS. Reviewed surgery notes. Assessment & Plan (04/14/2021 9:22 PM CDT): Reviewed notes. Malabsorption 07/24/2015 Resolved Problems Problem Noted Date Diagnosed Date Resolved Date Other chest pain 01/08/2024 03/10/2025 Assessment & Plan (01/08/2024 3:17 PM CDT): [...] does not have risk factors for CAD. Screening for malignant neoplasm of colon 10/04/2023 02/20/2025 Morbid obesity 10/19/2022 02/20/2025 BMI 40.0-44.9, adult 10/19/2022 025 Weight gain following gastric bypass surgery 02/20/2025 Hip pain 09/15/2022 03/10/2025 Knee pain 09/15/2022 02/20/2025 Candidiasis of vagina 09/15/20222024 Illness 09/15/2022 02/20/2025 Overexertion and strenuous movements 09/15/2022 02/24/2025 Pain in limb 09/15/2022 02/20/2025 Rash 09/15/2022 03/10/2025 Strain of knee 09/15/2022 02/20/2025 Obesity 09/15/2022 02/20/2025 Otalgia of right ear 07/20/2022 06/16/2 025 Abdominal pain 07/15/2022 02/20/2025 Wheezing 11/11/2021 02/20/2025 Encounter for medication monitoring 08/13/2021 02/20/2025 Assessment & Plan (08/13/2021 1:27 PM BOOK SORTER): Tolerating phentermine without adverse effects. Will get BP check. Fatigue 06/15/2021 03/10/2025 Syncope 03/17/2021 02/24/2025 Weight loss counseling, encounter for 03/02/2021 01/15/2025 [...] (07/07/2019): Added automatically from request for surgery [id number] Closed fracture of base of f ifth metatarsal bone 10/08/2018 03/10/2025 Obesity with body mass index 30 or greater 07/03/2017 02/20/2025 Polyhydramnios, antepartum complication 04/04/2017 02/24/2025 Supervision of normal pregna ncy in third trimester 04/04/2017 02/20/2025 Obesity with body mass index 30 or greater 07/24/2015 02/20/2025 No diagnosis on [place] 01/04/201502/20 Class 3 severe obesity due t o excess calories in adult 12/19/2014 02/20/2025 Overview (04/14/2021): S/P RYGB Assessment & Plan (10/10/2022 7:21 PM BOOK SORTER): Obesity is worse. Plan: Diet interventions: as noted.. and Regular aerobic exercise program discussed. Assessment & Plan (08/13/2021 1:19 PM BOOK SORTER): Obesity is improving with treatment. Diet interventions: [...] of elevator. Regular aerobic exercise program discussed. Immunizations Immunization Administration Dates Next Due Influenza, Quadrivalent, Spl it, Preservative Free, Intramuscular 07/20/2020 Influenza, Unspecified 07/26/2024(Deferr ed: Patient Refused),07/20/2023 Tdap 03/14/2021,05/30/2017 Social History Tobacco Use Types Packs/Day Years [...] on file Legal Sex Female 3:36 AM BOOK SORTER Gender Identity Female 03/02/2021 12:52 PM CDT Sexual Orientation Choose not to disclose 2020 12:52 PM CDT Last Filed Vital Signs Vital Sign Reading Time Taken Comments Blood Pressure 106/72 03/17/2025 1:16 PM CDT Pulse 94 03/17/2025 1:16 PM CDT Temperature 36.1 C (97 F) 03/17/2025 1:16 PM CDT Respiratory Rate 16 03/17/2025 1:16 PM CDT Oxygen Saturation 98% 03/17/2025 1:16 PM CDT Inhaled Oxygen Concentration - - Weight 108.9 kg (240 lb) 03/17/2025 1:16 PM CDT Height 157.5 cm (5' 2) 03/17/2025 1:16 PM CDT Body Mass Index 43.9 03/17/2025 1:16 PM CDT Plan of Treatment Not on file Medical Devices Implanted Type Area Speeder Frame Tender Device Identifier Shelf Expiration Date Model / Serial / Lot [employer] Composix 6x4in Monofilament Nonabsorbable Seal Edge Low Profile [id number] - [id number] Implanted:Qty: 1 on 12/13/2022 by Anuradha Flores MD at [facility] Mesh N/A: Abdomen [employer] Bard 04/21/2023 [id number] / / [id number] Procedures Procedure Name Priority Date/Time Associated Diagnosis Comments HEMOGLOBIN A1C Routine 03/24/2025 8:29 AM CDT Family history of diabetes mellitus Class 3 severe obesity due to excess calories with serious comorbidity and body mass index (BMI) of 40.0 to 44.9 in adult LIPID PANEL Routine 03/24/2025 8:29 AM CDT Lipid screening TSH Routine 03/24/2025 8:29 AM CDT Class 3 severe obesity due to excess calories with serious comorbidity and body mass index (BMI) of 40.0 to 44.9 in adult HEPATITIS B SURFACE ANTIGEN Routine 03/24/2025 8:29 AM CDT Need for hepatitis B screening test HEPATITIS B CORE ANTIBODY, TOTAL Routine 03/24/2025 8:29 AM CDT Need for hepatitis B screening test HEPATITIS B SURFACE ANTIBODY (IMMUNE STATUS) Routine 03/24/2025 8:29 AM CDT Need for hepatitis B screening test TROPONIN T HIGH-SENSITIVITY 2-HOUR Timed 03/05/2025 10:33 AM CDT XR CHEST 1 VIEW ED 03/05/2025 9:17 AM CDT EGFR STAT 03/05/2025 8:55 AM CDT DIFFERENTIAL AUTO STAT 03/05/2025 8:5 5 AM CDT TROPONIN T HIGH-SENSITIVITY SERIES (BASELINE, 2HR, 4HR, 6HR) STAT 03/05/2025 8:55 AM CDT CBC WITH AUTO DIFFERENTIAL STAT 03/05/2025 8:55 AM CDT COMPREHENSIVE METABOLIC PANEL STAT 03/05/2025 8:55 AM CDT INFLUENZA A/B, RSV, AND COVID-19 PCR STAT 03/05/2025 8:55 AM CDT ECG 12-LEAD STAT 03/05/2025 8:46 AM CDT TROPONIN T HIGH-SENSITIVITY 2-HOUR Timed 02/21/2025 2:31 [...] 1 VIEW ED 02/21/2025 12:23 AM CDT HIGH RISK HPV DNA DETECTION WITH GENOTYPING Routine 12/06/2024 12:00 PM CDT Abnormal uterine bleeding HEPATITIS PANEL, ACUTE Routine 3 3:23 PM BOOK SORTER Morbid obesity (HCC) Pre-op exam from Last 3 Months or Most Recently Relevant to Health Maintenance Results * Hepatitis B core antibody, total Blood (03/24/2025 8:29 AM CDT) Hep B core IgG/IgM Nonreactive Nonreactive Comment:Testing performed by : [facility], [address] [facility], [place]., [address] Blood 03/24/2025 8:29 AM CDT 03/24/2025 11:18 AM CDT Debbie Mendiola NP LAB MICROBIOLOGY - GENERAL OR DERABLES Final Result Performing Organization Address [facility] Co de Phone Number [address] [employer] [address] * Hepatitis B surface antibody (immune status) Blood (03/24/2025 8:29 AM CDT) HBsAb (immune status) Reactive Comment: Interpretive Data Nonreactive: This result is consistent with a lack of immunity to Hepatitis B Virus when used in the setting of routine screening. Equivocal: The immune status of the individual should be further assessed, if appropriate, after consideration of clinical status, risk factors, and additional diagnostic information. Reactive: This result is consistent with immunity to Hepatitis B Virus when used in the setting of routine screening. Current interpretive data was last revised on 19. HBsAb (immune status) index 644.0 mIUnits/m L [facility] Blood 03/24/2025 8:29 AM CDT 03/24/2025 10:24 AM CDT Debbie Mendiola NP LAB MICROBIOLOGY - GENERAL OR DERABLES Final Result Performing Organization Address [facility] Co de Phone Number [address] [employer] [address] * Hepatitis B Surface Antigen Blood (03/24/2025 8:29 AM CDT) Pathologist [facility] HepBsAg Nonreactive Nonreactive Blood 03/24/2025 8:29 AM CDT 03/24/2025 10:24 AM CDT Debbie Mendiola NP LAB MICROBIOLOGY - GENERAL OR DERABLES Final Result Performing Organization Address City/[facility] Co de Phone Number [address] [place] [address] * TSH (03/24/2025 8:29 AM CDT) Thyroid Stimulating Hormone 1.29 0.30 - 4.20 mcIUnit/mL Comment:Testing performed by : [address] [address] Blood 03/24/2025 8:29 AM CDT 03/24/2025 8:34 AM CDT Debbie Mendiola COMPUTER SCIENCE INSTRUCTOR LAB BLOOD ORDERABLES Final Re sult Performing Organization Address [facility] Co de Phone Number [facility] [place] [address] * Hemoglobin A1c (03/24/2025 8:29 AM CDT) Pathologist [facility] Hgb A1C 5.4 4.0 - 5.6 % Comment:Testing performed by : [address] [address] Estimated Average Glucose 108 mg/dL LANIE Comment: The ADA recommends reporting an estimated Average Glucose (eAG) with all Hemoglobin A1c results using the equation derived from a study of 507 normal and diabetic adults. Minority populations were underrepresented and children were not included. (Diabetes Care 31:6043-3043, 2008). The eAG is not equivalent to a fasting glucose. Testing performed by: [address] [address] Blood 03/24/2025 8:29 AM CDT 03/24/2025 8:34 AM CDT us Debbie Mendiola COMPUTER SCIENCE INSTRUCTOR LAB BLOOD ORDERABLES Final Re sult Performing Organization Address City/[facility] Co de Phone Number [place] [id number] [facility] [place] [address] * Lipid panel (03/24/2025 8:29 AM CDT) Pathologist [facility] Cholesterol 162 30 - 199 mg/dL Comment: Interpretive Data Ages < or = 19 years Acceptable: <170 mg/dL Borderline high: 170-199 mg/dL High: >or= 200 mg/dL Ages > or = 20 years Desirable: <200 mg/dL Borderline high: 200-239 mg/dL High: >or= 240 mg/dL Literature References: 1. Expert Panel on Integrated Guidelines for Cardiovascular Health and Risk Reduction in Children and Adolescents. Pediatrics 2011;128:S213 2. NCEP Expert Panel. Circulation 2004;110:227 Current Interpretive Data was last revised on 2018. Testing performed by: [address] [address] Triglycerides 82 <=149 mg/dL LANIE Comment: Interpretive Data Ages < or = 9 years Acceptable: <75 mg/dL Borderline high: 75-99 mg/dL High: >or= 100 mg/dL Ages 10 to 20 years Acceptable: <90 mg/dL Borderline high: 90-129 mg/dL High: >or= 130 mg/dL Ages > or = 20 years Desirable: <150 mg/dL Borderline high: 150-199 mg/dL High: 200-499 mg/dL Very high: >or= 499 mg/dL Literature References: 1. Expert Panel on Integrated Guidelines for Cardiovascular Health and Risk Reduction in Children and Adolescents. Pediatrics 2011;128:S213 2. NCEP Expert Panel. Circulation 2004;110:227 Current Interpretive Data was last revised on 2018. Testing performed by: [address] [address] HDL 48 >=40 mg/dL LANIE Comment: Interpretive Data Ages < or = 19 years Acceptable: >45 mg/dL Borderline low: 40-45 mg/dL Low: <40 mg/dL Ages > or = 20 years Desirable: >or= 60 mg/dL Low: <40 mg/dL Literature References: 1. Expert Panel on Integrated Guidelines for Cardiovascular Health and Risk Reduction in Children and Adolescents. Pediatrics 2011;128:S213 2. NCEP Expert Panel. Circulation 2004;110:227 Current Interpretive Data was last revised on 2018. Testing performed by: [address] [address] LDL, calculated 98 <=129 mg/dL LANIE Comment: Interpretive Data Ages < or = 19 years Acceptable: <110 mg/dL Borderline high: 110-129 mg/dL High: >or= 130 mg/dL Ages > or = 20 years Optimal: <100 mg/dL Near optimal: 100-129 mg/dL Borderline high: 130-159 mg/dL High: >160 mg/dL Calculated using the Stan LDL-C estimating equation. This equation was implemented on 2024. Prior to this date LDL-C was estimated using the Friedewald equation. Literature References: 1. Expert Panel on Integrated Guidelines for Cardiovascular Health and Risk Reduction in Children and Adolescents. Pediatrics 2011;128:S213 2. NCEP Expert Panel. Circulation 2004;110:227 3. Stan Edwards et al. DAREN Cardiol. 2020 January 23;5(5):540-548. doi: 10.1001/[email or web address] Current Interpretive Data was last revised on 2024. Testing performed by: [address] [address] Non-HDL Cholesterol 114 mg/dL LANIE WHITTEN Comment: Interpretive Data Ages < or = 19 years Acceptable: <120 mg/dL Borderline high: 120-144 mg/dL High: >145 mg/dL Ages > or = 20 years When triglycerides are >200 mg/dL, Non-HDL cholesterol is a secondary target of therapy with treatment goals that are 30 mg/dL greater than the LDL cholesterol target. Literature References: 1. Expert Panel on Integrated Guidelines for Cardiovascular Health and Risk Reduction in Children and Adolescents. Pediatrics 2011;128:S213 2. NCEP Expert Panel. Circulation 2004;110:227 Current Interpretive Data was last revised on 2018. Testing performed by: [address] [address] Chol/HDL ratio 3 LANIE Comment:Testing performed by : [address] [address] Blood 03/24/2025 8:29 AM CDT 03/24/2025 8:34 AM CDT Kristi WHITTEN - 03/24/2025 9:16 AM CDT Has the patient been fasting for 8 hours or more?->Yes us Debbie Mendiola COMPUTER SCIENCE INSTRUCTOR LAB BLOOD ORDERABLES Final Re sult LANIE WHITTEN [address] [facility] [place] [address] * Troponin T high-sensitivity 2-hour (03/05/2025 10:33 AM CDT) Trop T hs <6 <=14 ng/L Comment: Interpretive Data For further hscTnT resources including the diagnostic algorithm and an aid in interpretation, copy and paste this link: [email or web address].[email or web address]/show/[email or web address] Current Interpretive Data last revised 2020. Testing performed by: [facility], [address] [place] [address]., [address] Trop T hs delta 0 ng/L LANIE WHITTEN Comment:Testing performed by : [address] [address] Trop T hs interp Insignificant LANIE WHITTEN Comment:Testing performed by : [facility], [address] [place] [address]., [address] Blood 03/05/2025 10:3 3 AM CDT 03/05/2025 10:44 AM CDT Marvin Luque DO LAB BLOOD ORDERABLES Final Result [facility] [address] [facility] [place] [address] * XR Chest 1 Vw Portable (if patient condition/safety warrant portable) (03/05/2025 9:17 AM CDT) Anatomical Region Laterality Modality Body, Chest N/A Computed Radiogr aphy 03/05/2025 9:24 AM CDT Narrative 03/05/2025 9:25 AM CDT EXAM DESCRIPTION: XR CHEST 1 VIEW REASON FOR STUDY: Shortness of breath Came to ED for c/o SOB and headache that started yesterday. Reports home inhaler and nebulizer not helping. Reports a history of asthma. Denies history of migraines but reports light sensitivity and nausea/vomiting with headache. TECHNIQUE: Single frontal radiographic view(s) of the chest. COMPARISON: 02/21/2025 FINDINGS: The heart size is upper limits of normal. The pulmonary vasculature and mediastinum are grossly stable. There is no definite evidence of a pneumothorax. There is no definite evidence of pleural effusion. There are mild patchy bibasilar airspace opacities. The osseous structures are acutely grossly stable. IMPRESSION: 1. Mild patchy bibasilar airspace opacities, which is likely related to subsegmental atelectasis/scarring and less likely developing airspace disease. THIS IS AN ELECTRONICALLY VERIFIED FINAL REPORT 03/05/2025 9:25 AM - Electronically signed by En Manning D.O. PS: PS Report ID: [id number] Reading Location: [id number] Procedure Note En Manning DO - 03/05/2025 EXAM DESCRIPTION: XR CHEST 1 VIEW REASON FOR STUDY: Shortness of breath Came to ED for c/o SOB and headache that started yesterday. Reports home inhaler and nebulizer not helping. Reports a history of asthma. Denieshistory of migraines but reports light sensitivity and nausea/vomiting withheadache. TECHNIQUE: Single frontal radiographic view(s) of the chest. COMPARISON: 02/21/2025 FINDINGS: The heart size is upper limits of normal. The pulmonaryvasculature and mediastinum are grossly stable. There is no definite evidence of a pneumothorax. There is no definite evidence of pleural effusion. Thereare mild patchy bibasilar airspace opacities. The osseous structures are acutely grossly stable. IMPRESSION: 1. Mild patchy bibasilar airspace opacities, which is likely related to subsegmental atelectasis/scarring and less likely developing airspacedisease. THIS IS AN ELECTRONICALLY VERIFIED FINAL REPORT 03/05/2025 9:25 AM - Electronically signed by En Manning D.O. PS: PS Report ID: [id number] Reading Location: [id number] Marvin Luque DO IMG XR PROCEDURES Final Res ult * Troponin T high-sensitivity series (baseline, 2hr, 4hr, 6hr) (03/05/2025 8:55 AM CDT) Trop T hs <6 <=14 ng/L Comment: Interpretive Data For further hscTnT resources including the diagnostic algorithm and an aid in interpretation, copy and paste this link: [email or web address].[email or web address]/show/[email or web address] Current Interpretive Data last revised 2020. Testing performed by: [address] [address] Blood 03/05/2025 8:55 AM CDT 03/05/2025 9:00 AM CDT Marvin Luque DO LAB BLOOD ORDERABLES Final Result LANIE [address] [facility] Department [place] [address] * Influenza A/B, RSV, and COVID-19 PCR Nasopharyngeal (03/05/2025 8:55 AM CDT) [facility] COVID-19 RNA Negative Negative Comment:Testing performed by : [address] [address] Influenza A RNA Negative Negative LANIE Comment:Testing performed by : [address] [address] Influenza B RNA Negative Negative [facility] Comment:Testing performed by : [address] [address] RSV RNA Negative Negative [facility] Comment: Interpretive data: Testing performed by [facility]. This test is performed using the [employer] Xpert Xpress CoV-2/Flu/RSV plus assay. This is a multiplex, real-time reverse transcriptase PCR assay intended for the qualitative detection of nucleic acid from SARS-CoV-2, influenza A, influenza B, and respiratory syncytial virus. This assay has been cleared by the [place] Food and Drug administration. The performance characteristics have been verified by the [facility]. Results must be considered in the clinical context, and a negative result does not rule out infection. Interpretive Data last revised 2023 Testing performed by: [address] [place] [address] Nasopharyngeal 03/05/2025 8: 55 AM CDT 03/05/2025 9:00 AM CDT Narrative LANIE - 03/05/2025 9:41 AM CDT Is the Patient experiencing symptoms consistent with COVID?->Yes Marvin Luque DO LAB MICROBIOLOGY - GENERAL ORDERABLES Final Result Performing Organization Address [facility] Co de Phone Number LANIE [address] [place] [address] * eGFR (03/05/2025 8:55 AM CDT) eGFR >90 >=60 mL/min/1. 73 [...] was last reviewed 2021. Testing performed by: [facility], [address] [place] [address]., [address] Blood 03/05/2025 8:55 AM CDT 03/05/2025 9:00 AM CDT us Marvin Luque DO LAB BLOOD ORDERABLES Final Result Performing Organization Address City/[facility]/ZIP Co de Phone Number LANIE [address] [place] [address] * Differential, auto (03/05/2025 8:55 AM CDT) Neutrophil abs 3.67 1.50 - 6.50 K/cumm Comment:Testing performed by : [address] [address] Imm gran abs 0.01 0.00 - 0.10 K/cumm [facility] Comment:Testing performed by : [address] [address] Lymphocyte abs 1.33 0.80 - 3.30 K/cumm [facility] Comment:Testing performed by : [address] [address] Monocyte abs 0.58 0.20 - 0.80 K/cumm [facility] Comment:Testing performed by : [address] [address] Eosinophil abs 0.14 0.00 - 0.50 K/cumm [facility] Comment:Testing performed by : [address] [address] Basophil abs 0.03 0.00 - 0.10 K/cumm [facility] Comment:Testing performed by : [address] [address] Neutrophil pct 63.7 % [facility] Comment: Interpretive Data Percent cell count reference ranges are not reported, since discordance with absolute values may lead to misinterpretation of CBC data. Current Interpretive Data was last revised on 2018. Testing performed by: [address] [address] Imm gran pct 0.2 % [facility] Comment: Interpretive Data Percent cell count reference ranges are not reported, since discordance with absolute values may lead to misinterpretation of CBC data. Current Interpretive Data was last revised on 2018. Testing performed by: [address] [address] Lymphocyte pct 23.1 % [facility] Comment: Interpretive Data Percent cell count reference ranges are not reported, since discordance with absolute values may lead to misinterpretation of CBC data. Current Interpretive Data was last revised on 2018. Testing performed by: [address] [address] Monocyte pct 10.1 % LANIE Comment: Interpretive Data Percent cell count reference ranges are not reported, since discordance with absolute values may lead to misinterpretation of CBC data. Current Interpretive Data was last revised on 2018. Testing performed by: [address] [address] Eosinophil pct 2.4 % LANIE Comment: Interpretive Data Percent cell count reference ranges are not reported, since discordance with absolute values may lead to misinterpretation of CBC data. Current Interpretive Data was last revised on 2018. Testing performed by: [address] [address] Basophil pct 0.5 % LANIE Comment: Interpretive Data Percent cell count reference ranges are not reported, since discordance with absolute values may lead to misinterpretation of CBC data. Current Interpretive Data was last revised on 2018. Testing performed by: [address] [address] Blood 03/05/2025 8:55 AM CDT 03/05/2025 9:00 AM CDT Marvin Luque DO LAB BLOOD ORDERABLES Final Result LANIE [address] [facility] Department of [facility] [place], [place] [id number] * (ABNORMAL) CBC with auto differential (03/05/2025 8:55 AM CDT) WBC 5.76 3.80 - 9.90 K/cumm Comment:Testing performed by : [address] [address] Hgb 12.7 11.9 - 15.5 g/dL LANIE WHITTEN Comment:Testing performed by : [address] [address] Hct 38.2 35.6 - 45.5 % LANIE WHITTEN Comment:Testing performed by : [address] [address] Plt 308 150 - 400 K/cumm LANIE WHITTEN Comment:Testing performed by : [address] [address] MPV 9.3 9.1 - 12.3 fL LANIE WHITTEN Comment:Testing performed by : [address] [address] RBC 4.53 3.90 - 5.20 M/cumm LANIE WHITTEN Comment:Testing performed by : [address] [address] MCV 84.3 81.3 - 96.4 fL LANIE WHITTEN Comment:Testing performed by : [address] [address] MCH 28.0 27.1 - 33.3 pg LANIE WHITTEN Comment:Testing performed by : [address] [address] MCHC 33.2 32.3 - 35.7 g/dL LANIE WHITTEN Comment:Testing performed by : [address] [address] RDW CV 22.2(H) 11.1 - 14.9 % LANIE WHITTEN Comment:Testing performed by : [address] [address] RDW SD 65.4(H) 35.7 - 48.1 fL LANIE WHITTEN Comment:Testing performed by : [address] [address] NRBC abs 0.00 0.00 - 0.01 K/cumm LANIE WHITTEN Comment:Testing performed by : [address] [address] Blood 03/05/2025 8:55 AM CDT 03/05/2025 9:00 AM CDT Marvin Luque DO LAB BLOOD ORDERABLES Final Result LANIE WHITTEN [address] [facility] Department [place] [address] * Comprehensive metabolic panel (03/05/2025 8:55 AM CDT) [facility] Sodium 136 135 - 145 mmol/L Comment:Testing performed by : [address], [place]., [address] Potassium, pl 4.0 3.3 - 4.9 mmol/L LANIE Comment: Hemolyzed; Potassium value may be falsely elevated by as much as 1.0 mmol/L. Suggest redraw and reanalysis. Testing performed by: [address], [place]., [address] Chloride 104 97 - 110 mmol/L [facility] Comment:Testing performed by : [address], [place]., [address] CO2 23 22 - 32 mmol/L [facility] Comment:Testing performed by : [address], [place]., [address] Anion gap 9 2 - 15 mmol/L [facility] Comment:Testing performed by : [address] [address] BUN 10 6 - 25 mg/dL [facility] Comment:Testing performed by : [address], [place]., [address] Creatinine 0.62 0.60 - 1.10 mg/dL [facility] Comment:Testing performed by : [address] [address] Glucose 109 70 - 199 mg/dL [facility] Comment: Interpretive Data Fasting glucose >/= 126 [...] was last revised 2022. Testing performed by: [address], [place]., [address] Calcium 8.9 8.5 - 10.3 mg/dL LANIE Comment:Testing performed by : [address] [address] Bilirubin, total 0.2 0.1 - 1.2 mg/dL LANIE Comment:Testing performed by : [address] [address] Protein, pl 7.4 6.5 - 8.5 g/dL LANIE Comment:Testing performed by : [address] [address] Albumin 3.8 3.5 - 5.0 g/dL LANIE Comment:Testing performed by : [address], [address] Alk phos 129 40 - 130 Units/L LANIE Comment:Testing performed by : [address], [address] ALT 40 7 - 45 Units/L LANIE Comment:Testing performed by : [address], [address] AST 40 10 - 45 Units/L LANIE Comment: Hemolyzed; result may be falsely elevated Testing performed by: [address] [address] Blood 03/05/2025 8:55 AM CDT 03/05/2025 9:00 AM CDT Marvin Luque DO LAB BLOOD ORDERABLES Final Result LANIE [address] [facility] Department of [facility] [place], [place] [id number] * ECG 12 lead (03/05/2025 8:46 AM CDT) Ventricular Rate EKG/Min 67 BPM [facility] Atrial Rate 67 BPM [facility] GA-Interval (MSEC) 160 ms [facility] QRS-Interval (MSEC) 78 ms [facility] QT-Interval (MSEC) 418 ms [facility] QTc 441 ms [facility] P [place] 34 degrees [facility] R [place] 12 degrees [facility] T [place] -1 degrees [facility] Diagnosis Normal sinus rhythm Within normal limits When compared with ECG of 21-FEB-2025 00:38, Vent. rate has decreased BY 36 BPM Inverted T waves have replaced nonspecific T wave abnormality in Inferior leads Confirmed by SULTAN AVILA M.D. ([id number]) on 03/05/2025 8:54:54 PM [facility] 03/05/2025 8:46 AM CDT 03/05/2025 8:54 PM CDT Marvin Luque DO ECG ORDERABLES Final Resul t Performing Organization Address City/[facility]/ZIP Co de Phone Number [facility] ClaimReturn [facility] * Troponin T high-sensitivity 2-hour (02/21/2025 2:31 AM CDT) Trop T hs 8 <=14 ng/L Comment: Interpretive Data For further hscTnT resources including the diagnostic algorithm and an aid in interpretation, copy and paste this link: https://nrl.testcatalog.org/show/hsTrop Current Interpretive Data last revised 2020. Testing performed by: [facility], [address] [place] [address]., [address] Trop T hs delta 2 ng/L LANIE Comment:Testing performed by : [facility], [address] [place] [address]., [address] Trop T hs interp Insignificant LANIE Comment:Testing performed by : [address] [address] Blood 02/21/2025 2:31 AM CDT 02/21/2025 2:33 AM CDT Deepa Aguayo COMPUTER SCIENCE INSTRUCTOR LAB BLOOD ORDERABLES Fin al Result Performing Organization Address City/[facility] Co de Phone Number [facility] [address] [facility] Department [place] [address] * CT Chest PE (CTA) [...] Amanda Leon M.D. SN: SN Report ID: [id number] Reading Location: [id number] Procedure Note Amanda Leon MD - 02/21/2025 [...] by Amanda Leon M.D. SN: Report ID: [id number] Reading Location: [id number] Mehdi Ernst DO IMG CT PROCEDURES Final [...] by Amanda Leon M.D. SN: Report ID: [id number] Reading Location: [id number] Procedure Note Amanda Leon MD - 02/21/2025 [...] Amanda Leon M.D. SN: SN Report ID: [id number] Reading Location: [place] [address] Mehdi Ernst DO IMG CT PROCEDURES Final Res ult * POCT hCG, urine (02/21/2025 12:43 AM CDT) Pathologist [facility] HCG, ur, POC Negative Negative Lot Number [id number] QC Backgroud Clear Acceptable QC Control Line Acceptable Urine 02/21/2025 12:4 3 AM CDT Deepa Aguayo COMPUTER SCIENCE INSTRUCTOR POINT OF CARE TEST ORDER FELIPE Final Result * Troponin T high-sensitivity series (baseline, 2hr, 4hr, 6hr) (02/21/2025 12:39 AM CDT) Pathologist [facility] Trop T hs <6 <=14 ng/L Comment: Interpretive Data For further hscTnT resources including the diagnostic algorithm and an aid in interpretation, copy and paste this link: https://nrl.testcatalog.org/show/hsTrop Current Interpretive Data last revised 2020. Testing performed by: [facility], [address] [place] [address]., [address] Blood 02/21/2025 12:3 9 AM CDT 02/21/2025 12:52 AM CDT Deepa Ramon Zohaibtian COMPUTER SCIENCE INSTRUCTOR LAB BLOOD ORDERABLES Fin al Result Performing Organization Address [facility] Co de Phone Number LANIE [address] [place] [address] * eGFR (02/21/2025 12:39 AM CDT) eGFR [...] was last reviewed 2021. Testing performed by: [address] [address] Blood 02/21/2025 12:3 9 AM CDT 02/21/2025 12:52 AM CDT us Deepa Aguayo COMPUTER SCIENCE INSTRUCTOR LAB BLOOD ORDERABLES Fin al Result Performing Organization Address City/[facility]/ZIP Co de Phone Number LANIE [address] [place], [place] [id number] * (ABNORMAL) Differential, auto (02/21/2025 12:39 AM CDT) Neutrophil abs 4.91 1.50 - 6.50 K/cumm Comment:Testing performed by : [address] [address] Imm gran abs 0.03 0.00 - 0.10 K/cumm LANIE Comment:Testing performed by : [address], [place]., [address] Lymphocyte abs 3.26 0.80 - 3.30 K/cumm LANIE Comment:Testing performed by : [address] [address] Monocyte abs 1.02(H) 0.20 - 0.80 K/cumm LANIE Comment:Testing performed by : [address], [place]., [address] Eosinophil abs 0.41 0.00 - 0.50 K/cumm LANIE Comment:Testing performed by : [address] [address] Basophil abs 0.05 0.00 - 0.10 K/cumm LANIE Comment:Testing performed by : [address] [address] Neutrophil pct 50.8 % [facility] Comment: Interpretive Data Percent cell count reference ranges are not reported, since discordance with absolute values may lead to misinterpretation of CBC data. Current Interpretive Data was last revised on 2018. Testing performed by: [address] [address] Imm gran pct 0.3 % [facility] Comment: Interpretive Data Percent cell count reference ranges are not reported, since discordance with absolute values may lead to misinterpretation of CBC data. Current Interpretive Data was last revised on 2018. Testing performed by: [address] [address] Lymphocyte pct 33.7 % [facility] Comment: Interpretive Data Percent cell count reference ranges are not reported, since discordance with absolute values may lead to misinterpretation of CBC data. Current Interpretive Data was last revised on 2018. Testing performed by: [address] [address] Monocyte pct 10.5 % [facility] Comment: Interpretive Data Percent cell count reference ranges are not reported, since discordance with absolute values may lead to misinterpretation of CBC data. Current Interpretive Data was last revised on 2018. Testing performed by: [address] [address] Eosinophil pct 4.2 % LANIE Comment: Interpretive Data Percent cell count reference ranges are not reported, since discordance with absolute values may lead to misinterpretation of CBC data. Current Interpretive Data was last revised on 2018. Testing performed by: [address] [address] Basophil pct 0.5 % LANIE Comment: Interpretive Data Percent cell count reference ranges are not reported, since discordance with absolute values may lead to misinterpretation of CBC data. Current Interpretive Data was last revised on 2018. Testing performed by: [address] [address] Blood 02/21/2025 12:3 9 AM CDT 02/21/2025 12:52 AM CDT Deepa Aguayo COMPUTER SCIENCE INSTRUCTOR LAB BLOOD ORDERABLES [facility] al Result [facility] [address] [facility] Department [place] [address] * (ABNORMAL) Urinalysis reflex to microscopic and culture Urine (02/21/2025 12:39 AM CDT) Color, ur Yellow Yellow Comment:Testing performed by : [address] [address] Clarity, ur Turbid(A) Clear LANIE Comment:Testing performed by : [address] [address] Specific gravity, ur 1.037(H) 1.003 - 1.030 LANIE Comment:Testing performed by : [address] [address] pH, urine 6.0 LANIE Comment: Interpretive Data U rine pH is affected by diet, medications, systemic acid-base disturbances, and renal tubular function. pH may affect urinary stone formation. For example, urine pH below 6.0 may help reduce the tendency for calcium phosphate stones and pH greater than 6.0 may reduce the tendency for uric acid stone formation. Source: [facility] Current Interpretive Data was last revised on 2017 Testing performed by: [facility], [address] [place] [address], [place]., [address] Protein, ur ql 1+(A) Negative LANIE Comment:Testing performed by : [facility], [address] [place] [address], [place]., [address] Glucose, ur ql Negative Negative LANIE Comment:Testing performed by : [address], [place]., [address] Ketones, ur Trace(A) Negative LANIE Comment:Testing performed by : [address], [place]., [address] Bilirubin, ur Negative Negative LANIE Comment:Testing performed by : [address], [place]., [address] Blood, ur Trace(A) Negative LANIE Comment:Testing performed by : [address], [place]., [address] Urobilinogen, ur <2.0 <2.0 mg/dL LANIE Comment:Testing performed by : [address], [place]., [address] Nitrite, ur Negative Negative LANIE Comment:Testing performed by : [address], [place]., [address] Leukocyte esterase, ur 4+(A) Negative LANIE Comment:Testing performed by : [address], [place]., [address] UA reflex comment Reflex to microscopic UA will be performed. LANIE Comment:Testing performed by : [address], [place]., [address] Urine 02/21/2025 12:3 9 AM CDT 02/21/2025 12:52 AM CDT us Deepa Aguayo NP LAB MICROBIOLOGY - GENER AL ORDERABLES Final Result [facility] [address] [facility] Department [place] [address] * (ABNORMAL) CBC with auto differential (02/21/2025 12:39 AM CDT) [facility] WBC 9.68 3.80 - 9.90 K/cumm Comment:Testing performed by : [address] [address] Hgb 12.3 11.9 - 15.5 g/dL LANIE Comment:Testing performed by : [address] [address] Hct 37.2 35.6 - 45.5 % LANIE Comment:Testing performed by : [address] [address] Plt 358 150 - 400 K/cumm LANIE Comment:Testing performed by : [address] [address] MPV 9.2 9.1 - 12.3 fL LANIE Comment:Testing performed by : [address], [address] RBC 4.50 3.90 - 5.20 M/cumm LANIE Comment:Testing performed by : [address] [address] MCV 82.7 81.3 - 96.4 fL LANIE Comment:Testing performed by : [address], [address] MCH 27.3 27.1 - 33.3 pg LANIE Comment:Testing performed by : [address], [address] MCHC 33.1 32.3 - 35.7 g/dL LANIE Comment:Testing performed by : [address] [address] RDW CV 23.4(H) 11.1 - 14.9 % LANIE Comment:Testing performed by : [address], [address] RDW SD 67.7(H) 35.7 - 48.1 fL LANIE Comment:Testing performed by : [address] [address] NRBC abs 0.00 0.00 - 0.01 K/cumm LANIE Comment:Testing performed by : [address] [address] Blood 02/21/2025 12:3 9 AM CDT 02/21/2025 12:52 AM CDT Deepa Yenny gAuayo NP LAB BLOOD ORDERABLES Fin al Result [facility] [address] [facility] Department [place] [address] * Drugs of Abuse Screen, Urine without Confirmation (02/21/2025 12:39 AM CDT) Pathologist [facility] Amphetamine, ur Not Detected CutOff 500ng/mL Comment: Interpretive Data - Amphetamines: Samples containing greater than 500 ng/mL d-methamphetamine or other cross-reacting amphetamine compounds are reported as positive. Amphetamine immunoassays are subject to significant false positive rates due to cross-reactivity of non-amphetamine drugs. Confirmatory testing required for definitive results. Current Interpretive Data was last reviewed 2023. Testing performed by: [address] [address] Barbiturates, ur Not Detected CutOff 200ng/mL [facility] Comment: Interpretive Data - Barbiturates: Samples containing greater than 200 ng/mL secobarbital or other cross-reacting barbiturate compounds are reported as positive. False positive and false negative results are possible. Confirmatory testing required for definitive results. Current Interpretive Data was last reviewed 2023. Testing performed by: [address] [address] Benzodiazepines, ur Not Detected CutOff 100ng/mL [facility] Comment: Interpretive Data - Benzodiazepines: Samples containing greater than 100 ng/mL nordiazepam or other cross-reacting compounds are reported as positive. False positive and false negative results are possible. Confirmatory testing required for definitive results. Current Interpretive Data was last reviewed 2023. Testing performed by: [address] [address] Cannabinoids, ur Not Detected CutOff 50 ng/mL LANIE Comment: Interpretive Data - Cannabinoids: Samples containing greater than 50 ng/mL delta-9 THC -COOH or other cross- reacting compounds are reported as positive. False positive and false negative results are possible. Confirmatory testing required for definitive results. Current Interpretive Data was last reviewed 2023. Testing performed by: [address] [address] Cocaine, ur Not Detected CutOff 150ng/mL [facility] Comment: Interpretive Data - Cocaine: Samples containing greater than 150 ng/mL benzoylecgonine or other cross- reacting compounds are reported as positive. False positive and false negative results are possible. Confirmatory testing required for definitive results. Current Interpretive Data was last reviewed 2023. Testing performed by: [address], [place]., [address] Fentanyl, Ur Not Detected CutOff 5 ng/mL [facility] Comment: Interpretive Data - Fentanyl: Samples containing greater than 1 ng/mL fentanyl or other cross-reacting fentanyl compounds are reported as positive. False positive and false negative results are possible. Confirmatory testing required for definitive results. Current Interpretive Data was last reviewed 2023. Testing performed by: [address] [address] Methadone, ur Not Detected CutOff 300ng/mL [facility] Comment: Interpretive Data - Methadone: Samples containing greater than 300 ng/mL d,l-methadone or other cross-reacting compounds are reported as positive. False positive and false negative results are possible. Confirmatory testing required for definitive results. Current Interpretive Data was last reviewed 2023. Testing performed by: [address] [address] Opiates, ur Not Detected CutOff 300ng/mL [facility] Comment: Interpretive Data - Opiates: Samples containing greater than 300 ng/mL morphine or other cross-reacting compounds are reported as positive. False positive and false negative results are possible. Confirmatory testing required for definitive results. Current Interpretive Data was last reviewed 2023. Testing performed by: [address], [place]., [address] Oxycodone, ur Not Detected CutOff 100ng/mL [facility] Comment: Interpretive Data - Oxycodone: Samples containing greater than 100 ng/mL oxycodone or other cross-reacting compounds are reported as positive. False positive and false negative results are possible. Confirmatory testing required for definitive results. Current Interpretive Data was last reviewed 2023. Testing performed by: [address] [address] Phencyclidine, ur Not Detected CutOff 25 ng/mL LANIE Comment: Interpretive Data - Phencyclidine: Samples containing greater than 25 ng/mL phencyclidine or other cross-reacting compounds are reported as positive. False positive and false negative results are possible. Confirmatory testing required for definitive results. Current Interpretive Data was last reviewed 2023. Testing performed by: [address] [address] Urine Creatinine 254 mg/dL LANIE Comment: Interpretive Data Urine Creatinine: < 10 mg/dL is extremely dilute = or > 10 but < 20 mg/dL is dilute = or > 20 mg/dL is normal Current Interpretive Data was last revised on 2017. Testing performed by: [address] [address] Urine 02/21/2025 12:3 9 AM CDT 02/21/2025 12:52 AM CDT Narrative [facility] - 02/21/2025 1:19 AM CDT Drug of Abuse screening is performed by immunoassay for medical purposes only. This is not to be used for Pain Management purposes. Deepa Aguayo COMPUTER SCIENCE INSTRUCTOR LAB URINE ORDERABLES [facility] al Result LANIE [address] [facility] Department [place] [address] * (ABNORMAL) Urinalysis, microscopic only (02/21/2025 12:39 AM CDT) WBC, ur >50(A) 0 - 5 /HPF Comment:Testing performed by : [address] [address] RBC, ur 21-50(A) 0 - 2 /HPF LANIE Comment:Testing performed by : [address] [address] Epithelial cells, squamous, ur >50(A) 0 - 5 /HPF LANIE Comment:Testing performed by : [facility], [address] [place] [address]., [address] Mucous, ur Present(A) LANIE Comment:Testing performed by : [address] [address] Culture Reflex Comment Reflex to urine culture will be performed. LANIE Comment:Testing performed by : [address] [address] Urine 02/21/2025 12:3 9 AM CDT 02/21/2025 12:52 AM CDT us Deepa Aguayo COMPUTER SCIENCE INSTRUCTOR LAB URINE ORDERABLES Fin al Result Performing Organization Address City/[facility] Co de Phone Number LANIE [address] [facility] Department [place] [address] * (ABNORMAL) D-dimer, quantitative (02/21/2025 12:39 AM [...] 68, VTE cut-off 680 ng/ml FEU. References; Schouten HT et al. Brit Med J. 2013;346:f2492. Sofy et al. Annals Int Med. 2015;163:701-11. Current interpretive data was last revised on 2019. Testing performed by: [address] [address] Blood 02/21/2025 12:3 9 AM CDT 02/21/2025 12:52 AM CDT us Deepa Aguayo COMPUTER SCIENCE INSTRUCTOR LAB BLOOD ORDERABLES Fin al Result Performing Organization Address City/[facility] Co de Phone Number [phone] [place] [address] * Urine culture Urine (02/21/2025 12:39 AM CDT) Report Final Report: Growth indicative of contamination with periurethral faizan. Please submit a new specimen with special attention given to the collection process and to prompt transport to the laboratory. Comment:Testing performed by : [facility], [address] [place]., [address] Organism GROWTH INDICATES CONTAM WITH PERIURETHRAL FAIZAN. LANIE Urine 02/21/2025 12:3 9 AM CDT 02/21/2025 3:38 AM CDT Narrative LANIE - 02/22/2025 1:59 PM CDT Urine culture reflexed based upon urinalysis results. Testing performed by [facility] Microbiology Laboratory ([phone]) Deepa Aguayo COMPUTER SCIENCE INSTRUCTOR LAB MICROBIOLOGY - [facility] AL ORDERABLES Final Result Performing Organization Address [facility] de Phone Number [place] [phone] [place] [address] * (ABNORMAL) Comprehensive metabolic panel (02/21/2025 12:39 AM CDT) Sodium 135 135 - 145 mmol/L Comment:Testing performed by : [address] [address] Potassium, pl 4.0 3.3 - 4.9 mmol/L LANIE Comment:Testing performed by : [address] [address] Chloride 104 97 - 110 mmol/L LANIE Comment:Testing performed by : [address] [address] CO2 18(L) 22 - 32 mmol/L LANIE Comment:Testing performed by : [address] [address] Anion gap 13 2 - 15 mmol/L LANIE Comment:Testing performed by : [address] [address] BUN 13 6 - 25 mg/dL LANIE Comment:Testing performed by : [address] [address] Creatinine 0.67 0.60 - 1.10 mg/dL LANIE Comment:Testing performed by : [address] [address] Glucose 97 70 - 199 mg/dL LANIE [...] last revised 2022. Testing performed by: [address] [address] Calcium 9.2 8.5 - 10.3 mg/dL LANIE Comment:Testing performed by : [address] [address] Bilirubin, total 0.3 0.1 - 1.2 mg/dL LANIE Comment:Testing performed by : [address] [address] Protein, pl 8.0 6.5 - 8.5 g/dL LANIE Comment:Testing performed by : [address] [address] Albumin 4.0 3.5 - 5.0 g/dL [facility] Comment:Testing performed by : [address] [address] Alk phos 141(H) 40 - 130 Units/L LANIE Comment:Testing performed by : [address] [address] ALT 37 7 - 45 Units/L LANIE Comment:Testing performed by : [address] [address] AST 33 10 - 45 Units/L LANIE WHITTEN Comment:Testing performed by : [facility], [address] [place] [address], [place]., [address] Blood 02/21/2025 12:3 9 AM CDT 02/21/2025 12:52 AM CDT Deepa Aguayo COMPUTER SCIENCE INSTRUCTOR LAB BLOOD ORDERABLES Fin al Result LANIE [address] [facility] Department [place] [address] * ECG 12 lead (02/21/2025 12:38 AM CDT) Ventricular Rate EKG/Min 103 BPM [facility] Atrial Rate 103 BPM [facility] GA-Interval (MSEC) 154 ms [facility] QRS-Interval (MSEC) 60 ms [facility] QT-Interval (MSEC) 340 ms [facility] QTc 445 ms [facility] P [place] 59 degrees [facility] R [place] 49 degrees [facility] T [place] 42 degrees [facility] Diagnosis Sinus tachycardia Nonspecific ST and T wave abnormality Abnormal ECG When compared with ECG of 16-FEB-2024 15:06, Vent. rate has increased BY 42 BPM Nonspecific T wave abnormality now evident in Anterior leads Confirmed by ANURADHA WOODS M.D. ([id number]) on 02/21/2025 11:22:34 PM [facility] 02/21/2025 12:3 8 AM CDT 02/21/2025 11:22 PM CDT us Deepa Aguayo COMPUTER SCIENCE INSTRUCTOR ECG ORDERABLES Final Re sult [facility] ClaimReturn [facility] * XR Chest 1 Vw Portable (02/21/2025 [...] Cathy Mishra M.D. LL: LL Report ID: [id number] Reading Location: [id number] Procedure Note Cathy Mishra MD - 02/21/2025 [...] Cathy Mishra M.D. LL: LL Report ID: [id number] Reading Location: [id number] Deepa Aguayo COMPUTER SCIENCE INSTRUCTOR IMG XR PROCEDURES Final Result * High Risk HPV DNA Detection with Genotyping (Molecular component) (12/06/2024 12:00 PM CDT) HPV HR 16 Not Detected Not Detected HPV HR [address] [facility] HPV HR Non 16/[address] Not [address] Not Detected [facility] Comment: Interpretive Data Nucleic acid amplification [...] this test have been verified by the [facility]. Correlate with separately reported cytology results, as applicable. Interpretive data last revised 23 Endocervical 12/06/2024 12:0 0 PM CDT 12/06/2024 6:[address] [facility] - 12/09/2024 5:21 PM CDT Clinical history and diagnosis->none Number of vials->1 Testing type->Screening Last menstrual period (date if known)->unknown us Nanette Dykes MD LAB BODY FLUIDS AND STOOLS ORDERABLES Final Result [facility] [address] Department [place] [address] * Hepatitis panel, acute (11/08/2022 3:23 PM BOOK SORTER) Pathologist [facility] Hep A IgM Nonreactive Nonreactive [facility] Hep B core IgM Nonreactive Nonreactive [facility] Hep C Ab Nonreactive Nonreactive [facility] Comment:Antibodies to HCV no t detected. Does NOT exclude the possibility of recent exposure to HCV. Current interpretive data was last revised on 22 HepBsAg Nonreactive Nonreactive [facility] Blood 11/08/2022 3:23 PM BOOK SORTER 11/08/2022 3:46 PM BOOK SORTER [place] Whitmore NP LAB MICROBIOLOGY - GENERAL ORDERABLES Final Result LANIE [facility] Department [place] [address] from Last 3 Months or Most Recently Relevant to Health Maintenance Insurance [facility] Advance Directives For more information, please contact: [phone] * Full Code (Latest Code Status on File) Date Activated Date Inactivated Comments 12/13/2022 1:11 PM 12/13/2022 11:16 PM * Full Code Date Activated Date Inactivated Comments 07/07/2019 5:22 AM 07/09/2019 4:55 PM Care Teams Data Coder Operator Relationship Specialty Start Date End Date Debbie Mendiola NP [address] [facility] [address] [address] PCP - General Family Medicine 02/24/25 Fiona Leon MD [address] [place] [address] Medical Oncologist/Cycle Director Hematology and Oncology 12/17/24
--- OUTSIDE RECORDS SUMMARY | 2025-04-11 17:29 | XMS_ITS | Clinical Summary ---
Author Organization [facility] Address [address] [place] [address] Care Team Providers Care Material Spreader Name Role Phone Fiona Leon MD Unavailable [phone] Debbie Mendiola NP Primary Care Provider Allergies Active Allergy Reactions Criticality Noted Date [...] for options. 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 During discussion patient notes [...] Advair. Discomfort with Advair noted. Seeking new cte teacher for alternative inhaler options. - Refer to pulmonology for asthma management. - Discuss inhaler alternatives with cte teacher. Assessment & Plan (01/08/2024 3:20 PM CDT): Nebs per her PCP. Elipta, atrovent, and advair. Postoperative incisional hernia 12/13/2022 Recurrent incisional hernia 12/08/2022 Overview (12/08/2022): Added automatically from request for surgery [id number] Disorder of hip joint 09/15/2022 Painless rectal [...] to hematology for ongoing management. Request new software quality automation engineer for closer location for infusions. Metabolic and nutritional disorder 04/14/2021 Assessment & Plan (07/24/2022 11:51 AM CDT): Reviewed most recent labs available. Continue low-carb (<150 g/day), low- glycemic diet. Consider metformin. Assessment & Plan (08/13/2021 1:27 PM CERTIFIED MEDICINE AIDE): Reviewed labs with her. Continue low-carb (<150 [...] w/r/t gut microbiome. Referred to ADA and [employer] websites for additional information on topics including [...] 09/15/2022 02/20/2025 Otalgia of right ear 07/20/2022 025 Abdominal pain 07/15/2022 02/20/2025 Wheezing 11/11/2021 02/20/2025 Encounter for medication monitoring 08/13/2021 02/20/2025 Assessment & Plan (08/13/2021 1:27 PM CERTIFIED MEDICINE AIDE): Tolerating phentermine without adverse effects. Will get [...] (07/07/2019): Added automatically from request for surgery [id number] Closed fracture of base of f ifth metatarsal bone 10/08/2018 03/10/2025 Obesity with body mass index 30 or greater 07/03/2017 02/20/2025 Polyhydramnios, antepartum complication 04/04/2017 02/24/2025 Supervision of normal pregna ncy in third trimester 04/04/2017 02/20/2025 Obesity with body mass index 30 or greater 07/24/2015 02/20/2025 No diagnosis on [place] I 01/04/201502/20 Class 3 severe obesity due t o excess calories in adult 12/19/2014 02/20/2025 Overview (04/14/2021): S/P RYGB Assessment & Plan (10/10/2022 7:21 PM CERTIFIED MEDICINE AIDE): Obesity is worse. Plan: Diet interventions: as noted.. and Regular aerobic exercise program discussed. Assessment & Plan (08/13/2021 1:19 PM CERTIFIED MEDICINE AIDE): Obesity is improving with treatment. Diet interventions: [...] Date Type Department Care Team Description 03/24/2025 8:25 AM CDT Lab [facility] [address] [place] [address] Need for hepatitis B screening test; Class 3 severe obesity due to excess calories with serious comorbidity and body mass index (BMI) of 40.0 to 44.9 in adult; Lipid screening; Family history of diabetes mellitus 03/24/2025 Results Follow-Up [facility] Family Medicine at [address] [place] [address] Nemo Wallis PA Hepatitis B surface antibody (immune status) Blood, Hepatitis B core antibody, total Blood, Hepatitis B Surface Antigen Blood, Additional followed-up results: 3 03/17/2025 1:30 PM CDT Office Visit [facility] Pulmonology [address] [facility] [address] [place] [address] Ambreen Rothamn MD MICHELE (obstructive sleep apnea) (Primary Dx); Moderate persistent asthma, unspecified whether complicated 03/10/2025 11:30 AM CDT Office Visit [facility] Medicine at [address] [place] [address] Nemo Wallis PA New daily persistent headache (Primary Dx); Dizziness; Nausea and vomiting, unspecified vomiting type; Mild persistent asthma without complication 03/07/2025 Nurse Triage [facility] at [address] [address] Debbie Mendiola NP 03/06/2025 ALICIA ED Outreach [facility] Accountable Care Organization [address] [place] [address] Genoveva Abreu MA 03/05/2025 8:55 AM CDT - 03/05/2025 12:01 PM CDT Emergency [facility] Emergency Department [address] [place] [address] Marvin Luque DO Shortness of breath (Primary Dx); Mild intermittent asthma with exacerbation Discharge Disposition: Discharge to home or self care 02/25/2025 Documentation [facility] [address] [place] [phone] Lashonda Marie RN 02/24/2025 2:00 PM CDT Office Visit [facility] at [address] [address] Debbie Mendiola NP Iron deficiency (Primary Dx); [...] CDT - 02/21/2025 3:38 AM CDT Emergency [facility] Emergency Department [address] [place] [address] Mehdi Ernst DO Shortness of breath (Primary Dx) Discharge Disposition: Discharge to home or self care 01/24/2025 Telephone [facility] Family Medicine at [address] [place] [address] Debbie Mendiola NP Appointment Request from Last 3 Months Immunizations Immunization Administration Dates Next Due Influenza, Quadrivalent, Spl it, Preservative Free, Intramuscular 07/20/2020 Influenza, Unspecified 07/26/2024(Deferr ed: Patient Refused),07/20/2023 Tdap 03/14/2021,05/30/2017 Surgical History Surgery Date Site/Laterality Comments SECTION 09/25/2016 - 09/24/2017 SECTION 09/25/2011 - 09/24/2012 VAGINAL DELIVERY 09/25/2004 - 09/24/20052006 GASTRIC BYPASS 09/25/2014 - 09/24/2015 TUBAL LIGATION 05/29/2017 ABDOMINAL SURGERY bowel obstruction surgery, stent placement COLONOSCOPY HERNIA REPAIR 2023 BARIATRIC SURGERY 2014 SECTION I v e had two Medical History Medical History Date Comments Osteoarthritis of knee 04/14/2021 Asthma 03/31/2023 GERD (gastroesophageal reflux disease) Chronic constipation Family History Medical History Relation Name Comments No Known Problems Father Cancer Mother Malou Salas Diabetes Mother Malou Salas Family history of diabetes mellitus - (Added by TW Conv) Hypertension Mother Malou Salas Family history of hypertension - (Added by [...] Hx Relation Name Status Comments Father Mother Malou Salas Other 1 Other 2 Other 3 Other [...] on file Legal Sex Female 3:36 AM CERTIFIED MEDICINE AIDE Gender Identity Female 03/02/2021 12:52 PM [...] 03/17/2025 1:16 PM CDT Plan of Treatment Health Maintenance Due Date Last Done Comments Varicella Vaccines (1 of 2 - 13+ 2-dose series) 1997 Regular Well Visit/Exam 18-64 2002 Pneumococcal vaccine <65 (1 of 2 - PCV) 2003 Breast Cancer Screening-Mammogram 02/16/2023 02/16/2022, 02/16/2022 Covid-19 Vaccine ( - 2023-2 5 season) 2024 10/05/2021, 01/26/2021, 01/05/2021 Influenza Vaccine (#1) 2025 , 07/20/2020 Cervical Cancer Screening 12/06/20252024, 12/06/2024 Depression Screening 02/24/2026 02/24/2025 DTaP/Tdap/Td Vaccine (3 - Td or Tdap) 03/14/2031 03/14/2021, 05/30/2017 Hepatitis C Screening Completed 11/08/2022 Hepatitis B Screening Completed 03/24/2025 HPV Vaccines Aged Out No longer eligi ble based on patient's age to complete this topic Medical Devices Implanted Type Area Paediatrician Device Identifier Shelf Expiration Date Model / Serial / Lot [employer]/C R [employer] Composix 6x4in Monofilament Nonabsorbable Seal Edge Low Profile [id number] - [id number] Implanted:Qty: 1 on 12/13/2022 by Anuradha Flores MD at [facility] Mesh N/A: Abdomen [employer] Bard 04/21/2023 [id number] / / [id number] Procedures Procedure Name Priority Date/Time Associated Diagnosis [...] Abnormal uterine bleeding HEPATITIS PANEL, ACUTE Routine 3:23 PM CERTIFIED MEDICINE AIDE Morbid obesity (HCC) Pre-op exam from Last 3 Months or Most Recently Relevant to Health Maintenance Results * Hepatitis B core antibody, total Blood (03/24/2025 8:29 AM CDT) Hep B core IgG/IgM Nonreactive Nonreactive Comment:Testing performed by : [facility], [address] [place] [address] Blood 03/24/2025 8:29 AM CDT 03/24/2025 11:18 AM CDT Debbie Mendiola NP LAB MICROBIOLOGY - GENERAL OR DERABLES Final Result Performing Organization Address [facility] Co de Phone Number MARY[address] [place] [address] * Hepatitis B surface antibody (immune status) [...] HBsAb (immune status) index 644.0 mIUnits/m L [facility] Blood 03/24/2025 8:29 AM CDT 03/24/2025 10:24 AM CDT Debbie Mendiola NP LAB MICROBIOLOGY - GENERAL OR DERABLES Final Result Performing Organization Address [facility] Co de Phone Number [place] [phone] [facility] [place] [address] * Hepatitis B Surface Antigen Blood (03/24/2025 8:29 AM CDT) HepBsAg Nonreactive Nonreactive Blood 03/24/2025 8:29 AM CDT 03/24/2025 10:24 AM CDT Debbie Mendiola NP LAB MICROBIOLOGY - GENERAL OR DERABLES Final Result Performing Organization Address [facility] Co de Phone Number LANIE [facility] [place] [address] * TSH (03/24/2025 8:29 AM CDT) Pathologist [facility] Thyroid Stimulating Hormone 1.29 0.30 - 4.20 mcIUnit/mL Comment:Testing performed by : [address] [address] Blood 03/24/2025 8:29 AM CDT 03/24/2025 8:34 AM CDT Debbie Mendiola NP LAB BLOOD ORDERABLES Final Re sult Performing Organization Address [facility] de Phone Number MARY[address] [address] * Hemoglobin A1c (03/24/2025 8:29 AM CDT) [facility] Hgb A1C 5.4 4.0 - 5.6 % Comment:Testing performed by : [address] [address] Estimated Average Glucose 108 mg/dL MARYJEWELL Comment: The ADA recommends reporting an estimated Average Glucose (eAG) with all Hemoglobin A1c results using the equation derived from a study of 507 normal and diabetic adults. Minority populations were underrepresented and children were not included. (Diabetes Care 31:5748-9228, 2008). The eAG is not equivalent to a fasting glucose. Testing performed by: [address] [address] Blood 03/24/2025 8:29 AM CDT 03/24/2025 8:34 AM CDT us Debbie Mendiola NP LAB BLOOD ORDERABLES Final Re sult Performing Organization Address [facility] de Phone Number [place] [phone] [place] [address] * Lipid panel (03/24/2025 8:29 AM CDT) Cholesterol 162 30 - 199 mg/dL Comment: [...] last revised on 2018. Testing performed by: [address] [address] Triglycerides 82 <=149 mg/dL LANIE Comment: Interpretive [...] Pediatrics 2011;128:S213 2. NCEP Expert Panel. Circulation 2003;110:227 Current Interpretive Data was last revised on 2018. Testing performed by: [address] [address] HDL 48 >=40 mg/dL LANIE Comment: Interpretive [...] last revised on 2018. Testing performed by: [address] [address] LDL, calculated 98 <=129 mg/dL LANIE WHITTEN Comment: Interpretive Data Ages [...] 3. Stan Edwards et al. DAREN Cardiol. 2019January 23;5(5):540-548. doi: 10.1001/jamacardio.2020.0013 Current Interpretive Data was last revised on 2024. Testing performed by: [address] [address] Non-HDL Cholesterol 114 mg/dL LANIE Comment: Interpretive Data Ages < [...] last revised on 2018. Testing performed by: [address] [address] Chol/HDL ratio 3 LANIE Comment:Testing performed by : [address] [address] Blood 03/24/2025 8:29 AM CDT 03/24/2025 8:34 AM CDT Narrative LANIE WHITTEN - 03/24/2025 9:16 AM CDT Has the patient been fasting for 8 hours or more?->Yes us Debbie Marlena BOILER ATTENDANT LAB BLOOD ORDERABLES Final Re sult Performing Organization Address [facility]/ZIP Co de Phone Number LANIE [address] [place] [address] * Troponin T high-sensitivity 2-hour (03/05/2025 10:33 AM CDT) Trop T hs <6 <=14 ng/L Comment: Interpretive Data For further hscTnT resources including the diagnostic algorithm and an aid in interpretation, copy and paste this link: https://nrl.testcatalog.org/show/hsTrop Current Interpretive Data last revised 2020. Testing performed by: [facility], [address] [place] [address]., [address] Trop T hs delta 0 ng/L LANIE Comment:Testing performed by : [address] [address] Trop T hs interp Insignificant LANIE Comment:Testing performed by : [facility], [address] [place] [address]., [address] Blood 03/05/2025 10:3 3 AM CDT 03/05/2025 10:44 AM CDT Marvin Luque DO LAB BLOOD ORDERABLES Final Result Performing Organization Address [facility] Co de Phone Number LANIE [address] [address] * XR Chest 1 Vw Portable (if [...] En Manning D.O. PS: PS Report ID: [id number] Reading Location: [place] [address] Procedure Note En Manning, - 03/05/2025 EXAM DESCRIPTION: XR CHEST 1 [...] En Manning D.O. PS: PS Report ID: [id number] Reading Location: [id number] Marvin Luque DO IMG XR PROCEDURES Final Res ult * Troponin T high-sensitivity series (baseline, 2hr, 4hr, 6hr) (03/05/2025 8:55 AM CDT) Trop T hs <6 <=14 ng/L Comment: Interpretive Data For further hscTnT resources including the diagnostic algorithm and an aid in interpretation, copy and paste this link: https://nrl.testcatalog.org/show/hsTrop Current Interpretive Data last revised 2020. Testing performed by: [address] [address] Blood 03/05/2025 8:55 AM CDT 03/05/2025 9:00 AM CDT Marvin Luque DO LAB BLOOD ORDERABLES Final Result [facility] [address] [facility] [place] [address] * Influenza A/B, RSV, and COVID-19 PCR Nasopharyngeal (03/05/2025 8:55 AM CDT) [facility] COVID-19 RNA Negative Negative Comment:Testing performed by : [address] [address] Influenza A RNA Negative Negative LANIE Comment:Testing performed by : [address] [address] Influenza B RNA Negative Negative [facility] Comment:Testing performed by : [address] [address] RSV RNA Negative Negative LANIE Comment: Interpretive data: Testing performed by [facility]. This test is performed using the [employer] Xpert Xpress CoV-2/Flu/RSV plus assay. This is a multiplex, real-time reverse transcriptase PCR assay intended for the qualitative detection of nucleic acid from SARS-CoV-2, influenza A, influenza B, and respiratory syncytial virus. This assay has been cleared by the [place] Food and Drug administration. The performance characteristics have been verified by the [facility]. Results must be considered in the clinical context, and a negative result does not rule out infection. Interpretive Data last revised 2023 Testing performed by: [facility], [address] [place] [address]., [address] Nasopharyngeal 03/05/2025 8: 55 AM CDT 03/05/2025 9:00 AM CDT Narrative LANIE - 03/05/2025 9:41 AM CDT Is the Patient experiencing symptoms consistent with COVID?->Yes Marvin Luque DO LAB MICROBIOLOGY - GENERAL ORDERABLES Final Result LANIE [address] [facility] Department [place] [address] * eGFR (03/05/2025 8:55 AM CDT) eGFR [...] was last reviewed 2021. Testing performed by: [facility], [address] [place] [address]., [address] Blood 03/05/2025 8:55 AM CDT 03/05/2025 9:00 AM CDT Marvin Lquue DO LAB BLOOD ORDERABLES Final Result LANIE [address] [facility] Department [place] [address] * Differential, auto (03/05/2025 8:55 AM CDT) Neutrophil abs 3.67 1.50 - 6.50 K/cumm Comment:Testing performed by : [address] [address] Imm gran abs 0.01 0.00 - 0.10 K/cumm LANIE Comment:Testing performed by : [address] [address] Lymphocyte abs 1.33 0.80 - 3.30 K/cumm LANIE Comment:Testing performed by : [address] [address] Monocyte abs 0.58 0.20 - 0.80 K/cumm LANIE Comment:Testing performed by : [address] [address] Eosinophil abs 0.14 0.00 - 0.50 K/cumm LANIE Comment:Testing performed by : [address] [address] Basophil abs 0.03 0.00 - 0.10 K/cumm LANIE Comment:Testing performed by : [address] [address] Neutrophil pct 63.7 % LANIE Comment: Interpretive Data Percent cell count reference ranges are not reported, since discordance with absolute values may lead to misinterpretation of CBC data. Current Interpretive Data was last revised on 2018. Testing performed by: [address] [address] Imm gran pct 0.2 % LANIE Comment: Interpretive Data Percent cell count reference ranges are not reported, since discordance with absolute values may lead to misinterpretation of CBC data. Current Interpretive Data was last revised on 2018. Testing performed by: [address] [place] [address] Lymphocyte pct 23.1 % LANIE Comment: Interpretive Data Percent cell count reference ranges are not reported, since discordance with absolute values may lead to misinterpretation of CBC data. Current Interpretive Data was last revised on 2018. Testing performed by: [address] [address] Monocyte pct 10.1 % LANIE Comment: Interpretive Data Percent cell count reference ranges are not reported, since discordance with absolute values may lead to misinterpretation of CBC data. Current Interpretive Data was last revised on 2018. Testing performed by: [address] [address] Eosinophil pct 2.4 % LANIE Comment: Interpretive Data Percent cell count reference ranges are not reported, since discordance with absolute values may lead to misinterpretation of CBC data. Current Interpretive Data was last revised on 2018. Testing performed by: [address] [address] Basophil pct 0.5 % LANIE Comment: Interpretive Data Percent cell count reference ranges are not reported, since discordance with absolute values may lead to misinterpretation of CBC data. Current Interpretive Data was last revised on 2018. Testing performed by: [address] [address] Blood 03/05/2025 8:55 AM CDT 03/05/2025 9:00 AM CDT Marvin Luque DO LAB BLOOD ORDERABLES Final Result [facility] [address] [facility] Department [place] [address] * (ABNORMAL) CBC with auto differential (03/05/2025 8:55 AM CDT) WBC 5.76 3.80 - 9.90 K/cumm Comment:Testing performed by : [address] [address] Hgb 12.7 11.9 - 15.5 g/dL LANIE Comment:Testing performed by : [address] [address] Hct 38.2 35.6 - 45.5 % LANIE Comment:Testing performed by : [address] [address] Plt 308 150 - 400 K/cumm LANIE Comment:Testing performed by : [address] [address] MPV 9.3 9.1 - 12.3 fL LANIE Comment:Testing performed by : [address] [address] RBC 4.53 3.90 - 5.20 M/cumm LANIE Comment:Testing performed by : [address] [address] MCV 84.3 81.3 - 96.4 fL LANIE Comment:Testing performed by : [address] [address] MCH 28.0 27.1 - 33.3 pg LANIE Comment:Testing performed by : [address] [address] MCHC 33.2 32.3 - 35.7 g/dL LANIE Comment:Testing performed by : [address] [address] RDW CV 22.2(H) 11.1 - 14.9 % LANIE Comment:Testing performed by : [address] [address] RDW SD 65.4(H) 35.7 - 48.1 fL LANIE Comment:Testing performed by : [address] [address] NRBC abs 0.00 0.00 - 0.01 K/cumm LANIE Comment:Testing performed by : [address] [address] Blood 03/05/2025 8:55 AM CDT 03/05/2025 9:00 AM CDT us Marvin Luque DO LAB BLOOD ORDERABLES Final Result LANIE [address] [facility] Department [place] [address] * Comprehensive metabolic panel (03/05/2025 8:55 AM CDT) Sodium 136 135 - 145 mmol/L Comment:Testing performed by : [address] [address] Potassium, pl 4.0 3.3 - 4.9 mmol/L LANIE Comment: Hemolyzed; Potassium value may be falsely elevated by as much as 1.0 mmol/L. Suggest redraw and reanalysis. Testing performed by: [address] [address] Chloride 104 97 - 110 mmol/L LANIE Comment:Testing performed by : [address] [address] CO2 23 22 - 32 mmol/L LANIE Comment:Testing performed by : [address] [address] Anion gap 9 2 - 15 mmol/L LANIE Comment:Testing performed by : [address] [address] BUN 10 6 - 25 mg/dL LANIE Comment:Testing performed by : [address] [address] Creatinine 0.62 0.60 - 1.10 mg/dL LANIE Comment:Testing performed by : [address] [address] Glucose 109 70 - 199 mg/dL LANIE Comment: Interpretive [...] was last revised 2022. Testing performed by: [facility], [address] [place] [address]., [address] Calcium 8.9 8.5 - 10.3 mg/dL LANIE Comment:Testing performed by : [address] [address] Bilirubin, total 0.2 0.1 - 1.2 mg/dL LANIE Comment:Testing performed by : [address] [address] Protein, pl 7.4 6.5 - 8.5 g/dL LANIE Comment:Testing performed by : [address] [address] Albumin 3.8 3.5 - 5.0 g/dL LANIE Comment:Testing performed by : [address] [address] Alk phos 129 40 - 130 Units/L ALNIE Comment:Testing performed by : [address] [address] ALT 40 7 - 45 Units/L LANIE Comment:Testing performed by : [address] [address] AST 40 10 - 45 Units/L LANIE Comment: Hemolyzed; result may be falsely elevated Testing performed by: [address] [address] Blood 03/05/2025 8:55 AM CDT 03/05/2025 9:00 AM CDT Marvin Luque DO LAB BLOOD ORDERABLES Final Result LANIE [address] [facility] Department [place] [address] * ECG 12 lead (03/05/2025 8:46 AM CDT) Ventricular Rate EKG/Min 67 BPM [facility] Atrial Rate 67 BPM [facility] ME-Interval (MSEC) 160 ms [facility] QRS-Interval (MSEC) 78 ms [facility] QT-Interval (MSEC) 418 ms [facility] QTc 441 ms [facility] P [place] 34 degrees [facility] R [place] 12 degrees [facility] T [place] -1 degrees [facility] Diagnosis Normal sinus rhythm Within normal limits When compared with ECG of 21-FEB-2025 00:38, Vent. rate has decreased BY 36 BPM Inverted T waves have replaced nonspecific T wave abnormality in Inferior leads Confirmed by SULTAN AVILA M.D. ([id number]) on 03/05/2025 8:54:54 PM [facility] 03/05/2025 8:46 AM CDT 03/05/2025 8:54 PM CDT us Marvin Luque DO ECG ORDERABLES Final Resul t Performing Organization Address City/[facility]/ZIP Co de Phone Number [facility] * Troponin T high-sensitivity 2-hour (02/21/2025 2:31 AM CDT) Trop T hs 8 <=14 ng/L Comment: Interpretive Data For further hscTnT resources including the diagnostic algorithm and an aid in interpretation, copy and paste this link: https://nrl.testcatalog.org/show/hsTrop Current Interpretive Data last revised 2020. Testing performed by: [address] [address] Trop T hs delta 2 ng/L LANIE WHITTEN Comment:Testing performed by : [address] [address] Trop T hs interp Insignificant LANIE Comment:Testing performed by : [address] [address] Blood 02/21/2025 2:31 AM CDT 02/21/2025 2:33 AM CDT Deepa Aguayo BOILER ATTENDANT LAB BLOOD ORDERABLES Fin al Result Performing Organization Address City/[facility]/ZIP Co de Phone Number LANIE [address] [facility] Department [place] [address] * CT Chest PE (CTA) [...] Amanda Leon M.D. SN: SN Report ID: [id number] Reading Location: [id number] Procedure Note Amanda Leon MD - 02/21/2025 [...] by Amanda Leon M.D. SN: Report ID: [id number] Reading Location: [place] [address] us Mehdi Ernst DO IMG CT PROCEDURES [...] by Amanda Leon M.D. SN: Report ID: [id number] Reading Location: [id number] Procedure Note Amanda Leon MD - 02/21/2025 [...] Amanda Leon M.D. SN: SN Report ID: [id number] Reading Location: [place] [address] Mehdi Ernst DO IMG CT PROCEDURES Final Res ult * POCT hCG, urine (02/21/2025 12:43 AM CDT) [facility] HCG, ur, POC Negative Negative Lot Number [id number] QC Backgroud Clear Acceptable QC Control Line Acceptable Urine 02/21/2025 12:4 3 AM CDT Deepa Aguayo NP POINT OF CARE TEST ORDER FELIPE Final Result * Troponin T high-sensitivity series (baseline, 2hr, 4hr, 6hr) (02/21/2025 12:39 AM CDT) [facility] Trop T hs <6 <=14 ng/L Comment: Interpretive Data For further hscTnT resources including the diagnostic algorithm and an aid in interpretation, copy and paste this link: https://nrl.testcatalog.org/show/hsTrop Current Interpretive Data last revised 2020. Testing performed by: [facility], [address] [place] [address]., [address] Blood 02/21/2025 12:3 9 AM CDT 02/21/2025 12:52 AM CDT Deepa Ramon Dede BOILER ATTENDANT LAB BLOOD ORDERABLES Fin al Result Performing Organization Address [facility]/ZIP Co de Phone Number LANIE [address] [place] [address] * eGFR (02/21/2025 12:39 AM CDT) eGFR [...] was last reviewed 2021. Testing performed by: [facility], [address] [place] [address]., [address] Blood 02/21/2025 12:3 9 AM CDT 02/21/2025 12:52 AM CDT us Deepa Aguayo BOILER ATTENDANT LAB BLOOD ORDERABLES Fin al Result MARY[address] [place] [address] * (ABNORMAL) Differential, auto (02/21/2025 12:39 AM CDT) Pathologist [facility] Neutrophil abs 4.91 1.50 - 6.50 K/cumm Comment:Testing performed by : [address] [address] Imm gran abs 0.03 0.00 - 0.10 K/cumm LANIE Comment:Testing performed by : [address] [address] Lymphocyte abs 3.26 0.80 - 3.30 K/cumm LANIE Comment:Testing performed by : [address] [address] Monocyte abs 1.02(H) 0.20 - 0.80 K/cumm LANIE Comment:Testing performed by : [address] [address] Eosinophil abs 0.41 0.00 - 0.50 K/cumm LANIE Comment:Testing performed by : [address] [address] Basophil abs 0.05 0.00 - 0.10 K/cumm [facility] Comment:Testing performed by : [address] [address] Neutrophil pct 50.8 % [facility] Comment: Interpretive Data Percent cell count reference ranges are not reported, since discordance with absolute values may lead to misinterpretation of CBC data. Current Interpretive Data was last revised on 2018. Testing performed by: [address] [address] Imm gran pct 0.3 % [facility] Comment: Interpretive Data Percent cell count reference ranges are not reported, since discordance with absolute values may lead to misinterpretation of CBC data. Current Interpretive Data was last revised on 2018. Testing performed by: [address] [address] Lymphocyte pct 33.7 % [facility] Comment: Interpretive Data Percent cell count reference ranges are not reported, since discordance with absolute values may lead to misinterpretation of CBC data. Current Interpretive Data was last revised on 2018. Testing performed by: [address] [address] Monocyte pct 10.5 % LANIE Comment: Interpretive Data Percent cell count reference ranges are not reported, since discordance with absolute values may lead to misinterpretation of CBC data. Current Interpretive Data was last revised on 2018. Testing performed by: [address] [address] Eosinophil pct 4.2 % LANIE Comment: Interpretive Data Percent cell count reference ranges are not reported, since discordance with absolute values may lead to misinterpretation of CBC data. Current Interpretive Data was last revised on 2018. Testing performed by: [address] [address] Basophil pct 0.5 % LANIE Comment: Interpretive Data Percent cell count reference ranges are not reported, since discordance with absolute values may lead to misinterpretation of CBC data. Current Interpretive Data was last revised on 2018. Testing performed by: [address] [address] Blood 02/21/2025 12:3 9 AM CDT 02/21/2025 12:52 AM CDT Deepa Aguayo BOILER ATTENDANT LAB BLOOD ORDERABLES Fin al Result [facility] [address] [facility] Department [place] [address] * (ABNORMAL) Urinalysis reflex to microscopic and culture Urine (02/21/2025 12:39 AM CDT) Color, ur Yellow Yellow Comment:Testing performed by : [address] [address] Clarity, ur Turbid(A) Clear LANIE Comment:Testing performed by : [address] [address] Specific gravity, ur 1.037(H) 1.003 - 1.030 LANIE Comment:Testing performed by : [address] [address] pH, urine 6.0 LANIE Comment: Interpretive Data U rine pH is affected by diet, medications, systemic acid-base disturbances, and renal tubular function. pH may affect urinary stone formation. For example, urine pH below 6.0 may help reduce the tendency for calcium phosphate stones and pH greater than 6.0 may reduce the tendency for uric acid stone formation. Source: [facility] [employer] Current Interpretive Data was last revised on 2017 Testing performed by: [facility], [address] [place] [address], [place]., [address] Protein, ur ql 1+(A) Negative LANIE Comment:Testing performed by : [address], [place]., [address] Glucose, ur ql Negative Negative LANIE Comment:Testing performed by : [address], [place]., [address] Ketones, ur Trace(A) Negative LANIE Comment:Testing performed by : [address], [place]., [address] Bilirubin, ur Negative Negative LANIE Comment:Testing performed by : [address], [place]., [address] Blood, ur Trace(A) Negative LANIE Comment:Testing performed by : [address], [place]., [address] Urobilinogen, ur <2.0 <2.0 mg/dL LANIE Comment:Testing performed by : [address], [place]., [address] Nitrite, ur Negative Negative LANIE Comment:Testing performed by : [address], [place]., [address] Leukocyte esterase, ur 4+(A) Negative LANIE Comment:Testing performed by : [address], [place]., [address] UA reflex comment Reflex to microscopic UA will be performed. LANIE Comment:Testing performed by : [address], [place]., [address] Urine 02/21/2025 12:3 9 AM CDT 02/21/2025 12:52 AM CDT us Deepa Yenny McFadin BOILER ATTENDANT LAB MICROBIOLOGY - GENER AL ORDERABLES Final Result [facility] [address] [facility] Department [place] [address] * (ABNORMAL) CBC with auto differential (02/21/2025 12:39 AM CDT) WBC 9.68 3.80 - 9.90 K/cumm Comment:Testing performed by : [address] [address] Hgb 12.3 11.9 - 15.5 g/dL LANIE Comment:Testing performed by : [address] [address] Hct 37.2 35.6 - 45.5 % LANIE Comment:Testing performed by : [address] [address] Plt 358 150 - 400 K/cumm LANIE Comment:Testing performed by : [address] [address] MPV 9.2 9.1 - 12.3 fL LANIE Comment:Testing performed by : [address] [address] RBC 4.50 3.90 - 5.20 M/cumm LANIE Comment:Testing performed by : [address] [address] MCV 82.7 81.3 - 96.4 fL LANIE Comment:Testing performed by : [address] [address] MCH 27.3 27.1 - 33.3 pg LANIE Comment:Testing performed by : [address] [address] MCHC 33.1 32.3 - 35.7 g/dL LANIE Comment:Testing performed by : [address] [address] RDW CV 23.4(H) 11.1 - 14.9 % LANIE Comment:Testing performed by : [address] [address] RDW SD 67.7(H) 35.7 - 48.1 fL LANIE WHITTEN Comment:Testing performed by : [facility], [address] [place] [address]., [address] NRBC abs 0.00 0.00 - 0.01 K/cumm LANIE WHITTEN Comment:Testing performed by : [facility], [address] [place] [address]., [address] Blood 02/21/2025 12:3 9 AM CDT 02/21/2025 12:52 AM CDT us Deepa Aguayo BOILER ATTENDANT LAB BLOOD ORDERABLES Fin al Result LANIE WHITTEN [address] [facility] Department [place] [address] * Drugs of Abuse Screen, Urine without Confirmation (02/21/2025 12:39 AM CDT) [facility] Amphetamine, ur Not Detected CutOff 500ng/mL Comment: Interpretive Data - Amphetamines: Samples containing greater than 500 ng/mL d-methamphetamine or other cross-reacting amphetamine compounds are reported as positive. Amphetamine immunoassays are subject to significant false positive rates due to cross-reactivity of non-amphetamine drugs. Confirmatory testing required for definitive results. Current Interpretive Data was last reviewed 2023. Testing performed by: [address] [address] Barbiturates, ur Not Detected CutOff 200ng/mL LANIE WHITTEN Comment: Interpretive Data - Barbiturates: Samples containing greater than 200 ng/mL secobarbital or other cross-reacting barbiturate compounds are reported as positive. False positive and false negative results are possible. Confirmatory testing required for definitive results. Current Interpretive Data was last reviewed 2023. Testing performed by: [address] [address] Benzodiazepines, ur Not Detected CutOff 100ng/mL LANIE WHITTEN Comment: Interpretive Data - Benzodiazepines: Samples containing greater than 100 ng/mL nordiazepam or other cross-reacting compounds are reported as positive. False positive and false negative results are possible. Confirmatory testing required for definitive results. Current Interpretive Data was last reviewed 2023. Testing performed by: [address] [address] Cannabinoids, ur Not Detected CutOff 50 ng/mL [facility] Comment: Interpretive Data - Cannabinoids: Samples containing greater than 50 ng/mL delta-9 THC -COOH or other cross- reacting compounds are reported as positive. False positive and false negative results are possible. Confirmatory testing required for definitive results. Current Interpretive Data was last reviewed 2023. Testing performed by: [address] [address] Cocaine, ur Not Detected CutOff 150ng/mL [facility] Comment: Interpretive Data - Cocaine: Samples containing greater than 150 ng/mL benzoylecgonine or other cross- reacting compounds are reported as positive. False positive and false negative results are possible. Confirmatory testing required for definitive results. Current Interpretive Data was last reviewed 2023. Testing performed by: [address] [address] Fentanyl, Ur Not Detected CutOff 5 ng/mL [facility] Comment: Interpretive Data - Fentanyl: Samples containing greater than 1 ng/mL fentanyl or other cross-reacting fentanyl compounds are reported as positive. False positive and false negative results are possible. Confirmatory testing required for definitive results. Current Interpretive Data was last reviewed 2023. Testing performed by: [address] [address] Methadone, ur Not Detected CutOff 300ng/mL [facility] Comment: Interpretive Data - Methadone: Samples containing greater than 300 ng/mL d,l-methadone or other cross-reacting compounds are reported as positive. False positive and false negative results are possible. Confirmatory testing required for definitive results. Current Interpretive Data was last reviewed 2023. Testing performed by: [address] [address] Opiates, ur Not Detected CutOff 300ng/mL [facility] Comment: Interpretive Data - Opiates: Samples containing greater than 300 ng/mL morphine or other cross-reacting compounds are reported as positive. False positive and false negative results are possible. Confirmatory testing required for definitive results. Current Interpretive Data was last reviewed 2023. Testing performed by: [address], [place] [address] Oxycodone, ur Not Detected CutOff 100ng/mL LANIE Comment: Interpretive Data - Oxycodone: Samples containing greater than 100 ng/mL oxycodone or other cross-reacting compounds are reported as positive. False positive and false negative results are possible. Confirmatory testing required for definitive results. Current Interpretive Data was last reviewed 2023. Testing performed by: [address] [address] Phencyclidine, ur Not Detected CutOff 25 ng/mL LANIE Comment: Interpretive Data - Phencyclidine: Samples containing greater than 25 ng/mL phencyclidine or other cross-reacting compounds are reported as positive. False positive and false negative results are possible. Confirmatory testing required for definitive results. Current Interpretive Data was last reviewed 2023. Testing performed by: [address] [address] Urine Creatinine 254 mg/dL LANIE Comment: Interpretive Data Urine Creatinine: < 10 mg/dL is extremely dilute = or > 10 but < 20 mg/dL is dilute = or > 20 mg/dL is normal Current Interpretive Data was last revised on 2017. Testing performed by: [address] [address] Urine 02/21/2025 12:3 9 AM CDT 02/21/2025 12:52 AM CDT Narrative LANIE - 02/21/2025 1:19 AM CDT Drug of Abuse screening is performed by immunoassay for medical purposes only. This is not to be used for Pain Management purposes. us Deepa Aguayo NP LAB URINE ORDERABLES Fin al Result LANIE [address] [facility] Department [place] [address] * (ABNORMAL) Urinalysis, microscopic only (02/21/2025 12:39 AM CDT) WBC, ur >50(A) 0 - 5 /HPF Comment:Testing performed by : [address] [place] [address] RBC, ur 21-50(A) 0 - 2 /HPF LANIE Comment:Testing performed by : [address] [address] Epithelial cells, squamous, ur >50(A) 0 - 5 /HPF LANIE Comment:Testing performed by : [address] [address] Mucous, ur Present(A) LANIE Comment:Testing performed by : [address] [address] Culture Reflex Comment Reflex to urine culture will be performed. LANIE Comment:Testing performed by : [address] [address] Urine 02/21/2025 12:3 9 AM CDT 02/21/2025 12:52 AM CDT Deepa Aguayo BOILER ATTENDANT LAB URINE ORDERABLES Fin al Result LANIE [address] [facility] Department [place] [address] * (ABNORMAL) D-dimer, quantitative (02/21/2025 12:39 AM [...] 68, VTE cut-off 680 ng/ml FEU. References; Schterrence HT et al. Brit Med J. 2013;346:f2492. Sofy TEMPLETON et al. Annals Int Med. 2015;163:701-11. Current interpretive data was last revised on 2019. Testing performed by: [address] [address] Blood 02/21/2025 12:3 9 AM CDT 02/21/2025 12:52 AM CDT Deepa Aguayo BOILER ATTENDANT LAB BLOOD ORDERABLES Fin al Result Performing Organization Address [facility] Co de Phone Number [address] [address] * Urine culture Urine (02/21/2025 12:39 AM CDT) Report Final Report: Growth indicative of contamination with periurethral faizan. Please submit a new specimen with special attention given to the collection process and to prompt transport to the laboratory. Comment:Testing performed by : [facility], [address] [place]., [address] Organism GROWTH INDICATES CONTAM WITH PERIURETHRAL FAIZAN. LANIE Urine 02/21/2025 12:3 9 AM CDT 02/21/2025 3:38 AM CDT Narrative LANIE - 02/22/2025 1:59 PM CDT Urine culture reflexed based upon urinalysis results. Testing performed by [facility] Microbiology Laboratory ([phone]) Deepa Aguayo BOILER ATTENDANT LAB MICROBIOLOGY - GENER AL ORDERABLES Final Result Performing Organization Address [facility] de Phone Number [address] [address] * (ABNORMAL) Comprehensive metabolic panel (02/21/2025 12:39 AM CDT) Sodium 135 135 - 145 mmol/L Comment:Testing performed by : [address] [address] Potassium, pl 4.0 3.3 - 4.9 mmol/L LANIE Comment:Testing performed by : [address] [address] Chloride 104 97 - 110 mmol/L LANIE Comment:Testing performed by : [address] [address] CO2 18(L) 22 - 32 mmol/L [facility] Comment:Testing performed by : [address] [address] Anion gap 13 2 - 15 mmol/L [facility] Comment:Testing performed by : [address] [address] BUN 13 6 - 25 mg/dL [facility] Comment:Testing performed by : [address] [address] Creatinine 0.67 0.60 - 1.10 mg/dL [facility] Comment:Testing performed by : [address] [address] Glucose 97 70 - 199 mg/dL [facility] Comment: Interpretive Data Fasting glucose >/= [...] was last revised 2022. Testing performed by: [address] [address] Calcium 9.2 8.5 - 10.3 mg/dL [facility] Comment:Testing performed by : [address] [address] Bilirubin, total 0.3 0.1 - 1.2 mg/dL [facility] Comment:Testing performed by : [address] [address] Protein, pl 8.0 6.5 - 8.5 g/dL [facility] Comment:Testing performed by : [address] [address] Albumin 4.0 3.5 - 5.0 g/dL [facility] Comment:Testing performed by : [address] [address] Alk phos 141(H) 40 - 130 Units/L LANIE WHITTEN Comment:Testing performed by : [facility], [address] [place] [address]., [address] ALT 37 7 - 45 Units/L LANIE Comment:Testing performed by : [facility], [address] [place] [address]., [address] AST 33 10 - 45 Units/L LANIE Comment:Testing performed by : [facility], [address] [place] [address]., [address] Blood 02/21/2025 12:3 9 AM CDT 02/21/2025 12:52 AM CDT us Deepa Aguayo BOILER ATTENDANT LAB BLOOD ORDERABLES Fin al Result Performing Organization Address City/[facility]/ZIP Co de Phone Number [facility] [address] [facility] Department [place] [address] * ECG 12 lead (02/21/2025 12:38 AM CDT) Ventricular Rate EKG/Min 103 BPM [facility] Atrial Rate 103 BPM [facility] ME-Interval (MSEC) 154 ms [facility] QRS-Interval (MSEC) 60 ms [facility] QT-Interval (MSEC) 340 ms [facility] QTc 445 ms [facility] P [place] 59 degrees [facility] R [place] 49 degrees [facility] T [place] 42 degrees [facility] Diagnosis Sinus tachycardia Nonspecific ST and T wave abnormality Abnormal ECG When compared with ECG of 16-FEB-2024 15:06, Vent. rate has increased BY 42 BPM Nonspecific T wave abnormality now evident in Anterior leads Confirmed by ANURADHA WOODS M.D. ([id number]) on 02/21/2025 11:22:34 PM [facility] 02/21/2025 12:3 8 AM CDT 02/21/2025 11:22 PM CDT us Deepa Aguayo BOILER ATTENDANT ECG ORDERABLES Final Re sult [facility] * XR Chest 1 [...] Cathy Mishra M.D. LL: LL Report ID: [id number] Reading Location: [id number] Procedure Note Cathy Mishra MD - 02/21/2025 [...] Cathy Mishra M.D. LL: LL Report ID: [id number] Reading Location: [id number] us Deepa Aguayo NP IMG XR PROCEDURES Final Result * High Risk HPV DNA Detection with Genotyping (Molecular component) (12/06/2024 12:00 PM CDT) HPV HR 16 Not Detected Not Detected HPV HR 18 Not Detected Not Detected [facility] HPV HR Non 16/18 Not Detected Not Detected [facility] Comment: Interpretive Data Nucleic acid amplification [...] this test have been verified by the [facility]. Correlate with separately reported cytology results, as applicable. Interpretive data last revised 23 Endocervical 12/06/2024 12:0 0 PM CDT 12/06/2024 6:01 PM CDT Narrative [facility] - 12/09/2024 5:21 PM CDT Clinical history and diagnosis->none Number of vials->1 Testing type->Screening Last menstrual period (date if known)->unknown us Nanette Dykes MD LAB BODY FLUIDS AND STOOLS ORDERABLES Final Result [facility] [address] Department [place] [address] * Hepatitis panel, acute (11/08/2022 3:23 PM CERTIFIED MEDICINE AIDE) Hep A IgM Nonreactive Nonreactive [facility] Hep B core IgM Nonreactive Nonreactive [facility] Hep C Ab Nonreactive Nonreactive [facility] Comment:Antibodies to HCV no t detected. Does NOT exclude the possibility of recent exposure to HCV. Current interpretive data was last revised on 22 HepBsAg Nonreactive Nonreactive [facility] Blood 11/08/2022 3:23 PM CERTIFIED MEDICINE AIDE 11/08/2022 3:46 PM CERTIFIED MEDICINE AIDE us [place] Whitmore NP LAB MICROBIOLOGY - GENERAL ORDERABLES Final Result [facility] Department [place] [address] from Last 3 Months or Most Recently Relevant to Health Maintenance Insurance [facility] Advance Directives For more information, please contact: [phone] * Full Code (Latest Code Status on File) Date Activated Date Inactivated Comments 12/13/2022 1:11 PM 12/13/2022 11:16 PM * Full Code Date Activated Date Inactivated Comments 07/07/2019 5:22 AM 07/09/2019 4:55 PM Care Teams Material Spreader Relationship Specialty Start Date End Date Debbie Mendiola NP [address] [facility] [place] [address] PCP - General Family Medicine 02/24/25 Fiona Leon MD [address] [place] [address] Medical Oncologist/Medical Technologist Microbiology Hematology and Oncology 12/17/24
--- OUTSIDE RECORDS SUMMARY | 2025-04-11 17:29 | XMS_ITS | Continuity of Care Document ---
Author Organization [facility] Address [address] [facility] [address] [place] [address] Phone Care Team Providers Care Interpreter Deaf Name Role Phone Isaias Allred Unavailable Unavailable Procedures Procedure Date Office/outpatient Visit, Est Office/outpatient Visit, New Advance Directives Directive Yes / No Effective Date File Name No Information Encounters Encounter Description Practice Location Reason(s) For Visit Diagnoses Date Provider Providers Copied on Encounter Office/outpat ient Visit, Est [facility], [address] [place] [address] [address], [place], [place], [id number], tel:[phone] SEC [facility] No Information [address] [facility] , [address], [place], [place], [facility], [place]. tel:[phone] Office/outpat ient Visit, [facility], [address] [place] [address] [address], [place], [place], [id number], [place] tel:[phone] SEC [facility] No Information [address] [facility] [place] , [address], [place], [address], [place]. tel:[phone] Family History Family Member Type Diagnosis Age At Onset No Information Payers Payer name Insurance type Covered libertarian ID Authoralexander aguiar(s) [facility] [id number] Social History Type Description Quantity Date Captured [...]
--- OUTSIDE RECORDS SUMMARY | 2025-04-11 17:29 | XMS_ITS | Data Portability ---
Author Organization [facility] Address [address] [place] [address] Care Team Providers Care Automatic Blocker Name Role Phone HERNANDEZ KAREEM Primary Care Provider Assessment Encounter Date Assessment Date Assessment LastModified [...] B core Ab) igm, serum 2023 024 [facility] (Lab), [address] [place], [address], 4 00:14:32 HBsAg (hepatitis B surface Ag), serum 2023 024 [facility] (Lab), [address] [place], [address], 4 00:14:31 hepatitis C virus Ab, serum 2023 024 [facility] (Lab), [address] [place], [address], 4 00:14:30 unlisted lab - HIV 1/2 antigen/ant ibody, reflex confirmatio n 2023 024 [facility] (Lab), [address], [place], [address], 4 00:14:31 RPR (rapid plasma reagin), serum 2023 024 [facility] (Lab), [address], [place], [address], 4 00:14:31 Referral None recorded. Procedures None recorded. Surgeries None recorded. Imaging US, pelvis 2022 023 [email or web address] [facility], [address], [address], [place], [address], 3 20:44:58 US, transvagina l 2022 023 [email or web address] [facility], [address], [place], [address], 3 20:44:58 Medication Orders None recorded. Patient TargetsNo targets recorded. Patient InstructionsNo instructions recorded. Reason for Referral None Reported. Results Created Date Observation Date Name Description Value Unit Range Abnormal Flag Note LastModifiedBy Organization Detail LastModifiedTime 06/23/2006/23/2023 pregn joshua test, urine HCG negati ve Not Available [facility] [address], [place], [address], 06/23/2023 17:10:07 06/27/20 23 06/27/2023 DHEA SULFA TE DHEA-sulfate 115 ug/dL Femal e Range s Age(y ) Range (ug/d L) 10-15 34-28 0 15-20 65-36 8 20-25 148-4 07 25-35 99-34 0 35-45 61-33 7 45-55 35-25 6 55-65 19-20 5 65-75 9-246 > 75 12-15 4 Not Available [facility] (Lab) [address], [place], [address], 07/05/2023 13:50:01 06/27/20 23 06/27/2023 PROGE STERO NE progesterone 0.30 NG/mL This assay was perfo rmed using [employer] ratio n reage nts and test kits. Value s obtai aminta with other assay metho ds or kits canno t be used inter [facility] . Femal e Proge stero ne Range s: Folli cular phase 0.06- 0.89 ng/mL Ovula tion phase 0.12- 12.00 ng/mL Lutea l phase 1.83- 23.90 ng/mL Postm enopa usal< 0.05- 0.13 ng/mL Healt hy Pregn ant Women 1st Trime ster1 1.0-4 4.30 2nd Trime ster2 5.40- 83.30 3rd Trime ster5 8.70- 214.0 0 Not Available [facility] (Lab) [address] [place], [address], 07/05/2023 13:50:02 06/27/20 23 06/27/2023 PROLA CTIN prolactin, total 14.40 NG/mL 4.79-2 3.30 This assay was perfo rmed using [employer] ratio n reage nts and test kits. Value s obtai aminta with other assay metho ds or kits canno t be used inter [facility] . Not Available [facility] (Lab) [address] [facility], [place], [address], 07/05/2023 13:50:03 06/27/20 23 06/27/2023 FSH, LH, ESTRA DIOL estradiol 91.1 pg/mL This assay was perfo rmed using [employer] n reage nts and test kits. Value s obtai aminta with other assay metho ds or kits canno t be used inter [facility] . Femal e Estra diol Range s: Folli cular phase 12.4- 233 pg/mL Ovula tion phase 41.0- 398 pg/mL Lutea l phase 22.3- 341 pg/mL Postm enopa usal< 5-138 pg/mL Healt hy Pregn ant Women 1st Trime ster1 54-32 43 pg/mL 2nd Trime ster1 561-2 1280 pg/mL 3rd Trime ster8 525-> 00939 pg/mL Not Available [facility] (Lab) [address] [facility], [place], [address], 07/05/2023 13:50:04 06/27/20 23 06/27/2023 FSH, LH, [...] use: 25.8- 134.8 mIU/m L Not Available [facility] (Lab) [address] [facility], [place], [address], 07/05/2023 13:50:04 06/27/20 23 06/27/2023 FSH, LH, [...] use: 7.7-5 8.5 mIU/m L Not Available [facility] (Lab) [address], [place], [address], 07/05/2023 13:50:04 06/27/20 23 06/27/2023 TSH, REFLE X FREE T4 TSH 0.54 uIU/m L 0.30-5 .33 Not Available [facility] (Lab) [address] [facility], [place], [address], 07/05/2023 13:50:05 06/27/20 23 06/27/2023 HUMAN SEX HORMO NE IVONNE NG GLOBU VANESA sex hormone binding globulin 72.0 nmole s/L 18.2-1 35.5 Not Available [facility] (Lab) [address] [facility], [place], [address], 07/05/2023 13:50:06 06/27/20 23 06/27/2023 HEMOG LOBIN [...] >8.0% Actio n sugge sted Not Available [facility] (Lab) [address], [place], [address], 07/05/2023 13:50:07 06/27/20 23 06/27/2023 17-OH PROGE [...] cteri stics have been deter mined by [facility]. It has not been clear ed or appro claire by FDA. This assay has been valid ated pursu ant to the CLIA regul ation s and is used for clini roby purpo ses. Perfo rming Organ izati on [facility] n: Site ID: EZ Name: [facility]/Song welsh [facility] [address] , Addre ss: [id number] [place] [address] [facility] tor: Loraine mckenzie MD,Ph D,JANE Not Available [facility] (Lab) [address] [place], [address], 07/05/2023 13:50:07 06/27/20 23 06/27/2023 TESTO STERO NE, FREE( DIALY SIS) AND TOTAL (LC/M S/MS) testosterone , total 28 NG/dL 2-45 For addit ional [facility] e refer to http: //[facility] ishmael bradley.que stdia gnost ics.c om/fa q/Tot Jakob Gray [facility] (This link is being provi ded for infor matio nal/e ducat ional purpo ses only. ) Not Available [facility] (Lab) [address] [place], [address], 07/05/2023 13:50:08 06/27/20 23 06/27/2023 TESTO STERO NE, FREE( DIALY SIS) AND TOTAL (LC/M S/MS) testosterone , free 3.1 pg/mL 0.1-6. 4 This test was devel oped and its fabiana tical perfo rmanc e rai cteri stics have been deter mined by [facility]. It has not been clear ed or appro claire by FDA. This assay has been valid ated pursu ant to the CLIA regul ation s and is used for clini roby purpo ses. Perfo rming Organ izati on Infor alethea n: Site ID: EZ Name: [facility]/Song hols [facility] [address] [place] , Addre ss: [id number] [place] [address] [facility] tor: Loraine mckenzie MD,Ph D,JANE Not Available [facility] (Lab) [address] [facility], [place], [address], 07/05/2023 13:50:08 09/05/20 23 09/05/2023 CT/GC AND TRICH OMONA S VAGIN JANAE (RRNA ), SWAB chlamydia trachomatis, PCR NEGATI VE negati ve Not Available [facility] (Lab) [address], [place], [address], 09/06/2023 13:27:32 09/05/20 23 09/05/2023 CT/GC AND TRICH OMONA S VAGIN JANAE (RRNA ), SWAB neisseria gonorrhoeae, PCR NEGATI VE negati ve Not Available [facility] (Lab) [address] [facility], [place], [address], 09/06/2023 13:27:32 09/05/20 23 09/05/2023 CT/GC AND TRICH OMONA S VAGIN JANAE (RRNA ), SWAB trichomonas vaginalis ribosomal RNA (rrna) NEGATI VE negati ve Not Available [facility] (Lab) [address], [place], [address], 09/06/2023 13:27:32 01/31/20 24 01/31/2024 HEPAT ITIS C ANTIB GARRET SCREE N, REFLE X TO CONFI RMATI ON hepatitis C antibody Non-re active non-re active Antib odies to HCV Not Detec luis, does not exclu de the possi bilit y of expos ure to HCV. Not Available [facility] (Lab) [address], [place], [address], 02/03/2024 00:14:30 01/31/20 24 01/31/2024 HIV 1/2 ANTIG EN/AN TIBOD Y, REFLE X CONFI RMATI ON HIV antigen/anti body Nonrea ctive nonrea ctive HIV-1 antig en and HIV-1 /HIV- 2 antib odies were not detec luis. No labor atory evide nce of HIV infec tion. Not Available [facility] (Lab) [address], [place], [address], 02/03/2024 00:14:31 01/31/20 24 01/31/2024 HEPAT ITIS B SURFA CE ANTIG EN hepatitis B surface antigen Non-re active non-re active This assay was perfo rmed using [employer] ratio n reage nts and test kits. Value s obtai aminta with other assay metho ds or kits canno t be used inter hall eably . Not Available [facility] (Lab) [address], [place], [address], 02/03/2024 00:14:31 01/31/20 24 01/31/2024 RPR SCREE N, REFLE X TITER /CONF IRMAT ION RPR screen Nonrea ctive nonrea ctive Not Available [facility] (Lab) [address], [place], [address], 02/03/2024 00:14:31 01/31/20 24 01/31/2024 HEPAT ITIS B CORE, IGM hepatitis B core IgM antibody Negati ve negati ve Not Available [facility] (Lab) [address] [facility], [place], [address], 02/03/2024 00:14:32 01/31/20 24 01/31/2024 IMAGE GUIDE D PAP AND HPV REGAR DLESS image guided Pap, HPV regardless of Pap result SEE RESULT S BELOW CASE REPOR T: Cytol ogy Gynec ologi roby Repor t Case: [id number] Autho brenda zaldivar Provi maura: Pierre Ann Colle cted: 01/30 1333 C[employer] COMPOS[employer] FEEDER Order ing Locat ion: [place] [facility] Recei claire: 01/31 0824 First Scree n: Clarita Flores Rescr een: Ilda Mckinney, CT Speci men: Manuel [...] epith elial Lesio n or Basil freeman (NIL) . Shift in tom sugge stive of [...] as clini gloria warra nted. Not Available [facility] (Lab) [address], [place], [address], 02/06/2024 09:56:19 01/31/20 24 01/31/2024 CT/GC (KEYLA) , THINP REP VIAL chlamydia trachomatis, PCR Negati ve negati ve Not Available [facility] (Lab) [address] [place], [address], 02/06/2024 09:56:20 01/31/20 24 01/31/2024 CT/GC (KEYLA) , THINP REP VIAL neisseria gonorrhoeae, PCR Negati ve negati ve Not Available [facility] (Lab) [address] [facility], [place], [address], 02/06/2024 09:56:20 01/31/20 24 01/31/2024 TRICH OMONA S VAGIN JANAE (RRNA ) trichomonas vaginalis ribosomal RNA (rrna) Negati ve negati ve Not Available [facility] (Lab) [address] [facility], [place], [address], 02/06/2024 09:56:21 08/21/20 24 08/21/2024 [facility] bacterial vaginosis (bv), tma Negati ve negati ve Not Available [facility] (Lab) [address] [facility], [place], [address], 08/23/2024 14:55:28 08/21/20 24 08/21/2024 [facility] MEÑO avni species, tma Negati ve negati ve Not Available [facility] (Lab) [address] [facility], [place], [address], 08/23/2024 14:55:28 08/21/20 24 08/21/2024 [facility] ME[facility]O avni glabrata, tma Negati ve negati ve Not Available [facility] (Lab) [address] [facility], [place], [address], 08/23/2024 14:55:28 08/21/20 24 08/21/2024 [facility], MEÑO trichomonas vaginalis, tma Negati ve negati ve Not Available [facility] (Lab) [address] [place], [address], 08/23/2024 14:55:28 08/21/20 24 08/21/2024 [facility], MEÑO chlamydia trachomatis, PCR Negati ve negati ve Not Available [facility] (Lab) [address] [place], [address], 08/23/2024 14:55:28 08/21/20 24 08/21/2024 [facility], MEÑO neisseria gonorrhoeae, PCR [...] ded in this panel . Not Available [facility] (Lab) [address] [facility], [place], [address], 08/23/2024 14:55:28 08/21/20 24 08/21/2024 HEPAT ITIS B SURFA CE ANTIG EN hepatitis B surface antigen Non-re active non-re active This assay was perfo rmed using [employer] ratio n reage nts and test kits. Value s obtai aminta with other assay metho ds or kits canno t be used inter hall eably . Not Available [facility] (Lab) [address] [facility], [place], [address], 08/23/2024 17:10:29 08/21/20 24 08/21/2024 HIV 1/2 ANTIG EN/AN TIBOD Y, REFLE X CONFI RMATI ON HIV antigen/anti body Nonrea ctive nonrea ctive HIV-1 antig en and HIV-1 /HIV- 2 antib odies were not detec luis. No labor atory evide nce of HIV infec tion. Not Available [facility] (Lab) [address] [facility], [place], [address], 08/23/2024 17:10:29 08/21/20 24 08/21/2024 HEPAT ITIS C ANTIB GARRET SCREE N, REFLE X TO CONFI RMATI ON hepatitis C antibody Non-re active non-re active Antib odies to HCV Not Detec luis, does not exclu de the possi bilit y of expos ure to HCV. Not Available [facility] (Lab) [address] [facility], [place], [address], 08/23/2024 17:10:29 08/21/20 24 08/21/2024 RPR SCREE N, REFLE X TITER /CONF IRMAT ION RPR screen Nonrea ctive nonrea ctive Not Available [facility] (Lab) [address] [facility], [place], [address], 08/23/2024 17:10:30 08/21/20 24 08/21/2024 HEPAT ITIS B CORE, IGM hepatitis B core IgM antibody Non-re active non-re active IgM anti- HBc not detec luis. Does not exclu de the possi bilit y of expos ure to or infec tion with HBV. Not Available [facility] (Lab) [address] [facility], [place], [address], 08/23/2024 17:10:30 06/26/20 23 06/26/2023 US, pelvi s No observ ation record ed. [email or web address] [facility] [address], [place], [address], 06/26/2023 17:14:08 06/26/20 23 06/26/2023 US, trans vagin al No observ ation record ed. [email or web address] [facility] [address], [place], [address], 06/26/2023 17:13:58 06/26/20 23 06/26/2023 US, pelvi s No observ ation record ed. [email or web address] [facility] [address], [place], [address], 06/26/2023 20:49:34 Result Notes None recorded. Problems Name Problem SNOMED Code Status Onset Date Resolution Date Notes Provider Name and Address Organization Details Recorded Time Proteinu anaya 14185872 Completed 201010/12/2020 Proteinu anaya;Prac esha ID: 0001 Shakira Maya MD [address], [place], [address], [facility] 17:42:52 Routine antenata l care Completed 201110/12/2020 Supervis ion of other normal pregnanc y;Practi ce ID: 0001 Shakira Maya MD [address], [place], [address], [facility] 17:42:54 Pain in throat 881904213 Completed 201110/12/2020 Throat pain;Pra ctice ID: 0001 Shakira Maya MD [address], [place], [address], [facility] 17:41:08 Primary uterine inertia - delivere d 162699092 Completed 201110/12/2020 Primary uterine inertia, with delivery ;Practic e ID: 0001 Shakira Maya MD [address], [place], [address], [facility] 17:41:39 Postpart um care Completed 201110/12/2020 Routine postpart um follow-u p;Practi ce ID: 0001 Shakira Maya MD [address], [place], [address], [facility] 17:41:16 Postoper ative follow-u p visit Completed 201110/12/2020 Follow-u p examinat ion, followin g other surgery; Practice ID: 0001 Shakira Maya MD [address], [place], [address], [facility] 17:41:13 Ill-defi aminta intestin al infectio n Completed 201110/12/2020 No Show Fee;Prac esha ID: 0001 Shakira Maya MD [address], [place], [address], [facility] 17:40:25 Secondar y amenorrh ea [id number] Completed 201610/12/2020 Secondar y amenorrh ea;Pract ice ID: 0001 Shakira Maya MD [address], [place], [address], [facility] 17:42:56 Pregnanc y detectio n examinat ion Completed 201610/12/2020 Encounte r for pregnanc y test, result positive ;Practic e ID: 0001 Shakira Maya MD [address], [place], [address], [facility] 17:41:18 Amenorrh ea [id number] Completed 201610/12/2020 Amenorrh ea;Recor ded Elsewher e: No Locat ion: [facility] S ource: EHR Business Intelligence Manager song: N Practi ce ID: 0001 Graham lable Time: 08:30:00 AM Shakira Maya MD [address], [place], [address], [facility] 17:39:13 Complica tion of pregnanc y, childbir th and/or puerperi 848298915 Completed 201610/12/2020 Oth diseases and conditio ns compl preg/chl dbrth;Pr actice ID: 0001 Shakira Maya MD [address], [place], [address], [facility] 17:44:11 Gestatio n period, 12 weeks 82450027 Completed 201610/12/2020 12 weeks gestatio n of pregnanc y;Practi ce ID: 0001 Shakira Maya MD [address], [place], [address], [facility] 1 17:39:42 Traumati c injury [id number] Completed 201610/12/2020 Strain of muscle of abdomen, subseque nt encounte r;Record ed Elsewher e: No Locat ion: [facility] S ource: EHR Business Intelligence Manager song: N Practi ce ID: 0001 Graham lable Time: 09:15:00 AM Shakira Maya MD [address], [place], [address], [facility] 17:40:28 Urinary tract infectio us disease [id number] Completed 201610/12/2020 Urinary tract infectio n, site not specifie d;Record ed Elsewher e: No Locat ion: [facility] S ource: EHR Business Intelligence Manager song: N Practi ce ID: 0001 Graham lable Time: 09:15:00 AM Shakira Maya MD [address], [place], [address], [facility] 1 17:44:13 Pregnanc y, childbir th and puerperi um finding Completed 201610/12/2020 Encntr for suprvsn of normal first preg, second trimeste r;Practi ce ID: 0001 Shakira Maya MD [address], [place], [address], [facility] 1 17:41:23 Uterine size for dates discrepa ncy Completed 201610/12/2020 Uterine size-pat e discrepa ncy, third trimeste r;Practi ce ID: 0001 Shakira Maya MD [address], [place], [address], [facility] 1 17:44:23 Gestatio n period, 29 weeks [id number] Completed 201610/12/2020 29 weeks gestatio n of pregnanc y;Practi ce ID: 0001 Shakira Maya MD [address], [place], [address], [facility] 1 17:40:01 Gestatio n period, 32 weeks [id number] Completed 201610/12/2020 32 weeks gestatio n of pregnanc y;Practi ce ID: 0001 Shakira Maya MD [address], [place], [address], [facility] 1 17:40:06 Gestatio n period, 31 weeks [id number] Completed 201610/12/2020 31 weeks gestatio n of pregnanc y;Practi ce ID: 0001 Shakira Maya MD [address], [place], [address], [facility] 1 17:40:04 Pregnanc y, childbir th and puerperi um finding Completed 201610/12/2020 Oth pregnanc y related conditio ns, first trimeste r;Practi ce ID: 0001 Shakira Maya MD [address], [place], [address], [facility] 1 17:39:23 Gestatio n period, 33 weeks [id number] Completed 201610/12/2020 33 weeks gestatio n of pregnanc y;Record ed Elsewher e: No Locat ion: [facility] S ource: EHR Business Intelligence Manager song: N Pam ce ID: 0001 Graham lable Time: 10:15:00 AM Shakira Maya MD [address], [place], [address], [facility] 1 17:41:04 Finding of urine substanc e level Completed 201610/12/2020 Proteinu anaya, unspecif ied;Janes rded Elsewher e: No Locat ion: [facility] S ource: EHR Business Intelligence Manager song: N Practi ce ID: 0001 Graham lable Time: 10:15:00 AM MD [address], [place], [address], [facility] 1 17:39:39 Pregnanc y-induce d edema and proteinu anaya without hyperten susana [id number] Completed 201610/12/2020 Gestatio nal edema with proteinu anaya, third trimeste r;Practi ce ID: 0001 Shakira Maya MD [address], [place], [address], [facility] 17:41:32 Gestatio n period, 34 weeks [id number] Completed 201610/12/2020 34 weeks gestatio n of pregnanc y;Record ed Elsewher e: No Locat ion: [facility] S ource: EHR Business Intelligence Manager song: N Practi ce ID: 0001 Graham lable Time: 09:30:00 AM Shakira Maya MD [address], [place], [address], [facility] 17:40:12 Gestatio n period, 35 weeks [id number] Completed 201610/12/2020 35 weeks gestatio n of pregnanc y;Practi ce ID: 0001 Shakira Maya MD [address], [place], [address], [facility] 17:40:14 Disorder of pregnanc y Completed 201610/12/2020 Polyhydr amnios, third trimeste r, not applicab le or unsp;Pra ctice ID: 0001 Shakira Maya MD [address], [place], [address], [facility] 17:39:27 Complica tion occurrin g during pregnanc y Completed 201610/12/2020 Infectio n oth prt genitl trct in pregnanc y, third trimeste r;Practi ce ID: 0001 Shakira Maya MD [address], [place], [address], [facility] 17:39:34 Gestatio n period, 36 weeks [id number] Completed 201610/12/2020 36 weeks gestatio n of pregnanc y;Practi ce ID: 0001 Shakira Maya MD [address], [place], [address], [facility] 17:40:16 Acute vaginiti s 65797566 Completed 201610/12/2020 Acute vaginiti s;Record ed Elsewher e: No Locat ion: [facility] S ource: EHR Business Intelligence Manager song: N Practi ce ID: 0001 Graham lable Time: 09:45:00 AM Shakira Maya MD [address], [place], [address], [facility] 17:39:11 Gestatio n period, 37 weeks 78653334 Completed 201610/12/2020 37 weeks gestatio n of pregnanc y;Practi ce ID: 0001 Shakira Maya MD [address], [place], [address], [facility] 17:40:18 Normal pregnanc y in multigra vita [id number] 42476 Completed 201610/12/2020 Encounte r for suprvsn of normal pregnanc y, third trimeste r;Practi ce ID: 0001 Shakira Maya MD [address], [place], [address], [facility] 17:41:01 Gestatio n period, 38 weeks [id number] Completed 201610/12/2020 38 weeks gestatio n of pregnanc y;Practi ce ID: 0001 Shakira Maya MD [address], [place], [address], [facility] 17:40:20 Large fetus [id number] Completed 201610/12/2020 Maternal care for excess growth, third trimeste r, unsp;Pra ctice ID: 0001 Shakira Maya MD [address], [place], [address], [facility] 17:40:32 Uterine scar from previous surgery affectin g pregnanc y [id number] Completed 201610/12/2020 Matern care for low transver se scar from prev del;Prac esha ID: [address], [place], [address], [facility] 17:44:16 Steriliz ation procedur e Completed 201610/12/2020 Encounte r for steriliz ation;Pr actice ID: 0001 Shakira Maya MD [address], [place], [address], [facility] 17:44:09 Single live from singleto n pregnanc y [id number] Completed 201610/12/2020 Single live ;Pr actice ID: 0001 Shakira Maya MD [address], [place], [address], [facility] 17:42:58 Gestatio n period, 39 weeks [id number] Completed 201610/12/2020 39 weeks gestatio n of pregnanc y;Practi ce ID: 0001 Shakira Maya MD [address], [place], [address], [facility] 17:40:22 Single liveborn born in hospital by section [id number] Completed 201610/12/2020 Single liveborn infant, delivere d by ;Practic e ID: 0001 Shakira Maya MD [address], [place], [address], [facility] 17:44:04 Lochia finding Completed 201610/12/2020 Encounte r for routine postpart um follow-u p;Practi ce ID: [id number] Shakira Maya MD [address], [place], [address], [facility] 17:40:35 Body mass index 30+ - obesity [id number] Completed 201609/20/2021 Eliane corrales, [facility] 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 17:44:06 Atypical squamous cells of undeterm ined signific ance on cervical Papanico laou smear [id number] Completed 201809/20/2021 Eliane corrales, [facility] 18:28:53 Bleeding [id number] Completed 201810/12/2020 Abnormal uterine and vaginal bleeding , unspecif ied;Prac esha ID: [id number] Shakira Maya MD [address], [place], [address], [facility] 17:39:36 Pregnanc y test negative [id number] Completed 201810/12/2020 Encounte r for pregnanc y test, result negative ;Practic e ID: [id number] Shakira Maya MD [address], [place], [address], [facility] 17:41:20 Polyp of corpus uteri [id number] Completed 201810/12/2020 Polyp of corpus uteri;Pr actice ID: [id number] Shakira Maya MD [address], [place], [address], [facility] 17:41:11 Problem Notes None recorded. Procedures Surgical History Date Name Laterality Status Provider Name and Address Organization Details Recorded Time 4 Date of Last Pap Smear completed [facility] 08/21/2024 10:03:55 4 completed [facility] 01/31/2024 10:36:15 section completed [facility] 10/05/2020 14:41:18 Gastric Bypass completed [facility] 10/05/2020 14:41:31 procedure on hand completed [facility] 10/05/2020 14:41:42 Tubal Ligation completed [facility] 10/05/2020 14:41:53 Dilation and Curettage completed [facility] 10/05/2020 14:42:41 Imaging Results None [...] oral suspensio n take 5 millilit er ([id number] NITS) by oral route 4 times every day 12/28 completed Prescrib ed Elsewher e: No Locat ion: [facility] M odify By: eedmonds Encount er DateTime [...] Not Available fluconazo le 150 mg tablet Take 1 tablet every 72 hours by oral route. 08/21 completed Not Available Not Available Not [...] ondansetr on 8 mg disintegr ating tablet Place 1 tablet twice a day by translin gual route. 09/05 completed Not Available Not Available Not Available Macrobid 100 mg capsule take 1 capsule by oral route every 12 hours with food 11/26 [facility] odify By: berry salmeron DateTime : 11/17/19 [...] week for 8 weeks 01/28 completed Prescrib ed Elsewher e: No Locat ion: [facility] odify By: carmelo green DateTime : 11/05/19 10:28:52 AM Not Available Not Available Not [...] ed Elsewher e: Yes Loca tion: [facility] odify By: eedmonds Encount er DateTime : 09/06/20 08:30:00 AM Not Available Not Available Not Available cyclobenz aprine 5 mg tablet 05/24 completed Not Available Not Available Not Available Riomet 500 mg/5 mL oral solution take 10 millilit er by oral route 2 times every day with meals 12/28 completed Prescrib ed Elsewher e: Yes Loca tion: [facility] odify By: eedmonds Encount er DateTime [...] ed Elsewher e: No Locat ion: [facility] odify By: tracey Virk r DateTime : 04/09/20 12 03:24:44 PM Not Available Not Available Not Available VIRTUAL CLASSROOM MANAGER-PNV-DH A 28 mg iron-1 mg-200 mg capsule take 1 capsule by oral route every day 12/17 completed Prescrib ed Elsewher e: No [facility] By: carmelo Virk r DateTime : [...] Body mass index (BMI) Body weight Systolic And Diastolic Provider Name and Address Organization Details Last Updated DateTime 01/31/2024 167.64 cm 35 kg/m2 46552.54 g 124/69 mm[Hg] Gwen [facility] 01/31/2024 10:35:49 Date Recorded Body height Body mass index (BMI) Body weight Systolic And Diastolic Provider Name and Address Organization Details Last Updated DateTime 07/01/2023 167.64 cm 35.7 kg/m2 259016.91 g 114/80 mm[Hg] Funmilayo Kearney [facility] 07/01/2023 12:06:04 Date Recorded Body height Body mass index (BMI) Body weight Systolic And Diastolic Provider Name and Address Organization Details Last Updated DateTime 08/21/2024 167.64 cm 38.7 kg/m2 038244.17 g 113/77 mm[Hg] Gwen [facility] 08/21/2024 09:59:15 Date Recorded Body height Body mass index (BMI) Body weight Systolic And Diastolic Provider Name and Address Organization Details Last Updated DateTime 09/05/2023 167.64 cm 34.6 kg/m2 00386.2 g 110/75 mm[Hg] Eliane Bermudez [facility] 09/05/2023 11:54:14 Social History Question Answer Notes LastModified by Organizat ion Details LastModified Time Tobacco Smoking Status Never Smoker Funmilayo Kearney antoni, [facility] 10/12/2020 17:31:44 Do You Have [...] Or The Highest Degree You Have Received? 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 No Information not available 10/25/2022 What is your exercise level? Moderate Information not available 10/12/2020 Mental Status Question Answer Note LastModified by Organization D etails LastModified Time Do you feel stressed (tense, restless, nervous, or anxious, or unable to sleep at night)? WC8524-9 Information not available 01/31/2024 Family History Relationship [...] SNOMED-CT Code Diagnosis ICD10 Code Diagnosis Note [id number] Shakira Maya MD [facility] [address],[place] [address] 10/12/2020 17:05:37 10/13/2020 15:25:00 Hypertrophy of gland of [place] 340780175 N62 [id number] Shakira Maya MD [facility] [address] [address] 02/03/2021 10:54:29 02/03/2021 11:44:32 Gynecologic examination 91036152 Z01.419 Venereal d isease screening 579123158 Z11.3 Body mass index 30+ - obesity 890953552 Z68.34 Sexually t ransmitted infectious disease 4400903 A64 [id number] [facility] [address] [address] 09/21/2021 11:33:24 09/22/2021 16:58:23 Menorrhagia 300621243 N92.0 Today we agreed to update US [...] this patient s visit, including available hand clinical microbiologist upon arrive, temperatur e check and being asked a series of screening questions. All staff wore face coverings during this encounter, as well as provided additional cleaning and sanitizing of all surfaces, including countertop s, pens, chairs, door handles, light switches, etc, prior to and following the patient s visit. Anemia 623650768 D64.9 Hx of Anemia & heavy cycles. [id number] Kary Garcia , [facility] [address] [address] 01/11/2022 14:00:03 01/11/2022 14:44:26 Chronic back pain 287501938 G89.29 Today we discussed possible sources of [...] counseling and review of plan of care. [id number] Kary Garcia [facility] [address],[place] [address] 10/25/2022 12:21:39 10/25/2022 12:43:56 Gynecologic examination 71478605 Z01.419 Take Calcium with Vitamin D 1200mg [...] c Screen discussedC olon Screen naDexa Screen [facility] na [id number] Kary Garcia [facility] [address] [address] 05/24/2023 17:15:04 05/24/2023 17:45:53 Sexually transmitted infectious disease 0325266 A64 Here today for std screening. Requests swab & serum testing.sa esther sex direct selling counselor with understand ing verbalized . Time spent in visit is a total of 15 mins with at least 50% of visit consisting of counseling and review of plan of care. [id number] Sea Santiago MD [facility] [address] [address] 06/23/2023 15:17:11 06/24/2023 18:00:11 Abnormal uterine bleeding 1381443324 9100 N93.9 Viral gastroenteritis 11 2236462 A08.4 Screening procedure 2012 5006 Z13.9 [id number] Sea Santiago MD [facility] [address],[place] [address] 06/26/2023 13:55:35 06/26/2023 17:17:18 Abnormal uterine bleeding 3149544295 9100 N93.9 [id number] Sea Santiago MD [facility] [address],[place] [address] 07/01/2023 11:58:05 07/03/2023 15:55:02 Abnormal uterine bleeding 2324734691 9100 N93.9 Patient is a 38-year-ol d [...] was counseling . We reviewed ultrasound together. [id number] KING Arciniega [facility] [address] [address] 09/05/2023 11:30:33 09/05/2023 12:55:47 Venereal disease screening 949777442 Z11.3 exam today wnlgc/ct/t rich testing sentserum STI testing declinedvu lvar care guidelines discussed - recommend d/c douching, avoid scented soaps/prod ucts, vulvar care handout given to ptsafe sexual practices discussed, condom use encouraged WWE due 09/2023 Time spent in visit is a total of 22 mins with at least 50% of visit consisting of counseling and review of plan of care. [id number] [facility] [address],[place] [address] 01/31/2024 10:24:48 01/31/2024 11:59:00 Gynecologic examination 05172457 Z01.419 Z11.51 Take Calcium with Vitamin D [...] start 2024 Sexually t ransmitted infectious disease 2456308 A64 Here today for std screening/ WWE.Reques ts swab & serum testing.[facility] sex direct selling counselor with understand ing verbalized . [id number] KING Arciniega [facility] [address],[place] [address] 08/21/2024 09:44:15 08/21/2024 11:08:57 Vaginitis 34531720 N76.0 gc/ct/tric h and vaginitis panel sentHIV/He p B&C/Syphil is testing ordered per pt requestsaf e sexual practices discussedv ulvar care guidelines discussed Time spent in visit is a total of 20 mins with at least 50% of visit consisting of counseling and review of plan of care. Venereal d isease screening 834361154 Z11.3 Health Concerns Section Related Observation LastModified by Organization Detai ls LastModified Time None Recorded Concern Status LastModified by Organization Details LastModified Time None Recorded Advance Directives Directive N: Payers Insurance Date Sequence Insurance Name Policy Number Policy Sahu Covered Member ID Sahu Member ID Guarantor Name 08/20/2024 1 [facility] (MEDICAID HMO) [id number] Yazmin Hunt [id number] Yazmin Hunt 08/20/2024 1 [facility] (MEDICAID HMO) [id number] Yazmin Hunt [id number] Yazmin Hunt 08/20/2024 1 [employer] [id number] Yazmin Hunt [id number] Yazmin Hunt 08/20/2024 1 [employer] [id number] Yazmin Hunt [id number] Yazmin Hunt 08/20/2024 1 [facility] (MEDICAID HMO) [id number] Yazmin Hunt [id number] Yazmin Hunt 08/20/2024 1 [place] [facility] Yazmin Hunt [id number] Yazmin Hunt 08/20/2024 1 [place] [facility] [place] [facility] Yazmin Hunt [id number] Yazmin Hunt 08/20/2024 1 [employer] ([place]) [id number] Yazmin L Hunt [id number] Yazmin Hunt Notes Date Note Type Note [...] told her that. We spent 20 minutes dnoq-pd-wwjq. More than 50% was counseling. We reviewed ultrasound together. Sea Santiago MD [address], [place], [address], [facility] 07/01/2023 12:27:23 09/05/2023 text/html 38yopresents to discuss recent vulvar irritationshaved the vulva 2 weeks ago and noticed irritation after. [place] like she had cut the vulva. This has since resolved. No current symptoms todaySA last about 3 months ago - BTL for BCdouching after her periods, uses scented body wash to cleanse the vulvaneg n/v/fneg flu-like symptomsneg d/c, odors, itchingneg urinary symptoms KING Arciniega [address], [place], [address], [facility] 09/05/2023 12:38:40 01/31/2024 text/html Annual GYNReport [...] pap smears KING Ahumada- [address], [place], [address], [facility] 01/31/2024 11:57:31 08/21/2024 text/html 39yopresents for STI testing and vaginitis panelrecently treated for BV and requesting to be retested todayneg d/c, odors, itchingneg pelvic painneg n/v/f KING Arciniega [address], [place], [address], [facility] 08/21/2024 10:55:28 OBGyn Episode Ob Episode Information Episode Created Date Number of Fetuses Patient Bloodtype Patient rh Status Prepregnancy Weight lbs Domestic Partner Domestic Partner Phone Father Name Staffing Director Status 10/05/19 21 1 CLOSED Fetus Data [...] Domestic Partner Domestic Partner Phone Father Name Staffing Director Status 10/05/19 21 1 CLOSED Fetus Data [...] Domestic Partner Domestic Partner Phone Father Name Staffing Director Status 10/05/19 21 1 CLOSED Fetus Data [...] Domestic Partner Domestic Partner Phone Father Name Staffing Director Status 10/05/19 21 1 CLOSED Fetus Data [...] Domestic Partner Domestic Partner Phone Father Name Staffing Director Status 10/05/19 21 1 CLOSED Fetus Data [...]
--- NOTE | 2025-04-11 17:35 | PC.NURSE ---
Pt asked to wait in ER waiting room and pt stated I can't walk long distances you can just check me out. Pt then ambulated out of ER waiting room with steady gait into ER parking lot.
--- OUTSIDE RECORDS SUMMARY | 2025-04-11 18:47 | XMS_ITS | Encounter Summary ---
Author Organization [facility] Healthcare Address [address] [place] [address] Care Team Providers Care Chief Librarian Work With Blind Name Role Phone No, Physician Primary Care Provider [phone] Fiona Leon MD Unavailable [phone] Debbie Mendiola NP Primary Care Provider [phone] Encounter Details Date Type Department Care Team (Late st Contact Info) Description 02/16/2024 Telephone [facility] [address] [place] [id number] Beverly Hernadez RN Social History Tobacco Use [...] on file 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
--- OUTSIDE RECORDS SUMMARY | 2025-04-11 18:47 | XMS_ITS | Encounter Summary ---
Author Organization [facility] Healthcare Address [address] [place] [address] Care Team Providers Care Diagrammer And Seamer Name Role Phone Fiona Leon MD Unavailable [phone] Debbie Mendiola NP Primary Care Provider [phone] Reason for Visit * Reason Onset Date Comments Shortness of Breath 03/07/2025 Dizziness 03/07/2025 Headache 03/07/2025 Encounter Details Date Type Department Care Team (Late st Contact Info) Description 03/07/2025 Nurse Triage [facility] Medical [facility] Family Medicine at [address] [place] [address] Debbie Mendiola NP [address] [place] [address] [address] [place] [address] Social History Tobacco Use Types [...] on file 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 Has an appt with her new business leader 03/17. Has had some wheezing. Using her [...] hours of rest and fluids Protocols Used Amfshsbzb-Vpgka-PW Breathing Hlzwxxckiy-Dplfj-GD * Telephone Encounter - Yamilex Raines RN [...] and headaches. Patient states she went to [facility] on 03/05/25 for shortness of breath, dizziness, [...] on filedocumented in this encounter Care Teams Diagrammer And Seamer Relationship Specialty Start Date End Date Debbie Mendiola NP [address] [facility] [address] [address] PCP - General Family Medicine 02/24/25 Fiona Leon MD [address] [place] [address] Medical Oncologist/C T Tech Hematology and Oncology 12/17/24 documented as of this encounter
--- OUTSIDE RECORDS SUMMARY | 2025-04-11 18:47 | XMS_ITS | Clinical Summary ---
Author Organization [employer] Address [address] [place] [address] Care Team Providers Care Loom Tuner Name Role Phone Fiona Leon MD Unavailable [phone] Debbie Mendiola NP Primary Care Provider [phone] Allergies Active Allergy Reactions Criticality Noted Date [...] options. Also discussed treatment options for long term care social worker management of periods. During discussion patient notes [...] Advair. Discomfort with Advair noted. Seeking new nurse consultant for alternative inhaler options. - Refer to pulmonology for asthma management. - Discuss inhaler alternatives with nurse consultant. Assessment & Plan (01/08/2024 3:20 PM CDT): Nebs per her PCP. Elipta, atrovent, and advair. Postoperative incisional hernia 12/13/2022 Recurrent incisional hernia 12/08/2022 Overview (12/08/2022): Added automatically from request for surgery [id number] Disorder of hip joint 09/15/2022 Painless rectal [...] to hematology for ongoing management. 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 Metabolic and nutritional disorder 04/14/2021 Assessment & Plan (07/24/2022 11:51 AM CDT): Reviewed most recent labs available. Continue low-carb (<150 g/day), low- glycemic diet. Consider metformin. Assessment & Plan (08/13/2021 1:27 PM HELIARC WELDER): Reviewed labs with her. Continue low-carb (<150 [...] w/r/t gut microbiome. Referred to ADA and [employer] websites for additional information on topics including [...] 02/20/2025 Assessment & Plan (08/13/2021 1:27 PM HELIARC WELDER): Tolerating phentermine without adverse effects. Will get [...] (07/07/2019): Added automatically from request for surgery [id number] Closed fracture of base of f ifth metatarsal bone 10/08/2018 03/10/2025 Obesity with body mass index 30 or greater 07/03/2017 02/20/2025 Polyhydramnios, antepartum complication 04/04/2017 02/24/2025 Supervision of normal pregna ncy in third trimester 04/04/2017 02/20/2025 Obesity with body mass index 30 or greater 07/24/2015 02/20/2025 No diagnosis on [place] I 01/04/201502/20 Class 3 severe obesity due t o excess calories in adult 12/19/2014 02/20/2025 Overview (04/14/2021): S/P RYGB Assessment & Plan (10/10/2022 7:21 PM HELIARC WELDER): Obesity is worse. Plan: Diet interventions: as noted.. and Regular aerobic exercise program discussed. Assessment & Plan (08/13/2021 1:19 PM HELIARC WELDER): Obesity is improving with treatment. Diet interventions: [...] Team Description 03/24/2025 8:25 AM CDT Lab [facility] [address] [place] [address] Need for hepatitis B screening test; Class 3 severe obesity due to excess calories with serious comorbidity and body mass index (BMI) of 40.0 to 44.9 in adult; Lipid screening; Family history of diabetes mellitus 03/24/2025 Results Follow-Up [facility] at [address] [place] [address] Nemo Wallis PA Hepatitis B surface antibody (immune status) Blood, Hepatitis B core antibody, total Blood, Hepatitis B Surface Antigen Blood, Additional followed-up results: 3 03/17/2025 1:30 PM CDT Office Visit [facility] [address] [facility] [address] [place] [address] Ambreen Rothman MD MICHELE (obstructive sleep apnea) (Primary Dx); Moderate persistent asthma, unspecified whether complicated 03/10/2025 11:30 AM CDT Office Visit [facility] at [address] [place] [address] Nemo Wallis PA New daily persistent headache (Primary Dx); Dizziness; Nausea and vomiting, unspecified vomiting type; Mild persistent asthma without complication 03/07/2025 Nurse Triage [facility] at [address] [phone] Debbie Mendiola NP 03/06/[address] [facility] Accountable Care Organization [address] [place] [address] Genoveva Abreu MA 03/05/2025 8:55 AM CDT - 03/05/2025 12:01 PM CDT Emergency [facility] Emergency Department [address] [place] [address] Marvin Luque DO Shortness of breath (Primary Dx); Mild intermittent asthma with exacerbation Discharge Disposition: Discharge to home or self care 02/25/2025 Documentation [facility] [address] [place] [phone] Lashonda Marie RN 02/24/2025 2:00 PM CDT Office Visit [facility] at [address] [address] Debbie Mendiola NP Iron deficiency (Primary Dx); [...] CDT - 02/21/2025 3:38 AM CDT Emergency [facility] Emergency Department [address] [place] [address] Mehdi Ernst DO Shortness of breath (Primary Dx) Discharge Disposition: Discharge to home or self care 01/24/[address] [facility] at [address] [place] [address] Debbie Mendiola NP Appointment Request [...] on file Legal Sex Female 3:36 AM HELIARC WELDER Gender Identity Female 03/02/2021 12:52 PM CDT [...] this topic Medical Devices Implanted Type Area [employer] Superintendent Device Identifier Shelf Expiration Date Model / Serial / Lot [employer] 6x4in Monofilament Nonabsorbable Seal Edge Low Profile [id number] - [id number] Implanted:Qty: 1 on 12/13/2022 by Anuradha Flores MD at [facility] Mesh N/A: Abdomen [employer] 04/21/2023 [id number] / / [id number] Procedures Procedure Name Priority Date/Time Associated Diagnosis [...] bleeding HEPATITIS PANEL, ACUTE Routine 3:23 PM HELIARC WELDER Morbid obesity (HCC) Pre-op exam from Last 3 Months or Most Recently Relevant to Health Maintenance Results * Hepatitis B core antibody, total Blood (03/24/2025 8:29 AM CDT) Hep B core IgG/IgM Nonreactive Nonreactive Comment:Testing performed by : [facility], [address] [facility] [place] [address] Blood 03/24/2025 8:29 AM CDT 03/24/2025 11:18 AM CDT Debbie Mendiola NP LAB MICROBIOLOGY - GENERAL OR DERABLES Final Result Performing Organization Address [facility] Co de Phone Number MARY[address] [employer] [place] [address] * Hepatitis B surface antibody (immune status) [...] HBsAb (immune status) index 644.0 mIUnits/m L [facility] Blood 03/24/2025 8:29 AM CDT 03/24/2025 10:24 AM CDT Debbie Mendiola NP LAB MICROBIOLOGY - GENERAL OR DERABLES Final Result Performing Organization Address [facility] de Phone Number [place] [phone] [facility] [place] [place] [address] * Hepatitis B Surface Antigen Blood (03/24/2025 8:29 AM CDT) HepBsAg Nonreactive Nonreactive Blood 03/24/2025 8:29 AM CDT 03/24/2025 10:24 AM CDT Debbie Mendiola NP LAB MICROBIOLOGY - GENERAL OR DERABLES Final Result Performing Organization Address [facility] Co de Phone Number LANIE [facility] [place] [address] * TSH (03/24/2025 8:29 AM CDT) Pathologist [facility] Thyroid Stimulating Hormone 1.29 0.30 - 4.20 mcIUnit/mL Comment:Testing performed by : [address] [address] Blood 03/24/2025 8:29 AM CDT 03/24/2025 8:34 AM CDT Debbie Mendiola NP LAB BLOOD ORDERABLES Final Re sult Performing Organization Address [facility] de Phone Number MARY[address] [address] * Hemoglobin A1c (03/24/2025 8:29 AM CDT) [facility] Hgb A1C 5.4 4.0 - 5.6 % Comment:Testing performed by : [address] [address] Estimated Average Glucose 108 mg/dL MARYJEWELL Comment: The ADA recommends reporting an estimated Average Glucose (eAG) with all Hemoglobin A1c results using the equation derived from a study of 507 normal and diabetic adults. Minority populations were underrepresented and children were not included. (Diabetes Care 31:2991-2045, 2008). The eAG is not equivalent to a fasting glucose. Testing performed by: [address] [address] Blood 03/24/2025 8:29 AM CDT 03/24/2025 8:34 AM CDT us Debbie Mendiola NP LAB BLOOD ORDERABLES Final Re sult Performing Organization Address [facility] de Phone Number [place] [phone] [place] [address] * Lipid panel (03/24/2025 8:29 AM CDT) [...] last revised on 2018. Testing performed by: [address] [address] Triglycerides 82 <=149 mg/dL LANIE Comment: Interpretive [...] last revised on 2018. Testing performed by: [address] [address] HDL 48 >=40 mg/dL LANIE Comment: Interpretive [...] last revised on 2018. Testing performed by: [address] [address] LDL, calculated 98 <=129 mg/dL LANIE WHITTEN [...] last revised on 2024. Testing performed by: [address] [address] Non-HDL Cholesterol 114 mg/dL LANIE Comment: Interpretive [...] last revised on 2018. Testing performed by: [address] [address] Chol/HDL ratio 3 LANIE Comment:Testing performed by : [address] [address] Blood 03/24/2025 8:29 AM CDT 03/24/2025 8:34 AM CDT Narrative LANIE WHITTEN - 03/24/2025 9:16 AM CDT Has the patient been fasting for 8 hours or more?->Yes us Debbie Marlena MANAGER CAREER LAB BLOOD ORDERABLES Final Re sult Performing Organization Address [facility]/ZIP Co de Phone Number LANIE [address] [place] [address] * Troponin T high-sensitivity 2-hour (03/05/2025 10:33 AM CDT) Trop T hs <6 <=14 ng/L Comment: Interpretive Data For further hscTnT resources including the diagnostic algorithm and an aid in interpretation, copy and paste this link: https://nrl.testcatalog.org/show/hsTrop Current Interpretive Data last revised 2020. Testing performed by: [facility], [address] [place] [address]., [address] Trop T hs delta 0 ng/L LANIE Comment:Testing performed by : [address] [address] Trop T hs interp Insignificant LANIE Comment:Testing performed by : [facility], [address] [place] [address]., [address] Blood 03/05/2025 10:3 3 AM CDT 03/05/2025 10:44 AM CDT Marvin Luque DO LAB BLOOD ORDERABLES Final Result Performing Organization Address [facility] Co de Phone Number LANIE [address] [address] * XR Chest 1 Vw Portable (if [...] En Manning D.O. PS: PS Report ID: [id number] Reading Location: [place] [address] Procedure Note En Manning, - 03/05/2025 EXAM [...] En Manning D.O. PS: PS Report ID: [id number] Reading Location: [id number] Marvin Luque DO IMG XR PROCEDURES Final Res ult * Troponin T high-sensitivity series (baseline, 2hr, 4hr, 6hr) (03/05/2025 8:55 AM CDT) Trop T hs <6 <=14 ng/L Comment: Interpretive Data For further hscTnT resources including the diagnostic algorithm and an aid in interpretation, copy and paste this link: https://nrl.testcatalog.org/show/hsTrop Current Interpretive Data last revised 2020. Testing performed by: [address] [address] Blood 03/05/2025 8:55 AM CDT 03/05/2025 9:00 AM CDT Marvin Luque DO LAB BLOOD ORDERABLES Final Result [facility] [address] [facility] [place] [address] * Influenza A/B, RSV, and COVID-19 PCR Nasopharyngeal (03/05/2025 8:55 AM CDT) [facility] COVID-19 RNA Negative Negative Comment:Testing performed by : [address] [address] Influenza A RNA Negative Negative LANIE Comment:Testing performed by : [address] [address] Influenza B RNA Negative Negative [facility] Comment:Testing performed by : [address] [address] RSV RNA Negative Negative LANIE Comment: Interpretive data: Testing performed by [facility]. This test is performed using the [employer] Xpert Xpress CoV-2/Flu/RSV plus assay. This is a multiplex, real-time reverse transcriptase PCR assay intended for the qualitative detection of nucleic acid from SARS-CoV-2, influenza A, influenza B, and respiratory syncytial virus. This assay has been cleared by the [place] Food and Drug administration. The performance characteristics have been verified by the [facility]. Results must be considered in the clinical context, and a negative result does not rule out infection. Interpretive Data last revised 2023 Testing performed by: [facility], [address] [place] [address]., [address] Nasopharyngeal 03/05/2025 8: 55 AM CDT 03/05/2025 9:00 AM CDT Narrative LANIE - 03/05/2025 9:41 AM CDT Is the Patient experiencing symptoms consistent with COVID?->Yes Marvin Luque DO LAB MICROBIOLOGY - GENERAL ORDERABLES Final Result LANIE [address] [facility] Department [place] [address] * eGFR (03/05/2025 8:55 AM CDT) eGFR [...] reviewed 2021. Testing performed by: [facility], [address] [place] [address]., [address] Blood 03/05/2025 8:55 AM CDT 03/05/2025 9:00 AM CDT Marvin Luque DO LAB BLOOD ORDERABLES Final Result LANIE [address] [facility] Department [place] [address] * Differential, auto (03/05/2025 8:55 AM CDT) Neutrophil abs 3.67 1.50 - 6.50 K/cumm Comment:Testing performed by : [address] [address] Imm gran abs 0.01 0.00 - 0.10 K/cumm LANIE Comment:Testing performed by : [address] [address] Lymphocyte abs 1.33 0.80 - 3.30 K/cumm LANIE Comment:Testing performed by : [address] [address] Monocyte abs 0.58 0.20 - 0.80 K/cumm LANIE Comment:Testing performed by : [address] [address] Eosinophil abs 0.14 0.00 - 0.50 K/cumm LANIE Comment:Testing performed by : [address] [address] Basophil abs 0.03 0.00 - 0.10 K/cumm LANIE Comment:Testing performed by : [address] [address] Neutrophil pct 63.7 % LANIE Comment: Interpretive Data Percent cell count reference ranges are not reported, since discordance with absolute values may lead to misinterpretation of CBC data. Current Interpretive Data was last revised on 2018. Testing performed by: [address] [address] Imm gran pct 0.2 % LANIE Comment: Interpretive Data Percent cell count reference ranges are not reported, since discordance with absolute values may lead to misinterpretation of CBC data. Current Interpretive Data was last revised on 2018. Testing performed by: [address] [place]., [address] Lymphocyte pct 23.1 % LANIE Comment: Interpretive Data Percent cell count reference ranges are not reported, since discordance with absolute values may lead to misinterpretation of CBC data. Current Interpretive Data was last revised on 2018. Testing performed by: [address] [address] Monocyte pct 10.1 % LANIE Comment: Interpretive Data Percent cell count reference ranges are not reported, since discordance with absolute values may lead to misinterpretation of CBC data. Current Interpretive Data was last revised on 2018. Testing performed by: [address] [address] Eosinophil pct 2.4 % LANIE Comment: Interpretive Data Percent cell count reference ranges are not reported, since discordance with absolute values may lead to misinterpretation of CBC data. Current Interpretive Data was last revised on 2018. Testing performed by: [address] [address] Basophil pct 0.5 % LANIE Comment: Interpretive Data Percent cell count reference ranges are not reported, since discordance with absolute values may lead to misinterpretation of CBC data. Current Interpretive Data was last revised on 2018. Testing performed by: [address] [address] Blood 03/05/2025 8:55 AM CDT 03/05/2025 9:00 AM CDT Marvin Luque DO LAB BLOOD ORDERABLES Final Result [facility] [address] [facility] Department [place] [address] * (ABNORMAL) CBC with auto differential (03/05/2025 8:55 AM CDT) WBC 5.76 3.80 - 9.90 K/cumm Comment:Testing performed by : [address] [address] Hgb 12.7 11.9 - 15.5 g/dL LANIE Comment:Testing performed by : [address] [address] Hct 38.2 35.6 - 45.5 % LANIE Comment:Testing performed by : [address] [address] Plt 308 150 - 400 K/cumm LANIE Comment:Testing performed by : [address] [address] MPV 9.3 9.1 - 12.3 fL LANIE Comment:Testing performed by : [address] [address] RBC 4.53 3.90 - 5.20 M/cumm LANIE Comment:Testing performed by : [address] [address] MCV 84.3 81.3 - 96.4 fL LANIE Comment:Testing performed by : [address] [address] MCH 28.0 27.1 - 33.3 pg LANIE Comment:Testing performed by : [address] [address] MCHC 33.2 32.3 - 35.7 g/dL LANIE Comment:Testing performed by : [address] [address] RDW CV 22.2(H) 11.1 - 14.9 % LANIE Comment:Testing performed by : [address] [address] RDW SD 65.4(H) 35.7 - 48.1 fL LANIE Comment:Testing performed by : [address] [address] NRBC abs 0.00 0.00 - 0.01 K/cumm LANIE Comment:Testing performed by : [address] [address] Blood 03/05/2025 8:55 AM CDT 03/05/2025 9:00 AM CDT us Marvin Luque DO LAB BLOOD ORDERABLES Final Result LANIE [address] [facility] Department [place] [address] * Comprehensive metabolic panel (03/05/2025 8:55 AM CDT) Sodium 136 135 - 145 mmol/L Comment:Testing performed by : [address] [address] Potassium, pl 4.0 3.3 - 4.9 mmol/L LANIE Comment: Hemolyzed; Potassium value may be falsely elevated by as much as 1.0 mmol/L. Suggest redraw and reanalysis. Testing performed by: [address] [address] Chloride 104 97 - 110 mmol/L LANIE Comment:Testing performed by : [address] [address] CO2 23 22 - 32 mmol/L LANIE Comment:Testing performed by : [address] [address] Anion gap 9 2 - 15 mmol/L LANIE Comment:Testing performed by : [address] [address] BUN 10 6 - 25 mg/dL LANIE Comment:Testing performed by : [address] [address] Creatinine 0.62 0.60 - 1.10 mg/dL LANIE Comment:Testing performed by : [address] [address] Glucose 109 70 - 199 mg/dL LANIE [...] was last revised 2022. Testing performed by: [facility], [address] [place] [address]., [address] Calcium 8.9 8.5 - 10.3 mg/dL LANIE Comment:Testing performed by : [address] [address] Bilirubin, total 0.2 0.1 - 1.2 mg/dL LANIE Comment:Testing performed by : [address] [address] Protein, pl 7.4 6.5 - 8.5 g/dL LANIE Comment:Testing performed by : [address] [address] Albumin 3.8 3.5 - 5.0 g/dL LANIE Comment:Testing performed by : [address] [address] Alk phos 129 40 - 130 Units/L LANIE Comment:Testing performed by : [address] [address] ALT 40 7 - 45 Units/L LANIE Comment:Testing performed by : [address] [address] AST 40 10 - 45 Units/L LANIE Comment: Hemolyzed; result may be falsely elevated Testing performed by: [address] [address] Blood 03/05/2025 8:55 AM CDT 03/05/2025 9:00 AM CDT Marvin Luque DO LAB BLOOD ORDERABLES Final Result LANIE [address] [facility] Department [place] [address] * ECG 12 lead (03/05/2025 8:46 AM CDT) Ventricular Rate EKG/Min 67 BPM [facility] Atrial Rate 67 BPM [facility] UT-Interval (MSEC) 160 ms [facility] QRS-Interval (MSEC) 78 ms [facility] QT-Interval (MSEC) 418 ms [facility] QTc 441 ms [facility] P [place] 34 degrees [facility] R [place] 12 degrees [facility] T [place] -1 degrees [facility] Diagnosis Normal sinus rhythm Within normal limits When compared with ECG of 21-FEB-2025 00:38, Vent. rate has decreased BY 36 BPM Inverted T waves have replaced nonspecific T wave abnormality in Inferior leads Confirmed by SULTAN AVILA M.D. ([id number]) on 03/05/2025 8:54:54 PM [facility] 03/05/2025 8:46 AM CDT 03/05/2025 8:54 PM CDT us Marvin Luque DO ECG ORDERABLES Final Resul t Performing Organization Address City/[facility]/ZIP Co de Phone Number [facility] * Troponin T high-sensitivity 2-hour (02/21/2025 2:31 AM CDT) Trop T hs 8 <=14 ng/L Comment: Interpretive Data For further hscTnT resources including the diagnostic algorithm and an aid in interpretation, copy and paste this link: https://nrl.testcatalog.org/show/hsTrop Current Interpretive Data last revised 2020. Testing performed by: [address] [address] Trop T hs delta 2 ng/L LANIE WHITTEN Comment:Testing performed by : [address] [address] Trop T hs interp Insignificant LANIE Comment:Testing performed by : [address] [address] Blood 02/21/2025 2:31 AM CDT 02/21/2025 2:33 AM CDT Deepa Aguayo MANAGER CAREER LAB BLOOD ORDERABLES Fin al Result Performing Organization Address City/[facility]/ZIP Co de Phone Number LANIE [address] [facility] Department [place] [address] * CT Chest PE (CTA) [...] Amanda Leon M.D. SN: SN Report ID: [id number] Reading Location: [id number] Procedure Note Amanda Leon MD - 02/21/2025 [...] by Amanda Leon M.D. SN: Report ID: [id number] Reading Location: [place] [address] us Mehdi Ernst DO IMG CT PROCEDURES [...] by Amanda Leon M.D. SN: Report ID: [id number] Reading Location: [id number] Procedure Note Amanda Leon MD - 02/21/2025 [...] Amanda Leon M.D. SN: SN Report ID: [id number] Reading Location: [place] [address] Mehdi Ernst DO IMG CT PROCEDURES Final Res ult * POCT hCG, urine (02/21/2025 12:43 AM CDT) [facility] HCG, ur, POC Negative Negative Lot Number [id number] QC Backgroud Clear Acceptable QC Control Line Acceptable Urine 02/21/2025 12:4 3 AM CDT Deepa Aguayo NP POINT OF CARE TEST ORDER FELIPE Final Result * Troponin T high-sensitivity series (baseline, 2hr, 4hr, 6hr) (02/21/2025 12:39 AM CDT) [facility] Trop T hs <6 <=14 ng/L Comment: Interpretive Data For further hscTnT resources including the diagnostic algorithm and an aid in interpretation, copy and paste this link: https://nrl.testcatalog.org/show/hsTrop Current Interpretive Data last revised 2020. Testing performed by: [facility], [address] [place] [address]., [address] Blood 02/21/2025 12:3 9 AM CDT 02/21/2025 12:52 AM CDT Deepa Ramon Dede MANAGER CAREER LAB BLOOD ORDERABLES Fin al Result Performing Organization Address [facility]/ZIP Co de Phone Number LANIE [address] [place] [address] * eGFR (02/21/2025 12:39 AM CDT) eGFR [...] reviewed 2021. Testing performed by: [facility], [address] [place] [address]., [address] Blood 02/21/2025 12:3 9 AM CDT 02/21/2025 12:52 AM CDT us Deepa Aguayo MANAGER CAREER LAB BLOOD ORDERABLES Fin al Result MARY[address] [place] [address] * (ABNORMAL) Differential, auto (02/21/2025 12:39 AM CDT) Pathologist [facility] Neutrophil abs 4.91 1.50 - 6.50 K/cumm Comment:Testing performed by : [address] [address] Imm gran abs 0.03 0.00 - 0.10 K/cumm LANIE Comment:Testing performed by : [address] [address] Lymphocyte abs 3.26 0.80 - 3.30 K/cumm LANIE Comment:Testing performed by : [address] [address] Monocyte abs 1.02(H) 0.20 - 0.80 K/cumm LANIE Comment:Testing performed by : [address] [address] Eosinophil abs 0.41 0.00 - 0.50 K/cumm LANIE Comment:Testing performed by : [address] [address] Basophil abs 0.05 0.00 - 0.10 K/cumm [facility] Comment:Testing performed by : [address] [address] Neutrophil pct 50.8 % [facility] Comment: Interpretive Data Percent cell count reference ranges are not reported, since discordance with absolute values may lead to misinterpretation of CBC data. Current Interpretive Data was last revised on 2018. Testing performed by: [address] [address] Imm gran pct 0.3 % [facility] Comment: Interpretive Data Percent cell count reference ranges are not reported, since discordance with absolute values may lead to misinterpretation of CBC data. Current Interpretive Data was last revised on 2018. Testing performed by: [address] [address] Lymphocyte pct 33.7 % [facility] Comment: Interpretive Data Percent cell count reference ranges are not reported, since discordance with absolute values may lead to misinterpretation of CBC data. Current Interpretive Data was last revised on 2018. Testing performed by: [address] [address] Monocyte pct 10.5 % LANIE Comment: Interpretive Data Percent cell count reference ranges are not reported, since discordance with absolute values may lead to misinterpretation of CBC data. Current Interpretive Data was last revised on 2018. Testing performed by: [address] [address] Eosinophil pct 4.2 % LANIE Comment: Interpretive Data Percent cell count reference ranges are not reported, since discordance with absolute values may lead to misinterpretation of CBC data. Current Interpretive Data was last revised on 2018. Testing performed by: [address] [address] Basophil pct 0.5 % LANIE Comment: Interpretive Data Percent cell count reference ranges are not reported, since discordance with absolute values may lead to misinterpretation of CBC data. Current Interpretive Data was last revised on 2018. Testing performed by: [address] [address] Blood 02/21/2025 12:3 9 AM CDT 02/21/2025 12:52 AM CDT Deepa Aguayo MANAGER CAREER LAB BLOOD ORDERABLES Fin al Result [facility] [address] [facility] Department [place] [address] * (ABNORMAL) Urinalysis reflex to microscopic and culture Urine (02/21/2025 12:39 AM CDT) Color, ur Yellow Yellow Comment:Testing performed by : [address] [address] Clarity, ur Turbid(A) Clear LANIE Comment:Testing performed by : [address] [address] Specific gravity, ur 1.037(H) 1.003 - 1.030 LANIE Comment:Testing performed by : [address] [address] pH, urine 6.0 LANIE Comment: Interpretive Data U rine pH is affected by diet, medications, systemic acid-base disturbances, and renal tubular function. pH may affect urinary stone formation. For example, urine pH below 6.0 may help reduce the tendency for calcium phosphate stones and pH greater than 6.0 may reduce the tendency for uric acid stone formation. Source: [facility] [employer] Current Interpretive Data was last revised on 2017 Testing performed by: [facility], [address] [place] [address], [place]., [address] Protein, ur ql 1+(A) Negative LANIE Comment:Testing performed by : [address], [place]., [address] Glucose, ur ql Negative Negative LANIE Comment:Testing performed by : [address], [place]., [address] Ketones, ur Trace(A) Negative LANIE Comment:Testing performed by : [address], [place]., [address] Bilirubin, ur Negative Negative LANIE Comment:Testing performed by : [address], [place]., [address] Blood, ur Trace(A) Negative LANIE Comment:Testing performed by : [address], [place]., [address] Urobilinogen, ur <2.0 <2.0 mg/dL LANIE Comment:Testing performed by : [address], [place]., [address] Nitrite, ur Negative Negative LANIE Comment:Testing performed by : [address], [place]., [address] Leukocyte esterase, ur 4+(A) Negative LANIE Comment:Testing performed by : [address], [place]., [address] UA reflex comment Reflex to microscopic UA will be performed. LANIE Comment:Testing performed by : [address], [place]., [address] Urine 02/21/2025 12:3 9 AM CDT 02/21/2025 12:52 AM CDT us Deepa Yenny McFadin MANAGER CAREER LAB MICROBIOLOGY - GENER AL ORDERABLES Final Result [facility] [address] [facility] Department [place] [address] * (ABNORMAL) CBC with auto differential (02/21/2025 12:39 AM CDT) WBC 9.68 3.80 - 9.90 K/cumm Comment:Testing performed by : [address] [address] Hgb 12.3 11.9 - 15.5 g/dL LANIE Comment:Testing performed by : [address] [address] Hct 37.2 35.6 - 45.5 % LANIE Comment:Testing performed by : [address] [address] Plt 358 150 - 400 K/cumm LANIE Comment:Testing performed by : [address] [address] MPV 9.2 9.1 - 12.3 fL LANIE Comment:Testing performed by : [address] [address] RBC 4.50 3.90 - 5.20 M/cumm LANIE Comment:Testing performed by : [address] [address] MCV 82.7 81.3 - 96.4 fL LANIE Comment:Testing performed by : [address] [address] MCH 27.3 27.1 - 33.3 pg LANIE Comment:Testing performed by : [address] [address] MCHC 33.1 32.3 - 35.7 g/dL LANIE Comment:Testing performed by : [address] [address] RDW CV 23.4(H) 11.1 - 14.9 % LANIE Comment:Testing performed by : [address] [address] RDW SD 67.7(H) 35.7 - 48.1 fL LANIE WHITTEN Comment:Testing performed by : [facility], [address] [place] [address]., [address] NRBC abs 0.00 0.00 - 0.01 K/cumm LANIE WHITTEN Comment:Testing performed by : [facility], [address] [place] [address]., [address] Blood 02/21/2025 12:3 9 AM CDT 02/21/2025 12:52 AM CDT us Deepa Aguayo MANAGER CAREER LAB BLOOD ORDERABLES Fin al Result LANIE WHITTEN [address] [facility] Department [place] [address] * Drugs of Abuse Screen, Urine without Confirmation (02/21/2025 12:39 AM CDT) [facility] Amphetamine, ur Not Detected CutOff 500ng/mL Comment: Interpretive Data - Amphetamines: Samples containing greater than 500 ng/mL d-methamphetamine or other cross-reacting amphetamine compounds are reported as positive. Amphetamine immunoassays are subject to significant false positive rates due to cross-reactivity of non-amphetamine drugs. Confirmatory testing required for definitive results. Current Interpretive Data was last reviewed 2023. Testing performed by: [address] [address] Barbiturates, ur Not Detected CutOff 200ng/mL LANIE WHITTEN Comment: Interpretive Data - Barbiturates: Samples containing greater than 200 ng/mL secobarbital or other cross-reacting barbiturate compounds are reported as positive. False positive and false negative results are possible. Confirmatory testing required for definitive results. Current Interpretive Data was last reviewed 2023. Testing performed by: [address] [address] Benzodiazepines, ur Not Detected CutOff 100ng/mL LANIE WHITTEN Comment: Interpretive Data - Benzodiazepines: Samples containing greater than 100 ng/mL nordiazepam or other cross-reacting compounds are reported as positive. False positive and false negative results are possible. Confirmatory testing required for definitive results. Current Interpretive Data was last reviewed 2023. Testing performed by: [address] [address] Cannabinoids, ur Not Detected CutOff 50 ng/mL [facility] Comment: Interpretive Data - Cannabinoids: Samples containing greater than 50 ng/mL delta-9 THC -COOH or other cross- reacting compounds are reported as positive. False positive and false negative results are possible. Confirmatory testing required for definitive results. Current Interpretive Data was last reviewed 2023. Testing performed by: [address] [address] Cocaine, ur Not Detected CutOff 150ng/mL [facility] Comment: Interpretive Data - Cocaine: Samples containing greater than 150 ng/mL benzoylecgonine or other cross- reacting compounds are reported as positive. False positive and false negative results are possible. Confirmatory testing required for definitive results. Current Interpretive Data was last reviewed 2023. Testing performed by: [address] [address] Fentanyl, Ur Not Detected CutOff 5 ng/mL [facility] Comment: Interpretive Data - Fentanyl: Samples containing greater than 1 ng/mL fentanyl or other cross-reacting fentanyl compounds are reported as positive. False positive and false negative results are possible. Confirmatory testing required for definitive results. Current Interpretive Data was last reviewed 2023. Testing performed by: [address] [address] Methadone, ur Not Detected CutOff 300ng/mL [facility] Comment: Interpretive Data - Methadone: Samples containing greater than 300 ng/mL d,l-methadone or other cross-reacting compounds are reported as positive. False positive and false negative results are possible. Confirmatory testing required for definitive results. Current Interpretive Data was last reviewed 2023. Testing performed by: [address] [address] Opiates, ur Not Detected CutOff 300ng/mL [facility] Comment: Interpretive Data - Opiates: Samples containing greater than 300 ng/mL morphine or other cross-reacting compounds are reported as positive. False positive and false negative results are possible. Confirmatory testing required for definitive results. Current Interpretive Data was last reviewed 2023. Testing performed by: [address], [place] [address] Oxycodone, ur Not Detected CutOff 100ng/mL LANIE Comment: Interpretive Data - Oxycodone: Samples containing greater than 100 ng/mL oxycodone or other cross-reacting compounds are reported as positive. False positive and false negative results are possible. Confirmatory testing required for definitive results. Current Interpretive Data was last reviewed 2023. Testing performed by: [address] [address] Phencyclidine, ur Not Detected CutOff 25 ng/mL LANIE Comment: Interpretive Data - Phencyclidine: Samples containing greater than 25 ng/mL phencyclidine or other cross-reacting compounds are reported as positive. False positive and false negative results are possible. Confirmatory testing required for definitive results. Current Interpretive Data was last reviewed 2023. Testing performed by: [address] [address] Urine Creatinine 254 mg/dL LANIE Comment: Interpretive Data Urine Creatinine: < 10 mg/dL is extremely dilute = or > 10 but < 20 mg/dL is dilute = or > 20 mg/dL is normal Current Interpretive Data was last revised on 2017. Testing performed by: [address] [address] Urine 02/21/2025 12:3 9 AM CDT 02/21/2025 12:52 AM CDT Narrative LANIE - 02/21/2025 1:19 AM CDT Drug of Abuse screening is performed by immunoassay for medical purposes only. This is not to be used for Pain Management purposes. us Deepa Aguayo NP LAB URINE ORDERABLES Fin al Result LANIE [address] [facility] Department [place] [address] * (ABNORMAL) Urinalysis, microscopic only (02/21/2025 12:39 AM CDT) WBC, ur >50(A) 0 - 5 /HPF Comment:Testing performed by : [address] [place] [address] RBC, ur 21-50(A) 0 - 2 /HPF LANIE Comment:Testing performed by : [address] [address] Epithelial cells, squamous, ur >50(A) 0 - 5 /HPF LANIE Comment:Testing performed by : [address] [address] Mucous, ur Present(A) LANIE Comment:Testing performed by : [address] [address] Culture Reflex Comment Reflex to urine culture will be performed. LANIE Comment:Testing performed by : [address] [address] Urine 02/21/2025 12:3 9 AM CDT 02/21/2025 12:52 AM CDT Deepa Aguayo MANAGER CAREER LAB URINE ORDERABLES Fin al Result LANIE [address] [facility] Department [place] [address] * (ABNORMAL) D-dimer, quantitative (02/21/2025 12:39 AM [...] last revised on 2019. Testing performed by: [address] [address] Blood 02/21/2025 12:3 9 AM CDT 02/21/2025 12:52 AM CDT Deepa Aguayo MANAGER CAREER LAB BLOOD ORDERABLES Fin al Result Performing Organization Address [facility] Co de Phone Number [address] [address] * Urine culture Urine (02/21/2025 12:39 AM CDT) Report Final Report: Growth indicative of contamination with periurethral faizan. Please submit a new specimen with special attention given to the collection process and to prompt transport to the laboratory. Comment:Testing performed by : [facility], [address] [place]., [address] Organism GROWTH INDICATES CONTAM WITH PERIURETHRAL FAIZAN. LANIE Urine 02/21/2025 12:3 9 AM CDT 02/21/2025 3:38 AM CDT Narrative LANIE - 02/22/2025 1:59 PM CDT Urine culture reflexed based upon urinalysis results. Testing performed by [facility] Microbiology Laboratory ([phone]) Deepa Aguayo MANAGER CAREER LAB MICROBIOLOGY - GENER AL ORDERABLES Final Result Performing Organization Address [facility] de Phone Number [address] [address] * (ABNORMAL) Comprehensive metabolic panel (02/21/2025 12:39 AM CDT) Sodium 135 135 - 145 mmol/L Comment:Testing performed by : [address] [address] Potassium, pl 4.0 3.3 - 4.9 mmol/L LANIE Comment:Testing performed by : [address] [address] Chloride 104 97 - 110 mmol/L LANIE Comment:Testing performed by : [address] [address] CO2 18(L) 22 - 32 mmol/L [facility] Comment:Testing performed by : [address] [address] Anion gap 13 2 - 15 mmol/L [facility] Comment:Testing performed by : [address] [address] BUN 13 6 - 25 mg/dL [facility] Comment:Testing performed by : [address] [address] Creatinine 0.67 0.60 - 1.10 mg/dL [facility] Comment:Testing performed by : [address] [address] Glucose 97 70 - 199 mg/dL [facility] Comment: Interpretive Data Fasting glucose >/= 126 [...] was last revised 2022. Testing performed by: [address] [address] Calcium 9.2 8.5 - 10.3 mg/dL [facility] Comment:Testing performed by : [address] [address] Bilirubin, total 0.3 0.1 - 1.2 mg/dL [facility] Comment:Testing performed by : [address] [address] Protein, pl 8.0 6.5 - 8.5 g/dL [facility] Comment:Testing performed by : [address] [address] Albumin 4.0 3.5 - 5.0 g/dL [facility] Comment:Testing performed by : [address] [address] Alk phos 141(H) 40 - 130 Units/L LANIE WHITTEN Comment:Testing performed by : [facility], [address] [place] [address]., [address] ALT 37 7 - 45 Units/L LANIE Comment:Testing performed by : [facility], [address] [place] [address]., [address] AST 33 10 - 45 Units/L LANIE Comment:Testing performed by : [facility], [address] [place] [address]., [address] Blood 02/21/2025 12:3 9 AM CDT 02/21/2025 12:52 AM CDT us Deepa Aguayo MANAGER CAREER LAB BLOOD ORDERABLES Fin al Result Performing Organization Address City/[facility]/ZIP Co de Phone Number [facility] [address] [facility] Department [place] [address] * ECG 12 lead (02/21/2025 12:38 AM CDT) Ventricular Rate EKG/Min [address] [facility] Atrial Rate [address] [facility] UT-Interval (MSEC) [address] [facility] QRS-Interval (MSEC) [address] [facility] QT-Interval (MSEC) [address] [facility] QTc [address] [facility] P [place] [address] [facility] R [place] [address] [facility] T [place] [address] [facility] Diagnosis Sinus tachycardia Nonspecific ST and T wave abnormality Abnormal ECG When compared with ECG of 16-FEB-2024 15:06, Vent. rate has increased BY 42 BPM Nonspecific T wave abnormality now evident in Anterior leads Confirmed by ANURADHA WOODS M.D. ([id number]) on 02/21/2025 11:22:34 PM [facility] 02/21/2025 12:3 8 AM CDT 02/21/2025 11:22 PM CDT us Deepa Aguayo MANAGER CAREER ECG ORDERABLES Final Re sult [facility] * XR Chest 1 Vw Portable (02/21/2025 [...] Cathy Mishra M.D. LL: LL Report ID: [id number] Reading Location: [id number] Procedure Note Cathy Mishra MD - 02/21/2025 [...] Cathy Mishra M.D. LL: LL Report ID: [id number] Reading Location: [id number] us Deepa Aguayo NP IMG XR PROCEDURES Final Result * High Risk HPV DNA Detection with Genotyping (Molecular component) (12/06/2024 12:00 PM CDT) HPV HR 16 Not Detected Not Detected HPV HR 18 Not Detected Not Detected [facility] HPV HR Non 16/18 Not Detected Not Detected [facility] Comment: Interpretive Data Nucleic acid amplification for [...] this test have been verified by the [facility]. Correlate with separately reported cytology results, as applicable. Interpretive data last revised 23 Endocervical 12/06/2024 12:0 0 PM CDT 12/06/2024 6:01 PM CDT Narrative [facility] - 12/09/2024 5:21 PM CDT Clinical history and diagnosis->none Number of vials->1 Testing type->Screening Last menstrual period (date if known)->unknown us Nanette Dykes MD LAB BODY FLUIDS AND STOOLS ORDERABLES Final Result [facility] [address] [place] [address] * Hepatitis panel, acute (11/08/2022 3:23 PM HELIARC WELDER) Hep A IgM Nonreactive Nonreactive [facility] Hep B core IgM Nonreactive Nonreactive [facility] Hep C Ab Nonreactive Nonreactive [facility] Comment:Antibodies to HCV no t detected. Does NOT exclude the possibility of recent exposure to HCV. Current interpretive data was last revised on 22 HepBsAg Nonreactive Nonreactive [facility] Blood 11/08/2022 3:23 PM HELIARC WELDER 11/08/2022 3:46 PM HELIARC WELDER us Berlin Whitmore NP LAB MICROBIOLOGY - GENERAL ORDERABLES Final Result [facility] [place] [address] from Last 3 Months or Most Recently Relevant to Health Maintenance Insurance [facility] Advance Directives For more information, please contact: [phone] * Full Code (Latest Code Status on File) Date Activated Date Inactivated Comments 12/13/2022 1:11 PM 12/13/2022 11:16 PM * Full Code Date Activated Date Inactivated Comments 07/07/2019 5:22 AM 07/09/2019 4:55 PM Care Teams Loom Tuner Relationship Specialty Start Date End Date Debbie Mendiola NP [address] [place] [address] PCP - General Family Medicine 02/24/25 Fiona Leon MD [address] [place] [address] Medical Oncologist/Attendant [facility] H[facility] On[facility] 12/17/24
--- OUTSIDE RECORDS SUMMARY | 2025-04-11 18:47 | XMS_ITS | Encounter Summary ---
Author Organization [facility] Address [address] [place] [address] Phone Care Team Providers Care Filling Machine Set Up Mechanic Name Role Phone Jamir Melgar MD Primary Care Provider No, Physician Primary Care Provider [phone] Fiona Leon MD Unavailable [phone] Debbie Mendiola NP Primary Care Provider [phone] Encounter Details Date Type Department Care Team (Late st Contact Info) Description 03/21/2023 Telephone [facility] Dermatology [address] [place] [address] Jesus Mcgrath, MIRA Social History [...] on file Legal Sex Female 3:36 AM CLINICAL DOCUMENTATION NURSE Gender Identity Female 03/02/2021 12:52 PM CDT [...] documented as of this encounter Care Teams Filling Machine Set Up Mechanic Relationship Specialty Start Date End Date Jamir Melgar MD PCP - General 01/16/17 01/29/24 No, Physician PCP - General 01/30/24 09/22/24 Debbie Mendiola NP [address] [facility] [address] [address] PCP - General Family Medicine 02/24/25 Fiona Leon MD [address] [place] [address] Medical Oncologist/Cutlet Maker [facility]ork Hematology and Oncology 12/17/24 documented as of this encounter
--- OUTSIDE RECORDS SUMMARY | 2025-04-11 18:47 | XMS_ITS | Clinical Summary ---
Author Organization [facility] [employer] Address [address] [place] [address] Care Team Providers Care Underwater Trapper Name Role Phone Jamir Melgar MD Primary Care Provider [phone] Source Comments [facility] [employer]non-owned Affiliates and Associated Physician Practices is amultiple site organization consisting of ambulatory clinics and hospital sitesin [place], [place], [place] and [place]. This disclosure is being madepursuant to the Care Everywhere program and may not contain all information available regarding this patient. Last updated 18.[facility] [employer] Allergies Active Allergy Reactions Criticality Noted Date [...] complication 04/04/20 17 Supervision of normal in [facility] 04/04/2017 Family History Medical History Relation Name [...] CDT Respiratory Rate 15 07/31/2016 3:24 PM DISPATCH LEAD Oxygen Saturation 98% 03/16/2023 1:10 PM CDT [...] Most Recently Relevant to Health Maintenance Insurance [facility] * Guarantor: YAZMIN HUNT Account Type Relation to Patient Date of Phone Billing Address Personal/Family [address] [place] [address] [facility] SELF PAY NO INSURANCE Member Subscriber Plan / Payer (Ef fective for All Dates) Name:Gilbert Yazmin L Member ID:Not on file Relation to Subscriber:Not on file Name:HUNTYAZMIN Subscriber ID:Not on file Address: [address] [place] [address] Payer ID:Not on file Group ID:Not on file Type:Self Pay Address: [place], [place] * Guarantor: YAZMIN HUNT Account Type Relation to Patient Date of Phone Billing Address Personal/Family [address] [place] [address] [facility] SELF PAY NO INSURANCE Member Subscriber Plan / Payer (Ef fective for All Dates) Name:HuntYazmin Member ID:Not on file Relation to Subscriber:Not on file Name:YAZMIN HUNT Subscriber ID:Not on file Address: [address] [place] [address] Payer ID:Not on file Group ID:Not on file Type:Self Pay Address: [place], [place] * Guarantor: YAZMIN HUNT Account Type Relation to Patient Date of Phone Billing Address Personal/Family [address] [place] [address] [facility] SELF PAY NO INSURANCE Member Subscriber Plan / Payer (Ef fective for All Dates) Name:Yazmin Hunt Member ID:Not on file Relation to Subscriber:Not on file Name:YAZMIN HUNT Subscriber ID:Not on file Address: [address] [place] [address] Payer ID:Not on file Group ID:Not on file Type:Self Pay Address: [place], [place] Care Teams Underwater Trapper Relationship Specialty Start Date End Date Jamir Melgar MD [address] [place] [address] [address] [place] [address] PCP - General 01/31/19
--- OUTSIDE RECORDS SUMMARY | 2025-04-11 18:47 | XMS_ITS | Encounter Summary ---
Author Organization [facility] Healthcare Address [address] [place] [address] Care Team Providers Care Flower Machine Operator Name Role Phone Fiona Leon MD Unavailable [phone] Debbie Mendiola NP Primary Care Provider [phone] Encounter Details Date Type Department Care Team (Late st Contact Info) Description 03/24/2025 Results Follow-Up [facility] Medical Group Family Medicine at [address] [place] [address] [place] [place] [address] [address] Hepatitis B surface antibody (immune [...] on file Legal Sex Female 3:36 AM FARE ENFORCEMENT OFFICER Gender Identity Female 03/02/2021 12:52 PM CDT Sexual Orientation Choose not to disclose 2020 12:52 PM CDT documented as of this encounter Plan of Treatment Not on file documented as of this encounter Visit Diagnoses Not on filedocumented in this encounter Care Teams Flower Machine Operator Relationship Specialty Start Date End Date Debbie Mendiola NP [address] [place] [address] PCP - General Family Medicine 02/24/25 Fiona Leon MD [address] [place] [address] Medical Oncologist/Stock Checkerer Hematology and Oncology 12/17/24 documented as of this encounter
--- OUTSIDE RECORDS SUMMARY | 2025-04-11 18:47 | XMS_ITS | Referral Summary ---
Author Organization [facility] Address [address] [place] [address] Care Team Providers Care Fiber Design Engineer Name Role Phone Fiona Leon MD Unavailable Debbie Mendiola NP Primary Care Provider [phone] Encounters Date Type Department Care Team Description 03/24/2025 Results Follow-Up [facility] Family Medicine at [address] [place] [address] Nemo Wallis PA Hepatitis B surface antibody (immune status) Blood, Hepatitis B core antibody, total Blood, Hepatitis B Surface Antigen Blood, Additional followed-up results: 3 03/24/2025 8:25 AM CDT Lab [facility] [address] [place] [address] Need for hepatitis B screening test; Class 3 severe obesity due to excess calories with serious comorbidity and body mass index (BMI) of 40.0 to 44.9 in adult; Lipid screening; Family history of diabetes mellitus 03/17/2025 1:30 PM CDT Office Visit [facility] Pulmonology [facility] [address] [place] [address] Ambreen Rothman MD MICHELE (obstructive sleep apnea) (Primary Dx); Moderate persistent asthma, unspecified whether complicated 03/10/2025 11:30 AM CDT Office Visit [facility] Family Medicine at [address] [place] [address] Nemo Wallis PA New daily persistent headache (Primary Dx); Dizziness; Nausea and vomiting, unspecified vomiting type; Mild persistent asthma without complication 03/07/2025 Nurse Triage [facility] Family Medicine at [address] [place] [address] Debbie Mendiola NP 03/06/2025 ALICIA ED Outreach [facility] Care Organization [address] [place] [address] Genoveva Abreu MA 03/05/2025 8:55 AM CDT - 03/05/2025 12:01 PM CDT Emergency [facility] [address] [place] [address] Marvin Luque, Shortness of breath (Primary Dx); Mild intermittent asthma with exacerbation Discharge Disposition: Discharge to home or self care 02/25/2025 Documentation [facility] [address] [place] [phone] Lashonda Marie RN 02/24/2025 2:00 PM CDT Office Visit [facility] Family [facility] at [address] [place] [address] Debbie Mendiola NP Iron deficiency (Primary Dx); [...] CDT - 02/21/2025 3:38 AM CDT Emergency [facility] [address] [place] [address] Mehdi Ernst DO Shortness of breath (Primary Dx) Discharge Disposition: Discharge to home or self care 01/24/2025 Telephone [facility] Family Medicine at [address] [place] [address] Debbie Mendiola NP Appointment Request from Last [...] for options. 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 During discussion patient notes [...] Advair. Discomfort with Advair noted. Seeking new circular saw edge fuser for alternative inhaler options. - Refer to pulmonology for asthma management. - Discuss inhaler alternatives with circular saw edge fuser. Assessment & Plan (01/08/2024 3:20 PM CDT): Nebs per her PCP. Elipta, atrovent, and advair. Postoperative incisional hernia 12/13/2022 Recurrent incisional hernia 12/08/2022 Overview (12/08/2022): Added automatically from request for surgery [id number] Disorder of hip joint 09/15/2022 Painless rectal [...] to hematology for ongoing management. Request new systems software manager for closer location for infusions. Metabolic and nutritional disorder 04/14/2021 Assessment & Plan (07/24/2022 11:51 AM CDT): Reviewed most recent labs available. Continue low-carb (<150 g/day), low- glycemic diet. Consider metformin. Assessment & Plan (08/13/2021 1:27 PM INTERNET PROGRAMMER): Reviewed labs with her. Continue low-carb (<150 [...] w/r/t gut microbiome. Referred to ADA and [employer] [facility] websites for additional information on topics [...] 02/20/2025 Assessment & Plan (08/13/2021 1:27 PM INTERNET PROGRAMMER): Tolerating phentermine without adverse effects. Will get [...] (07/07/2019): Added automatically from request for surgery [id number] Closed fracture of base of f ifth metatarsal bone 10/08/2018 03/10/2025 Obesity with body mass index 30 or greater 07/03/2017 02/20/2025 Polyhydramnios, antepartum complication 04/04/2017 02/24/2025 Supervision of normal pregna ncy in third trimester 04/04/2017 02/20/2025 Obesity with body mass index 30 or greater 07/24/2015 02/20/2025 No diagnosis on [place] I 01/04/201502/20 Class 3 severe obesity due t o excess calories in adult 12/19/2014 02/20/2025 Overview (04/14/2021): S/P RYGB Assessment & Plan (10/10/2022 7:21 PM INTERNET PROGRAMMER): Obesity is worse. Plan: Diet interventions: as noted.. and Regular aerobic exercise program discussed. Assessment & Plan (08/13/2021 1:19 PM INTERNET PROGRAMMER): Obesity is improving with treatment. Diet interventions: [...] on file Legal Sex Female 3:36 AM INTERNET PROGRAMMER Gender Identity Female 03/02/2021 12:52 PM CDT [...] on file Medical Devices Implanted Type Area 8Th Grade Teacher Device Identifier Shelf Expiration Date Model / Serial / Lot [employer] 6x4in Monofilament Nonabsorbable Seal Edge Low Profile [id number] - [id number] Implanted:Qty: 1 on 12/13/2022 by Anuradha Flores MD at [facility] Mesh N/A: Abdomen [employer] Bard 04/21/2023 [id number] / / [id number] Procedures Procedure Name Priority Date/Time Associated Diagnosis [...] HEPATITIS PANEL, ACUTE Routine 3 3:23 PM INTERNET PROGRAMMER Morbid obesity (HCC) Pre-op exam from Last 3 Months or Most Recently Relevant to Health Maintenance Results * Hepatitis B core antibody, total Blood (03/24/2025 8:29 AM CDT) Hep B core IgG/IgM Nonreactive Nonreactive Comment:Testing performed by : [facility], [address] [facility], [place]., [address] Blood 03/24/2025 8:29 AM CDT 03/24/2025 11:18 AM CDT Debbie Mendiola NP LAB MICROBIOLOGY - GENERAL OR DERABLES Final Result Performing Organization Address [facility] Co de Phone Number [address] [place] [address] * Hepatitis B surface antibody (immune status) [...] HBsAb (immune status) index 644.0 mIUnits/m L [facility] Blood 03/24/2025 8:29 AM CDT 03/24/2025 10:24 AM CDT Debbie Mendiola NP LAB MICROBIOLOGY - GENERAL OR DERABLES Final Result Performing Organization Address [facility] Co de Phone Number [address] [place] [address] * Hepatitis B Surface Antigen Blood (03/24/2025 8:29 AM CDT) Pathologist [facility] HepBsAg Nonreactive Nonreactive Blood 03/24/2025 8:29 AM CDT 03/24/2025 10:24 AM CDT Debbie Mendiola NP LAB MICROBIOLOGY - GENERAL OR DERABLES Final Result Performing Organization Address City/[facility] Co de Phone Number [address] [place] [address] * TSH (03/24/2025 8:29 AM CDT) Thyroid Stimulating Hormone 1.29 0.30 - 4.20 mcIUnit/mL Comment:Testing performed by : [address] [address] Blood 03/24/2025 8:29 AM CDT 03/24/2025 8:34 AM CDT Debbie Mendiola COMPANY TRUCK DRIVER LAB BLOOD ORDERABLES Final Re sult Performing Organization Address [facility] Co de Phone Number LANIE [facility] [place] [address] * Hemoglobin A1c (03/24/2025 8:29 AM CDT) Pathologist [facility] Hgb A1C 5.4 4.0 - 5.6 % Comment:Testing performed by : [address] [address] Estimated Average Glucose 108 mg/dL LANIE Comment: The ADA recommends reporting an estimated Average Glucose (eAG) with all Hemoglobin A1c results using the equation derived from a study of 507 normal and diabetic adults. Minority populations were underrepresented and children were not included. (Diabetes Care 31:5687-6955, 2008). The eAG is not equivalent to a fasting glucose. Testing performed by: [address] [address] Blood 03/24/2025 8:29 AM CDT 03/24/2025 8:34 AM CDT us Debbie Mendiola COMPANY TRUCK DRIVER LAB BLOOD ORDERABLES Final Re sult Performing Organization Address City/[facility] Co de Phone Number [place] [phone] [facility] [place] [address] * Lipid panel (03/24/2025 8:29 AM CDT) Pathologist [facility] Cholesterol 162 30 - 199 mg/dL Comment: [...] last revised on 2018. Testing performed by: [address] [address] Triglycerides 82 <=149 mg/dL LANIE Comment: Interpretive [...] last revised on 2018. Testing performed by: [address] [address] HDL 48 >=40 mg/dL LANIE Comment: Interpretive [...] last revised on 2018. Testing performed by: [address] [address] LDL, calculated 98 <=129 mg/dL LANIE Comment: [...] last revised on 2024. Testing performed by: [address] [address] Non-HDL Cholesterol 114 mg/dL LANIE WHITTEN Comment: [...] last revised on 2018. Testing performed by: [address] [address] Chol/HDL ratio 3 LANIE Comment:Testing performed by : [address] [address] Blood 03/24/2025 8:29 AM CDT 03/24/2025 8:34 AM CDT Kristi WHITTEN - 03/24/2025 9:16 AM CDT Has the patient been fasting for 8 hours or more?->Yes us Debbie Mendiola COMPANY TRUCK DRIVER LAB BLOOD ORDERABLES Final Re sult LANIE WHITTEN [address] [facility] [place] [address] * Troponin T high-sensitivity 2-hour (03/05/2025 10:33 AM CDT) Trop T hs <6 <=14 ng/L Comment: Interpretive Data For further hscTnT resources including the diagnostic algorithm and an aid in interpretation, copy and paste this link: https://nrl.testcatalog.org/show/hsTrop Current Interpretive Data last revised 2020. Testing performed by: [facility], [address] [place] [address]., [address] Trop T hs delta 0 ng/L LANIE WHITTEN Comment:Testing performed by : [address] [address] Trop T hs interp Insignificant LANIE WHITTEN Comment:Testing performed by : [facility], [address] [place] [address]., [address] Blood 03/05/2025 10:3 3 AM CDT 03/05/2025 10:44 AM CDT Marvin Luque DO LAB BLOOD ORDERABLES Final Result [facility] [address] [facility] [place] [address] * XR Chest 1 Vw Portable (if [...] En Manning D.O. PS: PS Report ID: [id number] Reading Location: [id number] Procedure Note En Manning DO - 03/05/2025 [...] En Manning D.O. PS: PS Report ID: [id number] Reading Location: [id number] Marvin Luque DO IMG XR PROCEDURES Final Res ult * Troponin T high-sensitivity series (baseline, 2hr, 4hr, 6hr) (03/05/2025 8:55 AM CDT) Trop T hs <6 <=14 ng/L Comment: Interpretive Data For further hscTnT resources including the diagnostic algorithm and an aid in interpretation, copy and paste this link: https://nrl.testcatalog.org/show/hsTrop Current Interpretive Data last revised 2020. Testing performed by: [address] [address] Blood 03/05/2025 8:55 AM CDT 03/05/2025 9:00 AM CDT Marvin Luque DO LAB BLOOD ORDERABLES Final Result LANIE [address] [facility] [place] [address] * Influenza A/B, RSV, and COVID-19 PCR Nasopharyngeal (03/05/2025 8:55 AM CDT) [facility] COVID-19 RNA Negative Negative Comment:Testing performed by : [address] [address] Influenza A RNA Negative Negative LANIE Comment:Testing performed by : [address] [address] Influenza B RNA Negative Negative [facility] Comment:Testing performed by : [address] [address] RSV RNA Negative Negative [facility] Comment: Interpretive data: Testing performed by [facility]. This test is performed using the [employer] Xpert Xpress CoV-2/Flu/RSV plus assay. This is a multiplex, real-time reverse transcriptase PCR assay intended for the qualitative detection of nucleic acid from SARS-CoV-2, influenza A, influenza B, and respiratory syncytial virus. This assay has been cleared by the [place] Food and Drug administration. The performance characteristics have been verified by the [facility]. Results must be considered in the clinical context, and a negative result does not rule out infection. Interpretive Data last revised 2023 Testing performed by: [address] [place] [address] Nasopharyngeal 03/05/2025 8: 55 AM CDT 03/05/2025 9:00 AM CDT Narrative LANIE - 03/05/2025 9:41 AM CDT Is the Patient experiencing symptoms consistent with COVID?->Yes Marvin Luque DO LAB MICROBIOLOGY - GENERAL ORDERABLES Final Result Performing Organization Address [facility] Co de Phone Number LANIE [address] [place] [address] * eGFR (03/05/2025 8:55 AM CDT) eGFR [...] last reviewed 2021. Testing performed by: [facility], [address] [place] [address]., [address] Blood 03/05/2025 8:55 AM CDT 03/05/2025 9:00 AM CDT us Marvin Luque DO LAB BLOOD ORDERABLES Final Result Performing Organization Address City/[facility]/ZIP Co de Phone Number LANIE [address] [place] [address] * Differential, auto (03/05/2025 8:55 AM CDT) Neutrophil abs 3.67 1.50 - 6.50 K/cumm Comment:Testing performed by : [address] [address] Imm gran abs 0.01 0.00 - 0.10 K/cumm [facility] Comment:Testing performed by : [address] [address] Lymphocyte abs 1.33 0.80 - 3.30 K/cumm [facility] Comment:Testing performed by : [address] [address] Monocyte abs 0.58 0.20 - 0.80 K/cumm [facility] Comment:Testing performed by : [address] [address] Eosinophil abs 0.14 0.00 - 0.50 K/cumm [facility] Comment:Testing performed by : [address] [address] Basophil abs 0.03 0.00 - 0.10 K/cumm [facility] Comment:Testing performed by : [address] [address] Neutrophil pct 63.7 % [facility] Comment: Interpretive Data Percent cell count reference ranges are not reported, since discordance with absolute values may lead to misinterpretation of CBC data. Current Interpretive Data was last revised on 2018. Testing performed by: [address] [address] Imm gran pct 0.2 % [facility] Comment: Interpretive Data Percent cell count reference ranges are not reported, since discordance with absolute values may lead to misinterpretation of CBC data. Current Interpretive Data was last revised on 2018. Testing performed by: [address] [address] Lymphocyte pct 23.1 % [facility] Comment: Interpretive Data Percent cell count reference ranges are not reported, since discordance with absolute values may lead to misinterpretation of CBC data. Current Interpretive Data was last revised on 2018. Testing performed by: [address] [address] Monocyte pct 10.1 % LANIE Comment: Interpretive Data Percent cell count reference ranges are not reported, since discordance with absolute values may lead to misinterpretation of CBC data. Current Interpretive Data was last revised on 2018. Testing performed by: [address] [address] Eosinophil pct 2.4 % LANIE Comment: Interpretive Data Percent cell count reference ranges are not reported, since discordance with absolute values may lead to misinterpretation of CBC data. Current Interpretive Data was last revised on 2018. Testing performed by: [address] [address] Basophil pct 0.5 % LANIE Comment: Interpretive Data Percent cell count reference ranges are not reported, since discordance with absolute values may lead to misinterpretation of CBC data. Current Interpretive Data was last revised on 2018. Testing performed by: [address] [address] Blood 03/05/2025 8:55 AM CDT 03/05/2025 9:00 AM CDT Marvin Luque DO LAB BLOOD ORDERABLES Final Result LANIE [address] [facility] Department of Laboratories [place], [place] [id number] * (ABNORMAL) CBC with auto differential (03/05/2025 8:55 AM CDT) WBC 5.76 3.80 - 9.90 K/cumm Comment:Testing performed by : [address] [address] Hgb 12.7 11.9 - 15.5 g/dL LANIE WHITTEN Comment:Testing performed by : [address] [address] Hct 38.2 35.6 - 45.5 % LANIE WHITTEN Comment:Testing performed by : [address] [address] Plt 308 150 - 400 K/cumm LANIE WHITTEN Comment:Testing performed by : [address] [address] MPV 9.3 9.1 - 12.3 fL LANIE WHITTEN Comment:Testing performed by : [address] [address] RBC 4.53 3.90 - 5.20 M/cumm LANIE WHITTEN Comment:Testing performed by : [address] [address] MCV 84.3 81.3 - 96.4 fL LANIE WHITTEN Comment:Testing performed by : [address] [address] MCH 28.0 27.1 - 33.3 pg LANIE WHITTEN Comment:Testing performed by : [address] [address] MCHC 33.2 32.3 - 35.7 g/dL LANIE WHITTEN Comment:Testing performed by : [address] [address] RDW CV 22.2(H) 11.1 - 14.9 % LANIE WHITTEN Comment:Testing performed by : [address] [address] RDW SD 65.4(H) 35.7 - 48.1 fL LANIE WHITTEN Comment:Testing performed by : [address] [address] NRBC abs 0.00 0.00 - 0.01 K/cumm LANIE WHITTEN Comment:Testing performed by : [address] [address] Blood 03/05/2025 8:55 AM CDT 03/05/2025 9:00 AM CDT Marvin Luque DO LAB BLOOD ORDERABLES Final Result LANIE WHITTEN [address] [facility] Department [place] [address] * Comprehensive metabolic panel (03/05/2025 8:55 AM CDT) [facility] Sodium 136 135 - 145 mmol/L Comment:Testing performed by : [address], [place]., [address] Potassium, pl 4.0 3.3 - 4.9 mmol/L LANIE Comment: Hemolyzed; Potassium value may be falsely elevated by as much as 1.0 mmol/L. Suggest redraw and reanalysis. Testing performed by: [address], [place]., [address] Chloride 104 97 - 110 mmol/L [facility] Comment:Testing performed by : [address], [place]., [address] CO2 23 22 - 32 mmol/L [facility] Comment:Testing performed by : [address], [place]., [address] Anion gap 9 2 - 15 mmol/L [facility] Comment:Testing performed by : [address] [address] BUN 10 6 - 25 mg/dL [facility] Comment:Testing performed by : [address], [place]., [address] Creatinine 0.62 0.60 - 1.10 mg/dL [facility] Comment:Testing performed by : [address] [address] Glucose 109 70 - 199 mg/dL [facility] Comment: Interpretive Data Fasting glucose >/= [...] was last revised 2022. Testing performed by: [address], [place]., [address] Calcium 8.9 8.5 - 10.3 mg/dL LANIE Comment:Testing performed by : [address] [address] Bilirubin, total 0.2 0.1 - 1.2 mg/dL LANIE Comment:Testing performed by : [address] [address] Protein, pl 7.4 6.5 - 8.5 g/dL LANIE Comment:Testing performed by : [address] [address] Albumin 3.8 3.5 - 5.0 g/dL LANIE Comment:Testing performed by : [address], [address] Alk phos 129 40 - 130 Units/L LANIE Comment:Testing performed by : [address], [address] ALT 40 7 - 45 Units/L LANIE Comment:Testing performed by : [address], [address] AST 40 10 - 45 Units/L LANIE Comment: Hemolyzed; result may be falsely elevated Testing performed by: [address] [address] Blood 03/05/2025 8:55 AM CDT 03/05/2025 9:00 AM CDT Marvin Luque DO LAB BLOOD ORDERABLES Final Result LANIE [address] [facility] Department of Laboratories [place], [place] [id number] * ECG 12 lead (03/05/2025 8:46 AM CDT) Ventricular Rate EKG/Min 67 BPM [facility] Atrial Rate 67 BPM [facility] GA-Interval (MSEC) 160 ms [facility] QRS-Interval (MSEC) 78 ms [facility] QT-Interval (MSEC) 418 ms [facility] QTc 441 ms [facility] P [place] 34 degrees [facility] R [place] 12 degrees [facility] T [place] -1 degrees [facility] Diagnosis Normal sinus rhythm Within normal limits When compared with ECG of 21-FEB-2025 00:38, Vent. rate has decreased BY 36 BPM Inverted T waves have replaced nonspecific T wave abnormality in Inferior leads Confirmed by SULTAN AVILA M.D. ([id number]) on 03/05/2025 8:54:[address] [facility] 03/05/2025 8:46 AM CDT 03/05/2025 8:54 PM CDT Marvin Luque DO ECG ORDERABLES Final Resul t Performing Organization Address City/[facility]/ZIP Co de Phone Number [facility] * Troponin T high-sensitivity 2-hour (02/21/2025 2:31 AM CDT) Trop T hs 8 <=14 ng/L Comment: Interpretive Data For further hscTnT resources including the diagnostic algorithm and an aid in interpretation, copy and paste this link: https://nrl.testcatalog.org/show/hsTrop Current Interpretive Data last revised 2020. Testing performed by: [facility], [address] [place] [address]., [address] Trop T hs delta 2 ng/L LANIE Comment:Testing performed by : [facility], [address] [place] [address]., [address] Trop T hs interp Insignificant LANIE Comment:Testing performed by : [address] [address] Blood 02/21/2025 2:31 AM CDT 02/21/2025 2:33 AM CDT Deepa Aguayo [employer] TRUCK DRIVER LAB BLOOD ORDERABLES Fin al Result Performing Organization Address City/[facility] Co de Phone Number [facility] [address] [facility] [place] [address] * CT Chest PE (CTA) [...] Amanda Leon M.D. SN: SN Report ID: [id number] Reading Location: [id number] Procedure Note Amanda Leon MD - 02/21/2025 [...] by Amanda Leon M.D. SN: Report ID: [id number] Reading Location: [id number] Mehdi Ernst DO IMG CT PROCEDURES Final [...] by Amanda Leon M.D. SN: Report ID: [id number] Reading Location: [id number] Procedure Note Amanda Leon MD - 02/21/2025 [...] Amanda Leon M.D. SN: SN Report ID: [id number] Reading Location: [place] [address] Mehdi Ernst DO IMG CT PROCEDURES Final Res ult * POCT hCG, urine (02/21/2025 12:43 AM CDT) Pathologist [facility] HCG, ur, POC Negative Negative Lot Number [id number] QC Backgroud Clear Acceptable QC Control Line Acceptable Urine 02/21/2025 12:4 3 AM CDT Deepa Agu[employer] TRUCK DRIVER POINT OF CARE TEST ORDER FELIPE Final Result * Troponin T high-sensitivity series (baseline, 2hr, 4hr, 6hr) (02/21/2025 12:39 AM CDT) Pathologist [facility] Trop T hs <6 <=14 ng/L Comment: Interpretive Data For further hscTnT resources including the diagnostic algorithm and an aid in interpretation, copy and paste this link: https://nrl.testcatalog.org/show/hsTrop Current Interpretive Data last revised 2020. Testing performed by: [facility], [address] [place] [address]., [address] Blood 02/21/2025 12:3 9 AM CDT 02/21/2025 12:52 AM CDT Deepa Ramon [employer] TRUCK DRIVER LAB BLOOD ORDERABLES Fin al Result Performing Organization Address [facility] Co de Phone Number LANIE [address] [place] [address] * eGFR (02/21/2025 12:39 AM CDT) eGFR [...] was last reviewed 2021. Testing performed by: [address] [address] Blood 02/21/2025 12:3 9 AM CDT 02/21/2025 12:52 AM CDT us Deepa Agu[employer] TRUCK DRIVER LAB BLOOD ORDERABLES Fin al Result Performing Organization Address City/[facility]/ZIP Co de Phone Number LANIE [address] [place], [place] [id number] * (ABNORMAL) Differential, auto (02/21/2025 12:39 AM CDT) Neutrophil abs 4.91 1.50 - 6.50 K/cumm Comment:Testing performed by : [address] [address] Imm gran abs 0.03 0.00 - 0.10 K/cumm LANIE Comment:Testing performed by : [address], [place]., [address] Lymphocyte abs 3.26 0.80 - 3.30 K/cumm LANIE Comment:Testing performed by : [address] [address] Monocyte abs 1.02(H) 0.20 - 0.80 K/cumm LANIE Comment:Testing performed by : [address], [place]., [address] Eosinophil abs 0.41 0.00 - 0.50 K/cumm LANIE Comment:Testing performed by : [address] [address] Basophil abs 0.05 0.00 - 0.10 K/cumm LANIE Comment:Testing performed by : [address] [address] Neutrophil pct 50.8 % [facility] Comment: Interpretive Data Percent cell count reference ranges are not reported, since discordance with absolute values may lead to misinterpretation of CBC data. Current Interpretive Data was last revised on 2018. Testing performed by: [address] [address] Imm gran pct 0.3 % [facility] Comment: Interpretive Data Percent cell count reference ranges are not reported, since discordance with absolute values may lead to misinterpretation of CBC data. Current Interpretive Data was last revised on 2018. Testing performed by: [address] [address] Lymphocyte pct 33.7 % [facility] Comment: Interpretive Data Percent cell count reference ranges are not reported, since discordance with absolute values may lead to misinterpretation of CBC data. Current Interpretive Data was last revised on 2018. Testing performed by: [address] [address] Monocyte pct 10.5 % [facility] Comment: Interpretive Data Percent cell count reference ranges are not reported, since discordance with absolute values may lead to misinterpretation of CBC data. Current Interpretive Data was last revised on 2018. Testing performed by: [address] [address] Eosinophil pct 4.2 % LANIE Comment: Interpretive Data Percent cell count reference ranges are not reported, since discordance with absolute values may lead to misinterpretation of CBC data. Current Interpretive Data was last revised on 2018. Testing performed by: [address] [address] Basophil pct 0.5 % LANIE Comment: Interpretive Data Percent cell count reference ranges are not reported, since discordance with absolute values may lead to misinterpretation of CBC data. Current Interpretive Data was last revised on 2018. Testing performed by: [address] [address] Blood 02/21/2025 12:3 9 AM CDT 02/21/2025 12:52 AM CDT Deepa [employer] LAB BLOOD ORDERABLES Health System al Result [facility] [address] [facility] [place] [address] * (ABNORMAL) Urinalysis reflex to microscopic and culture Urine (02/21/2025 12:39 AM CDT) Color, ur Yellow Yellow Comment:Testing performed by : [address] [address] Clarity, ur Turbid(A) Clear LANIE Comment:Testing performed by : [address] [address] Specific gravity, ur 1.037(H) 1.003 - 1.030 LANIE Comment:Testing performed by : [address] [address] pH, urine 6.0 LANIE Comment: Interpretive Data U rine pH is affected by diet, medications, systemic acid-base disturbances, and renal tubular function. pH may affect urinary stone formation. For example, urine pH below 6.0 may help reduce the tendency for calcium phosphate stones and pH greater than 6.0 may reduce the tendency for uric acid stone formation. Source: [facility] Current Interpretive Data was last revised on 2017 Testing performed by: [facility], [address] [place] [address], [place]., [address] Protein, ur ql 1+(A) Negative LANIE Comment:Testing performed by : [facility], [address] [place] [address], [place]., [address] Glucose, ur ql Negative Negative LANIE Comment:Testing performed by : [address], [place]., [address] Ketones, ur Trace(A) Negative LANIE Comment:Testing performed by : [address], [place]., [address] Bilirubin, ur Negative Negative LANIE Comment:Testing performed by : [address], [place]., [address] Blood, ur Trace(A) Negative LANIE Comment:Testing performed by : [address], [place]., [address] Urobilinogen, ur <2.0 <2.0 mg/dL LANIE Comment:Testing performed by : [address], [place]., [address] Nitrite, ur Negative Negative LANIE Comment:Testing performed by : [address], [place]., [address] Leukocyte esterase, ur 4+(A) Negative LANIE Comment:Testing performed by : [address], [place]., [address] UA reflex comment Reflex to microscopic UA will be performed. LANIE Comment:Testing performed by : [address], [place]., [address] Urine 02/21/2025 12:3 9 AM CDT 02/21/2025 12:52 AM CDT us Deepa Aguayo NP LAB MICROBIOLOGY - GENER AL ORDERABLES Final Result [facility] [address] [facility] Department [place] [address] * (ABNORMAL) CBC with auto differential (02/21/2025 12:39 AM CDT) [facility] WBC 9.68 3.80 - 9.90 K/cumm Comment:Testing performed by : [address] [address] Hgb 12.3 11.9 - 15.5 g/dL LANIE Comment:Testing performed by : [address] [address] Hct 37.2 35.6 - 45.5 % LANIE Comment:Testing performed by : [address] [address] Plt 358 150 - 400 K/cumm LANIE Comment:Testing performed by : [address] [address] MPV 9.2 9.1 - 12.3 fL LANIE Comment:Testing performed by : [address], [address] RBC 4.50 3.90 - 5.20 M/cumm LANIE Comment:Testing performed by : [address] [address] MCV 82.7 81.3 - 96.4 fL LANIE Comment:Testing performed by : [address], [address] MCH 27.3 27.1 - 33.3 pg LANIE Comment:Testing performed by : [address], [address] MCHC 33.1 32.3 - 35.7 g/dL LANIE Comment:Testing performed by : [address] [address] RDW CV 23.4(H) 11.1 - 14.9 % LANIE Comment:Testing performed by : [address], [address] RDW SD 67.7(H) 35.7 - 48.1 fL LANIE Comment:Testing performed by : [address] [address] NRBC abs 0.00 0.00 - 0.01 K/cumm LANIE Comment:Testing performed by : [address] [address] Blood 02/21/2025 12:3 9 AM CDT 02/21/2025 12:52 AM CDT Deepa Yenny Aguayo NP LAB BLOOD ORDERABLES Fin al Result [facility] [address] [facility] Department [place] [address] * Drugs of Abuse Screen, Urine without Confirmation (02/21/2025 12:39 AM CDT) Pathologist [facility] Amphetamine, ur Not Detected CutOff 500ng/mL Comment: Interpretive Data - Amphetamines: Samples containing greater than 500 ng/mL d-methamphetamine or other cross-reacting amphetamine compounds are reported as positive. Amphetamine immunoassays are subject to significant false positive rates due to cross-reactivity of non-amphetamine drugs. Confirmatory testing required for definitive results. Current Interpretive Data was last reviewed 2023. Testing performed by: [address] [address] Barbiturates, ur Not Detected CutOff 200ng/mL [facility] Comment: Interpretive Data - Barbiturates: Samples containing greater than 200 ng/mL secobarbital or other cross-reacting barbiturate compounds are reported as positive. False positive and false negative results are possible. Confirmatory testing required for definitive results. Current Interpretive Data was last reviewed 2023. Testing performed by: [address] [address] Benzodiazepines, ur Not Detected CutOff 100ng/mL [facility] Comment: Interpretive Data - Benzodiazepines: Samples containing greater than 100 ng/mL nordiazepam or other cross-reacting compounds are reported as positive. False positive and false negative results are possible. Confirmatory testing required for definitive results. Current Interpretive Data was last reviewed 2023. Testing performed by: [address] [address] Cannabinoids, ur Not Detected CutOff 50 ng/mL LANIE Comment: Interpretive Data - Cannabinoids: Samples containing greater than 50 ng/mL delta-9 THC -COOH or other cross- reacting compounds are reported as positive. False positive and false negative results are possible. Confirmatory testing required for definitive results. Current Interpretive Data was last reviewed 2023. Testing performed by: [address] [address] Cocaine, ur Not Detected CutOff 150ng/mL [facility] Comment: Interpretive Data - Cocaine: Samples containing greater than 150 ng/mL benzoylecgonine or other cross- reacting compounds are reported as positive. False positive and false negative results are possible. Confirmatory testing required for definitive results. Current Interpretive Data was last reviewed 2023. Testing performed by: [address], [place]., [address] Fentanyl, Ur Not Detected CutOff 5 ng/mL [facility] Comment: Interpretive Data - Fentanyl: Samples containing greater than 1 ng/mL fentanyl or other cross-reacting fentanyl compounds are reported as positive. False positive and false negative results are possible. Confirmatory testing required for definitive results. Current Interpretive Data was last reviewed 2023. Testing performed by: [address] [address] Methadone, ur Not Detected CutOff 300ng/mL [facility] Comment: Interpretive Data - Methadone: Samples containing greater than 300 ng/mL d,l-methadone or other cross-reacting compounds are reported as positive. False positive and false negative results are possible. Confirmatory testing required for definitive results. Current Interpretive Data was last reviewed 2023. Testing performed by: [address] [address] Opiates, ur Not Detected CutOff 300ng/mL [facility] Comment: Interpretive Data - Opiates: Samples containing greater than 300 ng/mL morphine or other cross-reacting compounds are reported as positive. False positive and false negative results are possible. Confirmatory testing required for definitive results. Current Interpretive Data was last reviewed 2023. Testing performed by: [address], [place]., [address] Oxycodone, ur Not Detected CutOff 100ng/mL [facility] Comment: Interpretive Data - Oxycodone: Samples containing greater than 100 ng/mL oxycodone or other cross-reacting compounds are reported as positive. False positive and false negative results are possible. Confirmatory testing required for definitive results. Current Interpretive Data was last reviewed 2023. Testing performed by: [address] [address] Phencyclidine, ur Not Detected CutOff 25 ng/mL LANIE Comment: Interpretive Data - Phencyclidine: Samples containing greater than 25 ng/mL phencyclidine or other cross-reacting compounds are reported as positive. False positive and false negative results are possible. Confirmatory testing required for definitive results. Current Interpretive Data was last reviewed 2023. Testing performed by: [address] [address] Urine Creatinine 254 mg/dL LANIE Comment: Interpretive Data Urine Creatinine: < 10 mg/dL is extremely dilute = or > 10 but < 20 mg/dL is dilute = or > 20 mg/dL is normal Current Interpretive Data was last revised on 2017. Testing performed by: [address] [address] Urine 02/21/2025 12:3 9 AM CDT 02/21/2025 12:52 AM CDT Narrative [facility] - 02/21/2025 1:19 AM CDT Drug of Abuse screening is performed by immunoassay for medical purposes only. This is not to be used for Pain Management purposes. [employer] LAB URINE ORDERABLES Health System al Result LANIE [address] [facility] [place] [address] * (ABNORMAL) Urinalysis, microscopic only (02/21/2025 12:39 AM CDT) WBC, ur >50(A) 0 - 5 /HPF Comment:Testing performed by : [address] [address] RBC, ur 21-50(A) 0 - 2 /HPF LANIE Comment:Testing performed by : [address] [address] Epithelial cells, squamous, ur >50(A) 0 - 5 /HPF LANIE Comment:Testing performed by : [facility], [address] [place] [address]., [address] Mucous, ur Present(A) LANIE Comment:Testing performed by : [address] [address] Culture Reflex Comment Reflex to urine culture will be performed. LANIE Comment:Testing performed by : [address] [address] Urine 02/21/2025 12:3 9 AM CDT 02/21/2025 12:52 AM CDT us [employer]a [employer] LAB URINE ORDERABLES Fin al Result Performing Organization Address City/[facility] Co de Phone Number LNAIE [address] [facility] Department [place] [address] * (ABNORMAL) D-dimer, quantitative (02/21/2025 12:39 AM [...] last revised on 2019. Testing performed by: [address] [address] Blood 02/21/2025 12:3 9 AM CDT 02/21/2025 12:52 AM CDT us [employer]a [employer] LAB BLOOD ORDERABLES Fin al Result Performing Organization Address [facility] Co de Phone Number [place] [phone] [place] [address] * Urine culture Urine (02/21/2025 12:39 AM CDT) Report Final Report: Growth indicative of contamination with periurethral faizan. Please submit a new specimen with special attention given to the collection process and to prompt transport to the laboratory. Comment:Testing performed by : [facility], [address] [place]., [address] Organism GROWTH INDICATES CONTAM WITH PERIURETHRAL FAIZAN. LANIE Urine 02/21/2025 12:3 9 AM CDT 02/21/2025 3:38 AM CDT Narrative LANIE - 02/22/2025 1:59 PM CDT Urine culture reflexed based upon urinalysis results. Testing performed by [facility] Microbiology Laboratory ([phone]) [employer]a [employer] LAB MICROBIOLOGY - [facility] AL ORDERABLES Final Result Performing Organization Address [facility] de Phone Number [place] [phone] [place] [address] * (ABNORMAL) Comprehensive metabolic panel (02/21/2025 12:39 AM CDT) Sodium 135 135 - 145 mmol/L Comment:Testing performed by : [address] [address] Potassium, pl 4.0 3.3 - 4.9 mmol/L LANIE Comment:Testing performed by : [address] [address] Chloride 104 97 - 110 mmol/L LANIE Comment:Testing performed by : [address] [address] CO2 18(L) 22 - 32 mmol/L LANIE Comment:Testing performed by : [address] [address] Anion gap 13 2 - 15 mmol/L LANIE Comment:Testing performed by : [address] [address] BUN 13 6 - 25 mg/dL LANIE Comment:Testing performed by : [address] [address] Creatinine 0.67 0.60 - 1.10 mg/dL LANIE Comment:Testing performed by : [address] [address] Glucose 97 70 - 199 mg/dL LANIE [...] was last revised 2022. Testing performed by: [address] [address] Calcium 9.2 8.5 - 10.3 mg/dL LANIE Comment:Testing performed by : [address] [address] Bilirubin, total 0.3 0.1 - 1.2 mg/dL LANIE Comment:Testing performed by : [address] [address] Protein, pl 8.0 6.5 - 8.5 g/dL LANIE Comment:Testing performed by : [address] [address] Albumin 4.0 3.5 - 5.0 g/dL [facility] Comment:Testing performed by : [address] [address] Alk phos 141(H) 40 - 130 Units/L LANIE Comment:Testing performed by : [address] [address] ALT 37 7 - 45 Units/L LANIE Comment:Testing performed by : [address] [address] AST 33 10 - 45 Units/L LANIE WHITTEN Comment:Testing performed by : [facility], [address] [place] [address], [place]., [address] Blood 02/21/2025 12:3 9 AM CDT 02/21/2025 12:52 AM CDT Deepa [employer] LAB BLOOD ORDERABLES Fin al Result LANIE [address] [facility] [place] [address] * ECG 12 lead (02/21/2025 12:38 AM CDT) Ventricular Rate EKG/Min 103 BPM [facility] Atrial Rate [address] [facility] GA-Interval (MSEC) 154 ms [facility] QRS-Interval (MSEC) 60 ms [facility] QT-Interval (MSEC) 340 ms [facility] QTc 445 ms [facility] P [place] 59 degrees [facility] R [place] 49 degrees [facility] T [place] [address] [facility] Diagnosis Sinus tachycardia Nonspecific ST and T wave abnormality Abnormal ECG When compared with ECG of 16-FEB-2024 15:06, Vent. rate has increased BY 42 BPM Nonspecific T wave abnormality now evident in Anterior leads Confirmed by ANURADHA WOODS M.D. ([id number]) on 02/21/2025 11:22:[address] [facility] 02/21/2025 12:3 8 AM CDT 02/21/2025 11:22 PM CDT us Deepa [employer] ECG ORDERABLES Final Re sult [facility] * XR Chest 1 Vw Portable [...] Cathy Mishra M.D. LL: LL Report ID: [id number] Reading Location: [id number] Procedure Note Cathy Mishra MD - 02/21/2025 [...] Cathy Mishra M.D. LL: LL Report ID: [id number] Reading Location: [id number] [employer] IMG XR PROCEDURES Final Result * High [...] this test have been verified by the [facility]. Correlate with separately reported cytology results, [...] [address] Department [place] [address] * Hepatitis panel, acute (11/08/2022 3:23 PM INTERNET PROGRAMMER) Pathologist [facility] Hep A IgM Nonreactive Nonreactive [facility] Hep B core IgM Nonreactive Nonreactive [facility] Hep C Ab Nonreactive Nonreactive [facility] Comment:Antibodies to HCV no t detected. Does NOT exclude the possibility of recent exposure to HCV. Current interpretive data was last revised on 22 HepBsAg Nonreactive Nonreactive [facility] Blood 11/08/2022 3:23 PM INTERNET PROGRAMMER 11/08/2022 3:46 PM INTERNET PROGRAMMER [place] Whitmore NP LAB MICROBIOLOGY - GENERAL ORDERABLES Final Result LANIE [facility] Department [place] [address] from Last 3 Months or Most Recently Relevant to Health Maintenance Insurance [facility] Advance Directives For more information, please contact: [phone] * Full Code (Latest Code Status on File) Date Activated Date Inactivated Comments 12/13/2022 1:11 PM 12/13/2022 11:16 PM * Full Code Date Activated Date Inactivated Comments 07/07/2019 5:22 AM 07/09/2019 4:55 PM Care Teams Fiber Design Engineer Relationship Specialty Start Date End Date Debbie Mendiola NP [address] [facility] [address] [address] PCP - General Family Medicine 02/24/25 Fiona Leon MD [address] [place] [address] Medical Oncologist/Rail Signal Worker Hematology and Oncology 12/17/24
--- OUTSIDE RECORDS SUMMARY | 2025-04-11 18:47 | XMS_ITS | Encounter Summary ---
Author Organization [facility] Address [address] [place] [address] Phone Care Team Providers Care Clinical Program Manager Name Role Phone Jamir Melgar MD Primary Care Provider No, Physician Primary Care Provider [phone] Fiona Leon MD Unavailable [phone] Debbie Mendiola NP Primary Care Provider [phone] Encounter Details Date Type Department Care Team (Late st Contact Info) Description 02/23/2023 Telephone [facility] Dermatology [address] [facility] [address] [place] [address] Jesus Mcgrath, MIRA Social History [...] on file 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
--- OUTSIDE RECORDS SUMMARY | 2025-04-11 18:47 | XMS_ITS | Encounter Summary ---
Author Organization [facility] Address [address] [place] [address] Phone Care Team Providers Care Tablet Technician Name Role Phone Jamir Melgar MD Primary Care Provider No, Physician Primary Care Provider [phone] Fiona Leon MD Unavailable [phone] Debbie Mendiola NP Primary Care Provider [phone] Encounter Details Date Type Department Care Team (Late st Contact Info) Description 09/12/2023 Telephone [facility] Otolaryngology [address] [facility] Advanced Medicine [address]th [place] [address] [place] [address] Nadiya Mauricio Au.D. 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
--- OUTSIDE RECORDS SUMMARY | 2025-04-11 18:47 | XMS_ITS | Continuity of Care Document ---
Author Organization [facility] Address [address] [facility] [address] [place] [address] Phone Care Team Providers Care Deputy Court Clerk Name Role Phone Isaias Allred Unavailable Unavailable Procedures Procedure Date Office/outpatient Visit, Est Office/outpatient Visit, New Advance Directives Directive Yes / No Effective Date File Name No Information Encounters Encounter Description Practice Location Reason(s) For Visit Diagnoses Date Provider Providers Copied on Encounter Office/outpat ient Visit, Est [facility], [address] [place] [address] [address], [place], [place], [id number], tel:[phone] [facility] No Information [address] [facility] , [address], [place], [place], [facility], [place]. tel:[phone] Office/outpat ient Visit, [facility], [address] [place] [address] [address], [place], [place], [id number], [place] tel:[phone] [facility] No Information [address] [facility] [place] , [address], [place], [address], [place]. tel:[phone] Family History Family Member Type Diagnosis Age At Onset No Information Payers Payer name Insurance type Covered green party ID Authoralexander aguiar(s) [facility] [id number] Social History Type Description Quantity Date Captured [...]
--- OUTSIDE RECORDS SUMMARY | 2025-04-11 18:47 | XMS_ITS | Encounter Summary ---
Author Organization [facility] Healthcare Address [address] [place] [address] Care Team Providers Care Box Toe Buffer Name Role Phone Jamir Melgar MD Primary Care Provider No, Physician Primary Care Provider [phone] Fiona Leon MD Unavailable [phone] Debbie Mendiola NP Primary Care Provider [phone] Encounter Details Date Type Department Care Team (Late st Contact Info) Description 04/08/2021 Telephone [facility] [id number] [place] [id number] Sho Frias RT Social History Tobacco Use Types Packs/Day Years Used Date Smoking Tobacco: Never Smokeless Tobacco: Never Alcohol Use Standard Drinks/Week Comments Yes 0 (1 standard drink = 0.6 oz pur e alcohol) Comments No Sex and Gender Information Value Date Recorded Sex Assigned at Not on file Legal Sex Female 3:36 AM SERVICE DISPATCHER Gender Identity Female 03/02/2021 12:52 PM CDT Sexual Orientation Choose not to disclose 2020 12:52 PM CDT documented as of this encounter Plan of Treatment Not on file documented as of this encounter Visit Diagnoses Not on filedocumented in this encounter Additional Health Concerns Infection Onset Date Last Indicated Resolved Time COVID: Suspected 08/21/2022 08/21/2022 08/21/2022 4:10 PM SERVICE DISPATCHER COVID: Suspected 09/15/2022 09/15/2022 09/15/2022 2:16 AM SERVICE DISPATCHER COVID: Suspected 03/05/2025 03/05/2025 03/05/2025 9:42 AM CDT documented as of this encounter Care Teams Box Toe Buffer Relationship Specialty Start Date End Date Jamir Melgar MD PCP - General 01/16/17 01/29/24 No, Physician PCP - General 01/30/24 09/22/24 Debbie Mendiola NP [address] [facility] [address] [place] [id number] PCP - General Family Medicine 02/24/25 Fiona Leon MD [address] [place] [address] Medical Oncologist/Grip Boss Hematology and Oncology 12/17/24 documented as of this encounter
--- OUTSIDE RECORDS SUMMARY | 2025-04-11 18:47 | XMS_ITS | Continuity of Care Document ---
Author Organization [facility] Address [address] [place] [address] Phone Care Team Providers Care Financial Planning Assistant Name Role Phone Lalita Faustin MD [...] Encounter [facility], [address] [place] [address], [id number], [place] tel:[phone] [facility] No Information 4 Ramin Cheshil. [address], [place], [address], [place]. tel:[phone] Referring Provider: Zay Kelly, [address] [facility] [address], [place], [address]. tel:[phone] [facility], [address] [place] [address], [id number], [place] tel:[phone] [facility] No Information 3 Ramin Cheshil. [address], [place], [address], [place]. tel:[phone] Est (Level 3) OFFICE/OUTPAT IENT VISIT [facility], [address] [place] [address], [id number], [place] tel:[phone] [facility] rash (chief complaint) Body mass index (BMI) 38.0-38.9, adultContact dermatitis due to other agent 3 Ramin Cheshil. [address] [place], [address], [place]. tel:[phone] Referring Provider: Zay Kelly, [address] [facility] [address], [place], [address]. tel:[phone] New (Level 4) OFFICE/OUTPAT IENT VISIT [facility], [address] [place] [address], [id number], [place] tel:[phone] [facility] allergies and asthma (chief complaint) Body mass index (BMI) 40.0-44.9, adultSevere persistent asthmaChronic rhinitis Feb- 3 Ramin Cheshil. [address], [place], [address], [place]. tel:[phone] Referring Provider: Zay Kelly, [address] [facility] [address], [place], [address]. tel:[phone] [facility], [address] [place] [address] [address], [place], [place], [id number], [place] tel:[phone] [facility] No Information 3 Ramin Celis. [address], [place], [address], [place]. tel:[phone] Family History Family Member Type Diagnosis Age [...] er Payers Payer name Insurance type Covered green party ID Authoriza tion(s) [place] [id number] Social History Type Description Quantity Date Captured Comments Alcohol Use Details Unknown Caffeine Use Details Unknown Tobacco Use Status No Information Smoking Status No Information Sex Female Chief Complaint And Reason For Visit No Information Reason For Referral Reason For Referral No Information Plan Of Treatment Date Type Action Status Future Order: Lab Order Immunogl obulin E, Total ([id number]), Sent on: Sent Future Order: Lab Order CBC With Differential ([id number]), Sent on: Sent History Of Present Illness [...] of asthma, RASHTobacco: Never 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
== END 2025-04-11 18:50 | disposition left against medical advice (07) ==
LOC: ANHED 18:45
PROVIDERS: PCP Internal Medicine
DX: R22.41 Localized swelling, mass and lump, right lower limb (principal)
CPT/HCPCS: 99199